=== PATIENT | male | born 1960 ===

== ENCOUNTER 2023-01-04 15:32 | Inpatient (IN) | payer OTHER ==
[~2023-01-04] VITALS: Ht 180.3 cm; Wt 71.7 kg
[2023-01-05 17:30] VITALS: TEMP 98.9
[2023-01-05] MEDS ORDERED: IPRATROPIUM BROMIDE 0.5 MG/2.5 ML NEBU NEB PRN (19:00)
[2023-01-05] MEDS ORDERED: ALBUTEROL SULFATE 2.5 MG/3 ML NEBU NEB PRN (19:00)
[2023-01-05] MEDS ORDERED: CLONIDINE HCL 0.1 MG TABLET GT PRN (19:00)
[2023-01-05] MEDS: IPRATROPIUM BROMIDE 0.5 MG/2.5 ML NEBU NEB SCH (19:27)
[2023-01-05] MEDS: ALBUTEROL SULFATE 2.5 MG/3 ML NEBU NEB SCH (19:27)
[2023-01-05 20:00] VITALS: TEMP 97.9
[2023-01-05] MEDS: VALPROIC ACID 250 MG/5 ML LIQUID UDC GT SCH (21:00)
[2023-01-05] MEDS: CHLORHEXIDINE GLUCONATE 15 ML MOUTHWASH MM SCH (21:00)
[2023-01-05] MEDS ORDERED: JEVITY 1.2 1000 ML LIQUID GT PRN (21:00)
[2023-01-05] MEDS: levETIRAcetam 500 MG/5 ML LIQUID UDC GT SCH (21:00)
[2023-01-05] MEDS: ATORVASTATIN 20 MG TABLET GT SCH (22:16)
[2023-01-06] VITALS: TEMP 99.2
[2023-01-06] MEDS: ALBUTEROL SULFATE 2.5 MG/3 ML NEBU NEB SCH ×4 (01:24→19:24)
[2023-01-06] MEDS: IPRATROPIUM BROMIDE 0.5 MG/2.5 ML NEBU NEB SCH ×4 (01:24→19:24)
[2023-01-06 06:00] VITALS: TEMP 98.8
[2023-01-06 07:33] LABS: ALBUMIN 2.4 g/dL (3.4-5.0); BILIRUBIN,TOTAL 0.2 mg/dL (0.2-1.0); CREATININE 0.7 mg/dL (0.6-1.3); MAGNESIUM 1.9 mg/dL (1.8-2.4); PHOSPHOROUS 5.5 mg/dL (2.5-4.9); POTASSIUM 2.9 mmol/L (3.5-5.1); TOTAL PROTEIN, SERUM 8.3 g/dL (6.4-8.2)
[2023-01-06 07:34] LABS: THYROID STIMULATING HORMONE 4.279 mIU/mL (0.358-3.740)
[2023-01-06 07:52] VITALS: TEMP 98.6
[2023-01-06] MEDS: VALPROIC ACID 250 MG/5 ML LIQUID UDC GT SCH ×2 (08:10→21:55)
[2023-01-06] MEDS: levETIRAcetam 500 MG/5 ML LIQUID UDC GT SCH ×2 (08:13→21:55)
[2023-01-06] MEDS: QUETIAPINE FUMARATE 25 MG TABLET GT SCH ×3 (08:14→17:59)
[2023-01-06] MEDS: MULTIVITAMINS,THERAPEUTIC TABLET GT SCH (08:15)
[2023-01-06] MEDS: CHLORHEXIDINE GLUCONATE 15 ML MOUTHWASH MM SCH ×2 (08:18→21:55)
[2023-01-06] MEDS: ENOXAPARIN SODIUM 40 MG/0.4 ML DISP.SYRIN SQ SCH (08:23)
[2023-01-06] MEDS ORDERED: POTASSIUM CHLORIDE 20 MEQ POWDER PACKET GT ONE ×2 (11:30→13:30)
[2023-01-06 12:02] LABS: BASOPHILS % (AUTO) 0.5 % (0.0-2.0); EOSINOPHILS # (AUTO) 1.2 K/uL (0.0-0.7); EOSINOPHILS % (AUTO) 12.5 % (0.0-7.0); HEMATOCRIT 29.9 % (36.7-47.1); HEMOGLOBIN 9.9 g/dL (12.5-16.3); LYMPHOCYTES # (AUTO) 2.9 K/uL (0.8-4.8); LYMPHOCYTES % (AUTO) 31.6 % (20.5-51.5); MEAN CORPUSCULAR HEMOGLOBIN 29.7 uug (23.8-33.4); MEAN CORPUSCULAR HGB CONC 33 g/dL (32.5-36.3); MEAN CORPUSCULAR VOLUME 90.2 fL (73.0-96.2); MONOCYTES # (AUTO) 0.9 K/uL (0.1-1.30); MONOCYTES % (AUTO) 9.9 % (0.0-11.0); NEUTROPHILS # (AUTO) 4.2 K/uL (1.8-8.9); NEUTROPHILS % (AUTO) 45.5 % (38.5-71.5); PLATELET COUNT (AUTO) 399 K/uL (152-348); RED BLOOD CELL COUNT(AUTO) 3.32 MIL/uL (4.06-5.63); RED CELL DISTRIBUTION WIDTH 15.9 % (12.1-16.2); WHITE BLOOD COUNT (AUTO) 9.3 K/uL (3.6-10.2)
[2023-01-06 12:06] LABS: DIFFERENTIAL COMMENT 1
[2023-01-06] MEDS ORDERED: TUBERCULIN,PURIF.PROT.DERIV. 5 TU/0.1 ML TEST ID ONE (14:00)
[2023-01-06] MEDS: NEOMY/BACITRA/POLYMYXIN B OINT UD PACKET TP SCH ×2 (16:52→21:55)
[2023-01-06 20:00] VITALS: TEMP 99.2
[2023-01-06] MEDS: POLYVINYL ALCOHOL OPHT DROPS 15 ML BOTTLE EACHEYE SCH (21:55)
[2023-01-06] MEDS: ATORVASTATIN 20 MG TABLET GT SCH (21:55)
[2023-01-06] MEDS: COD LIVER OIL/ZINC OXIDE OINT 113 GM TUBE TP SCH (21:55)
[2023-01-06] MEDS: NYSTATIN CREAM 30 GM TUBE TP SCH (21:55)
[2023-01-07] VITALS: TEMP 98.8
[2023-01-07] MEDS: IPRATROPIUM BROMIDE 0.5 MG/2.5 ML NEBU NEB SCH ×4 (01:26→19:30)
[2023-01-07] MEDS: ALBUTEROL SULFATE 2.5 MG/3 ML NEBU NEB SCH ×4 (01:26→19:30)
[2023-01-07 05:00] VITALS: TEMP 99.2
[2023-01-07] MEDS: POLYVINYL ALCOHOL OPHT DROPS 15 ML BOTTLE EACHEYE SCH ×3 (06:18→22:21)
[2023-01-07] MEDS: ENOXAPARIN SODIUM 40 MG/0.4 ML DISP.SYRIN SQ SCH (08:50)
[2023-01-07] MEDS: VALPROIC ACID 250 MG/5 ML LIQUID UDC GT SCH ×2 (08:52→20:56)
[2023-01-07] MEDS: COD LIVER OIL/ZINC OXIDE OINT 113 GM TUBE TP SCH ×2 (08:53→20:57)
[2023-01-07] MEDS: CHLORHEXIDINE GLUCONATE 15 ML MOUTHWASH MM SCH ×2 (08:53→20:56)
[2023-01-07] MEDS: NEOMY/BACITRA/POLYMYXIN B OINT UD PACKET TP SCH ×3 (08:53→20:57)
[2023-01-07] MEDS: QUETIAPINE FUMARATE 25 MG TABLET GT SCH ×3 (08:53→17:11)
[2023-01-07] MEDS: levETIRAcetam 500 MG/5 ML LIQUID UDC GT SCH ×2 (08:53→20:56)
[2023-01-07] MEDS: NYSTATIN CREAM 30 GM TUBE TP SCH ×2 (08:53→20:57)
[2023-01-07] MEDS: MULTIVITAMINS,THERAPEUTIC TABLET GT SCH (08:53)
[2023-01-07 11:12] VITALS: TEMP 98.8
[2023-01-07 12:16] VITALS: BP 135/72; TEMP 98.4; O2SAT 99
[2023-01-07 18:08] VITALS: BP 129/80; TEMP 98.4; O2SAT 99
[2023-01-07 20:21] VITALS: TEMP 98.7
[2023-01-07] MEDS: ATORVASTATIN 20 MG TABLET GT SCH (20:56)
[2023-01-07] MEDS: NORMAL SALINE FLUSH 10 ML DISP.SYRIN IV SCH (21:00)
[2023-01-08] MEDS: IPRATROPIUM BROMIDE 0.5 MG/2.5 ML NEBU NEB SCH ×4 (01:51→19:45)
[2023-01-08] MEDS: ALBUTEROL SULFATE 2.5 MG/3 ML NEBU NEB SCH ×4 (01:51→19:45)
[2023-01-08] MEDS: JEVITY 1.2 1000 ML LIQUID GT PRN ×2 (04:04→21:39)
[2023-01-08] MEDS: POLYVINYL ALCOHOL OPHT DROPS 15 ML BOTTLE EACHEYE SCH ×3 (05:58→21:38)
[2023-01-08] MEDS: NORMAL SALINE FLUSH 10 ML DISP.SYRIN IV SCH (09:00)
[2023-01-08] MEDS: VALPROIC ACID 250 MG/5 ML LIQUID UDC GT SCH ×2 (09:43→21:38)
[2023-01-08] MEDS: QUETIAPINE FUMARATE 25 MG TABLET GT SCH ×3 (09:43→16:17)
[2023-01-08] MEDS: CHLORHEXIDINE GLUCONATE 15 ML MOUTHWASH MM SCH ×2 (09:43→21:38)
[2023-01-08] MEDS: levETIRAcetam 500 MG/5 ML LIQUID UDC GT SCH ×2 (09:43→21:38)
[2023-01-08] MEDS: MULTIVITAMINS,THERAPEUTIC TABLET GT SCH (09:44)
[2023-01-08] MEDS: NYSTATIN CREAM 30 GM TUBE TP SCH ×2 (09:44→21:38)
[2023-01-08] MEDS: NEOMY/BACITRA/POLYMYXIN B OINT UD PACKET TP SCH ×3 (09:44→21:38)
[2023-01-08] MEDS: COD LIVER OIL/ZINC OXIDE OINT 113 GM TUBE TP SCH ×2 (09:44→21:38)
[2023-01-08] MEDS: ENOXAPARIN SODIUM 40 MG/0.4 ML DISP.SYRIN SQ SCH (09:46)
[2023-01-08 11:10] VITALS: TEMP 98
[2023-01-08] MEDS: ACETAMINOPHEN 650 MG/20 ML UDC- SA PATIENTS-PAIN ONLY GT PRN (15:36)
[2023-01-08 17:18] VITALS: TEMP 98.8
[2023-01-08 20:31] VITALS: TEMP 99
[2023-01-08] MEDS: ATORVASTATIN 20 MG TABLET GT SCH (21:38)
[2023-01-09] MEDS: ALBUTEROL SULFATE 2.5 MG/3 ML NEBU NEB SCH ×4 (01:25→19:40)
[2023-01-09] MEDS: IPRATROPIUM BROMIDE 0.5 MG/2.5 ML NEBU NEB SCH ×4 (01:25→19:40)
[2023-01-09] MEDS: OXYCODONE HCL 5 MG TABLET GT PRN (03:50)
[2023-01-09] MEDS: POLYVINYL ALCOHOL OPHT DROPS 15 ML BOTTLE EACHEYE SCH ×3 (05:55→21:46)
[2023-01-09 08:00] VITALS: TEMP 100.4
[2023-01-09] MEDS: levETIRAcetam 500 MG/5 ML LIQUID UDC GT SCH ×2 (08:16→21:45)
[2023-01-09] MEDS: MULTIVITAMINS,THERAPEUTIC TABLET GT SCH (08:16)
[2023-01-09] MEDS: VALPROIC ACID 250 MG/5 ML LIQUID UDC GT SCH ×2 (08:16→21:45)
[2023-01-09] MEDS: QUETIAPINE FUMARATE 25 MG TABLET GT SCH ×3 (08:16→17:12)
[2023-01-09] MEDS: CHLORHEXIDINE GLUCONATE 15 ML MOUTHWASH MM SCH ×2 (08:17→21:45)
[2023-01-09] MEDS: ENOXAPARIN SODIUM 40 MG/0.4 ML DISP.SYRIN SQ SCH (08:18)
[2023-01-09] MEDS: NYSTATIN CREAM 30 GM TUBE TP SCH ×2 (08:20→21:46)
[2023-01-09] MEDS: COD LIVER OIL/ZINC OXIDE OINT 113 GM TUBE TP SCH ×2 (08:20→21:46)
[2023-01-09] MEDS: NEOMY/BACITRA/POLYMYXIN B OINT UD PACKET TP SCH ×3 (08:21→21:46)
[2023-01-09] MEDS: ACETAMINOPHEN 650 MG/20 ML UDC- SA PATIENTS-PAIN ONLY GT PRN (13:30)
[2023-01-09 13:43] VITALS: TEMP 98.9
[2023-01-09] MEDS: JEVITY 1.2 1000 ML LIQUID GT PRN (14:07)
[2023-01-09 16:15] LABS: *BILIRUBIN,URIN NEGATIVE (NEGATIVE); *BLOOD, URINE NEGATIVE (NEGATIVE); *CLARITY,URINE CLEAR (CLEAR); *COLOR,URINE YELLOW (YELLOW); *KETONES,URINE NEGATIVE (NEGATIVE); *PROTEIN,URINE NEGATIVE (NEGATIVE); *UROBILINOGEN,URINE 0.2 E.U./dl (NORMAL); LEUKOCYTE ESTERASE ,URINE NEGATIVE (NEGATIVE); NITRITE, URINE NEGATIVE (NEGATIVE); PH,URINE 6.5 (5.0-8.0); UGLUCOSE NEGATIVE (NEGATIVE)
[2023-01-09 18:59] VITALS: TEMP 98.9
[2023-01-09 20:35] VITALS: TEMP 98.1
[2023-01-09] MEDS: ATORVASTATIN 20 MG TABLET GT SCH (21:45)
[2023-01-10] MEDS: IPRATROPIUM BROMIDE 0.5 MG/2.5 ML NEBU NEB SCH ×5 (01:58→19:30)
[2023-01-10] MEDS: ALBUTEROL SULFATE 2.5 MG/3 ML NEBU NEB SCH ×4 (01:58→19:30)
[2023-01-10] MEDS: POLYVINYL ALCOHOL OPHT DROPS 15 ML BOTTLE EACHEYE SCH ×3 (05:19→21:28)
[2023-01-10 06:29] LABS: BASOPHILS % (AUTO) 0.3 % (0.0-2.0); EOSINOPHILS # (AUTO) 0.4 K/uL (0.0-0.7); EOSINOPHILS % (AUTO) 2.4 % (0.0-7.0); HEMATOCRIT 29.2 % (36.7-47.1); HEMOGLOBIN 9.6 g/dL (12.5-16.3); LYMPHOCYTES # (AUTO) 3.4 K/uL (0.8-4.8); LYMPHOCYTES % (AUTO) 19.3 % (20.5-51.5); MEAN CORPUSCULAR HEMOGLOBIN 29.1 uug (23.8-33.4); MEAN CORPUSCULAR HGB CONC 33 g/dL (32.5-36.3); MEAN CORPUSCULAR VOLUME 88.8 fL (73.0-96.2); MONOCYTES # (AUTO) 0.8 K/uL (0.1-1.30); MONOCYTES % (AUTO) 4.7 % (0.0-11.0); NEUTROPHILS % (AUTO) 73.3 % (38.5-71.5); PLATELET COUNT (AUTO) 385 K/uL (152-348); RED BLOOD CELL COUNT(AUTO) 3.29 MIL/uL (4.06-5.63); RED CELL DISTRIBUTION WIDTH 15.5 % (12.1-16.2); WHITE BLOOD COUNT (AUTO) 17.7 K/uL (3.6-10.2)
[2023-01-10 06:43] LABS: DIFFERENTIAL COMMENT 1
[2023-01-10 06:57] LABS: ALANINE AMINOTRANSFERASE 23 U/L (16-63); ALBUMIN 2.3 g/dL (3.4-5.0); ALKALINE PHOSPHATASE 122 U/L (50-136); ASPARTATE AMINOTRANSFERASE 48 U/L (15-37); BILIRUBIN,TOTAL 0.3 mg/dL (0.2-1.0); CALCIUM 9.4 mg/dL (8.5-10.1); CARBON DIOXIDE 26 mmol/L (21-32); CHLORIDE 111 mmol/L (98-107); CREATININE 0.5 mg/dL (0.6-1.3); GLUCOSE 132 mg/dL (74-106); POTASSIUM 3.4 mmol/L (3.5-5.1); SODIUM SERUM 147 mmol/L (136-145); TOTAL PROTEIN, SERUM 8.4 g/dL (6.4-8.2); UREA NITROGEN, BLOOD 13 mg/dL (7-18)
[2023-01-10 07:40] VITALS: TEMP 100.3
[2023-01-10] MEDS: MULTIVITAMINS,THERAPEUTIC TABLET GT SCH (08:27)
[2023-01-10] MEDS: QUETIAPINE FUMARATE 25 MG TABLET GT SCH ×3 (08:27→17:31)
[2023-01-10] MEDS: CHLORHEXIDINE GLUCONATE 15 ML MOUTHWASH MM SCH ×2 (08:27→21:28)
[2023-01-10] MEDS: VALPROIC ACID 250 MG/5 ML LIQUID UDC GT SCH ×2 (08:27→21:27)
[2023-01-10] MEDS: levETIRAcetam 500 MG/5 ML LIQUID UDC GT SCH ×2 (08:27→21:27)
[2023-01-10] MEDS: NEOMY/BACITRA/POLYMYXIN B OINT UD PACKET TP SCH ×3 (08:28→21:28)
[2023-01-10] MEDS: COD LIVER OIL/ZINC OXIDE OINT 113 GM TUBE TP SCH ×2 (08:28→21:28)
[2023-01-10] MEDS: NYSTATIN CREAM 30 GM TUBE TP SCH ×2 (08:28→21:28)
[2023-01-10] MEDS: ENOXAPARIN SODIUM 40 MG/0.4 ML DISP.SYRIN SQ SCH (08:31)
[2023-01-10] MEDS ORDERED: POTASSIUM CHLORIDE 20 MEQ POWDER PACKET GT ONE (15:00)
[2023-01-10] MEDS: TRIAMCINOLONE 0.1% OINTMENT TOP SCH (17:31)
[2023-01-10] MEDS: CEFEPIME HCL 2 G in IV DEXTROSE 5% 100 ML IV SCH (18:49)
[2023-01-10 20:00] VITALS: TEMP 98.9
[2023-01-10] MEDS ORDERED: CEFEPIME HCL 2 G in IV DEXTROSE 5% 100 ML IV SCH (20:00)
[2023-01-10] MEDS: VANCOMYCIN IV 1,000 MG in IV DEXTROSE 5% 250 ML IV SCH (20:46)
[2023-01-10] MEDS: ATORVASTATIN 20 MG TABLET GT SCH (21:27)
[2023-01-11] MEDS: IPRATROPIUM BROMIDE 0.5 MG/2.5 ML NEBU NEB SCH ×4 (01:23→19:25)
[2023-01-11] MEDS: ALBUTEROL SULFATE 2.5 MG/3 ML NEBU NEB SCH ×4 (01:23→19:25)
[2023-01-11] MEDS: VANCOMYCIN IV 1,000 MG in IV DEXTROSE 5% 250 ML IV SCH ×3 (03:33→20:20)
[2023-01-11] MEDS: POLYVINYL ALCOHOL OPHT DROPS 15 ML BOTTLE EACHEYE SCH ×3 (05:43→22:37)
[2023-01-11] MEDS: CEFEPIME HCL 2 G in IV DEXTROSE 5% 100 ML IV SCH ×2 (05:52→18:37)
[2023-01-11 08:00] VITALS: TEMP 99.7
[2023-01-11 08:30] VITALS: TEMP 99.9
[2023-01-11] MEDS: VALPROIC ACID 250 MG/5 ML LIQUID UDC GT SCH ×2 (09:11→20:46)
[2023-01-11] MEDS: levETIRAcetam 500 MG/5 ML LIQUID UDC GT SCH ×2 (09:11→20:46)
[2023-01-11] MEDS: MULTIVITAMINS,THERAPEUTIC TABLET GT SCH (09:14)
[2023-01-11] MEDS: ENOXAPARIN SODIUM 40 MG/0.4 ML DISP.SYRIN SQ SCH (09:14)
[2023-01-11] MEDS: CHLORHEXIDINE GLUCONATE 15 ML MOUTHWASH MM SCH ×2 (09:14→20:46)
[2023-01-11] MEDS: QUETIAPINE FUMARATE 25 MG TABLET GT SCH ×3 (09:14→17:59)
[2023-01-11] MEDS: NEOMY/BACITRA/POLYMYXIN B OINT UD PACKET TP SCH ×3 (09:15→20:47)
[2023-01-11] MEDS: NYSTATIN CREAM 30 GM TUBE TP SCH ×2 (09:15→20:47)
[2023-01-11] MEDS: COD LIVER OIL/ZINC OXIDE OINT 113 GM TUBE TP SCH ×2 (09:15→20:47)
[2023-01-11] MEDS: TRIAMCINOLONE 0.1% OINTMENT TOP SCH ×2 (09:15→17:59)
[2023-01-11] MEDS ORDERED: SWABABLE VALVE TRANSFER SET EA MC ONE (09:54)
[2023-01-11] MEDS ORDERED: IV NORMAL SALINE 250 ML IV ONE (09:54)
[2023-01-11] MEDS ORDERED: IOHEXOL 300MG/ML 100 ML INFUS..BTL ONE (09:54)
[2023-01-11] MEDS: JEVITY 1.2 1000 ML LIQUID GT PRN (11:37)
[2023-01-11 12:30] VITALS: TEMP 99.6
[2023-01-11 16:30] VITALS: TEMP 99.5
[2023-01-11 20:00] VITALS: TEMP 98.6
[2023-01-11] MEDS: OXYCODONE HCL 5 MG TABLET GT PRN (20:00)
[2023-01-11] MEDS: ATORVASTATIN 20 MG TABLET GT SCH (20:46)
[2023-01-12] MEDS: IPRATROPIUM BROMIDE 0.5 MG/2.5 ML NEBU NEB SCH ×4 (01:47→19:10)
[2023-01-12] MEDS: ALBUTEROL SULFATE 2.5 MG/3 ML NEBU NEB SCH ×4 (01:47→19:10)
[2023-01-12] MEDS: JEVITY 1.2 1000 ML LIQUID GT PRN (01:59)
[2023-01-12] MEDS: VANCOMYCIN IV 1,000 MG in IV DEXTROSE 5% 250 ML IV SCH ×3 (04:47→20:00)
[2023-01-12] MEDS: POLYVINYL ALCOHOL OPHT DROPS 15 ML BOTTLE EACHEYE SCH ×3 (05:43→22:00)
[2023-01-12] MEDS: CEFEPIME HCL 2 G in IV DEXTROSE 5% 100 ML IV SCH ×2 (06:23→17:30)
[2023-01-12 08:00] VITALS: TEMP 98.2
[2023-01-12] MEDS: levETIRAcetam 500 MG/5 ML LIQUID UDC GT SCH ×2 (08:59→20:33)
[2023-01-12] MEDS: VALPROIC ACID 250 MG/5 ML LIQUID UDC GT SCH ×2 (08:59→20:33)
[2023-01-12] MEDS: QUETIAPINE FUMARATE 25 MG TABLET GT SCH ×3 (08:59→17:51)
[2023-01-12] MEDS: MULTIVITAMINS,THERAPEUTIC TABLET GT SCH (09:02)
[2023-01-12] MEDS: CHLORHEXIDINE GLUCONATE 15 ML MOUTHWASH MM SCH ×2 (09:02→20:34)
[2023-01-12] MEDS: TRIAMCINOLONE 0.1% OINTMENT TOP SCH ×2 (09:03→17:51)
[2023-01-12] MEDS: COD LIVER OIL/ZINC OXIDE OINT 113 GM TUBE TP SCH ×2 (09:03→20:38)
[2023-01-12] MEDS: NYSTATIN CREAM 30 GM TUBE TP SCH ×2 (09:03→20:38)
[2023-01-12] MEDS: ENOXAPARIN SODIUM 40 MG/0.4 ML DISP.SYRIN SQ SCH (09:03)
[2023-01-12] MEDS: NEOMY/BACITRA/POLYMYXIN B OINT UD PACKET TP SCH ×3 (09:04→20:38)
[2023-01-12 20:00] VITALS: TEMP 99.8
[2023-01-12] MEDS: ATORVASTATIN 20 MG TABLET GT SCH (20:33)
[2023-01-12 22:00] VITALS: TEMP 98.7
[2023-01-13 01:00] VITALS: TEMP 98.3
[2023-01-13] MEDS: IPRATROPIUM BROMIDE 0.5 MG/2.5 ML NEBU NEB SCH ×4 (01:35→19:12)
[2023-01-13] MEDS: ALBUTEROL SULFATE 2.5 MG/3 ML NEBU NEB SCH ×4 (01:35→19:12)
[2023-01-13] MEDS: VANCOMYCIN IV 1,000 MG in IV DEXTROSE 5% 250 ML IV SCH (04:00)
[2023-01-13] MEDS: POLYVINYL ALCOHOL OPHT DROPS 15 ML BOTTLE EACHEYE SCH ×2 (05:40→14:37)
[2023-01-13] MEDS: CEFEPIME HCL 2 G in IV DEXTROSE 5% 100 ML IV SCH ×3 (06:00→22:00)
[2023-01-13 06:15] VITALS: TEMP 98.1
[2023-01-13 06:24] LABS: BASOPHILS # (AUTO) 0.1 K/UL (0.0-0.2); BASOPHILS % (AUTO) 0.5 % (0.0-2.0); EOSINOPHILS # (AUTO) 0.5 K/uL (0.0-0.7); EOSINOPHILS % (AUTO) 3.7 % (0.0-7.0); HEMATOCRIT 26.3 % (36.7-47.1); HEMOGLOBIN 8.8 g/dL (12.5-16.3); LYMPHOCYTES # (AUTO) 2.8 K/uL (0.8-4.8); LYMPHOCYTES % (AUTO) 23.3 % (20.5-51.5); MEAN CORPUSCULAR HEMOGLOBIN 29.2 uug (23.8-33.4); MEAN CORPUSCULAR HGB CONC 33 g/dL (32.5-36.3); MEAN CORPUSCULAR VOLUME 87.6 fL (73.0-96.2); MONOCYTES # (AUTO) 0.8 K/uL (0.1-1.30); MONOCYTES % (AUTO) 6.3 % (0.0-11.0); NEUTROPHILS # (AUTO) 8.1 K/uL (1.8-8.9); NEUTROPHILS % (AUTO) 66.2 % (38.5-71.5); PLATELET COUNT (AUTO) 291 K/uL (152-348); RED CELL DISTRIBUTION WIDTH 15.5 % (12.1-16.2); WHITE BLOOD COUNT (AUTO) 12.2 K/uL (3.6-10.2)
[2023-01-13 06:45] LABS: ALANINE AMINOTRANSFERASE 18 U/L (16-63); ALKALINE PHOSPHATASE 113 U/L (50-136); ASPARTATE AMINOTRANSFERASE 52 U/L (15-37); BILIRUBIN,TOTAL 0.3 mg/dL (0.2-1.0); CARBON DIOXIDE 25 mmol/L (21-32); CHLORIDE 108 mmol/L (98-107); CREATININE 0.4 mg/dL (0.6-1.3); GLUCOSE 120 mg/dL (74-106); POTASSIUM 3.4 mmol/L (3.5-5.1); SODIUM SERUM 142 mmol/L (136-145); TOTAL PROTEIN, SERUM 7.8 g/dL (6.4-8.2); UREA NITROGEN, BLOOD 10 mg/dL (7-18)
[2023-01-13 06:46] LABS: DIFFERENTIAL COMMENT 1
[2023-01-13 08:06] VITALS: TEMP 98.7
[2023-01-13] MEDS: QUETIAPINE FUMARATE 25 MG TABLET GT SCH ×3 (09:26→17:57)
[2023-01-13] MEDS: levETIRAcetam 500 MG/5 ML LIQUID UDC GT SCH ×2 (09:28→21:00)
[2023-01-13] MEDS: NEOMY/BACITRA/POLYMYXIN B OINT UD PACKET TP SCH ×3 (09:29→21:00)
[2023-01-13] MEDS: VALPROIC ACID 250 MG/5 ML LIQUID UDC GT SCH ×2 (09:29→21:00)
[2023-01-13] MEDS: CHLORHEXIDINE GLUCONATE 15 ML MOUTHWASH MM SCH ×2 (09:30→21:00)
[2023-01-13] MEDS: COD LIVER OIL/ZINC OXIDE OINT 113 GM TUBE TP SCH ×2 (09:30→21:00)
[2023-01-13] MEDS: TRIAMCINOLONE 0.1% OINTMENT TOP SCH ×2 (09:30→17:57)
[2023-01-13] MEDS: NYSTATIN CREAM 30 GM TUBE TP SCH ×2 (09:30→21:00)
[2023-01-13] MEDS: MULTIVITAMINS,THERAPEUTIC TABLET GT SCH (09:35)
[2023-01-13] MEDS: ENOXAPARIN SODIUM 40 MG/0.4 ML DISP.SYRIN SQ SCH (09:38)
[2023-01-13] MEDS ORDERED: POTASSIUM CHLORIDE 10 MEQ TAB.PRT.SR XX SCH (12:00)
[2023-01-13] MEDS ORDERED: POTASSIUM CHLORIDE 20 MEQ POWDER PACKET GT ONE (12:00)
[2023-01-13] MEDS ORDERED: POLYVINYL ALCOHOL OPHT DROPS 15 ML BOTTLE EACHEYE PRN (14:05)
[2023-01-13] MEDS: JEVITY 1.2 1000 ML LIQUID GT PRN (18:49)
[2023-01-13] MEDS: ATORVASTATIN 20 MG TABLET GT SCH (21:00)
[2023-01-13 21:01] VITALS: TEMP 98
[2023-01-14] MEDS: IPRATROPIUM BROMIDE 0.5 MG/2.5 ML NEBU NEB SCH ×4 (01:31→19:38)
[2023-01-14] MEDS: ALBUTEROL SULFATE 2.5 MG/3 ML NEBU NEB SCH ×4 (01:31→19:38)
[2023-01-14] MEDS: CEFEPIME HCL 2 G in IV DEXTROSE 5% 100 ML IV SCH ×3 (06:07→21:22)
[2023-01-14 08:06] VITALS: TEMP 99.9
[2023-01-14] MEDS: VALPROIC ACID 250 MG/5 ML LIQUID UDC GT SCH ×2 (09:32→21:11)
[2023-01-14] MEDS: levETIRAcetam 500 MG/5 ML LIQUID UDC GT SCH ×2 (09:34→21:11)
[2023-01-14] MEDS: QUETIAPINE FUMARATE 25 MG TABLET GT SCH ×3 (09:34→16:48)
[2023-01-14] MEDS: MULTIVITAMINS,THERAPEUTIC TABLET GT SCH (09:36)
[2023-01-14] MEDS: CHLORHEXIDINE GLUCONATE 15 ML MOUTHWASH MM SCH ×2 (09:36→21:11)
[2023-01-14] MEDS: ENOXAPARIN SODIUM 40 MG/0.4 ML DISP.SYRIN SQ SCH (09:39)
[2023-01-14] MEDS: TRIAMCINOLONE 0.1% OINTMENT TOP SCH ×2 (09:39→16:48)
[2023-01-14] MEDS: COD LIVER OIL/ZINC OXIDE OINT 113 GM TUBE TP SCH ×2 (09:39→21:11)
[2023-01-14] MEDS: NEOMY/BACITRA/POLYMYXIN B OINT UD PACKET TP SCH ×3 (09:40→21:12)
[2023-01-14] MEDS: NYSTATIN CREAM 30 GM TUBE TP SCH ×2 (09:40→21:11)
[2023-01-14] MEDS: JEVITY 1.2 1000 ML LIQUID GT PRN (10:45)
[2023-01-14 20:00] VITALS: TEMP 99.4
[2023-01-14] MEDS: ATORVASTATIN 20 MG TABLET GT SCH (21:11)
[2023-01-14] MEDS: OXYCODONE HCL 5 MG TABLET GT PRN (22:23)
[2023-01-15] MEDS: IPRATROPIUM BROMIDE 0.5 MG/2.5 ML NEBU NEB SCH ×4 (01:27→19:40)
[2023-01-15] MEDS: ALBUTEROL SULFATE 2.5 MG/3 ML NEBU NEB SCH ×4 (01:27→19:40)
[2023-01-15] MEDS: CEFEPIME HCL 2 G in IV DEXTROSE 5% 100 ML IV SCH ×3 (06:28→22:44)
[2023-01-15 07:43] VITALS: TEMP 99.8
[2023-01-15] MEDS: CHLORHEXIDINE GLUCONATE 15 ML MOUTHWASH MM SCH ×2 (10:00→21:13)
[2023-01-15] MEDS: VALPROIC ACID 250 MG/5 ML LIQUID UDC GT SCH ×2 (10:00→21:10)
[2023-01-15] MEDS: QUETIAPINE FUMARATE 25 MG TABLET GT SCH ×3 (10:00→17:58)
[2023-01-15] MEDS: COD LIVER OIL/ZINC OXIDE OINT 113 GM TUBE TP SCH ×3 (10:00→21:13)
[2023-01-15] MEDS: TRIAMCINOLONE 0.1% OINTMENT TOP SCH ×2 (10:00→17:58)
[2023-01-15] MEDS: NYSTATIN CREAM 30 GM TUBE TP SCH ×2 (10:00→21:13)
[2023-01-15] MEDS: ENOXAPARIN SODIUM 40 MG/0.4 ML DISP.SYRIN SQ SCH (10:00)
[2023-01-15] MEDS: MULTIVITAMINS,THERAPEUTIC TABLET GT SCH (10:00)
[2023-01-15] MEDS: NEOMY/BACITRA/POLYMYXIN B OINT UD PACKET TP SCH ×3 (10:00→21:13)
[2023-01-15] MEDS: levETIRAcetam 500 MG/5 ML LIQUID UDC GT SCH ×2 (10:00→21:12)
[2023-01-15 20:11] VITALS: TEMP 99.8
[2023-01-15] MEDS: ATORVASTATIN 20 MG TABLET GT SCH (21:12)
[2023-01-16] MEDS: ALBUTEROL SULFATE 2.5 MG/3 ML NEBU NEB SCH ×4 (01:40→19:15)
[2023-01-16] MEDS: IPRATROPIUM BROMIDE 0.5 MG/2.5 ML NEBU NEB SCH ×4 (01:40→19:15)
[2023-01-16] MEDS: CEFEPIME HCL 2 G in IV DEXTROSE 5% 100 ML IV SCH ×3 (06:08→22:00)
[2023-01-16] MEDS: levETIRAcetam 500 MG/5 ML LIQUID UDC GT SCH ×2 (09:04→21:58)
[2023-01-16] MEDS: NYSTATIN CREAM 30 GM TUBE TP SCH ×2 (09:04→21:00)
[2023-01-16] MEDS: TRIAMCINOLONE 0.1% OINTMENT TOP SCH ×2 (09:04→16:34)
[2023-01-16] MEDS: CHLORHEXIDINE GLUCONATE 15 ML MOUTHWASH MM SCH ×2 (09:04→21:59)
[2023-01-16] MEDS: COD LIVER OIL/ZINC OXIDE OINT 113 GM TUBE TP SCH ×4 (09:04→22:00)
[2023-01-16] MEDS: MULTIVITAMINS,THERAPEUTIC TABLET GT SCH (09:04)
[2023-01-16] MEDS: QUETIAPINE FUMARATE 25 MG TABLET GT SCH ×3 (09:04→16:33)
[2023-01-16] MEDS: VALPROIC ACID 250 MG/5 ML LIQUID UDC GT SCH ×2 (09:04→21:58)
[2023-01-16] MEDS: NEOMY/BACITRA/POLYMYXIN B OINT UD PACKET TP SCH ×3 (09:05→21:00)
[2023-01-16] MEDS: ENOXAPARIN SODIUM 40 MG/0.4 ML DISP.SYRIN SQ SCH (09:05)
[2023-01-16 09:30] VITALS: TEMP 99.8
[2023-01-16 21:00] VITALS: TEMP 99.4
[2023-01-16] MEDS: ATORVASTATIN 20 MG TABLET GT SCH (21:00)
[2023-01-17] MEDS: OXYCODONE HCL 5 MG TABLET GT PRN ×2 (00:50→12:09)
[2023-01-17] MEDS: ALBUTEROL SULFATE 2.5 MG/3 ML NEBU NEB SCH ×4 (02:23→20:00)
[2023-01-17] MEDS: IPRATROPIUM BROMIDE 0.5 MG/2.5 ML NEBU NEB SCH ×4 (02:23→20:00)
[2023-01-17] MEDS: CEFEPIME HCL 2 G in IV DEXTROSE 5% 100 ML IV SCH ×3 (05:08→22:37)
[2023-01-17] MEDS: NEOMY/BACITRA/POLYMYXIN B OINT UD PACKET TP SCH ×3 (09:00→21:45)
[2023-01-17] MEDS: QUETIAPINE FUMARATE 25 MG TABLET GT SCH ×3 (09:00→17:28)
[2023-01-17] MEDS: NYSTATIN CREAM 30 GM TUBE TP SCH ×2 (09:00→21:45)
[2023-01-17] MEDS: COD LIVER OIL/ZINC OXIDE OINT 113 GM TUBE TP SCH ×4 (09:00→21:45)
[2023-01-17] MEDS: VALPROIC ACID 250 MG/5 ML LIQUID UDC GT SCH ×2 (09:00→21:43)
[2023-01-17] MEDS: MULTIVITAMINS,THERAPEUTIC TABLET GT SCH (09:00)
[2023-01-17] MEDS: levETIRAcetam 500 MG/5 ML LIQUID UDC GT SCH ×2 (09:00→21:44)
[2023-01-17] MEDS: ENOXAPARIN SODIUM 40 MG/0.4 ML DISP.SYRIN SQ SCH (09:00)
[2023-01-17] MEDS: CHLORHEXIDINE GLUCONATE 15 ML MOUTHWASH MM SCH ×2 (09:00→21:45)
[2023-01-17] MEDS: TRIAMCINOLONE 0.1% OINTMENT TOP SCH ×2 (09:00→17:29)
[2023-01-17 11:21] VITALS: TEMP 99.3
[2023-01-17 20:00] VITALS: TEMP 100.2
[2023-01-17] MEDS: ATORVASTATIN 20 MG TABLET GT SCH (21:44)
[2023-01-17] MEDS: JEVITY 1.2 1000 ML LIQUID GT PRN (22:00)
[2023-01-18] VITALS: TEMP 98.8
[2023-01-18] MEDS: ALBUTEROL SULFATE 2.5 MG/3 ML NEBU NEB SCH ×4 (01:58→19:58)
[2023-01-18] MEDS: IPRATROPIUM BROMIDE 0.5 MG/2.5 ML NEBU NEB SCH ×4 (01:58→19:58)
[2023-01-18] MEDS: OXYCODONE HCL 5 MG TABLET GT PRN (02:28)
[2023-01-18 04:00] VITALS: TEMP 98.5
[2023-01-18] MEDS: CEFEPIME HCL 2 G in IV DEXTROSE 5% 100 ML IV SCH ×3 (05:10→21:53)
[2023-01-18 06:52] LABS: BASOPHILS # (AUTO) 0.1 K/UL (0.0-0.2); BASOPHILS % (AUTO) 0.6 % (0.0-2.0); EOSINOPHILS # (AUTO) 0.5 K/uL (0.0-0.7); EOSINOPHILS % (AUTO) 6.6 % (0.0-7.0); HEMATOCRIT 25.2 % (36.7-47.1); HEMOGLOBIN 8.5 g/dL (12.5-16.3); LYMPHOCYTES # (AUTO) 2.6 K/uL (0.8-4.8); LYMPHOCYTES % (AUTO) 30.8 % (20.5-51.5); MEAN CORPUSCULAR HEMOGLOBIN 29.6 uug (23.8-33.4); MEAN CORPUSCULAR HGB CONC 34 g/dL (32.5-36.3); MEAN CORPUSCULAR VOLUME 87.5 fL (73.0-96.2); MONOCYTES % (AUTO) 11.9 % (0.0-11.0); NEUTROPHILS # (AUTO) 4.2 K/uL (1.8-8.9); NEUTROPHILS % (AUTO) 50.1 % (38.5-71.5); PLATELET COUNT (AUTO) 250 K/uL (152-348); RED BLOOD CELL COUNT(AUTO) 2.88 MIL/uL (4.06-5.63); RED CELL DISTRIBUTION WIDTH 15.6 % (12.1-16.2); WHITE BLOOD COUNT (AUTO) 8.4 K/uL (3.6-10.2)
[2023-01-18 07:04] LABS: DIFFERENTIAL COMMENT 1
[2023-01-18 07:13] LABS: CALCIUM 9.3 mg/dL (8.5-10.1); CARBON DIOXIDE 28 mmol/L (21-32); CHLORIDE 105 mmol/L (98-107); CREATININE 0.4 mg/dL (0.6-1.3); GLUCOSE 148 mg/dL (74-106); POTASSIUM 3.9 mmol/L (3.5-5.1); SODIUM SERUM 141 mmol/L (136-145); UREA NITROGEN, BLOOD 11 mg/dL (7-18)
[2023-01-18 08:00] VITALS: TEMP 99.3
[2023-01-18] MEDS: MULTIVITAMINS,THERAPEUTIC TABLET GT SCH (08:58)
[2023-01-18] MEDS: VALPROIC ACID 250 MG/5 ML LIQUID UDC GT SCH ×2 (08:58→21:38)
[2023-01-18] MEDS: TRIAMCINOLONE 0.1% OINTMENT TOP SCH ×2 (08:58→16:23)
[2023-01-18] MEDS: ENOXAPARIN SODIUM 40 MG/0.4 ML DISP.SYRIN SQ SCH (08:58)
[2023-01-18] MEDS: CHLORHEXIDINE GLUCONATE 15 ML MOUTHWASH MM SCH ×2 (08:58→21:40)
[2023-01-18] MEDS: levETIRAcetam 500 MG/5 ML LIQUID UDC GT SCH ×2 (08:58→21:39)
[2023-01-18] MEDS: QUETIAPINE FUMARATE 25 MG TABLET GT SCH ×3 (08:58→16:23)
[2023-01-18] MEDS: NYSTATIN CREAM 30 GM TUBE TP SCH ×2 (08:59→21:40)
[2023-01-18] MEDS: COD LIVER OIL/ZINC OXIDE OINT 113 GM TUBE TP SCH ×4 (08:59→21:40)
[2023-01-18] MEDS: NEOMY/BACITRA/POLYMYXIN B OINT UD PACKET TP SCH ×3 (08:59→21:40)
[2023-01-18 20:08] VITALS: TEMP 98.7
[2023-01-18] MEDS: ATORVASTATIN 20 MG TABLET GT SCH (21:39)
[2023-01-19] MEDS: ALBUTEROL SULFATE 2.5 MG/3 ML NEBU NEB SCH ×4 (01:32→18:41)
[2023-01-19] MEDS: IPRATROPIUM BROMIDE 0.5 MG/2.5 ML NEBU NEB SCH ×4 (01:32→18:41)
[2023-01-19] MEDS: JEVITY 1.2 1000 ML LIQUID GT PRN (03:07)
[2023-01-19] MEDS: CEFEPIME HCL 2 G in IV DEXTROSE 5% 100 ML IV SCH ×3 (04:52→22:00)
[2023-01-19 08:00] VITALS: TEMP 101.1
[2023-01-19] MEDS: NYSTATIN CREAM 30 GM TUBE TP SCH ×2 (09:00→21:00)
[2023-01-19] MEDS: ENOXAPARIN SODIUM 40 MG/0.4 ML DISP.SYRIN SQ SCH (09:00)
[2023-01-19] MEDS: VALPROIC ACID 250 MG/5 ML LIQUID UDC GT SCH ×2 (09:00→21:00)
[2023-01-19] MEDS: COD LIVER OIL/ZINC OXIDE OINT 113 GM TUBE TP SCH ×4 (09:00→21:00)
[2023-01-19] MEDS: CHLORHEXIDINE GLUCONATE 15 ML MOUTHWASH MM SCH ×2 (09:00→21:00)
[2023-01-19] MEDS: TRIAMCINOLONE 0.1% OINTMENT TOP SCH ×2 (09:00→16:52)
[2023-01-19] MEDS: levETIRAcetam 500 MG/5 ML LIQUID UDC GT SCH ×2 (09:00→21:00)
[2023-01-19] MEDS: NEOMY/BACITRA/POLYMYXIN B OINT UD PACKET TP SCH ×3 (09:00→21:00)
[2023-01-19] MEDS: QUETIAPINE FUMARATE 25 MG TABLET GT SCH ×3 (09:00→16:52)
[2023-01-19] MEDS: MULTIVITAMINS,THERAPEUTIC TABLET GT SCH (09:00)
[2023-01-19] MEDS: ACETAMINOPHEN 650 MG/20 ML UDC- SA PATIENTS-FEVER ONLY GT PRN (10:41)
[2023-01-19 11:18] LABS: BASOPHILS # (AUTO) 0.1 K/UL (0.0-0.2); BASOPHILS % (AUTO) 0.5 % (0.0-2.0); DIFFERENTIAL COMMENT 0; EOSINOPHILS # (AUTO) 0.5 K/uL (0.0-0.7); EOSINOPHILS % (AUTO) 2.7 % (0.0-7.0); HEMATOCRIT 26.7 % (36.7-47.1); HEMOGLOBIN 8.9 g/dL (12.5-16.3); LYMPHOCYTES # (AUTO) 3.8 K/uL (0.8-4.8); LYMPHOCYTES % (AUTO) 20.2 % (20.5-51.5); MEAN CORPUSCULAR HEMOGLOBIN 28.8 uug (23.8-33.4); MEAN CORPUSCULAR HGB CONC 33 g/dL (32.5-36.3); MEAN CORPUSCULAR VOLUME 86.3 fL (73.0-96.2); MONOCYTES # (AUTO) 1.2 K/uL (0.1-1.30); MONOCYTES % (AUTO) 6.4 % (0.0-11.0); NEUTROPHILS # (AUTO) 13.4 K/uL (1.8-8.9); NEUTROPHILS % (AUTO) 70.2 % (38.5-71.5); PLATELET COUNT (AUTO) 282 K/uL (152-348); RED BLOOD CELL COUNT(AUTO) 3.09 MIL/uL (4.06-5.63); RED CELL DISTRIBUTION WIDTH 15.5 % (12.1-16.2)
[2023-01-19 11:22] LABS: *BILIRUBIN,URIN NEGATIVE (NEGATIVE); *BLOOD, URINE NEGATIVE (NEGATIVE); *COLOR,URINE YELLOW (YELLOW); *KETONES,URINE NEGATIVE (NEGATIVE); *PROTEIN,URINE 1+ (NEGATIVE); *UROBILINOGEN,URINE 0.2 E.U./dl (NORMAL); LEUKOCYTE ESTERASE ,URINE NEGATIVE (NEGATIVE); NITRITE, URINE NEGATIVE (NEGATIVE); PH,URINE 7.5 (5.0-8.0); UGLUCOSE NEGATIVE (NEGATIVE)
[2023-01-19 11:22] LABS: ALANINE AMINOTRANSFERASE 16 U/L (16-63); ALBUMIN 2.2 g/dL (3.4-5.0); ALKALINE PHOSPHATASE 139 U/L (50-136); ASPARTATE AMINOTRANSFERASE 34 U/L (15-37); BILIRUBIN,TOTAL 0.3 mg/dL (0.2-1.0); CALCIUM 9.7 mg/dL (8.5-10.1); CARBON DIOXIDE 30 mmol/L (21-32); CHLORIDE 103 mmol/L (98-107); CREATININE 0.5 mg/dL (0.6-1.3); GLUCOSE 143 mg/dL (74-106); POTASSIUM 3.7 mmol/L (3.5-5.1); SODIUM SERUM 139 mmol/L (136-145); TOTAL PROTEIN, SERUM 8.4 g/dL (6.4-8.2); UREA NITROGEN, BLOOD 10 mg/dL (7-18)
[2023-01-19 11:24] LABS: *CLARITY,URINE SLIGHTLY CLOUDY (CLEAR)
[2023-01-19 13:19] LABS: URINE AMORPHOUS PHOSPHATES MODERATE /HPF
[2023-01-19 13:20] LABS: RBC,URINE NONE SEEN /HPF (0-3); SQUAMOUS EPITHELIAL CELL,UR NONE SEEN /HPF (NONE SEEN); WBC,URINE 0-3 /HPF (0-3)
[2023-01-19] MEDS: VANCOMYCIN IV 1,000 MG in IV DEXTROSE 5% 250 ML IV SCH (17:00)
[2023-01-19 20:21] VITALS: TEMP 99.1
[2023-01-19] MEDS: PROTEIN SUPPLEMENT (PROSTAT) 30 ML LIQUID GT SCH (21:00)
[2023-01-19] MEDS: ATORVASTATIN 20 MG TABLET GT SCH (21:00)
[2023-01-20] MEDS: ALBUTEROL SULFATE 2.5 MG/3 ML NEBU NEB SCH ×4 (00:15→19:21)
[2023-01-20] MEDS: IPRATROPIUM BROMIDE 0.5 MG/2.5 ML NEBU NEB SCH ×4 (00:15→19:21)
[2023-01-20] MEDS: JEVITY 1.2 1000 ML LIQUID GT PRN (00:38)
[2023-01-20] MEDS: VANCOMYCIN IV 1,000 MG in IV DEXTROSE 5% 250 ML IV SCH ×3 (01:14→16:59)
[2023-01-20] MEDS: CEFEPIME HCL 2 G in IV DEXTROSE 5% 100 ML IV SCH ×3 (05:24→21:48)
[2023-01-20 07:01] LABS: BASOPHILS # (AUTO) 0.1 K/UL (0.0-0.2); BASOPHILS % (AUTO) 0.6 % (0.0-2.0); EOSINOPHILS # (AUTO) 0.5 K/uL (0.0-0.7); EOSINOPHILS % (AUTO) 4.1 % (0.0-7.0); HEMATOCRIT 26.1 % (36.7-47.1); HEMOGLOBIN 8.7 g/dL (12.5-16.3); LYMPHOCYTES # (AUTO) 3.2 K/uL (0.8-4.8); LYMPHOCYTES % (AUTO) 24.4 % (20.5-51.5); MEAN CORPUSCULAR HGB CONC 34 g/dL (32.5-36.3); MEAN CORPUSCULAR VOLUME 86.6 fL (73.0-96.2); MONOCYTES # (AUTO) 1.1 K/uL (0.1-1.30); MONOCYTES % (AUTO) 8.6 % (0.0-11.0); NEUTROPHILS # (AUTO) 8.2 K/uL (1.8-8.9); NEUTROPHILS % (AUTO) 62.3 % (38.5-71.5); PLATELET COUNT (AUTO) 252 K/uL (152-348); RED BLOOD CELL COUNT(AUTO) 3.01 MIL/uL (4.06-5.63); RED CELL DISTRIBUTION WIDTH 15.6 % (12.1-16.2); WHITE BLOOD COUNT (AUTO) 13.1 K/uL (3.6-10.2)
[2023-01-20 07:13] LABS: DIFFERENTIAL COMMENT 1
[2023-01-20 07:30] LABS: ALANINE AMINOTRANSFERASE 18 U/L (16-63); ALBUMIN 2.1 g/dL (3.4-5.0); ALKALINE PHOSPHATASE 129 U/L (50-136); ASPARTATE AMINOTRANSFERASE 37 U/L (15-37); BILIRUBIN,TOTAL 0.3 mg/dL (0.2-1.0); CALCIUM 9.5 mg/dL (8.5-10.1); CARBON DIOXIDE 27 mmol/L (21-32); CHLORIDE 105 mmol/L (98-107); CREATININE 0.4 mg/dL (0.6-1.3); GLUCOSE 129 mg/dL (74-106); POTASSIUM 3.6 mmol/L (3.5-5.1); SODIUM SERUM 139 mmol/L (136-145); TOTAL PROTEIN, SERUM 8.1 g/dL (6.4-8.2); UREA NITROGEN, BLOOD 11 mg/dL (7-18)
[2023-01-20 08:00] VITALS: TEMP 98.5
[2023-01-20] MEDS: VALPROIC ACID 250 MG/5 ML LIQUID UDC GT SCH ×2 (09:29→21:00)
[2023-01-20] MEDS: PROTEIN SUPPLEMENT (PROSTAT) 30 ML LIQUID GT SCH ×2 (09:31→21:00)
[2023-01-20] MEDS: levETIRAcetam 500 MG/5 ML LIQUID UDC GT SCH ×2 (09:31→21:00)
[2023-01-20] MEDS: CHLORHEXIDINE GLUCONATE 15 ML MOUTHWASH MM SCH ×2 (09:34→21:00)
[2023-01-20] MEDS: QUETIAPINE FUMARATE 25 MG TABLET GT SCH ×3 (09:34→16:18)
[2023-01-20] MEDS: MULTIVITAMINS,THERAPEUTIC TABLET GT SCH (09:34)
[2023-01-20] MEDS: ENOXAPARIN SODIUM 40 MG/0.4 ML DISP.SYRIN SQ SCH (09:35)
[2023-01-20] MEDS: COD LIVER OIL/ZINC OXIDE OINT 113 GM TUBE TP SCH ×4 (09:36→21:00)
[2023-01-20] MEDS: NYSTATIN CREAM 30 GM TUBE TP SCH ×2 (09:36→21:00)
[2023-01-20] MEDS: NEOMY/BACITRA/POLYMYXIN B OINT UD PACKET TP SCH ×3 (09:36→21:00)
[2023-01-20] MEDS: TRIAMCINOLONE 0.1% OINTMENT TOP SCH (09:36)
[2023-01-20 20:32] VITALS: TEMP 99.7
[2023-01-20] MEDS: ATORVASTATIN 20 MG TABLET GT SCH (21:00)
[2023-01-21] MEDS: IPRATROPIUM BROMIDE 0.5 MG/2.5 ML NEBU NEB SCH ×4 (01:30→19:20)
[2023-01-21] MEDS: ALBUTEROL SULFATE 2.5 MG/3 ML NEBU NEB SCH ×4 (01:30→19:21)
[2023-01-21] MEDS: VANCOMYCIN IV 1,000 MG in IV DEXTROSE 5% 250 ML IV SCH ×3 (01:32→16:59)
[2023-01-21] MEDS: CEFEPIME HCL 2 G in IV DEXTROSE 5% 100 ML IV SCH ×3 (06:16→21:30)
[2023-01-21 09:19] LABS: BASOPHILS # (AUTO) 0.2 K/UL (0.0-0.2); BASOPHILS % (AUTO) 1.8 % (0.0-2.0); EOSINOPHILS # (AUTO) 0.8 K/uL (0.0-0.7); EOSINOPHILS % (AUTO) 5.8 % (0.0-7.0); HEMOGLOBIN 8.6 g/dL (12.5-16.3); LYMPHOCYTES # (AUTO) 3.7 K/uL (0.8-4.8); LYMPHOCYTES % (AUTO) 27.6 % (20.5-51.5); MEAN CORPUSCULAR HGB CONC 33 g/dL (32.5-36.3); MEAN CORPUSCULAR VOLUME 88.1 fL (73.0-96.2); MONOCYTES # (AUTO) 1.1 K/uL (0.1-1.30); MONOCYTES % (AUTO) 8.2 % (0.0-11.0); NEUTROPHILS # (AUTO) 7.6 K/uL (1.8-8.9); NEUTROPHILS % (AUTO) 56.6 % (38.5-71.5); PLATELET COUNT (AUTO) 146 K/uL (152-348); RED BLOOD CELL COUNT(AUTO) 2.95 MIL/uL (4.06-5.63); RED CELL DISTRIBUTION WIDTH 15.8 % (12.1-16.2); WHITE BLOOD COUNT (AUTO) 13.4 K/uL (3.6-10.2)
[2023-01-21] MEDS: VALPROIC ACID 250 MG/5 ML LIQUID UDC GT SCH ×2 (09:29→20:37)
[2023-01-21] MEDS: levETIRAcetam 500 MG/5 ML LIQUID UDC GT SCH ×2 (09:33→20:38)
[2023-01-21] MEDS: QUETIAPINE FUMARATE 25 MG TABLET GT SCH ×3 (09:34→17:48)
[2023-01-21] MEDS: PROTEIN SUPPLEMENT (PROSTAT) 30 ML LIQUID GT SCH ×2 (09:34→20:40)
[2023-01-21] MEDS: MULTIVITAMINS,THERAPEUTIC TABLET GT SCH (09:34)
[2023-01-21] MEDS: CHLORHEXIDINE GLUCONATE 15 ML MOUTHWASH MM SCH ×2 (09:34→20:40)
[2023-01-21 09:35] LABS: ALBUMIN 2.2 g/dL (3.4-5.0); ALKALINE PHOSPHATASE 136 U/L (50-136); ASPARTATE AMINOTRANSFERASE 23 U/L (15-37); BILIRUBIN,TOTAL 0.4 mg/dL (0.2-1.0); CALCIUM 9.5 mg/dL (8.5-10.1); CARBON DIOXIDE 27 mmol/L (21-32); CHLORIDE 107 mmol/L (98-107); CREATININE 0.5 mg/dL (0.6-1.3); GLUCOSE 138 mg/dL (74-106); POTASSIUM 3.5 mmol/L (3.5-5.1); SODIUM SERUM 142 mmol/L (136-145); TOTAL PROTEIN, SERUM 8.3 g/dL (6.4-8.2); UREA NITROGEN, BLOOD 14 mg/dL (7-18)
[2023-01-21] MEDS: NEOMY/BACITRA/POLYMYXIN B OINT UD PACKET TP SCH ×3 (09:35→20:40)
[2023-01-21] MEDS: COD LIVER OIL/ZINC OXIDE OINT 113 GM TUBE TP SCH ×4 (09:35→20:40)
[2023-01-21] MEDS: ENOXAPARIN SODIUM 40 MG/0.4 ML DISP.SYRIN SQ SCH (09:50)
[2023-01-21 09:55] LABS: ALANINE AMINOTRANSFERASE < 6 U/L (16-63)
[2023-01-21 09:57] LABS: DIFFERENTIAL COMMENT 1
[2023-01-21 10:46] LABS: CREATININE 0.3 mg/dL (0.6-1.3); UREA NITROGEN, BLOOD 10 mg/dL (7-18); VANCOMYCIN,TROUGH 16.2 ug/mL (12.0-20.0)
[2023-01-21 12:10] VITALS: TEMP 99
[2023-01-21 20:11] VITALS: TEMP 99
[2023-01-21] MEDS: ATORVASTATIN 20 MG TABLET GT SCH (20:40)
[2023-01-22] MEDS: VANCOMYCIN IV 1,000 MG in IV DEXTROSE 5% 250 ML IV SCH ×4 (00:04→17:53)
[2023-01-22] MEDS: ALBUTEROL SULFATE 2.5 MG/3 ML NEBU NEB SCH ×4 (01:41→19:45)
[2023-01-22] MEDS: IPRATROPIUM BROMIDE 0.5 MG/2.5 ML NEBU NEB SCH ×4 (01:41→19:45)
[2023-01-22] MEDS: CEFEPIME HCL 2 G in IV DEXTROSE 5% 100 ML IV SCH ×3 (05:09→21:24)
[2023-01-22 07:18] LABS: BASOPHILS # (AUTO) 0.1 K/UL (0.0-0.2); BASOPHILS % (AUTO) 0.7 % (0.0-2.0); EOSINOPHILS # (AUTO) 0.8 K/uL (0.0-0.7); EOSINOPHILS % (AUTO) 7.4 % (0.0-7.0); HEMATOCRIT 27.1 % (36.7-47.1); HEMOGLOBIN 9.2 g/dL (12.5-16.3); LYMPHOCYTES % (AUTO) 37.1 % (20.5-51.5); MEAN CORPUSCULAR HEMOGLOBIN 29.7 uug (23.8-33.4); MEAN CORPUSCULAR HGB CONC 34 g/dL (32.5-36.3); MEAN CORPUSCULAR VOLUME 87.5 fL (73.0-96.2); MONOCYTES # (AUTO) 1.1 K/uL (0.1-1.30); MONOCYTES % (AUTO) 10.1 % (0.0-11.0); NEUTROPHILS # (AUTO) 4.8 K/uL (1.8-8.9); NEUTROPHILS % (AUTO) 44.7 % (38.5-71.5); PLATELET COUNT (AUTO) 266 K/uL (152-348); RED CELL DISTRIBUTION WIDTH 15.4 % (12.1-16.2); WHITE BLOOD COUNT (AUTO) 10.8 K/uL (3.6-10.2)
[2023-01-22 07:33] LABS: DIFFERENTIAL COMMENT 1
[2023-01-22 07:45] LABS: CALCIUM 9.6 mg/dL (8.5-10.1); CARBON DIOXIDE 28 mmol/L (21-32); CHLORIDE 109 mmol/L (98-107); CREATININE 0.5 mg/dL (0.6-1.3); GLUCOSE 124 mg/dL (74-106); PHOSPHOROUS 4.1 mg/dL (2.5-4.9); POTASSIUM 3.6 mmol/L (3.5-5.1); SODIUM SERUM 144 mmol/L (136-145); UREA NITROGEN, BLOOD 14 mg/dL (7-18)
[2023-01-22 07:48] LABS: ABG BASE EXCESS 1.9 mmol/L; ABG HCO3 25.4 mmol/L; ABG PCO2 35.7 mmHg (35.0-45.0); ABG PO2 134.2 mmHg (75.0-100.0); ABG SITE RIGHT RADIAL; ABG TOTAL HEMOGLOBIN 10.4 G/dL (13.5-18.0); COHb 0.3 % (0.5-1.5); MetHb 0.2 % (0.0-1.5); O2Hb 98.2 % (94.0-97.0); VENT MODE VENT - A/C18; VT, ABG 400 mL
[2023-01-22] MEDS: VALPROIC ACID 250 MG/5 ML LIQUID UDC GT SCH ×2 (09:00→21:58)
[2023-01-22] MEDS: COD LIVER OIL/ZINC OXIDE OINT 113 GM TUBE TP SCH ×4 (09:00→21:00)
[2023-01-22] MEDS: PROTEIN SUPPLEMENT (PROSTAT) 30 ML LIQUID GT SCH ×2 (09:00→21:00)
[2023-01-22] MEDS: MULTIVITAMINS,THERAPEUTIC TABLET GT SCH (09:00)
[2023-01-22] MEDS: ENOXAPARIN SODIUM 40 MG/0.4 ML DISP.SYRIN SQ SCH (09:00)
[2023-01-22] MEDS: levETIRAcetam 500 MG/5 ML LIQUID UDC GT SCH ×2 (09:00→21:58)
[2023-01-22] MEDS: CHLORHEXIDINE GLUCONATE 15 ML MOUTHWASH MM SCH ×2 (09:00→21:00)
[2023-01-22] MEDS: QUETIAPINE FUMARATE 25 MG TABLET GT SCH ×3 (09:00→17:41)
[2023-01-22] MEDS: NEOMY/BACITRA/POLYMYXIN B OINT UD PACKET TP SCH ×3 (09:00→21:00)
[2023-01-22 11:29] VITALS: TEMP 98.8
[2023-01-22] MEDS: JEVITY 1.2 1000 ML LIQUID GT PRN (19:00)
[2023-01-22 20:33] VITALS: TEMP 98.6
[2023-01-22] MEDS: ATORVASTATIN 20 MG TABLET GT SCH (21:00)
[2023-01-22] MEDS: OXYCODONE HCL 5 MG TABLET GT PRN (22:03)
[2023-01-23] MEDS: VANCOMYCIN IV 1,000 MG in IV DEXTROSE 5% 250 ML IV SCH (00:21)
[2023-01-23] MEDS: ALBUTEROL SULFATE 2.5 MG/3 ML NEBU NEB SCH ×4 (01:20→19:26)
[2023-01-23] MEDS: IPRATROPIUM BROMIDE 0.5 MG/2.5 ML NEBU NEB SCH ×4 (01:20→19:26)
[2023-01-23] MEDS: CEFEPIME HCL 2 G in IV DEXTROSE 5% 100 ML IV SCH ×3 (06:05→22:15)
[2023-01-23 09:28] VITALS: TEMP 98.9
[2023-01-23] MEDS: VALPROIC ACID 250 MG/5 ML LIQUID UDC GT SCH ×2 (09:41→21:00)
[2023-01-23] MEDS: levETIRAcetam 500 MG/5 ML LIQUID UDC GT SCH ×2 (09:44→21:00)
[2023-01-23] MEDS: PROTEIN SUPPLEMENT (PROSTAT) 30 ML LIQUID GT SCH ×2 (09:45→21:00)
[2023-01-23] MEDS: MULTIVITAMINS,THERAPEUTIC TABLET GT SCH (09:45)
[2023-01-23] MEDS: QUETIAPINE FUMARATE 25 MG TABLET GT SCH ×3 (09:45→16:55)
[2023-01-23] MEDS: CHLORHEXIDINE GLUCONATE 15 ML MOUTHWASH MM SCH ×2 (09:46→21:00)
[2023-01-23] MEDS: NEOMY/BACITRA/POLYMYXIN B OINT UD PACKET TP SCH ×2 (09:46)
[2023-01-23] MEDS: COD LIVER OIL/ZINC OXIDE OINT 113 GM TUBE TP SCH ×4 (09:46→21:00)
[2023-01-23] MEDS: ENOXAPARIN SODIUM 40 MG/0.4 ML DISP.SYRIN SQ SCH (09:50)
[2023-01-23] MEDS: JEVITY 1.2 1000 ML LIQUID GT PRN (16:08)
[2023-01-23 20:10] VITALS: TEMP 98.6
[2023-01-23] MEDS: ATORVASTATIN 20 MG TABLET GT SCH (21:00)
[2023-01-24] MEDS: IPRATROPIUM BROMIDE 0.5 MG/2.5 ML NEBU NEB SCH ×4 (01:58→19:30)
[2023-01-24] MEDS: ALBUTEROL SULFATE 2.5 MG/3 ML NEBU NEB SCH ×4 (01:58→19:30)
[2023-01-24] MEDS: CEFEPIME HCL 2 G in IV DEXTROSE 5% 100 ML IV SCH ×3 (05:24→23:00)
[2023-01-24 07:45] VITALS: TEMP 98.8
[2023-01-24 08:51] LABS: CREATININE 0.4 mg/dL (0.6-1.3); UREA NITROGEN, BLOOD 14 mg/dL (7-18)
[2023-01-24] MEDS: COD LIVER OIL/ZINC OXIDE OINT 113 GM TUBE TP SCH ×4 (09:34→21:30)
[2023-01-24] MEDS: levETIRAcetam 500 MG/5 ML LIQUID UDC GT SCH ×2 (09:34→21:25)
[2023-01-24] MEDS: MULTIVITAMINS,THERAPEUTIC TABLET GT SCH (09:34)
[2023-01-24] MEDS: VALPROIC ACID 250 MG/5 ML LIQUID UDC GT SCH ×2 (09:34→21:25)
[2023-01-24] MEDS: QUETIAPINE FUMARATE 25 MG TABLET GT SCH ×3 (09:34→17:23)
[2023-01-24] MEDS: CHLORHEXIDINE GLUCONATE 15 ML MOUTHWASH MM SCH ×2 (09:34→21:27)
[2023-01-24] MEDS: PROTEIN SUPPLEMENT (PROSTAT) 30 ML LIQUID GT SCH ×2 (09:34→21:27)
[2023-01-24] MEDS: NEOMY/BACITRA/POLYMYXIN B OINT UD PACKET TP SCH (09:35)
[2023-01-24] MEDS: ENOXAPARIN SODIUM 40 MG/0.4 ML DISP.SYRIN SQ SCH (09:36)
[2023-01-24 20:12] VITALS: TEMP 99.8
[2023-01-24] MEDS: ATORVASTATIN 20 MG TABLET GT SCH (21:27)
[2023-01-25] MEDS: IPRATROPIUM BROMIDE 0.5 MG/2.5 ML NEBU NEB SCH ×4 (02:15→19:50)
[2023-01-25] MEDS: ALBUTEROL SULFATE 2.5 MG/3 ML NEBU NEB SCH ×4 (02:15→19:50)
[2023-01-25] MEDS: CEFEPIME HCL 2 G in IV DEXTROSE 5% 100 ML IV SCH ×2 (05:23→14:23)
[2023-01-25 08:10] VITALS: TEMP 99.6
[2023-01-25] MEDS: VALPROIC ACID 250 MG/5 ML LIQUID UDC GT SCH ×2 (08:52→20:55)
[2023-01-25] MEDS: PROTEIN SUPPLEMENT (PROSTAT) 30 ML LIQUID GT SCH ×2 (08:54→21:24)
[2023-01-25] MEDS: levETIRAcetam 500 MG/5 ML LIQUID UDC GT SCH ×2 (08:54→20:57)
[2023-01-25] MEDS: MULTIVITAMINS,THERAPEUTIC TABLET GT SCH (08:55)
[2023-01-25] MEDS: NEOMY/BACITRA/POLYMYXIN B OINT UD PACKET TP SCH (09:00)
[2023-01-25] MEDS: QUETIAPINE FUMARATE 25 MG TABLET GT SCH ×3 (09:00→17:53)
[2023-01-25] MEDS: COD LIVER OIL/ZINC OXIDE OINT 113 GM TUBE TP SCH ×4 (09:01→21:25)
[2023-01-25] MEDS: CHLORHEXIDINE GLUCONATE 15 ML MOUTHWASH MM SCH ×2 (09:01→21:25)
[2023-01-25] MEDS: ENOXAPARIN SODIUM 40 MG/0.4 ML DISP.SYRIN SQ SCH (09:02)
[2023-01-25] MEDS: JEVITY 1.2 1000 ML LIQUID GT PRN (12:38)
[2023-01-25] MEDS: ACETAMINOPHEN 650 MG/20 ML UDC- SA PATIENTS-PAIN ONLY GT PRN (17:53)
[2023-01-25 20:51] VITALS: TEMP 98.9
[2023-01-25] MEDS: ATORVASTATIN 20 MG TABLET GT SCH (21:23)
[2023-01-26] MEDS: IPRATROPIUM BROMIDE 0.5 MG/2.5 ML NEBU NEB SCH ×4 (01:29→19:23)
[2023-01-26] MEDS: ALBUTEROL SULFATE 2.5 MG/3 ML NEBU NEB SCH ×4 (01:29→19:23)
[2023-01-26] MEDS: JEVITY 1.2 1000 ML LIQUID GT PRN (06:00)
[2023-01-26 07:58] VITALS: TEMP 99.1
[2023-01-26] MEDS: VALPROIC ACID 250 MG/5 ML LIQUID UDC GT SCH ×2 (08:53→21:43)
[2023-01-26] MEDS: levETIRAcetam 500 MG/5 ML LIQUID UDC GT SCH ×2 (08:54→21:43)
[2023-01-26] MEDS: MULTIVITAMINS,THERAPEUTIC TABLET GT SCH (08:55)
[2023-01-26] MEDS: COD LIVER OIL/ZINC OXIDE OINT 113 GM TUBE TP SCH ×4 (08:55→21:47)
[2023-01-26] MEDS: CHLORHEXIDINE GLUCONATE 15 ML MOUTHWASH MM SCH ×2 (08:55→21:47)
[2023-01-26] MEDS: PROTEIN SUPPLEMENT (PROSTAT) 30 ML LIQUID GT SCH ×2 (08:55→21:47)
[2023-01-26] MEDS: QUETIAPINE FUMARATE 25 MG TABLET GT SCH ×3 (08:55→17:20)
[2023-01-26] MEDS: ENOXAPARIN SODIUM 40 MG/0.4 ML DISP.SYRIN SQ SCH (08:57)
[2023-01-26] MEDS: NEOMY/BACITRA/POLYMYXIN B OINT UD PACKET TP SCH (09:04)
[2023-01-26 20:00] VITALS: TEMP 99.7
[2023-01-26] MEDS: ATORVASTATIN 20 MG TABLET GT SCH (21:47)
[2023-01-27] MEDS: IPRATROPIUM BROMIDE 0.5 MG/2.5 ML NEBU NEB SCH ×4 (00:33→23:29)
[2023-01-27] MEDS: ALBUTEROL SULFATE 2.5 MG/3 ML NEBU NEB SCH ×4 (00:33→23:30)
[2023-01-27 07:58] VITALS: TEMP 98.2
[2023-01-27] MEDS: levETIRAcetam 500 MG/5 ML LIQUID UDC GT SCH ×2 (08:03→20:22)
[2023-01-27] MEDS: VALPROIC ACID 250 MG/5 ML LIQUID UDC GT SCH ×2 (08:03→20:22)
[2023-01-27] MEDS: PROTEIN SUPPLEMENT (PROSTAT) 30 ML LIQUID GT SCH ×2 (08:04→20:22)
[2023-01-27] MEDS: CHLORHEXIDINE GLUCONATE 15 ML MOUTHWASH MM SCH ×2 (08:05→20:22)
[2023-01-27] MEDS: QUETIAPINE FUMARATE 25 MG TABLET GT SCH ×3 (08:05→16:38)
[2023-01-27] MEDS: MULTIVITAMINS,THERAPEUTIC TABLET GT SCH (08:05)
[2023-01-27] MEDS: COD LIVER OIL/ZINC OXIDE OINT 113 GM TUBE TP SCH ×4 (08:06→20:22)
[2023-01-27] MEDS: NEOMY/BACITRA/POLYMYXIN B OINT UD PACKET TP SCH (08:06)
[2023-01-27] MEDS: ENOXAPARIN SODIUM 40 MG/0.4 ML DISP.SYRIN SQ SCH (08:09)
[2023-01-27] MEDS: ATORVASTATIN 20 MG TABLET GT SCH (20:22)
[2023-01-27 21:41] VITALS: TEMP 98.2
[2023-01-28] MEDS: ALBUTEROL SULFATE 2.5 MG/3 ML NEBU NEB SCH ×4 (03:07→21:13)
[2023-01-28] MEDS: IPRATROPIUM BROMIDE 0.5 MG/2.5 ML NEBU NEB SCH ×4 (03:07→21:12)
[2023-01-28] MEDS: JEVITY 1.2 1000 ML LIQUID GT PRN (04:32)
[2023-01-28 08:00] VITALS: TEMP 98.8
[2023-01-28] MEDS: VALPROIC ACID 250 MG/5 ML LIQUID UDC GT SCH ×2 (09:00→21:00)
[2023-01-28] MEDS: QUETIAPINE FUMARATE 25 MG TABLET GT SCH ×3 (09:01→16:56)
[2023-01-28] MEDS: levETIRAcetam 500 MG/5 ML LIQUID UDC GT SCH ×2 (09:01→21:00)
[2023-01-28] MEDS: MULTIVITAMINS,THERAPEUTIC TABLET GT SCH (09:01)
[2023-01-28] MEDS: PROTEIN SUPPLEMENT (PROSTAT) 30 ML LIQUID GT SCH ×2 (09:01→21:01)
[2023-01-28] MEDS: NEOMY/BACITRA/POLYMYXIN B OINT UD PACKET TP SCH (09:02)
[2023-01-28] MEDS: COD LIVER OIL/ZINC OXIDE OINT 113 GM TUBE TP SCH ×4 (09:02→21:02)
[2023-01-28] MEDS: CHLORHEXIDINE GLUCONATE 15 ML MOUTHWASH MM SCH ×2 (09:02→21:01)
[2023-01-28] MEDS: ENOXAPARIN SODIUM 40 MG/0.4 ML DISP.SYRIN SQ SCH (09:02)
[2023-01-28 20:21] VITALS: TEMP 98.9
[2023-01-28] MEDS: ATORVASTATIN 20 MG TABLET GT SCH (21:00)
[2023-01-28] MEDS: OXYCODONE HCL 5 MG TABLET GT PRN (22:38)
[2023-01-29] MEDS: IPRATROPIUM BROMIDE 0.5 MG/2.5 ML NEBU NEB SCH ×4 (04:25→19:27)
[2023-01-29] MEDS: ALBUTEROL SULFATE 2.5 MG/3 ML NEBU NEB SCH ×4 (04:25→19:27)
[2023-01-29 07:50] VITALS: TEMP 98.4
[2023-01-29] MEDS: NEOMY/BACITRA/POLYMYXIN B OINT UD PACKET TP SCH (10:00)
[2023-01-29] MEDS: QUETIAPINE FUMARATE 25 MG TABLET GT SCH ×3 (10:00→16:52)
[2023-01-29] MEDS: levETIRAcetam 500 MG/5 ML LIQUID UDC GT SCH ×2 (10:00→21:21)
[2023-01-29] MEDS: ENOXAPARIN SODIUM 40 MG/0.4 ML DISP.SYRIN SQ SCH (10:00)
[2023-01-29] MEDS: VALPROIC ACID 250 MG/5 ML LIQUID UDC GT SCH ×2 (10:00→21:21)
[2023-01-29] MEDS: COD LIVER OIL/ZINC OXIDE OINT 113 GM TUBE TP SCH ×3 (10:00→21:22)
[2023-01-29] MEDS: CHLORHEXIDINE GLUCONATE 15 ML MOUTHWASH MM SCH ×2 (10:00→21:22)
[2023-01-29] MEDS: PROTEIN SUPPLEMENT (PROSTAT) 30 ML LIQUID GT SCH ×2 (10:00→21:22)
[2023-01-29] MEDS: MULTIVITAMINS,THERAPEUTIC TABLET GT SCH (10:00)
[2023-01-29] MEDS: JEVITY 1.2 1000 ML LIQUID GT PRN (17:05)
[2023-01-29 20:01] VITALS: TEMP 98.8
[2023-01-29] MEDS: ATORVASTATIN 20 MG TABLET GT SCH (21:22)
[2023-01-30] MEDS: ALBUTEROL SULFATE 2.5 MG/3 ML NEBU NEB SCH ×4 (01:19→19:10)
[2023-01-30] MEDS: IPRATROPIUM BROMIDE 0.5 MG/2.5 ML NEBU NEB SCH ×4 (01:19→19:10)
[2023-01-30] MEDS: PROTEIN SUPPLEMENT (PROSTAT) 30 ML LIQUID GT SCH ×2 (08:33→21:00)
[2023-01-30] MEDS: VALPROIC ACID 250 MG/5 ML LIQUID UDC GT SCH ×2 (08:33→21:00)
[2023-01-30] MEDS: levETIRAcetam 500 MG/5 ML LIQUID UDC GT SCH ×2 (08:33→21:00)
[2023-01-30] MEDS: MULTIVITAMINS,THERAPEUTIC TABLET GT SCH (08:33)
[2023-01-30] MEDS: QUETIAPINE FUMARATE 25 MG TABLET GT SCH ×3 (08:33→17:45)
[2023-01-30] MEDS: ENOXAPARIN SODIUM 40 MG/0.4 ML DISP.SYRIN SQ SCH (08:34)
[2023-01-30] MEDS: CHLORHEXIDINE GLUCONATE 15 ML MOUTHWASH MM SCH ×2 (08:40→21:00)
[2023-01-30] MEDS: COD LIVER OIL/ZINC OXIDE OINT 113 GM TUBE TP SCH ×2 (08:45→21:00)
[2023-01-30] MEDS: NEOMY/BACITRA/POLYMYXIN B OINT UD PACKET TP SCH (08:45)
[2023-01-30] MEDS: ATORVASTATIN 20 MG TABLET GT SCH (21:00)
[2023-01-30 21:23] VITALS: TEMP 98.8
[2023-01-31] MEDS: ALBUTEROL SULFATE 2.5 MG/3 ML NEBU NEB SCH ×4 (00:59→19:45)
[2023-01-31] MEDS: IPRATROPIUM BROMIDE 0.5 MG/2.5 ML NEBU NEB SCH ×4 (00:59→19:45)
[2023-01-31 07:58] VITALS: TEMP 98.8
[2023-01-31] MEDS: VALPROIC ACID 250 MG/5 ML LIQUID UDC GT SCH ×2 (09:00→21:45)
[2023-01-31] MEDS: QUETIAPINE FUMARATE 25 MG TABLET GT SCH ×3 (09:00→17:43)
[2023-01-31] MEDS: ENOXAPARIN SODIUM 40 MG/0.4 ML DISP.SYRIN SQ SCH (09:00)
[2023-01-31] MEDS: PROTEIN SUPPLEMENT (PROSTAT) 30 ML LIQUID GT SCH ×2 (09:00→21:47)
[2023-01-31] MEDS: levETIRAcetam 500 MG/5 ML LIQUID UDC GT SCH ×2 (09:00→21:47)
[2023-01-31] MEDS: MULTIVITAMINS,THERAPEUTIC TABLET GT SCH (09:00)
[2023-01-31] MEDS: NEOMY/BACITRA/POLYMYXIN B OINT UD PACKET TP SCH (09:43)
[2023-01-31] MEDS: COD LIVER OIL/ZINC OXIDE OINT 113 GM TUBE TP SCH ×2 (09:43→21:48)
[2023-01-31] MEDS: CHLORHEXIDINE GLUCONATE 15 ML MOUTHWASH MM SCH ×2 (09:45→21:47)
[2023-01-31 20:42] VITALS: TEMP 99
[2023-01-31] MEDS: ATORVASTATIN 20 MG TABLET GT SCH (21:47)
[2023-01-31] MEDS: ACETAMINOPHEN 650 MG/20 ML UDC- SA PATIENTS-PAIN ONLY GT PRN (21:49)
[2023-02-01] MEDS: IPRATROPIUM BROMIDE 0.5 MG/2.5 ML NEBU NEB SCH ×4 (00:45→19:11)
[2023-02-01] MEDS: ALBUTEROL SULFATE 2.5 MG/3 ML NEBU NEB SCH ×4 (00:45→19:11)
[2023-02-01 08:00] VITALS: TEMP 99
[2023-02-01] MEDS: levETIRAcetam 500 MG/5 ML LIQUID UDC GT SCH ×2 (09:21→21:00)
[2023-02-01] MEDS: VALPROIC ACID 250 MG/5 ML LIQUID UDC GT SCH ×2 (09:21→21:00)
[2023-02-01] MEDS: PROTEIN SUPPLEMENT (PROSTAT) 30 ML LIQUID GT SCH ×2 (09:22→21:00)
[2023-02-01] MEDS: QUETIAPINE FUMARATE 25 MG TABLET GT SCH ×3 (09:23→16:29)
[2023-02-01] MEDS: MULTIVITAMINS,THERAPEUTIC TABLET GT SCH (09:24)
[2023-02-01] MEDS: COD LIVER OIL/ZINC OXIDE OINT 113 GM TUBE TP SCH ×2 (09:25→21:00)
[2023-02-01] MEDS: NEOMY/BACITRA/POLYMYXIN B OINT UD PACKET TP SCH (09:25)
[2023-02-01] MEDS: ENOXAPARIN SODIUM 40 MG/0.4 ML DISP.SYRIN SQ SCH (09:25)
[2023-02-01] MEDS: CHLORHEXIDINE GLUCONATE 15 ML MOUTHWASH MM SCH ×2 (09:43→21:00)
[2023-02-01 20:00] VITALS: BP 101/74; TEMP 98.6; O2SAT 98
[2023-02-01] MEDS: ATORVASTATIN 20 MG TABLET GT SCH (21:00)
[2023-02-02] MEDS: IPRATROPIUM BROMIDE 0.5 MG/2.5 ML NEBU NEB SCH ×4 (01:19→19:03)
[2023-02-02] MEDS: ALBUTEROL SULFATE 2.5 MG/3 ML NEBU NEB SCH ×4 (01:19→19:03)
[2023-02-02 07:31] VITALS: TEMP 98.9
[2023-02-02] MEDS: ENOXAPARIN SODIUM 40 MG/0.4 ML DISP.SYRIN SQ SCH (08:03)
[2023-02-02 08:09] VITALS: BP 147/80; O2SAT 98
[2023-02-02] MEDS: VALPROIC ACID 250 MG/5 ML LIQUID UDC GT SCH ×2 (08:12→21:53)
[2023-02-02] MEDS: levETIRAcetam 500 MG/5 ML LIQUID UDC GT SCH ×2 (08:13→21:53)
[2023-02-02] MEDS: PROTEIN SUPPLEMENT (PROSTAT) 30 ML LIQUID GT SCH ×2 (08:13→21:53)
[2023-02-02] MEDS: QUETIAPINE FUMARATE 25 MG TABLET GT SCH ×3 (08:14→17:59)
[2023-02-02] MEDS: MULTIVITAMINS,THERAPEUTIC TABLET GT SCH (08:16)
[2023-02-02] MEDS: CHLORHEXIDINE GLUCONATE 15 ML MOUTHWASH MM SCH ×2 (08:18→21:53)
[2023-02-02] MEDS: NEOMY/BACITRA/POLYMYXIN B OINT UD PACKET TP SCH (08:19)
[2023-02-02] MEDS: COD LIVER OIL/ZINC OXIDE OINT 113 GM TUBE TP SCH ×2 (08:19→21:53)
[2023-02-02] MEDS: JEVITY 1.2 1000 ML LIQUID GT PRN (10:40)
[2023-02-02 20:33] VITALS: TEMP 99.1
[2023-02-02] MEDS: ATORVASTATIN 20 MG TABLET GT SCH (21:53)
[2023-02-02] MEDS ORDERED: diphenhydrAMINE 25 MG/10 ML UDC NG ONE (22:00)
[2023-02-02] MEDS: HYDROCORTISONE 1% CREAM 30 GM TUBE TP SCH (22:00)
[2023-02-03] MEDS: IPRATROPIUM BROMIDE 0.5 MG/2.5 ML NEBU NEB SCH ×4 (01:18→19:50)
[2023-02-03] MEDS: ALBUTEROL SULFATE 2.5 MG/3 ML NEBU NEB SCH ×4 (01:18→19:50)
[2023-02-03] MEDS: OXYCODONE HCL 5 MG TABLET GT PRN (01:40)
[2023-02-03] MEDS: JEVITY 1.2 1000 ML LIQUID GT PRN (04:32)
[2023-02-03 07:58] VITALS: TEMP 98.5
[2023-02-03] MEDS: VALPROIC ACID 250 MG/5 ML LIQUID UDC GT SCH ×2 (08:15→21:27)
[2023-02-03] MEDS: levETIRAcetam 500 MG/5 ML LIQUID UDC GT SCH ×2 (08:17→21:27)
[2023-02-03] MEDS: PROTEIN SUPPLEMENT (PROSTAT) 30 ML LIQUID GT SCH ×2 (08:18→21:27)
[2023-02-03] MEDS: QUETIAPINE FUMARATE 25 MG TABLET GT SCH ×3 (08:19→17:42)
[2023-02-03] MEDS: MULTIVITAMINS,THERAPEUTIC TABLET GT SCH (08:20)
[2023-02-03] MEDS: CHLORHEXIDINE GLUCONATE 15 ML MOUTHWASH MM SCH ×2 (08:21→21:27)
[2023-02-03] MEDS: ENOXAPARIN SODIUM 40 MG/0.4 ML DISP.SYRIN SQ SCH (08:23)
[2023-02-03] MEDS: HYDROCORTISONE 1% CREAM 30 GM TUBE TP SCH ×2 (08:24→21:27)
[2023-02-03] MEDS: COD LIVER OIL/ZINC OXIDE OINT 113 GM TUBE TP SCH ×2 (08:24→21:27)
[2023-02-03] MEDS: NEOMY/BACITRA/POLYMYXIN B OINT UD PACKET TP SCH (08:25)
[2023-02-03 20:46] VITALS: TEMP 98.8
[2023-02-03] MEDS: ATORVASTATIN 20 MG TABLET GT SCH (21:27)
[2023-02-04] MEDS: IPRATROPIUM BROMIDE 0.5 MG/2.5 ML NEBU NEB SCH ×4 (01:42→20:17)
[2023-02-04] MEDS: ALBUTEROL SULFATE 2.5 MG/3 ML NEBU NEB SCH ×4 (01:42→20:17)
[2023-02-04] MEDS: JEVITY 1.2 1000 ML LIQUID GT PRN (04:36)
[2023-02-04 08:20] VITALS: TEMP 99
[2023-02-04] MEDS: levETIRAcetam 500 MG/5 ML LIQUID UDC GT SCH ×2 (09:32→21:42)
[2023-02-04] MEDS: VALPROIC ACID 250 MG/5 ML LIQUID UDC GT SCH ×2 (09:32→21:42)
[2023-02-04] MEDS: NEOMY/BACITRA/POLYMYXIN B OINT UD PACKET TP SCH (09:34)
[2023-02-04] MEDS: HYDROCORTISONE 1% CREAM 30 GM TUBE TP SCH ×2 (09:34→21:43)
[2023-02-04] MEDS: COD LIVER OIL/ZINC OXIDE OINT 113 GM TUBE TP SCH ×2 (09:34→21:43)
[2023-02-04] MEDS: MULTIVITAMINS,THERAPEUTIC TABLET GT SCH (09:35)
[2023-02-04] MEDS: QUETIAPINE FUMARATE 25 MG TABLET GT SCH ×3 (09:35→17:09)
[2023-02-04] MEDS: CHLORHEXIDINE GLUCONATE 15 ML MOUTHWASH MM SCH ×2 (09:35→21:42)
[2023-02-04] MEDS: PROTEIN SUPPLEMENT (PROSTAT) 30 ML LIQUID GT SCH ×2 (09:35→21:42)
[2023-02-04] MEDS: ENOXAPARIN SODIUM 40 MG/0.4 ML DISP.SYRIN SQ SCH (09:37)
[2023-02-04 20:41] VITALS: TEMP 99.5
[2023-02-04] MEDS: ATORVASTATIN 20 MG TABLET GT SCH (21:42)
[2023-02-05] MEDS: JEVITY 1.2 1000 ML LIQUID GT PRN ×2 (01:49→23:01)
[2023-02-05] MEDS: OXYCODONE HCL 5 MG TABLET GT PRN ×3 (02:00→19:29)
[2023-02-05] MEDS: ALBUTEROL SULFATE 2.5 MG/3 ML NEBU NEB SCH ×4 (02:28→19:42)
[2023-02-05] MEDS: IPRATROPIUM BROMIDE 0.5 MG/2.5 ML NEBU NEB SCH ×4 (02:28→19:45)
[2023-02-05 07:00] LABS: BASOPHILS % (AUTO) 0.6 % (0.0-2.0); EOSINOPHILS # (AUTO) 0.9 K/uL (0.0-0.7); EOSINOPHILS % (AUTO) 10.7 % (0.0-7.0); HEMATOCRIT 29.3 % (36.7-47.1); HEMOGLOBIN 9.7 g/dL (12.5-16.3); LYMPHOCYTES # (AUTO) 3.2 K/uL (0.8-4.8); MEAN CORPUSCULAR HEMOGLOBIN 29.1 uug (23.8-33.4); MEAN CORPUSCULAR HGB CONC 33 g/dL (32.5-36.3); MEAN CORPUSCULAR VOLUME 87.8 fL (73.0-96.2); MONOCYTES # (AUTO) 0.7 K/uL (0.1-1.30); MONOCYTES % (AUTO) 8.7 % (0.0-11.0); NEUTROPHILS # (AUTO) 3.2 K/uL (1.8-8.9); PLATELET COUNT (AUTO) 225 K/uL (152-348); RED BLOOD CELL COUNT(AUTO) 3.33 MIL/uL (4.06-5.63); RED CELL DISTRIBUTION WIDTH 15.8 % (12.1-16.2); WHITE BLOOD COUNT (AUTO) 8.1 K/uL (3.6-10.2)
[2023-02-05 07:06] LABS: ALANINE AMINOTRANSFERASE 24 U/L (16-63); ALBUMIN 2.5 g/dL (3.4-5.0); ALKALINE PHOSPHATASE 151 U/L (50-136); ASPARTATE AMINOTRANSFERASE 25 U/L (15-37); BILIRUBIN,TOTAL 0.3 mg/dL (0.2-1.0); CALCIUM 9.4 mg/dL (8.5-10.1); CARBON DIOXIDE 32 mmol/L (21-32); CHLORIDE 111 mmol/L (98-107); CREATININE 0.4 mg/dL (0.6-1.3); GLUCOSE 110 mg/dL (74-106); PHOSPHOROUS 4.7 mg/dL (2.5-4.9); POTASSIUM 3.4 mmol/L (3.5-5.1); SODIUM SERUM 148 mmol/L (136-145); TOTAL PROTEIN, SERUM 8.4 g/dL (6.4-8.2); UREA NITROGEN, BLOOD 14 mg/dL (7-18)
[2023-02-05 07:12] LABS: DIFFERENTIAL COMMENT 1
[2023-02-05 07:41] VITALS: TEMP 98.2
[2023-02-05] MEDS: ENOXAPARIN SODIUM 40 MG/0.4 ML DISP.SYRIN SQ SCH (09:00)
[2023-02-05] MEDS: QUETIAPINE FUMARATE 25 MG TABLET GT SCH ×3 (09:00→17:52)
[2023-02-05] MEDS: HYDROCORTISONE 1% CREAM 30 GM TUBE TP SCH ×2 (09:00→21:01)
[2023-02-05] MEDS: CHLORHEXIDINE GLUCONATE 15 ML MOUTHWASH MM SCH ×2 (09:00→21:01)
[2023-02-05] MEDS: levETIRAcetam 500 MG/5 ML LIQUID UDC GT SCH ×2 (09:00→21:01)
[2023-02-05] MEDS: MULTIVITAMINS,THERAPEUTIC TABLET GT SCH (09:00)
[2023-02-05] MEDS: PROTEIN SUPPLEMENT (PROSTAT) 30 ML LIQUID GT SCH ×2 (09:00→21:01)
[2023-02-05] MEDS: NEOMY/BACITRA/POLYMYXIN B OINT UD PACKET TP SCH (09:00)
[2023-02-05] MEDS: VALPROIC ACID 250 MG/5 ML LIQUID UDC GT SCH ×2 (09:00→21:01)
[2023-02-05] MEDS: COD LIVER OIL/ZINC OXIDE OINT 113 GM TUBE TP SCH ×2 (09:00→21:01)
[2023-02-05 11:00] VITALS: O2SAT 98
[2023-02-05] MEDS ORDERED: POTASSIUM CHLORIDE 10 MEQ TAB.PRT.SR XX ONE (15:30)
[2023-02-05 20:00] VITALS: TEMP 98.8
[2023-02-05] MEDS: ATORVASTATIN 20 MG TABLET GT SCH (21:01)
[2023-02-06] MEDS: OXYCODONE HCL 5 MG TABLET GT PRN ×2 (01:32→23:41)
[2023-02-06] MEDS: IPRATROPIUM BROMIDE 0.5 MG/2.5 ML NEBU NEB SCH ×4 (01:47→21:14)
[2023-02-06] MEDS: ALBUTEROL SULFATE 2.5 MG/3 ML NEBU NEB SCH ×4 (01:48→21:14)
[2023-02-06] MEDS: ACETAMINOPHEN 650 MG/20 ML UDC- SA PATIENTS-FEVER ONLY GT PRN (05:12)
[2023-02-06 05:15] VITALS: TEMP 102.7
[2023-02-06 06:24] VITALS: TEMP 99.2
[2023-02-06] MEDS: NEOMY/BACITRA/POLYMYXIN B OINT UD PACKET TP SCH (09:00)
[2023-02-06 09:16] VITALS: TEMP 100.2
[2023-02-06 09:38] VITALS: TEMP 99.8
[2023-02-06] MEDS: PROTEIN SUPPLEMENT (PROSTAT) 30 ML LIQUID GT SCH ×2 (09:38→21:58)
[2023-02-06] MEDS: levETIRAcetam 500 MG/5 ML LIQUID UDC GT SCH ×2 (09:38→21:58)
[2023-02-06] MEDS: VALPROIC ACID 250 MG/5 ML LIQUID UDC GT SCH ×2 (09:38→21:58)
[2023-02-06] MEDS: CHLORHEXIDINE GLUCONATE 15 ML MOUTHWASH MM SCH ×2 (09:39→21:58)
[2023-02-06] MEDS: QUETIAPINE FUMARATE 25 MG TABLET GT SCH ×3 (09:39→17:55)
[2023-02-06] MEDS: MULTIVITAMINS,THERAPEUTIC TABLET GT SCH (09:39)
[2023-02-06] MEDS: NYSTATIN CREAM 30 GM TUBE TP SCH ×3 (09:40→21:59)
[2023-02-06] MEDS: HYDROCORTISONE 1% CREAM 30 GM TUBE TP SCH ×2 (09:40→21:59)
[2023-02-06] MEDS: COD LIVER OIL/ZINC OXIDE OINT 113 GM TUBE TP SCH ×2 (09:40→21:58)
[2023-02-06] MEDS: ENOXAPARIN SODIUM 40 MG/0.4 ML DISP.SYRIN SQ SCH (09:41)
[2023-02-06] MEDS: ACETAMINOPHEN 650 MG/20 ML UDC- SA PATIENTS-PAIN ONLY GT PRN (17:55)
[2023-02-06] MEDS: JEVITY 1.2 1000 ML LIQUID GT PRN (17:55)
[2023-02-06 18:00] VITALS: TEMP 99.6
[2023-02-06 20:04] VITALS: TEMP 99
[2023-02-06 21:10] LABS: *BILIRUBIN,URIN NEGATIVE (NEGATIVE); *BLOOD, URINE NEGATIVE (NEGATIVE); *CLARITY,URINE CLEAR (CLEAR); *COLOR,URINE YELLOW (YELLOW); *KETONES,URINE NEGATIVE (NEGATIVE); *PROTEIN,URINE 1+ (NEGATIVE); LEUKOCYTE ESTERASE ,URINE NEGATIVE (NEGATIVE); NITRITE, URINE NEGATIVE (NEGATIVE); PH,URINE 7.5 (5.0-8.0); UGLUCOSE NEGATIVE (NEGATIVE)
[2023-02-06 21:42] LABS: RBC,URINE 0-3 /HPF (0-3); WBC,URINE 0-3 /HPF (0-3)
[2023-02-06] MEDS: ATORVASTATIN 20 MG TABLET GT SCH (21:58)
[2023-02-06] MEDS: CEFEPIME HCL 2 G in IV DEXTROSE 5% 100 ML IV SCH (22:00)
[2023-02-06] MEDS: VANCOMYCIN IV 1,250 MG in IV DEXTROSE 5% 250 ML IV SCH (23:00)
[2023-02-07] MEDS: ALBUTEROL SULFATE 2.5 MG/3 ML NEBU NEB SCH ×4 (00:29→19:26)
[2023-02-07] MEDS: IPRATROPIUM BROMIDE 0.5 MG/2.5 ML NEBU NEB SCH ×4 (00:29→19:26)
[2023-02-07 06:54] LABS: BASOPHILS % (AUTO) 0.3 % (0.0-2.0); EOSINOPHILS # (AUTO) 0.5 K/uL (0.0-0.7); EOSINOPHILS % (AUTO) 3.4 % (0.0-7.0); HEMATOCRIT 29.4 % (36.7-47.1); HEMOGLOBIN 9.5 g/dL (12.5-16.3); LYMPHOCYTES # (AUTO) 2.9 K/uL (0.8-4.8); LYMPHOCYTES % (AUTO) 21.1 % (20.5-51.5); MEAN CORPUSCULAR HEMOGLOBIN 28.3 uug (23.8-33.4); MEAN CORPUSCULAR HGB CONC 32 g/dL (32.5-36.3); MEAN CORPUSCULAR VOLUME 87.5 fL (73.0-96.2); MONOCYTES % (AUTO) 6.9 % (0.0-11.0); NEUTROPHILS # (AUTO) 9.5 K/uL (1.8-8.9); NEUTROPHILS % (AUTO) 68.3 % (38.5-71.5); PLATELET COUNT (AUTO) 235 K/uL (152-348); RED BLOOD CELL COUNT(AUTO) 3.36 MIL/uL (4.06-5.63); RED CELL DISTRIBUTION WIDTH 15.9 % (12.1-16.2); WHITE BLOOD COUNT (AUTO) 13.9 K/uL (3.6-10.2)
[2023-02-07 07:00] LABS: DIFFERENTIAL COMMENT 1
[2023-02-07] MEDS: VANCOMYCIN IV 1,250 MG in IV DEXTROSE 5% 250 ML IV SCH ×3 (07:00→23:56)
[2023-02-07 07:19] LABS: ALANINE AMINOTRANSFERASE 24 U/L (16-63); ALBUMIN 2.4 g/dL (3.4-5.0); ALKALINE PHOSPHATASE 153 U/L (50-136); ASPARTATE AMINOTRANSFERASE 33 U/L (15-37); BILIRUBIN,TOTAL 0.5 mg/dL (0.2-1.0); CALCIUM 9.2 mg/dL (8.5-10.1); CARBON DIOXIDE 28 mmol/L (21-32); CHLORIDE 107 mmol/L (98-107); CREATININE 0.4 mg/dL (0.6-1.3); GLUCOSE 121 mg/dL (74-106); POTASSIUM 3.6 mmol/L (3.5-5.1); SODIUM SERUM 145 mmol/L (136-145); UREA NITROGEN, BLOOD 12 mg/dL (7-18)
[2023-02-07 08:00] VITALS: TEMP 99.2
[2023-02-07 08:29] LABS: TOTAL PROTEIN, SERUM 8.9 g/dL (6.4-8.2)
[2023-02-07] MEDS: QUETIAPINE FUMARATE 25 MG TABLET GT SCH ×3 (09:00→16:48)
[2023-02-07] MEDS: NEOMY/BACITRA/POLYMYXIN B OINT UD PACKET TP SCH ×2 (09:00→21:43)
[2023-02-07] MEDS: MULTIVITAMINS,THERAPEUTIC TABLET GT SCH (09:00)
[2023-02-07] MEDS: VALPROIC ACID 250 MG/5 ML LIQUID UDC GT SCH ×2 (09:00→21:42)
[2023-02-07] MEDS: PROTEIN SUPPLEMENT (PROSTAT) 30 ML LIQUID GT SCH ×2 (09:00→21:42)
[2023-02-07] MEDS: ENOXAPARIN SODIUM 40 MG/0.4 ML DISP.SYRIN SQ SCH (09:00)
[2023-02-07] MEDS: COD LIVER OIL/ZINC OXIDE OINT 113 GM TUBE TP SCH ×2 (09:00→21:43)
[2023-02-07] MEDS: CHLORHEXIDINE GLUCONATE 15 ML MOUTHWASH MM SCH ×2 (09:00→21:43)
[2023-02-07] MEDS: levETIRAcetam 500 MG/5 ML LIQUID UDC GT SCH ×2 (09:00→21:42)
[2023-02-07] MEDS: HYDROCORTISONE 1% CREAM 30 GM TUBE TP SCH ×2 (09:00→21:43)
[2023-02-07] MEDS: NYSTATIN CREAM 30 GM TUBE TP SCH ×6 (09:00→21:43)
[2023-02-07] MEDS: CEFEPIME HCL 2 G in IV DEXTROSE 5% 100 ML IV SCH ×2 (10:00→22:00)
[2023-02-07 10:13] LABS: VALPROIC ACID 47 ug/mL (50-100)
[2023-02-07] MEDS: ACETAMINOPHEN 650 MG/20 ML UDC- SA PATIENTS-FEVER ONLY GT PRN (16:49)
[2023-02-07 20:16] VITALS: TEMP 98.7
[2023-02-07] MEDS: ATORVASTATIN 20 MG TABLET GT SCH (21:42)
[2023-02-07] MEDS: JEVITY 1.2 1000 ML LIQUID GT PRN (23:30)
[2023-02-08] MEDS: IPRATROPIUM BROMIDE 0.5 MG/2.5 ML NEBU NEB SCH ×4 (02:11→19:11)
[2023-02-08] MEDS: ALBUTEROL SULFATE 2.5 MG/3 ML NEBU NEB SCH ×4 (02:11→19:11)
[2023-02-08] MEDS: VANCOMYCIN IV 1,250 MG in IV DEXTROSE 5% 250 ML IV SCH ×3 (06:24→23:00)
[2023-02-08 08:00] VITALS: TEMP 98.8
[2023-02-08] MEDS: VALPROIC ACID 250 MG/5 ML LIQUID UDC GT SCH ×2 (09:34→21:54)
[2023-02-08] MEDS: levETIRAcetam 500 MG/5 ML LIQUID UDC GT SCH ×2 (09:34→21:54)
[2023-02-08] MEDS: PROTEIN SUPPLEMENT (PROSTAT) 30 ML LIQUID GT SCH ×2 (09:36→21:54)
[2023-02-08] MEDS: CHLORHEXIDINE GLUCONATE 15 ML MOUTHWASH MM SCH ×2 (09:37→21:54)
[2023-02-08] MEDS: QUETIAPINE FUMARATE 25 MG TABLET GT SCH ×3 (09:37→17:15)
[2023-02-08] MEDS: MULTIVITAMINS,THERAPEUTIC TABLET GT SCH (09:37)
[2023-02-08] MEDS: COD LIVER OIL/ZINC OXIDE OINT 113 GM TUBE TP SCH ×2 (09:38→21:54)
[2023-02-08] MEDS: ENOXAPARIN SODIUM 40 MG/0.4 ML DISP.SYRIN SQ SCH (09:38)
[2023-02-08] MEDS: HYDROCORTISONE 1% CREAM 30 GM TUBE TP SCH ×2 (09:38→21:54)
[2023-02-08] MEDS: NYSTATIN CREAM 30 GM TUBE TP SCH ×6 (09:38→21:54)
[2023-02-08] MEDS: NEOMY/BACITRA/POLYMYXIN B OINT UD PACKET TP SCH ×2 (09:39→21:54)
[2023-02-08] MEDS: CEFEPIME HCL 2 G in IV DEXTROSE 5% 100 ML IV SCH ×2 (10:56→22:00)
[2023-02-08] MEDS: JEVITY 1.2 1000 ML LIQUID GT PRN (18:39)
[2023-02-08 20:30] VITALS: TEMP 100.1
[2023-02-08] MEDS: ATORVASTATIN 20 MG TABLET GT SCH (21:54)
[2023-02-09] MEDS: ALBUTEROL SULFATE 2.5 MG/3 ML NEBU NEB SCH ×4 (01:09→19:11)
[2023-02-09] MEDS: IPRATROPIUM BROMIDE 0.5 MG/2.5 ML NEBU NEB SCH ×4 (01:09→19:11)
[2023-02-09] MEDS: OXYCODONE HCL 5 MG TABLET GT PRN ×2 (05:00→15:40)
[2023-02-09 07:36] VITALS: TEMP 98.6
[2023-02-09 07:43] LABS: CREATININE 0.4 mg/dL (0.6-1.3); UREA NITROGEN, BLOOD 12 mg/dL (7-18); VANCOMYCIN,TROUGH 19.8 ug/mL (12.0-20.0)
[2023-02-09] MEDS: VANCOMYCIN IV 1,250 MG in IV DEXTROSE 5% 250 ML IV SCH ×2 (07:59→15:29)
[2023-02-09] MEDS: levETIRAcetam 500 MG/5 ML LIQUID UDC GT SCH ×2 (10:00→21:00)
[2023-02-09] MEDS: NEOMY/BACITRA/POLYMYXIN B OINT UD PACKET TP SCH ×2 (10:00→21:00)
[2023-02-09] MEDS: QUETIAPINE FUMARATE 25 MG TABLET GT SCH ×3 (10:00→17:48)
[2023-02-09] MEDS: ENOXAPARIN SODIUM 40 MG/0.4 ML DISP.SYRIN SQ SCH (10:00)
[2023-02-09] MEDS: CHLORHEXIDINE GLUCONATE 15 ML MOUTHWASH MM SCH ×2 (10:00→21:00)
[2023-02-09] MEDS: NYSTATIN CREAM 30 GM TUBE TP SCH ×6 (10:00→21:00)
[2023-02-09] MEDS: VALPROIC ACID 250 MG/5 ML LIQUID UDC GT SCH ×2 (10:00→21:00)
[2023-02-09] MEDS: MULTIVITAMINS,THERAPEUTIC TABLET GT SCH (10:00)
[2023-02-09] MEDS: COD LIVER OIL/ZINC OXIDE OINT 113 GM TUBE TP SCH ×2 (10:00→21:00)
[2023-02-09] MEDS: HYDROCORTISONE 1% CREAM 30 GM TUBE TP SCH (10:00)
[2023-02-09] MEDS: PROTEIN SUPPLEMENT (PROSTAT) 30 ML LIQUID GT SCH ×2 (10:00→21:00)
[2023-02-09] MEDS: CEFEPIME HCL 2 G in IV DEXTROSE 5% 100 ML IV SCH ×2 (10:58→22:00)
[2023-02-09] MEDS: JEVITY 1.2 1000 ML LIQUID GT PRN (13:32)
[2023-02-09 20:00] VITALS: TEMP 99.4
[2023-02-09] MEDS: ATORVASTATIN 20 MG TABLET GT SCH (21:00)
[2023-02-10] MEDS: ALBUTEROL SULFATE 2.5 MG/3 ML NEBU NEB SCH ×4 (01:00→20:00)
[2023-02-10] MEDS: IPRATROPIUM BROMIDE 0.5 MG/2.5 ML NEBU NEB SCH ×4 (01:00→20:00)
[2023-02-10 06:42] LABS: BASOPHILS % (AUTO) 0.5 % (0.0-2.0); EOSINOPHILS # (AUTO) 1.1 K/uL (0.0-0.7); EOSINOPHILS % (AUTO) 11.9 % (0.0-7.0); HEMATOCRIT 27.2 % (36.7-47.1); HEMOGLOBIN 9.2 g/dL (12.5-16.3); LYMPHOCYTES % (AUTO) 31.4 % (20.5-51.5); MEAN CORPUSCULAR HEMOGLOBIN 29.2 uug (23.8-33.4); MEAN CORPUSCULAR HGB CONC 34 g/dL (32.5-36.3); MEAN CORPUSCULAR VOLUME 86.5 fL (73.0-96.2); MONOCYTES % (AUTO) 10.5 % (0.0-11.0); NEUTROPHILS # (AUTO) 4.3 K/uL (1.8-8.9); NEUTROPHILS % (AUTO) 45.7 % (38.5-71.5); PLATELET COUNT (AUTO) 261 K/uL (152-348); RED BLOOD CELL COUNT(AUTO) 3.14 MIL/uL (4.06-5.63); RED CELL DISTRIBUTION WIDTH 15.7 % (12.1-16.2); WHITE BLOOD COUNT (AUTO) 9.5 K/uL (3.6-10.2)
[2023-02-10 06:51] LABS: DIFFERENTIAL COMMENT 1
[2023-02-10 07:52] VITALS: TEMP 99
[2023-02-10] MEDS ORDERED: VANCOMYCIN IV 1,500 MG in IV DEXTROSE 5% 500 ML IV SCH (09:00)
[2023-02-10] MEDS: JEVITY 1.2 1000 ML LIQUID GT PRN (09:15)
[2023-02-10] MEDS: QUETIAPINE FUMARATE 25 MG TABLET GT SCH ×3 (09:21→16:59)
[2023-02-10] MEDS: MULTIVITAMINS,THERAPEUTIC TABLET GT SCH (09:21)
[2023-02-10] MEDS: CHLORHEXIDINE GLUCONATE 15 ML MOUTHWASH MM SCH ×2 (09:21→21:04)
[2023-02-10] MEDS: PROTEIN SUPPLEMENT (PROSTAT) 30 ML LIQUID GT SCH ×2 (09:21→21:04)
[2023-02-10] MEDS: levETIRAcetam 500 MG/5 ML LIQUID UDC GT SCH ×2 (09:21→21:04)
[2023-02-10] MEDS: VALPROIC ACID 250 MG/5 ML LIQUID UDC GT SCH ×2 (09:21→21:04)
[2023-02-10] MEDS: NEOMY/BACITRA/POLYMYXIN B OINT UD PACKET TP SCH ×2 (09:28→21:05)
[2023-02-10] MEDS: NYSTATIN CREAM 30 GM TUBE TP SCH ×6 (09:28→21:05)
[2023-02-10] MEDS: COD LIVER OIL/ZINC OXIDE OINT 113 GM TUBE TP SCH ×2 (09:28→21:04)
[2023-02-10] MEDS: ENOXAPARIN SODIUM 40 MG/0.4 ML DISP.SYRIN SQ SCH (09:28)
[2023-02-10] MEDS ORDERED: MEROPENEM 1 G in IV NORMAL SALINE 100 ML IV SCH (14:00)
[2023-02-10 20:14] VITALS: TEMP 99.4
[2023-02-10] MEDS: MEROPENEM 1 G in IV NORMAL SALINE 100 ML IV SCH (23:00)
[2023-02-11] MEDS: IPRATROPIUM BROMIDE 0.5 MG/2.5 ML NEBU NEB SCH ×4 (01:55→20:10)
[2023-02-11] MEDS: ALBUTEROL SULFATE 2.5 MG/3 ML NEBU NEB SCH ×4 (01:55→20:10)
[2023-02-11] MEDS: JEVITY 1.2 1000 ML LIQUID GT PRN (05:24)
[2023-02-11] MEDS: MEROPENEM 1 G in IV NORMAL SALINE 100 ML IV SCH ×3 (05:37→22:00)
[2023-02-11 07:51] VITALS: TEMP 98.5
[2023-02-11] MEDS: levETIRAcetam 500 MG/5 ML LIQUID UDC GT SCH ×2 (09:41→21:00)
[2023-02-11] MEDS: VALPROIC ACID 250 MG/5 ML LIQUID UDC GT SCH ×2 (09:41→21:00)
[2023-02-11] MEDS: PROTEIN SUPPLEMENT (PROSTAT) 30 ML LIQUID GT SCH ×2 (09:42→21:00)
[2023-02-11] MEDS: QUETIAPINE FUMARATE 25 MG TABLET GT SCH ×3 (09:42→17:50)
[2023-02-11] MEDS: CHLORHEXIDINE GLUCONATE 15 ML MOUTHWASH MM SCH ×2 (09:43→21:00)
[2023-02-11] MEDS: MULTIVITAMINS,THERAPEUTIC TABLET GT SCH (09:43)
[2023-02-11] MEDS: COD LIVER OIL/ZINC OXIDE OINT 113 GM TUBE TP SCH ×2 (09:46→21:00)
[2023-02-11] MEDS: ENOXAPARIN SODIUM 40 MG/0.4 ML DISP.SYRIN SQ SCH (09:47)
[2023-02-11] MEDS: NYSTATIN CREAM 30 GM TUBE TP SCH ×6 (09:49→21:00)
[2023-02-11] MEDS: NEOMY/BACITRA/POLYMYXIN B OINT UD PACKET TP SCH ×2 (09:50→21:00)
[2023-02-11 20:00] VITALS: TEMP 98.3
[2023-02-11 22:25] VITALS: TEMP 98.3
[2023-02-12] MEDS: ALBUTEROL SULFATE 2.5 MG/3 ML NEBU NEB SCH ×4 (00:50→19:46)
[2023-02-12] MEDS: IPRATROPIUM BROMIDE 0.5 MG/2.5 ML NEBU NEB SCH ×4 (00:50→19:46)
[2023-02-12] MEDS: MEROPENEM 1 G in IV NORMAL SALINE 100 ML IV SCH ×3 (06:13→22:00)
[2023-02-12 07:37] LABS: BASOPHILS # (AUTO) 0.1 K/UL (0.0-0.2); BASOPHILS % (AUTO) 0.8 % (0.0-2.0); EOSINOPHILS # (AUTO) 0.8 K/uL (0.0-0.7); EOSINOPHILS % (AUTO) 7.2 % (0.0-7.0); HEMATOCRIT 30.4 % (36.7-47.1); HEMOGLOBIN 10.2 g/dL (12.5-16.3); LYMPHOCYTES # (AUTO) 3.1 K/uL (0.8-4.8); LYMPHOCYTES % (AUTO) 28.4 % (20.5-51.5); MEAN CORPUSCULAR HGB CONC 34 g/dL (32.5-36.3); MEAN CORPUSCULAR VOLUME 86.4 fL (73.0-96.2); MONOCYTES % (AUTO) 9.3 % (0.0-11.0); NEUTROPHILS # (AUTO) 5.9 K/uL (1.8-8.9); NEUTROPHILS % (AUTO) 54.3 % (38.5-71.5); PLATELET COUNT (AUTO) 305 K/uL (152-348); RED BLOOD CELL COUNT(AUTO) 3.52 MIL/uL (4.06-5.63); RED CELL DISTRIBUTION WIDTH 15.6 % (12.1-16.2); WHITE BLOOD COUNT (AUTO) 10.9 K/uL (3.6-10.2)
[2023-02-12 07:39] VITALS: TEMP 98.9
[2023-02-12 07:48] LABS: CALCIUM 9.4 mg/dL (8.5-10.1); CARBON DIOXIDE 30 mmol/L (21-32); CHLORIDE 110 mmol/L (98-107); CREATININE 0.4 mg/dL (0.6-1.3); GLUCOSE 118 mg/dL (74-106); POTASSIUM 3.3 mmol/L (3.5-5.1); SODIUM SERUM 147 mmol/L (136-145); UREA NITROGEN, BLOOD 11 mg/dL (7-18); VALPROIC ACID 8 ug/mL (50-100)
[2023-02-12 07:56] LABS: DIFFERENTIAL COMMENT 1
[2023-02-12] MEDS: NEOMY/BACITRA/POLYMYXIN B OINT UD PACKET TP SCH ×2 (09:00→21:00)
[2023-02-12] MEDS: ENOXAPARIN SODIUM 40 MG/0.4 ML DISP.SYRIN SQ SCH (09:00)
[2023-02-12] MEDS: COD LIVER OIL/ZINC OXIDE OINT 113 GM TUBE TP SCH ×2 (09:00→21:00)
[2023-02-12] MEDS: VALPROIC ACID 250 MG/5 ML LIQUID UDC GT SCH ×2 (09:00→21:00)
[2023-02-12] MEDS: MULTIVITAMINS,THERAPEUTIC TABLET GT SCH (09:00)
[2023-02-12] MEDS: NYSTATIN CREAM 30 GM TUBE TP SCH ×6 (09:00→21:00)
[2023-02-12] MEDS: QUETIAPINE FUMARATE 25 MG TABLET GT SCH ×3 (09:00→17:45)
[2023-02-12] MEDS: levETIRAcetam 500 MG/5 ML LIQUID UDC GT SCH ×2 (09:00→21:00)
[2023-02-12] MEDS: PROTEIN SUPPLEMENT (PROSTAT) 30 ML LIQUID GT SCH ×2 (09:00→21:00)
[2023-02-12] MEDS: CHLORHEXIDINE GLUCONATE 15 ML MOUTHWASH MM SCH ×2 (09:00→21:00)
[2023-02-12] MEDS ORDERED: POTASSIUM CHLORIDE 20 MEQ TAB.PRT.SR PO ONE ×2 (12:00→19:30)
[2023-02-12 20:11] VITALS: TEMP 99.4
[2023-02-12] MEDS: ACETAMINOPHEN 650 MG/20 ML UDC- SA PATIENTS-PAIN ONLY GT PRN (22:47)
[2023-02-13] VITALS: TEMP 98.5
[2023-02-13] MEDS: ALBUTEROL SULFATE 2.5 MG/3 ML NEBU NEB SCH ×4 (01:43→19:33)
[2023-02-13] MEDS: IPRATROPIUM BROMIDE 0.5 MG/2.5 ML NEBU NEB SCH ×4 (01:43→19:33)
[2023-02-13] MEDS: OXYCODONE HCL 5 MG TABLET GT PRN (02:32)
[2023-02-13] MEDS: JEVITY 1.2 1000 ML LIQUID GT PRN (05:09)
[2023-02-13] MEDS: MEROPENEM 1 G in IV NORMAL SALINE 100 ML IV SCH ×3 (05:35→21:47)
[2023-02-13 06:14] VITALS: TEMP 98
[2023-02-13 08:00] VITALS: TEMP 98.9
[2023-02-13] MEDS: VALPROIC ACID 250 MG/5 ML LIQUID UDC GT SCH ×2 (08:13→21:19)
[2023-02-13] MEDS: PROTEIN SUPPLEMENT (PROSTAT) 30 ML LIQUID GT SCH ×2 (08:14→21:21)
[2023-02-13] MEDS: levETIRAcetam 500 MG/5 ML LIQUID UDC GT SCH ×2 (08:14→21:19)
[2023-02-13] MEDS: MULTIVITAMINS,THERAPEUTIC TABLET GT SCH (08:15)
[2023-02-13] MEDS: QUETIAPINE FUMARATE 25 MG TABLET GT SCH ×3 (08:15→16:11)
[2023-02-13] MEDS: CHLORHEXIDINE GLUCONATE 15 ML MOUTHWASH MM SCH ×2 (08:15→21:22)
[2023-02-13] MEDS: NYSTATIN CREAM 30 GM TUBE TP SCH ×6 (08:16→21:22)
[2023-02-13] MEDS: NEOMY/BACITRA/POLYMYXIN B OINT UD PACKET TP SCH ×2 (08:16→21:22)
[2023-02-13] MEDS: COD LIVER OIL/ZINC OXIDE OINT 113 GM TUBE TP SCH ×2 (08:16→21:22)
[2023-02-13] MEDS: ENOXAPARIN SODIUM 40 MG/0.4 ML DISP.SYRIN SQ SCH (08:19)
[2023-02-13] MEDS: ACETAMINOPHEN 650 MG/20 ML UDC- SA PATIENTS-PAIN ONLY GT PRN (14:12)
[2023-02-13 20:08] VITALS: TEMP 98.8
[2023-02-14] MEDS: IPRATROPIUM BROMIDE 0.5 MG/2.5 ML NEBU NEB SCH ×4 (01:12→19:18)
[2023-02-14] MEDS: ALBUTEROL SULFATE 2.5 MG/3 ML NEBU NEB SCH ×4 (01:13→19:18)
[2023-02-14] MEDS: JEVITY 1.2 1000 ML LIQUID GT PRN (04:13)
[2023-02-14] MEDS: MEROPENEM 1 G in IV NORMAL SALINE 100 ML IV SCH ×3 (05:57→22:55)
[2023-02-14 08:00] VITALS: TEMP 99.1
[2023-02-14] MEDS: levETIRAcetam 500 MG/5 ML LIQUID UDC GT SCH ×2 (08:49→21:00)
[2023-02-14] MEDS: PROTEIN SUPPLEMENT (PROSTAT) 30 ML LIQUID GT SCH ×2 (08:49→21:00)
[2023-02-14] MEDS: QUETIAPINE FUMARATE 25 MG TABLET GT SCH ×3 (08:49→17:00)
[2023-02-14] MEDS: VALPROIC ACID 250 MG/5 ML LIQUID UDC GT SCH ×2 (08:49→21:00)
[2023-02-14] MEDS: CHLORHEXIDINE GLUCONATE 15 ML MOUTHWASH MM SCH ×2 (08:49→21:00)
[2023-02-14] MEDS: MULTIVITAMINS,THERAPEUTIC TABLET GT SCH (08:49)
[2023-02-14] MEDS: ENOXAPARIN SODIUM 40 MG/0.4 ML DISP.SYRIN SQ SCH (08:50)
[2023-02-14] MEDS: NYSTATIN CREAM 30 GM TUBE TP SCH ×6 (08:50→21:00)
[2023-02-14] MEDS: COD LIVER OIL/ZINC OXIDE OINT 113 GM TUBE TP SCH ×2 (08:50→21:00)
[2023-02-14] MEDS: NEOMY/BACITRA/POLYMYXIN B OINT UD PACKET TP SCH ×2 (08:51→21:00)
[2023-02-14] MEDS: OXYCODONE HCL 5 MG TABLET GT PRN (12:56)
[2023-02-14 20:04] VITALS: TEMP 99.1
[2023-02-15] MEDS: IPRATROPIUM BROMIDE 0.5 MG/2.5 ML NEBU NEB SCH ×3 (01:31→13:30)
[2023-02-15] MEDS: ALBUTEROL SULFATE 2.5 MG/3 ML NEBU NEB SCH ×4 (01:31→13:40)
[2023-02-15] MEDS: JEVITY 1.2 1000 ML LIQUID GT PRN ×2 (04:12→22:41)
[2023-02-15] MEDS: ACETAMINOPHEN 650 MG/20 ML UDC- SA PATIENTS-PAIN ONLY GT PRN (04:29)
[2023-02-15] MEDS: MEROPENEM 1 G in IV NORMAL SALINE 100 ML IV SCH ×3 (06:03→22:00)
[2023-02-15 08:00] VITALS: TEMP 98.6
[2023-02-15] MEDS: ENOXAPARIN SODIUM 40 MG/0.4 ML DISP.SYRIN SQ SCH (09:00)
[2023-02-15] MEDS: QUETIAPINE FUMARATE 25 MG TABLET GT SCH ×3 (09:00→17:28)
[2023-02-15] MEDS: NEOMY/BACITRA/POLYMYXIN B OINT UD PACKET TP SCH ×2 (09:00→21:00)
[2023-02-15] MEDS: CHLORHEXIDINE GLUCONATE 15 ML MOUTHWASH MM SCH ×2 (09:00→21:00)
[2023-02-15] MEDS: levETIRAcetam 500 MG/5 ML LIQUID UDC GT SCH ×2 (09:00→21:00)
[2023-02-15] MEDS: NYSTATIN CREAM 30 GM TUBE TP SCH ×6 (09:00→21:00)
[2023-02-15] MEDS: COD LIVER OIL/ZINC OXIDE OINT 113 GM TUBE TP SCH ×2 (09:00→21:00)
[2023-02-15] MEDS: PROTEIN SUPPLEMENT (PROSTAT) 30 ML LIQUID GT SCH ×2 (09:00→21:00)
[2023-02-15] MEDS: MULTIVITAMINS,THERAPEUTIC TABLET GT SCH (09:00)
[2023-02-15] MEDS: VALPROIC ACID 250 MG/5 ML LIQUID UDC GT SCH ×3 (09:00→22:58)
[2023-02-15 20:00] VITALS: TEMP 98.9
[2023-02-16] MEDS: IPRATROPIUM BROMIDE 0.5 MG/2.5 ML NEBU NEB SCH ×4 (00:32→19:55)
[2023-02-16] MEDS: ALBUTEROL SULFATE 2.5 MG/3 ML NEBU NEB SCH ×4 (00:33→19:55)
[2023-02-16] MEDS: MEROPENEM 1 G in IV NORMAL SALINE 100 ML IV SCH ×3 (05:36→22:00)
[2023-02-16 07:51] VITALS: TEMP 98.3
[2023-02-16] MEDS: PROTEIN SUPPLEMENT (PROSTAT) 30 ML LIQUID GT SCH ×2 (09:16→20:46)
[2023-02-16] MEDS: levETIRAcetam 500 MG/5 ML LIQUID UDC GT SCH ×2 (09:16→20:42)
[2023-02-16] MEDS: MULTIVITAMINS,THERAPEUTIC TABLET GT SCH (09:17)
[2023-02-16] MEDS: QUETIAPINE FUMARATE 25 MG TABLET GT SCH ×3 (09:17→17:33)
[2023-02-16] MEDS: CHLORHEXIDINE GLUCONATE 15 ML MOUTHWASH MM SCH ×2 (09:18→20:46)
[2023-02-16] MEDS: ENOXAPARIN SODIUM 40 MG/0.4 ML DISP.SYRIN SQ SCH (09:18)
[2023-02-16] MEDS: NYSTATIN CREAM 30 GM TUBE TP SCH ×6 (09:19→20:47)
[2023-02-16] MEDS: NEOMY/BACITRA/POLYMYXIN B OINT UD PACKET TP SCH ×2 (09:19→20:47)
[2023-02-16] MEDS: COD LIVER OIL/ZINC OXIDE OINT 113 GM TUBE TP SCH ×2 (09:19→20:47)
[2023-02-16] MEDS: JEVITY 1.2 1000 ML LIQUID GT PRN (17:33)
[2023-02-16 20:33] VITALS: TEMP 99
[2023-02-16] MEDS: VALPROIC ACID 250 MG/5 ML LIQUID UDC GT SCH (20:42)
[2023-02-16] MEDS: CLONIDINE HCL 0.1 MG TABLET GT PRN (20:48)
[2023-02-17 00:20] VITALS: TEMP 100.5
[2023-02-17] MEDS: ACETAMINOPHEN 650 MG/20 ML UDC- SA PATIENTS-FEVER ONLY GT PRN (00:20)
[2023-02-17 01:30] VITALS: TEMP 98.3
[2023-02-17] MEDS: ALBUTEROL SULFATE 2.5 MG/3 ML NEBU NEB SCH ×4 (01:40→19:33)
[2023-02-17] MEDS: IPRATROPIUM BROMIDE 0.5 MG/2.5 ML NEBU NEB SCH ×4 (01:40→19:33)
[2023-02-17 05:52] VITALS: TEMP 98
[2023-02-17] MEDS: MEROPENEM 1 G in IV NORMAL SALINE 100 ML IV SCH (06:00)
[2023-02-17 07:32] LABS: BASOPHILS % (AUTO) 0.6 % (0.0-2.0); EOSINOPHILS # (AUTO) 0.8 K/uL (0.0-0.7); HEMATOCRIT 30.3 % (36.7-47.1); LYMPHOCYTES # (AUTO) 3.1 K/uL (0.8-4.8); LYMPHOCYTES % (AUTO) 37.3 % (20.5-51.5); MEAN CORPUSCULAR HEMOGLOBIN 28.7 uug (23.8-33.4); MEAN CORPUSCULAR HGB CONC 33 g/dL (32.5-36.3); MEAN CORPUSCULAR VOLUME 86.7 fL (73.0-96.2); MONOCYTES # (AUTO) 0.6 K/uL (0.1-1.30); MONOCYTES % (AUTO) 7.4 % (0.0-11.0); NEUTROPHILS # (AUTO) 3.8 K/uL (1.8-8.9); NEUTROPHILS % (AUTO) 44.7 % (38.5-71.5); PLATELET COUNT (AUTO) 370 K/uL (152-348); RED BLOOD CELL COUNT(AUTO) 3.49 MIL/uL (4.06-5.63); RED CELL DISTRIBUTION WIDTH 15.7 % (12.1-16.2); WHITE BLOOD COUNT (AUTO) 8.4 K/uL (3.6-10.2)
[2023-02-17 07:41] LABS: DIFFERENTIAL COMMENT 1
[2023-02-17 07:52] LABS: ALANINE AMINOTRANSFERASE 32 U/L (16-63); ALBUMIN 2.6 g/dL (3.4-5.0); ALKALINE PHOSPHATASE 175 U/L (50-136); ASPARTATE AMINOTRANSFERASE 42 U/L (15-37); BILIRUBIN,TOTAL 0.4 mg/dL (0.2-1.0); CALCIUM 10.1 mg/dL (8.5-10.1); CARBON DIOXIDE 32 mmol/L (21-32); CHLORIDE 112 mmol/L (98-107); CREATININE 0.4 mg/dL (0.6-1.3); GLUCOSE 120 mg/dL (74-106); MAGNESIUM 1.9 mg/dL (1.8-2.4); PHOSPHOROUS 4.1 mg/dL (2.5-4.9); POTASSIUM 3.1 mmol/L (3.5-5.1); SODIUM SERUM 149 mmol/L (136-145); TOTAL PROTEIN, SERUM 8.7 g/dL (6.4-8.2); UREA NITROGEN, BLOOD 11 mg/dL (7-18)
[2023-02-17 08:13] VITALS: TEMP 97.9
[2023-02-17] MEDS: levETIRAcetam 500 MG/5 ML LIQUID UDC GT SCH ×2 (09:00→21:00)
[2023-02-17] MEDS: PROTEIN SUPPLEMENT (PROSTAT) 30 ML LIQUID GT SCH ×2 (09:00→21:00)
[2023-02-17] MEDS: VALPROIC ACID 250 MG/5 ML LIQUID UDC GT SCH ×2 (09:00→21:00)
[2023-02-17] MEDS: COD LIVER OIL/ZINC OXIDE OINT 113 GM TUBE TP SCH ×2 (09:01→21:00)
[2023-02-17] MEDS: CHLORHEXIDINE GLUCONATE 15 ML MOUTHWASH MM SCH ×2 (09:01→21:00)
[2023-02-17] MEDS: NYSTATIN CREAM 30 GM TUBE TP SCH ×6 (09:01→21:00)
[2023-02-17] MEDS: MULTIVITAMINS,THERAPEUTIC TABLET GT SCH (09:01)
[2023-02-17] MEDS: QUETIAPINE FUMARATE 25 MG TABLET GT SCH ×3 (09:01→17:16)
[2023-02-17] MEDS: NEOMY/BACITRA/POLYMYXIN B OINT UD PACKET TP SCH ×2 (09:02→21:00)
[2023-02-17] MEDS: ENOXAPARIN SODIUM 40 MG/0.4 ML DISP.SYRIN SQ SCH (09:05)
[2023-02-17 11:09] LABS: PRE ALBUMIN 16.9 MG/DL (18.0-35.7)
[2023-02-17] MEDS ORDERED: POTASSIUM CHLORIDE 20 MEQ POWDER PACKET GT ONE (14:30)
[2023-02-17 20:07] VITALS: TEMP 99.5
[2023-02-18] MEDS: IPRATROPIUM BROMIDE 0.5 MG/2.5 ML NEBU NEB SCH ×4 (01:38→19:00)
[2023-02-18] MEDS: ALBUTEROL SULFATE 2.5 MG/3 ML NEBU NEB SCH ×4 (01:38→19:00)
[2023-02-18 07:56] VITALS: TEMP 98.6
[2023-02-18] MEDS: VALPROIC ACID 250 MG/5 ML LIQUID UDC GT SCH ×2 (09:51→20:42)
[2023-02-18] MEDS: levETIRAcetam 500 MG/5 ML LIQUID UDC GT SCH ×2 (09:51→20:42)
[2023-02-18] MEDS: MULTIVITAMINS,THERAPEUTIC TABLET GT SCH (09:52)
[2023-02-18] MEDS: QUETIAPINE FUMARATE 25 MG TABLET GT SCH ×3 (09:52→17:30)
[2023-02-18] MEDS: CHLORHEXIDINE GLUCONATE 15 ML MOUTHWASH MM SCH ×2 (09:53→20:42)
[2023-02-18] MEDS: NEOMY/BACITRA/POLYMYXIN B OINT UD PACKET TP SCH ×2 (09:53→20:43)
[2023-02-18] MEDS: PROTEIN SUPPLEMENT (PROSTAT) 30 ML LIQUID GT SCH ×2 (09:53→20:42)
[2023-02-18] MEDS: COD LIVER OIL/ZINC OXIDE OINT 113 GM TUBE TP SCH ×2 (09:53→20:43)
[2023-02-18] MEDS: NYSTATIN CREAM 30 GM TUBE TP SCH ×6 (09:53→20:43)
[2023-02-18] MEDS: ENOXAPARIN SODIUM 40 MG/0.4 ML DISP.SYRIN SQ SCH (09:55)
[2023-02-18] MEDS: JEVITY 1.2 1000 ML LIQUID GT PRN (14:30)
[2023-02-18 20:04] VITALS: TEMP 98.7
[2023-02-19] MEDS: IPRATROPIUM BROMIDE 0.5 MG/2.5 ML NEBU NEB SCH ×4 (01:10→19:33)
[2023-02-19] MEDS: ALBUTEROL SULFATE 2.5 MG/3 ML NEBU NEB SCH ×4 (01:10→19:33)
[2023-02-19 07:51] VITALS: TEMP 98.3
[2023-02-19] MEDS: VALPROIC ACID 250 MG/5 ML LIQUID UDC GT SCH ×2 (08:58→21:00)
[2023-02-19] MEDS: PROTEIN SUPPLEMENT (PROSTAT) 30 ML LIQUID GT SCH ×2 (08:59→21:00)
[2023-02-19] MEDS: levETIRAcetam 500 MG/5 ML LIQUID UDC GT SCH ×2 (08:59→21:00)
[2023-02-19] MEDS: NEOMY/BACITRA/POLYMYXIN B OINT UD PACKET TP SCH ×2 (09:00→21:00)
[2023-02-19] MEDS: QUETIAPINE FUMARATE 25 MG TABLET GT SCH ×3 (09:00→17:37)
[2023-02-19] MEDS: NYSTATIN CREAM 30 GM TUBE TP SCH ×6 (09:00→21:00)
[2023-02-19] MEDS: MULTIVITAMINS,THERAPEUTIC TABLET GT SCH (09:00)
[2023-02-19] MEDS: ENOXAPARIN SODIUM 40 MG/0.4 ML DISP.SYRIN SQ SCH (09:06)
[2023-02-19] MEDS: COD LIVER OIL/ZINC OXIDE OINT 113 GM TUBE TP SCH ×2 (09:06→21:00)
[2023-02-19] MEDS: CHLORHEXIDINE GLUCONATE 15 ML MOUTHWASH MM SCH ×2 (09:06→21:00)
[2023-02-19] MEDS: JEVITY 1.2 1000 ML LIQUID GT PRN (15:34)
[2023-02-19 20:12] VITALS: TEMP 98.6
[2023-02-20] MEDS: IPRATROPIUM BROMIDE 0.5 MG/2.5 ML NEBU NEB SCH ×4 (01:39→19:10)
[2023-02-20] MEDS: ALBUTEROL SULFATE 2.5 MG/3 ML NEBU NEB SCH ×4 (01:40→19:10)
[2023-02-20] MEDS: levETIRAcetam 500 MG/5 ML LIQUID UDC GT SCH ×2 (08:59→21:00)
[2023-02-20] MEDS: PROTEIN SUPPLEMENT (PROSTAT) 30 ML LIQUID GT SCH ×2 (08:59→21:00)
[2023-02-20] MEDS: VALPROIC ACID 250 MG/5 ML LIQUID UDC GT SCH ×2 (08:59→21:00)
[2023-02-20] MEDS: MULTIVITAMINS,THERAPEUTIC TABLET GT SCH (09:03)
[2023-02-20] MEDS: COD LIVER OIL/ZINC OXIDE OINT 113 GM TUBE TP SCH ×2 (09:07→21:00)
[2023-02-20] MEDS: CHLORHEXIDINE GLUCONATE 15 ML MOUTHWASH MM SCH ×2 (09:07→21:00)
[2023-02-20] MEDS: NYSTATIN CREAM 30 GM TUBE TP SCH ×6 (09:08→21:00)
[2023-02-20] MEDS: NEOMY/BACITRA/POLYMYXIN B OINT UD PACKET TP SCH ×2 (09:08→21:00)
[2023-02-20] MEDS: ENOXAPARIN SODIUM 40 MG/0.4 ML DISP.SYRIN SQ SCH (09:12)
[2023-02-20] MEDS: ACETAMINOPHEN 650 MG/20 ML UDC- SA PATIENTS-PAIN ONLY GT PRN (09:15)
[2023-02-20] MEDS: QUETIAPINE FUMARATE 25 MG TABLET GT SCH ×3 (09:16→17:39)
[2023-02-20] MEDS: JEVITY 1.2 1000 ML LIQUID GT PRN (10:52)
[2023-02-20 11:15] VITALS: TEMP 98.7
[2023-02-20 20:06] VITALS: TEMP 98.5
[2023-02-21] MEDS: ALBUTEROL SULFATE 2.5 MG/3 ML NEBU NEB SCH ×4 (00:58→19:10)
[2023-02-21] MEDS: IPRATROPIUM BROMIDE 0.5 MG/2.5 ML NEBU NEB SCH ×4 (00:58→19:10)
[2023-02-21 07:33] VITALS: TEMP 98
[2023-02-21] MEDS: VALPROIC ACID 250 MG/5 ML LIQUID UDC GT SCH ×2 (09:37→21:00)
[2023-02-21] MEDS: PROTEIN SUPPLEMENT (PROSTAT) 30 ML LIQUID GT SCH ×2 (09:38→21:00)
[2023-02-21] MEDS: levETIRAcetam 500 MG/5 ML LIQUID UDC GT SCH ×2 (09:38→21:00)
[2023-02-21] MEDS: QUETIAPINE FUMARATE 25 MG TABLET GT SCH ×3 (09:38→16:29)
[2023-02-21] MEDS: MULTIVITAMINS,THERAPEUTIC TABLET GT SCH (09:39)
[2023-02-21] MEDS: CHLORHEXIDINE GLUCONATE 15 ML MOUTHWASH MM SCH ×2 (09:41→21:00)
[2023-02-21] MEDS: NEOMY/BACITRA/POLYMYXIN B OINT UD PACKET TP SCH (09:42)
[2023-02-21] MEDS: NYSTATIN CREAM 30 GM TUBE TP SCH ×4 (09:42→21:00)
[2023-02-21] MEDS: COD LIVER OIL/ZINC OXIDE OINT 113 GM TUBE TP SCH ×2 (09:42→21:00)
[2023-02-21] MEDS: ENOXAPARIN SODIUM 40 MG/0.4 ML DISP.SYRIN SQ SCH (09:44)
[2023-02-21 20:00] VITALS: TEMP 98.7
[2023-02-22] MEDS: ALBUTEROL SULFATE 2.5 MG/3 ML NEBU NEB SCH ×4 (01:52→19:00)
[2023-02-22] MEDS: IPRATROPIUM BROMIDE 0.5 MG/2.5 ML NEBU NEB SCH ×4 (01:52→19:00)
[2023-02-22 07:20] VITALS: TEMP 98.2
[2023-02-22] MEDS: QUETIAPINE FUMARATE 25 MG TABLET GT SCH ×3 (09:37→17:17)
[2023-02-22] MEDS: levETIRAcetam 500 MG/5 ML LIQUID UDC GT SCH ×2 (09:37→21:00)
[2023-02-22] MEDS: MULTIVITAMINS,THERAPEUTIC TABLET GT SCH (09:37)
[2023-02-22] MEDS: PROTEIN SUPPLEMENT (PROSTAT) 30 ML LIQUID GT SCH ×2 (09:37→21:00)
[2023-02-22] MEDS: CHLORHEXIDINE GLUCONATE 15 ML MOUTHWASH MM SCH ×2 (09:37→21:00)
[2023-02-22] MEDS: VALPROIC ACID 250 MG/5 ML LIQUID UDC GT SCH ×2 (09:37→21:00)
[2023-02-22] MEDS: COD LIVER OIL/ZINC OXIDE OINT 113 GM TUBE TP SCH ×2 (09:39→21:00)
[2023-02-22] MEDS: ENOXAPARIN SODIUM 40 MG/0.4 ML DISP.SYRIN SQ SCH (09:39)
[2023-02-22] MEDS: NYSTATIN CREAM 30 GM TUBE TP SCH ×2 (09:39→21:00)
[2023-02-22 20:00] VITALS: TEMP 99.1
[2023-02-23] MEDS: IPRATROPIUM BROMIDE 0.5 MG/2.5 ML NEBU NEB SCH ×4 (01:35→19:13)
[2023-02-23] MEDS: ALBUTEROL SULFATE 2.5 MG/3 ML NEBU NEB SCH ×4 (01:35→19:13)
[2023-02-23] MEDS: JEVITY 1.2 1000 ML LIQUID GT PRN ×2 (02:35→22:24)
[2023-02-23 07:54] VITALS: TEMP 98.7
[2023-02-23] MEDS: VALPROIC ACID 250 MG/5 ML LIQUID UDC GT SCH ×2 (08:47→21:09)
[2023-02-23] MEDS: CHLORHEXIDINE GLUCONATE 15 ML MOUTHWASH MM SCH ×2 (08:47→21:09)
[2023-02-23] MEDS: NYSTATIN CREAM 30 GM TUBE TP SCH ×2 (08:47→21:09)
[2023-02-23] MEDS: levETIRAcetam 500 MG/5 ML LIQUID UDC GT SCH ×2 (08:47→21:09)
[2023-02-23] MEDS: PROTEIN SUPPLEMENT (PROSTAT) 30 ML LIQUID GT SCH ×2 (08:47→21:09)
[2023-02-23] MEDS: QUETIAPINE FUMARATE 25 MG TABLET GT SCH ×3 (08:47→16:44)
[2023-02-23] MEDS: COD LIVER OIL/ZINC OXIDE OINT 113 GM TUBE TP SCH ×2 (08:47→21:09)
[2023-02-23] MEDS: ENOXAPARIN SODIUM 40 MG/0.4 ML DISP.SYRIN SQ SCH (08:47)
[2023-02-23] MEDS: MULTIVITAMINS,THERAPEUTIC TABLET GT SCH (08:47)
[2023-02-23] MEDS: NEOMY/BACITRA/POLYMYXIN B OINT UD PACKET TP SCH ×2 (09:24→21:09)
[2023-02-23 20:00] VITALS: TEMP 98.8
[2023-02-23] MEDS: ACETAMINOPHEN 650 MG/20 ML UDC- SA PATIENTS-PAIN ONLY GT PRN (21:14)
[2023-02-24] MEDS: IPRATROPIUM BROMIDE 0.5 MG/2.5 ML NEBU NEB SCH ×4 (01:15→19:22)
[2023-02-24] MEDS: ALBUTEROL SULFATE 2.5 MG/3 ML NEBU NEB SCH ×4 (01:15→19:22)
[2023-02-24 08:05] VITALS: TEMP 98.9
[2023-02-24] MEDS: VALPROIC ACID 250 MG/5 ML LIQUID UDC GT SCH ×2 (09:36→21:19)
[2023-02-24] MEDS: levETIRAcetam 500 MG/5 ML LIQUID UDC GT SCH ×2 (09:36→21:19)
[2023-02-24] MEDS: QUETIAPINE FUMARATE 25 MG TABLET GT SCH ×3 (09:36→17:02)
[2023-02-24] MEDS: PROTEIN SUPPLEMENT (PROSTAT) 30 ML LIQUID GT SCH ×2 (09:36→21:19)
[2023-02-24] MEDS: MULTIVITAMINS,THERAPEUTIC TABLET GT SCH (09:37)
[2023-02-24] MEDS: CHLORHEXIDINE GLUCONATE 15 ML MOUTHWASH MM SCH ×2 (09:38→21:19)
[2023-02-24] MEDS: COD LIVER OIL/ZINC OXIDE OINT 113 GM TUBE TP SCH ×2 (09:40→21:19)
[2023-02-24] MEDS: ENOXAPARIN SODIUM 40 MG/0.4 ML DISP.SYRIN SQ SCH (09:40)
[2023-02-24] MEDS: NYSTATIN CREAM 30 GM TUBE TP SCH ×2 (09:42→21:19)
[2023-02-24] MEDS: NEOMY/BACITRA/POLYMYXIN B OINT UD PACKET TP SCH ×2 (09:42→21:19)
[2023-02-24] MEDS: JEVITY 1.2 1000 ML LIQUID GT PRN (17:02)
[2023-02-24 20:00] VITALS: TEMP 98.9
[2023-02-25] MEDS: ALBUTEROL SULFATE 2.5 MG/3 ML NEBU NEB SCH ×4 (01:57→19:45)
[2023-02-25] MEDS: IPRATROPIUM BROMIDE 0.5 MG/2.5 ML NEBU NEB SCH ×4 (01:57→19:45)
[2023-02-25 08:00] VITALS: TEMP 97.6
[2023-02-25] MEDS: VALPROIC ACID 250 MG/5 ML LIQUID UDC GT SCH ×2 (08:31→21:00)
[2023-02-25] MEDS: PROTEIN SUPPLEMENT (PROSTAT) 30 ML LIQUID GT SCH ×2 (08:31→21:00)
[2023-02-25] MEDS: levETIRAcetam 500 MG/5 ML LIQUID UDC GT SCH ×2 (08:31→21:00)
[2023-02-25] MEDS: CHLORHEXIDINE GLUCONATE 15 ML MOUTHWASH MM SCH ×2 (08:32→21:00)
[2023-02-25] MEDS: MULTIVITAMINS,THERAPEUTIC TABLET GT SCH (08:32)
[2023-02-25] MEDS: QUETIAPINE FUMARATE 25 MG TABLET GT SCH ×3 (08:32→16:31)
[2023-02-25] MEDS: ENOXAPARIN SODIUM 40 MG/0.4 ML DISP.SYRIN SQ SCH (08:34)
[2023-02-25] MEDS: COD LIVER OIL/ZINC OXIDE OINT 113 GM TUBE TP SCH ×2 (08:34→21:00)
[2023-02-25] MEDS: NYSTATIN CREAM 30 GM TUBE TP SCH ×2 (08:35→21:00)
[2023-02-25] MEDS: NEOMY/BACITRA/POLYMYXIN B OINT UD PACKET TP SCH ×2 (08:36→21:00)
[2023-02-25] MEDS: JEVITY 1.2 1000 ML LIQUID GT PRN (12:58)
[2023-02-25 20:40] VITALS: TEMP 99.6
[2023-02-26] MEDS: IPRATROPIUM BROMIDE 0.5 MG/2.5 ML NEBU NEB SCH ×4 (00:45→19:24)
[2023-02-26] MEDS: ALBUTEROL SULFATE 2.5 MG/3 ML NEBU NEB SCH ×4 (00:45→19:24)
[2023-02-26] MEDS: JEVITY 1.2 1000 ML LIQUID GT PRN (03:43)
[2023-02-26 08:08] VITALS: TEMP 98.7
[2023-02-26] MEDS: ENOXAPARIN SODIUM 40 MG/0.4 ML DISP.SYRIN SQ SCH (10:00)
[2023-02-26] MEDS: levETIRAcetam 500 MG/5 ML LIQUID UDC GT SCH ×2 (10:00→20:15)
[2023-02-26] MEDS: PROTEIN SUPPLEMENT (PROSTAT) 30 ML LIQUID GT SCH ×2 (10:00→20:15)
[2023-02-26] MEDS: NYSTATIN CREAM 30 GM TUBE TP SCH ×2 (10:00→20:15)
[2023-02-26] MEDS: QUETIAPINE FUMARATE 25 MG TABLET GT SCH ×3 (10:00→16:41)
[2023-02-26] MEDS: CHLORHEXIDINE GLUCONATE 15 ML MOUTHWASH MM SCH ×2 (10:00→20:15)
[2023-02-26] MEDS: COD LIVER OIL/ZINC OXIDE OINT 113 GM TUBE TP SCH ×2 (10:00→20:15)
[2023-02-26] MEDS: NEOMY/BACITRA/POLYMYXIN B OINT UD PACKET TP SCH ×2 (10:00→20:15)
[2023-02-26] MEDS: VALPROIC ACID 250 MG/5 ML LIQUID UDC GT SCH ×2 (10:00→20:15)
[2023-02-26] MEDS: MULTIVITAMINS,THERAPEUTIC TABLET GT SCH (10:00)
[2023-02-26 20:00] VITALS: TEMP 98
[2023-02-27] MEDS: JEVITY 1.2 1000 ML LIQUID GT PRN ×2 (00:12→22:45)
[2023-02-27] MEDS: IPRATROPIUM BROMIDE 0.5 MG/2.5 ML NEBU NEB SCH ×4 (01:56→19:46)
[2023-02-27] MEDS: ALBUTEROL SULFATE 2.5 MG/3 ML NEBU NEB SCH ×4 (01:57→19:46)
[2023-02-27 07:23] VITALS: TEMP 99.9
[2023-02-27] MEDS: levETIRAcetam 500 MG/5 ML LIQUID UDC GT SCH ×2 (09:58→20:19)
[2023-02-27] MEDS: VALPROIC ACID 250 MG/5 ML LIQUID UDC GT SCH ×2 (09:58→20:19)
[2023-02-27] MEDS: ENOXAPARIN SODIUM 40 MG/0.4 ML DISP.SYRIN SQ SCH (10:00)
[2023-02-27] MEDS: MULTIVITAMINS,THERAPEUTIC TABLET GT SCH (10:00)
[2023-02-27] MEDS: COD LIVER OIL/ZINC OXIDE OINT 113 GM TUBE TP SCH (10:00)
[2023-02-27] MEDS: QUETIAPINE FUMARATE 25 MG TABLET GT SCH ×3 (10:00→16:57)
[2023-02-27] MEDS: CHLORHEXIDINE GLUCONATE 15 ML MOUTHWASH MM SCH ×2 (10:00→20:19)
[2023-02-27] MEDS: NEOMY/BACITRA/POLYMYXIN B OINT UD PACKET TP SCH ×2 (10:00→20:20)
[2023-02-27] MEDS: NYSTATIN CREAM 30 GM TUBE TP SCH (10:00)
[2023-02-27] MEDS: PROTEIN SUPPLEMENT (PROSTAT) 30 ML LIQUID GT SCH ×2 (10:00→20:19)
[2023-02-27 20:00] VITALS: TEMP 98.1
[2023-02-28] MEDS: IPRATROPIUM BROMIDE 0.5 MG/2.5 ML NEBU NEB SCH ×4 (01:24→19:35)
[2023-02-28] MEDS: ALBUTEROL SULFATE 2.5 MG/3 ML NEBU NEB SCH ×4 (01:24→19:35)
[2023-02-28 07:16] VITALS: TEMP 99.3
[2023-02-28 09:17] LABS: ABG BASE EXCESS 5.5 mmol/L; ABG HCO3 29.4 mmol/L; ABG PCO2 40.6 mmHg (35.0-45.0); ABG PH 7.478 (7.350-7.450); ABG SITE RIGHT BRACHIAL; ABG TOTAL HEMOGLOBIN 10.8 G/dL (13.5-18.0); COHb 0.3 % (0.5-1.5); CPAP,BG 0 cmH20; MetHb 0.4 % (0.0-1.5); O2Hb 98.2 % (94.0-97.0); VENT MODE VENT - CPAP; VT, ABG 560 mL
[2023-02-28] MEDS: QUETIAPINE FUMARATE 25 MG TABLET GT SCH ×3 (09:50→17:53)
[2023-02-28] MEDS: levETIRAcetam 500 MG/5 ML LIQUID UDC GT SCH ×2 (09:51→21:00)
[2023-02-28] MEDS: VALPROIC ACID 250 MG/5 ML LIQUID UDC GT SCH ×2 (09:51→21:00)
[2023-02-28] MEDS: PROTEIN SUPPLEMENT (PROSTAT) 30 ML LIQUID GT SCH ×2 (09:52→21:00)
[2023-02-28] MEDS: MULTIVITAMINS,THERAPEUTIC TABLET GT SCH (09:52)
[2023-02-28] MEDS: NEOMY/BACITRA/POLYMYXIN B OINT UD PACKET TP SCH ×2 (09:53→21:00)
[2023-02-28] MEDS: CHLORHEXIDINE GLUCONATE 15 ML MOUTHWASH MM SCH ×2 (09:53→21:00)
[2023-02-28] MEDS: ENOXAPARIN SODIUM 40 MG/0.4 ML DISP.SYRIN SQ SCH (09:56)
[2023-02-28 20:00] VITALS: TEMP 98.1
[2023-03-01] MEDS: IPRATROPIUM BROMIDE 0.5 MG/2.5 ML NEBU NEB SCH ×4 (01:25→19:35)
[2023-03-01] MEDS: ALBUTEROL SULFATE 2.5 MG/3 ML NEBU NEB SCH ×4 (01:25→19:35)
[2023-03-01 07:42] VITALS: TEMP 98.3
[2023-03-01] MEDS: PROTEIN SUPPLEMENT (PROSTAT) 30 ML LIQUID GT SCH ×2 (08:53→21:37)
[2023-03-01] MEDS: QUETIAPINE FUMARATE 25 MG TABLET GT SCH ×3 (08:53→17:32)
[2023-03-01] MEDS: levETIRAcetam 500 MG/5 ML LIQUID UDC GT SCH ×2 (08:53→21:37)
[2023-03-01] MEDS: VALPROIC ACID 250 MG/5 ML LIQUID UDC GT SCH ×2 (08:53→21:37)
[2023-03-01] MEDS: CHLORHEXIDINE GLUCONATE 15 ML MOUTHWASH MM SCH ×2 (08:54→21:37)
[2023-03-01] MEDS: MULTIVITAMINS,THERAPEUTIC TABLET GT SCH (08:54)
[2023-03-01] MEDS: ENOXAPARIN SODIUM 40 MG/0.4 ML DISP.SYRIN SQ SCH (08:55)
[2023-03-01] MEDS: NEOMY/BACITRA/POLYMYXIN B OINT UD PACKET TP SCH ×2 (08:57→21:37)
[2023-03-01] MEDS: JEVITY 1.2 1000 ML LIQUID GT PRN (17:32)
[2023-03-01 19:49] VITALS: TEMP 98.1
[2023-03-02] MEDS: IPRATROPIUM BROMIDE 0.5 MG/2.5 ML NEBU NEB SCH ×4 (01:05→19:23)
[2023-03-02] MEDS: ALBUTEROL SULFATE 2.5 MG/3 ML NEBU NEB SCH ×4 (01:05→19:23)
[2023-03-02] MEDS: ACETAMINOPHEN 650 MG/20 ML UDC- SA PATIENTS-FEVER ONLY GT PRN (05:14)
[2023-03-02 08:00] VITALS: TEMP 98
[2023-03-02] MEDS: VALPROIC ACID 250 MG/5 ML LIQUID UDC GT SCH ×2 (09:35→20:06)
[2023-03-02] MEDS: CHLORHEXIDINE GLUCONATE 15 ML MOUTHWASH MM SCH ×2 (09:36→20:06)
[2023-03-02] MEDS: QUETIAPINE FUMARATE 25 MG TABLET GT SCH ×3 (09:36→17:07)
[2023-03-02] MEDS: levETIRAcetam 500 MG/5 ML LIQUID UDC GT SCH ×2 (09:36→20:06)
[2023-03-02] MEDS: PROTEIN SUPPLEMENT (PROSTAT) 30 ML LIQUID GT SCH ×2 (09:36→20:06)
[2023-03-02] MEDS: MULTIVITAMINS,THERAPEUTIC TABLET GT SCH (09:36)
[2023-03-02] MEDS: ENOXAPARIN SODIUM 40 MG/0.4 ML DISP.SYRIN SQ SCH (09:38)
[2023-03-02 11:03] LABS: BASOPHILS # (AUTO) 0.1 K/UL (0.0-0.2); EOSINOPHILS # (AUTO) 0.6 K/uL (0.0-0.7); EOSINOPHILS % (AUTO) 8.2 % (0.0-7.0); HEMOGLOBIN 9.3 g/dL (12.5-16.3); LYMPHOCYTES # (AUTO) 2.9 K/uL (0.8-4.8); LYMPHOCYTES % (AUTO) 38.2 % (20.5-51.5); MEAN CORPUSCULAR HEMOGLOBIN 28.3 uug (23.8-33.4); MEAN CORPUSCULAR HGB CONC 32 g/dL (32.5-36.3); MEAN CORPUSCULAR VOLUME 87.9 fL (73.0-96.2); MONOCYTES # (AUTO) 0.6 K/uL (0.1-1.30); MONOCYTES % (AUTO) 8.3 % (0.0-11.0); NEUTROPHILS # (AUTO) 3.4 K/uL (1.8-8.9); NEUTROPHILS % (AUTO) 44.3 % (38.5-71.5); PLATELET COUNT (AUTO) 202 K/uL (152-348); RED CELL DISTRIBUTION WIDTH 15.7 % (12.1-16.2); WHITE BLOOD COUNT (AUTO) 7.7 K/uL (3.6-10.2)
[2023-03-02 11:17] LABS: DIFFERENTIAL COMMENT 1
[2023-03-02] MEDS: JEVITY 1.2 1000 ML LIQUID GT PRN (14:25)
[2023-03-02 20:00] VITALS: TEMP 98.2
[2023-03-02] MEDS: OXYCODONE HCL 5 MG TABLET GT PRN (20:06)
[2023-03-03] MEDS: ALBUTEROL SULFATE 2.5 MG/3 ML NEBU NEB SCH ×4 (01:12→19:12)
[2023-03-03] MEDS: IPRATROPIUM BROMIDE 0.5 MG/2.5 ML NEBU NEB SCH ×4 (01:12→19:12)
[2023-03-03 07:58] VITALS: TEMP 98.4
[2023-03-03] MEDS: VALPROIC ACID 250 MG/5 ML LIQUID UDC GT SCH ×2 (08:51→21:00)
[2023-03-03] MEDS: PROTEIN SUPPLEMENT (PROSTAT) 30 ML LIQUID GT SCH ×2 (08:51→21:00)
[2023-03-03] MEDS: levETIRAcetam 500 MG/5 ML LIQUID UDC GT SCH ×2 (08:51→21:00)
[2023-03-03] MEDS: QUETIAPINE FUMARATE 25 MG TABLET GT SCH ×3 (08:52→17:00)
[2023-03-03] MEDS: CHLORHEXIDINE GLUCONATE 15 ML MOUTHWASH MM SCH ×2 (08:52→21:00)
[2023-03-03] MEDS: MULTIVITAMINS,THERAPEUTIC TABLET GT SCH (08:52)
[2023-03-03 08:57] LABS: ABG BASE EXCESS 5.4 mmol/L; ABG HCO3 29.8 mmol/L; ABG PCO2 42.7 mmHg (35.0-45.0); ABG PH 7.461 (7.350-7.450); ABG PO2 152.5 mmHg (75.0-100.0); ABG SITE RIGHT RADIAL; ABG TOTAL HEMOGLOBIN 11.5 G/dL (13.5-18.0); COHb 0.3 % (0.5-1.5); MetHb 0.4 % (0.0-1.5); O2Hb 98.2 % (94.0-97.0); VENT MODE CPAP
[2023-03-03] MEDS: ENOXAPARIN SODIUM 40 MG/0.4 ML DISP.SYRIN SQ SCH (08:58)
[2023-03-03 20:00] VITALS: TEMP 99.8
[2023-03-04] MEDS: IPRATROPIUM BROMIDE 0.5 MG/2.5 ML NEBU NEB SCH ×4 (01:43→20:27)
[2023-03-04] MEDS: ALBUTEROL SULFATE 2.5 MG/3 ML NEBU NEB SCH ×4 (01:57→20:27)
[2023-03-04 06:00] VITALS: TEMP 98.5
[2023-03-04 07:53] VITALS: TEMP 98.4
[2023-03-04] MEDS: levETIRAcetam 500 MG/5 ML LIQUID UDC GT SCH ×2 (08:31→21:49)
[2023-03-04] MEDS: VALPROIC ACID 250 MG/5 ML LIQUID UDC GT SCH ×2 (08:31→21:49)
[2023-03-04] MEDS: QUETIAPINE FUMARATE 25 MG TABLET GT SCH ×3 (08:32→17:15)
[2023-03-04] MEDS: PROTEIN SUPPLEMENT (PROSTAT) 30 ML LIQUID GT SCH ×2 (08:32→21:49)
[2023-03-04] MEDS: MULTIVITAMINS,THERAPEUTIC TABLET GT SCH (08:33)
[2023-03-04] MEDS: CHLORHEXIDINE GLUCONATE 15 ML MOUTHWASH MM SCH ×2 (08:34→21:49)
[2023-03-04] MEDS: ENOXAPARIN SODIUM 40 MG/0.4 ML DISP.SYRIN SQ SCH (08:36)
[2023-03-04 11:15] LABS: *BILIRUBIN,URIN NEGATIVE (NEGATIVE); *BLOOD, URINE NEGATIVE (NEGATIVE); *CLARITY,URINE CLEAR (CLEAR); *COLOR,URINE YELLOW (YELLOW); *KETONES,URINE NEGATIVE (NEGATIVE); *PROTEIN,URINE TRACE (NEGATIVE); LEUKOCYTE ESTERASE ,URINE NEGATIVE (NEGATIVE); NITRITE, URINE NEGATIVE (NEGATIVE); UGLUCOSE NEGATIVE (NEGATIVE)
[2023-03-04] MEDS: JEVITY 1.2 1000 ML LIQUID GT PRN (11:37)
[2023-03-04 11:47] LABS: BACTERIA,URINE FEW /HPF (NONE SEEN); RBC,URINE 0-3 /HPF (0-3); SQUAMOUS EPITHELIAL CELL,UR FEW /HPF (NONE SEEN); URINE AMORPHOUS URATE MODERATE /HPF; WBC,URINE NONE SEEN /HPF (0-3)
[2023-03-04 20:04] VITALS: TEMP 98.8
[2023-03-05] MEDS: ALBUTEROL SULFATE 2.5 MG/3 ML NEBU NEB SCH ×4 (02:24→19:36)
[2023-03-05] MEDS: IPRATROPIUM BROMIDE 0.5 MG/2.5 ML NEBU NEB SCH ×4 (02:24→19:36)
[2023-03-05] MEDS: JEVITY 1.2 1000 ML LIQUID GT PRN (04:41)
[2023-03-05] MEDS: MULTIVITAMINS,THERAPEUTIC TABLET GT SCH (08:58)
[2023-03-05] MEDS: CHLORHEXIDINE GLUCONATE 15 ML MOUTHWASH MM SCH ×2 (08:58→21:08)
[2023-03-05] MEDS: levETIRAcetam 500 MG/5 ML LIQUID UDC GT SCH ×2 (08:58→21:08)
[2023-03-05] MEDS: VALPROIC ACID 250 MG/5 ML LIQUID UDC GT SCH ×2 (08:58→21:08)
[2023-03-05] MEDS: QUETIAPINE FUMARATE 25 MG TABLET GT SCH ×3 (08:58→17:09)
[2023-03-05] MEDS: PROTEIN SUPPLEMENT (PROSTAT) 30 ML LIQUID GT SCH ×2 (08:58→21:08)
[2023-03-05] MEDS: ENOXAPARIN SODIUM 40 MG/0.4 ML DISP.SYRIN SQ SCH (08:59)
[2023-03-05 20:03] VITALS: TEMP 98.5
[2023-03-06] MEDS: ALBUTEROL SULFATE 2.5 MG/3 ML NEBU NEB SCH ×4 (01:20→21:44)
[2023-03-06] MEDS: IPRATROPIUM BROMIDE 0.5 MG/2.5 ML NEBU NEB SCH ×4 (01:20→21:43)
[2023-03-06] MEDS: JEVITY 1.2 1000 ML LIQUID GT PRN (03:33)
[2023-03-06 07:29] VITALS: TEMP 98.4
[2023-03-06 08:45] LABS: ABG BASE EXCESS 6.9 mmol/L; ABG PCO2 47.8 mmHg (35.0-45.0); ABG PH 7.443 (7.350-7.450); ABG PO2 131.9 mmHg (75.0-100.0); ABG SITE RIGHT RADIAL; ABG TOTAL HEMOGLOBIN 10.6 G/dL (13.5-18.0); COHb 0.3 % (0.5-1.5); CPAP,BG 0 cmH20; MetHb 0.3 % (0.0-1.5); O2Hb 97.7 % (94.0-97.0); VENT MODE VENT - CPAP
[2023-03-06] MEDS: ENOXAPARIN SODIUM 40 MG/0.4 ML DISP.SYRIN SQ SCH (09:27)
[2023-03-06] MEDS: PROTEIN SUPPLEMENT (PROSTAT) 30 ML LIQUID GT SCH ×2 (09:29→21:00)
[2023-03-06] MEDS: CHLORHEXIDINE GLUCONATE 15 ML MOUTHWASH MM SCH ×2 (09:29→21:00)
[2023-03-06] MEDS: QUETIAPINE FUMARATE 25 MG TABLET GT SCH ×3 (09:29→16:58)
[2023-03-06] MEDS: MULTIVITAMINS,THERAPEUTIC TABLET GT SCH (09:29)
[2023-03-06] MEDS: levETIRAcetam 500 MG/5 ML LIQUID UDC GT SCH ×2 (09:29→21:00)
[2023-03-06] MEDS: VALPROIC ACID 250 MG/5 ML LIQUID UDC GT SCH ×2 (09:29→21:00)
[2023-03-06 19:57] VITALS: TEMP 99.7
[2023-03-07] VITALS: TEMP 100.7
[2023-03-07] MEDS: ACETAMINOPHEN 650 MG/20 ML UDC- SA PATIENTS-FEVER ONLY GT PRN
[2023-03-07] MEDS: IPRATROPIUM BROMIDE 0.5 MG/2.5 ML NEBU NEB SCH ×4 (00:48→19:07)
[2023-03-07] MEDS: ALBUTEROL SULFATE 2.5 MG/3 ML NEBU NEB SCH ×4 (00:48→19:07)
[2023-03-07 01:00] VITALS: TEMP 100
[2023-03-07 04:05] VITALS: TEMP 98.7
[2023-03-07 07:18] VITALS: TEMP 98.2
[2023-03-07 07:22] LABS: BASOPHILS % (AUTO) 0.3 % (0.0-2.0); EOSINOPHILS # (AUTO) 0.7 K/uL (0.0-0.7); EOSINOPHILS % (AUTO) 6.9 % (0.0-7.0); HEMATOCRIT 28.7 % (36.7-47.1); HEMOGLOBIN 9.4 g/dL (12.5-16.3); LYMPHOCYTES # (AUTO) 3.9 K/uL (0.8-4.8); LYMPHOCYTES % (AUTO) 38.7 % (20.5-51.5); MEAN CORPUSCULAR HEMOGLOBIN 28.5 uug (23.8-33.4); MEAN CORPUSCULAR HGB CONC 33 g/dL (32.5-36.3); MEAN CORPUSCULAR VOLUME 87.4 fL (73.0-96.2); MONOCYTES # (AUTO) 0.6 K/uL (0.1-1.30); MONOCYTES % (AUTO) 5.8 % (0.0-11.0); NEUTROPHILS # (AUTO) 4.9 K/uL (1.8-8.9); NEUTROPHILS % (AUTO) 48.3 % (38.5-71.5); PLATELET COUNT (AUTO) 299 K/uL (152-348); RED BLOOD CELL COUNT(AUTO) 3.29 MIL/uL (4.06-5.63); RED CELL DISTRIBUTION WIDTH 15.7 % (12.1-16.2); WHITE BLOOD COUNT (AUTO) 10.1 K/uL (3.6-10.2)
[2023-03-07 07:24] LABS: DIFFERENTIAL COMMENT 1
[2023-03-07 07:32] LABS: CARBON DIOXIDE 34 mmol/L (21-32); CHLORIDE 114 mmol/L (98-107); CREATININE 0.4 mg/dL (0.6-1.3); GLUCOSE 122 mg/dL (74-106); MAGNESIUM 2.1 mg/dL (1.8-2.4); PHOSPHOROUS 4.1 mg/dL (2.5-4.9); SODIUM SERUM 154 mmol/L (136-145); UREA NITROGEN, BLOOD 15 mg/dL (7-18)
[2023-03-07 07:45] LABS: POTASSIUM 2.8 mmol/L (3.5-5.1)
[2023-03-07] MEDS: VALPROIC ACID 250 MG/5 ML LIQUID UDC GT SCH ×2 (08:12→21:09)
[2023-03-07] MEDS: levETIRAcetam 500 MG/5 ML LIQUID UDC GT SCH ×2 (08:12→21:09)
[2023-03-07] MEDS: MULTIVITAMINS,THERAPEUTIC TABLET GT SCH (08:14)
[2023-03-07] MEDS: PROTEIN SUPPLEMENT (PROSTAT) 30 ML LIQUID GT SCH ×2 (08:14→21:10)
[2023-03-07] MEDS: QUETIAPINE FUMARATE 25 MG TABLET GT SCH ×3 (08:14→17:13)
[2023-03-07] MEDS: CHLORHEXIDINE GLUCONATE 15 ML MOUTHWASH MM SCH ×2 (08:15→21:10)
[2023-03-07] MEDS: ENOXAPARIN SODIUM 40 MG/0.4 ML DISP.SYRIN SQ SCH (08:16)
[2023-03-07 10:20] VITALS: O2SAT 98
[2023-03-07] MEDS: POTASSIUM CHLORIDE IV SCH ×2 (13:00→15:43)
[2023-03-07] MEDS: DEXTROSE 5% IV SCH ×2 (13:00→15:43)
[2023-03-07] MEDS ORDERED: POTASSIUM CHLORIDE 20 MEQ POWDER PACKET GT ONE (13:30)
[2023-03-07 20:00] VITALS: TEMP 99.8
[2023-03-07] MEDS: NORMAL SALINE FLUSH 10 ML DISP.SYRIN IV SCH (21:58)
[2023-03-07] MEDS: MEROPENEM 1 G in IV NORMAL SALINE 100 ML IV SCH (21:58)
[2023-03-07] MEDS ORDERED: DEXTROSE 5% IV ONE (23:00)
[2023-03-07] MEDS: GENTAMICIN SULFATE INJ 120 MG in IV DEXTROSE 5% 100 ML IV SCH (23:00)
[2023-03-07] MEDS ORDERED: GENTAMICIN SULFATE IV ONE (23:00)
[2023-03-08] VITALS: TEMP 99
[2023-03-08] MEDS: IPRATROPIUM BROMIDE 0.5 MG/2.5 ML NEBU NEB SCH ×4 (01:11→19:30)
[2023-03-08] MEDS: ALBUTEROL SULFATE 2.5 MG/3 ML NEBU NEB SCH ×4 (01:11→19:30)
[2023-03-08] MEDS: JEVITY 1.2 1000 ML LIQUID GT PRN ×2 (03:00→22:55)
[2023-03-08 04:00] VITALS: TEMP 98.9
[2023-03-08] MEDS: MEROPENEM 1 G in IV NORMAL SALINE 100 ML IV SCH ×3 (06:01→22:47)
[2023-03-08] MEDS ORDERED: GENTAMICIN SULFATE INJ 120 MG in IV DEXTROSE 5% 100 ML IV SCH (07:00)
[2023-03-08] MEDS: GENTAMICIN SULFATE INJ 120 MG in IV DEXTROSE 5% 100 ML IV SCH ×3 (07:53→18:30)
[2023-03-08 08:00] VITALS: TEMP 97.3
[2023-03-08] MEDS: ENOXAPARIN SODIUM 40 MG/0.4 ML DISP.SYRIN SQ SCH (08:47)
[2023-03-08] MEDS: NORMAL SALINE FLUSH 10 ML DISP.SYRIN IV SCH ×2 (09:00→21:40)
[2023-03-08] MEDS: VALPROIC ACID 250 MG/5 ML LIQUID UDC GT SCH ×2 (09:34→21:00)
[2023-03-08] MEDS: CHLORHEXIDINE GLUCONATE 15 ML MOUTHWASH MM SCH ×2 (09:34→21:00)
[2023-03-08] MEDS: QUETIAPINE FUMARATE 25 MG TABLET GT SCH ×3 (09:34→16:22)
[2023-03-08] MEDS: PROTEIN SUPPLEMENT (PROSTAT) 30 ML LIQUID GT SCH ×2 (09:34→21:00)
[2023-03-08] MEDS: MULTIVITAMINS,THERAPEUTIC TABLET GT SCH (09:34)
[2023-03-08] MEDS: levETIRAcetam 500 MG/5 ML LIQUID UDC GT SCH ×2 (09:34→21:00)
[2023-03-08 16:38] LABS: CREATININE 0.4 mg/dL (0.6-1.3); UREA NITROGEN, BLOOD 12 mg/dL (7-18)
[2023-03-08 20:35] VITALS: TEMP 98.8
[2023-03-09 00:35] VITALS: TEMP 97.3
[2023-03-09] MEDS: IPRATROPIUM BROMIDE 0.5 MG/2.5 ML NEBU NEB SCH ×4 (02:14→21:38)
[2023-03-09] MEDS: ALBUTEROL SULFATE 2.5 MG/3 ML NEBU NEB SCH ×4 (02:14→21:38)
[2023-03-09] MEDS: GENTAMICIN SULFATE INJ 120 MG in IV DEXTROSE 5% 100 ML IV SCH ×3 (02:19→19:07)
[2023-03-09] MEDS: OXYCODONE HCL 5 MG TABLET GT PRN (02:24)
[2023-03-09 04:52] LABS: CREATININE 0.4 mg/dL (0.6-1.3); UREA NITROGEN, BLOOD 13 mg/dL (7-18)
[2023-03-09] MEDS: MEROPENEM 1 G in IV NORMAL SALINE 100 ML IV SCH ×3 (06:12→21:53)
[2023-03-09 07:35] VITALS: TEMP 98.9
[2023-03-09] MEDS: MULTIVITAMINS,THERAPEUTIC TABLET GT SCH (09:00)
[2023-03-09] MEDS: CHLORHEXIDINE GLUCONATE 15 ML MOUTHWASH MM SCH ×2 (09:00→21:00)
[2023-03-09] MEDS: ENOXAPARIN SODIUM 40 MG/0.4 ML DISP.SYRIN SQ SCH (09:00)
[2023-03-09] MEDS: QUETIAPINE FUMARATE 25 MG TABLET GT SCH ×3 (09:00→17:00)
[2023-03-09] MEDS: levETIRAcetam 500 MG/5 ML LIQUID UDC GT SCH ×2 (09:00→21:00)
[2023-03-09] MEDS: VALPROIC ACID 250 MG/5 ML LIQUID UDC GT SCH ×2 (09:00→21:00)
[2023-03-09] MEDS: NORMAL SALINE FLUSH 10 ML DISP.SYRIN IV SCH ×2 (09:00→21:53)
[2023-03-09] MEDS: PROTEIN SUPPLEMENT (PROSTAT) 30 ML LIQUID GT SCH ×2 (09:00→21:00)
[2023-03-09 21:23] VITALS: TEMP 100.2
[2023-03-09] MEDS: IV 1/2NS 1000 ML 1,000 ML IV PRN ×2 (21:45→21:50)
[2023-03-09] MEDS: JEVITY 1.2 1000 ML LIQUID GT PRN (23:54)
[2023-03-10] MEDS: IPRATROPIUM BROMIDE 0.5 MG/2.5 ML NEBU NEB SCH ×4 (01:24→19:05)
[2023-03-10] MEDS: ALBUTEROL SULFATE 2.5 MG/3 ML NEBU NEB SCH ×4 (01:24→19:05)
[2023-03-10 01:26] VITALS: TEMP 98.7
[2023-03-10] MEDS: GENTAMICIN SULFATE INJ 120 MG in IV DEXTROSE 5% 100 ML IV SCH ×3 (02:39→18:56)
[2023-03-10] MEDS: MEROPENEM 1 G in IV NORMAL SALINE 100 ML IV SCH ×3 (06:00→22:00)
[2023-03-10 06:35] LABS: BASOPHILS % (AUTO) 0.4 % (0.0-2.0); EOSINOPHILS # (AUTO) 0.7 K/uL (0.0-0.7); EOSINOPHILS % (AUTO) 8.7 % (0.0-7.0); HEMATOCRIT 26.9 % (36.7-47.1); HEMOGLOBIN 8.8 g/dL (12.5-16.3); LYMPHOCYTES % (AUTO) 40.6 % (20.5-51.5); MEAN CORPUSCULAR HEMOGLOBIN 28.7 uug (23.8-33.4); MEAN CORPUSCULAR HGB CONC 33 g/dL (32.5-36.3); MEAN CORPUSCULAR VOLUME 87.3 fL (73.0-96.2); MONOCYTES # (AUTO) 0.6 K/uL (0.1-1.30); MONOCYTES % (AUTO) 8.6 % (0.0-11.0); NEUTROPHILS # (AUTO) 3.1 K/uL (1.8-8.9); NEUTROPHILS % (AUTO) 41.7 % (38.5-71.5); PLATELET COUNT (AUTO) 284 K/uL (152-348); RED BLOOD CELL COUNT(AUTO) 3.08 MIL/uL (4.06-5.63); RED CELL DISTRIBUTION WIDTH 15.3 % (12.1-16.2); WHITE BLOOD COUNT (AUTO) 7.5 K/uL (3.6-10.2)
[2023-03-10 06:51] LABS: DIFFERENTIAL COMMENT 1
[2023-03-10 07:18] LABS: CALCIUM 8.6 mg/dL (8.5-10.1); CARBON DIOXIDE 29 mmol/L (21-32); CHLORIDE 113 mmol/L (98-107); CREATININE 0.3 mg/dL (0.6-1.3); GLUCOSE 109 mg/dL (74-106); MAGNESIUM 1.7 mg/dL (1.8-2.4); PHOSPHOROUS 4.3 mg/dL (2.5-4.9); POTASSIUM 2.9 mmol/L (3.5-5.1); SODIUM SERUM 149 mmol/L (136-145); UREA NITROGEN, BLOOD 10 mg/dL (7-18)
[2023-03-10 08:24] VITALS: TEMP 98.8
[2023-03-10] MEDS: VALPROIC ACID 250 MG/5 ML LIQUID UDC GT SCH ×2 (08:29→20:54)
[2023-03-10] MEDS: QUETIAPINE FUMARATE 25 MG TABLET GT SCH ×3 (08:29→16:55)
[2023-03-10] MEDS: PROTEIN SUPPLEMENT (PROSTAT) 30 ML LIQUID GT SCH ×2 (08:29→20:54)
[2023-03-10] MEDS: levETIRAcetam 500 MG/5 ML LIQUID UDC GT SCH ×2 (08:29→20:54)
[2023-03-10] MEDS: MULTIVITAMINS,THERAPEUTIC TABLET GT SCH (08:30)
[2023-03-10] MEDS: CHLORHEXIDINE GLUCONATE 15 ML MOUTHWASH MM SCH ×2 (08:30→21:00)
[2023-03-10] MEDS: ENOXAPARIN SODIUM 40 MG/0.4 ML DISP.SYRIN SQ SCH (08:33)
[2023-03-10] MEDS ORDERED: MAGNESIUM OXIDE 400 MG TABLET GT ONE (09:00)
[2023-03-10] MEDS: NORMAL SALINE FLUSH 10 ML DISP.SYRIN IV SCH ×2 (09:00→21:00)
[2023-03-10] MEDS ORDERED: POTASSIUM CHLORIDE 20 MEQ TAB.PRT.SR XX ONE ×2 (10:00→14:00)
[2023-03-10] MEDS: ACETAMINOPHEN 650 MG/20 ML UDC- SA PATIENTS-FEVER ONLY GT PRN (15:30)
[2023-03-10] MEDS: JEVITY 1.2 1000 ML LIQUID GT PRN (15:30)
[2023-03-10 20:00] VITALS: TEMP 97.4
[2023-03-10] MEDS ORDERED: POTASSIUM CHLORIDE 10 MEQ TAB.PRT.SR XX ONE (20:00)
[2023-03-11] MEDS ORDERED: POTASSIUM CHLORIDE 10 MEQ TAB.PRT.SR XX ONE
[2023-03-11] MEDS: IV 1/2NS 1000 ML 1,000 ML IV PRN (00:15)
[2023-03-11] MEDS: IPRATROPIUM BROMIDE 0.5 MG/2.5 ML NEBU NEB SCH ×4 (00:30→20:10)
[2023-03-11] MEDS: ALBUTEROL SULFATE 2.5 MG/3 ML NEBU NEB SCH ×4 (00:31→20:10)
[2023-03-11] MEDS: GENTAMICIN SULFATE INJ 120 MG in IV DEXTROSE 5% 100 ML IV SCH ×3 (02:23→19:06)
[2023-03-11] MEDS: MEROPENEM 1 G in IV NORMAL SALINE 100 ML IV SCH ×3 (06:16→22:00)
[2023-03-11 08:05] VITALS: TEMP 99.1
[2023-03-11] MEDS: VALPROIC ACID 250 MG/5 ML LIQUID UDC GT SCH ×2 (08:43→21:00)
[2023-03-11] MEDS: PROTEIN SUPPLEMENT (PROSTAT) 30 ML LIQUID GT SCH ×2 (08:43→21:00)
[2023-03-11] MEDS: levETIRAcetam 500 MG/5 ML LIQUID UDC GT SCH ×2 (08:43→21:00)
[2023-03-11] MEDS: MULTIVITAMINS,THERAPEUTIC TABLET GT SCH (08:43)
[2023-03-11] MEDS: CHLORHEXIDINE GLUCONATE 15 ML MOUTHWASH MM SCH ×2 (08:43→21:00)
[2023-03-11] MEDS: QUETIAPINE FUMARATE 25 MG TABLET GT SCH ×3 (08:43→16:09)
[2023-03-11] MEDS: ENOXAPARIN SODIUM 40 MG/0.4 ML DISP.SYRIN SQ SCH (08:44)
[2023-03-11] MEDS: NORMAL SALINE FLUSH 10 ML DISP.SYRIN IV SCH ×2 (09:00→21:00)
[2023-03-11] MEDS: JEVITY 1.2 1000 ML LIQUID GT PRN (10:30)
[2023-03-11 20:00] VITALS: TEMP 99.2
[2023-03-12] MEDS: IPRATROPIUM BROMIDE 0.5 MG/2.5 ML NEBU NEB SCH ×4 (01:40→19:35)
[2023-03-12] MEDS: ALBUTEROL SULFATE 2.5 MG/3 ML NEBU NEB SCH ×4 (01:40→19:35)
[2023-03-12] MEDS: GENTAMICIN SULFATE INJ 120 MG in IV DEXTROSE 5% 100 ML IV SCH (02:03)
[2023-03-12] MEDS: MEROPENEM 1 G in IV NORMAL SALINE 100 ML IV SCH ×3 (06:01→22:15)
[2023-03-12] MEDS: IV 1/2NS 1000 ML 1,000 ML IV PRN (07:53)
[2023-03-12 08:35] VITALS: TEMP 98.8
[2023-03-12] MEDS: ENOXAPARIN SODIUM 40 MG/0.4 ML DISP.SYRIN SQ SCH (08:42)
[2023-03-12] MEDS: NORMAL SALINE FLUSH 10 ML DISP.SYRIN IV SCH ×2 (09:00→21:18)
[2023-03-12] MEDS: MULTIVITAMINS,THERAPEUTIC TABLET GT SCH (09:23)
[2023-03-12] MEDS: QUETIAPINE FUMARATE 25 MG TABLET GT SCH ×3 (09:23→17:50)
[2023-03-12] MEDS: VALPROIC ACID 250 MG/5 ML LIQUID UDC GT SCH ×2 (09:23→21:20)
[2023-03-12] MEDS: CHLORHEXIDINE GLUCONATE 15 ML MOUTHWASH MM SCH ×2 (09:23→21:20)
[2023-03-12] MEDS: levETIRAcetam 500 MG/5 ML LIQUID UDC GT SCH ×2 (09:23→21:20)
[2023-03-12] MEDS: PROTEIN SUPPLEMENT (PROSTAT) 30 ML LIQUID GT SCH ×2 (09:23→21:20)
[2023-03-12 13:24] LABS: CALCIUM 8.4 mg/dL (8.5-10.1); CARBON DIOXIDE 26 mmol/L (21-32); CHLORIDE 109 mmol/L (98-107); CREATININE 0.3 mg/dL (0.6-1.3); GLUCOSE 125 mg/dL (74-106); POTASSIUM 3.2 mmol/L (3.5-5.1); SODIUM SERUM 143 mmol/L (136-145); UREA NITROGEN, BLOOD 11 mg/dL (7-18)
[2023-03-12] MEDS: POTASSIUM CHLORIDE 10 MEQ TAB.PRT.SR XX SCH (14:00)
[2023-03-12 20:35] VITALS: TEMP 99
[2023-03-13] MEDS: ALBUTEROL SULFATE 2.5 MG/3 ML NEBU NEB SCH ×4 (01:40→19:15)
[2023-03-13] MEDS: IPRATROPIUM BROMIDE 0.5 MG/2.5 ML NEBU NEB SCH ×4 (01:40→19:15)
[2023-03-13] MEDS: MEROPENEM 1 G in IV NORMAL SALINE 100 ML IV SCH ×3 (05:40→21:26)
[2023-03-13] MEDS: JEVITY 1.2 1000 ML LIQUID GT PRN (06:39)
[2023-03-13 07:33] LABS: BASOPHILS % (AUTO) 0.6 % (0.0-2.0); EOSINOPHILS # (AUTO) 0.7 K/uL (0.0-0.7); EOSINOPHILS % (AUTO) 9.7 % (0.0-7.0); HEMOGLOBIN 8.6 g/dL (12.5-16.3); LYMPHOCYTES # (AUTO) 2.9 K/uL (0.8-4.8); LYMPHOCYTES % (AUTO) 38.2 % (20.5-51.5); MEAN CORPUSCULAR HEMOGLOBIN 28.7 uug (23.8-33.4); MEAN CORPUSCULAR HGB CONC 33 g/dL (32.5-36.3); MEAN CORPUSCULAR VOLUME 86.4 fL (73.0-96.2); MONOCYTES # (AUTO) 0.6 K/uL (0.1-1.30); MONOCYTES % (AUTO) 8.3 % (0.0-11.0); NEUTROPHILS # (AUTO) 3.3 K/uL (1.8-8.9); NEUTROPHILS % (AUTO) 43.2 % (38.5-71.5); PLATELET COUNT (AUTO) 307 K/uL (152-348); RED BLOOD CELL COUNT(AUTO) 3.01 MIL/uL (4.06-5.63); RED CELL DISTRIBUTION WIDTH 15.3 % (12.1-16.2); WHITE BLOOD COUNT (AUTO) 7.6 K/uL (3.6-10.2)
[2023-03-13 07:43] LABS: CALCIUM 8.4 mg/dL (8.5-10.1); CARBON DIOXIDE 26 mmol/L (21-32); CHLORIDE 107 mmol/L (98-107); CREATININE 0.4 mg/dL (0.6-1.3); GLUCOSE 108 mg/dL (74-106); MAGNESIUM 1.7 mg/dL (1.8-2.4); PHOSPHOROUS 3.9 mg/dL (2.5-4.9); POTASSIUM 3.5 mmol/L (3.5-5.1); SODIUM SERUM 142 mmol/L (136-145); UREA NITROGEN, BLOOD 11 mg/dL (7-18)
[2023-03-13 07:47] LABS: DIFFERENTIAL COMMENT 1
[2023-03-13 08:01] VITALS: TEMP 98.4
[2023-03-13] MEDS: CHLORHEXIDINE GLUCONATE 15 ML MOUTHWASH MM SCH ×2 (08:27→20:46)
[2023-03-13] MEDS: QUETIAPINE FUMARATE 25 MG TABLET GT SCH ×3 (08:27→17:38)
[2023-03-13] MEDS: PROTEIN SUPPLEMENT (PROSTAT) 30 ML LIQUID GT SCH ×2 (08:27→20:46)
[2023-03-13] MEDS: levETIRAcetam 500 MG/5 ML LIQUID UDC GT SCH ×2 (08:27→20:46)
[2023-03-13] MEDS: VALPROIC ACID 250 MG/5 ML LIQUID UDC GT SCH ×2 (08:27→20:46)
[2023-03-13] MEDS: MULTIVITAMINS,THERAPEUTIC TABLET GT SCH (08:27)
[2023-03-13] MEDS: POTASSIUM CHLORIDE 10 MEQ TAB.PRT.SR XX SCH (08:28)
[2023-03-13] MEDS: ENOXAPARIN SODIUM 40 MG/0.4 ML DISP.SYRIN SQ SCH (08:33)
[2023-03-13] MEDS: NORMAL SALINE FLUSH 10 ML DISP.SYRIN IV SCH ×2 (09:00→21:26)
[2023-03-13] MEDS ORDERED: MAGNESIUM OXIDE 400 MG TABLET GT ONE (10:00)
[2023-03-13 20:20] VITALS: TEMP 98.7
[2023-03-14] MEDS: IPRATROPIUM BROMIDE 0.5 MG/2.5 ML NEBU NEB SCH ×4 (01:45→19:11)
[2023-03-14] MEDS: ALBUTEROL SULFATE 2.5 MG/3 ML NEBU NEB SCH ×4 (01:45→19:11)
[2023-03-14] MEDS: MEROPENEM 1 G in IV NORMAL SALINE 100 ML IV SCH (05:50)
[2023-03-14 07:31] VITALS: TEMP 98.3
[2023-03-14] MEDS: ENOXAPARIN SODIUM 40 MG/0.4 ML DISP.SYRIN SQ SCH (09:36)
[2023-03-14] MEDS: VALPROIC ACID 250 MG/5 ML LIQUID UDC GT SCH ×2 (09:39→21:29)
[2023-03-14] MEDS: CHLORHEXIDINE GLUCONATE 15 ML MOUTHWASH MM SCH ×2 (09:41→21:30)
[2023-03-14] MEDS: PROTEIN SUPPLEMENT (PROSTAT) 30 ML LIQUID GT SCH ×2 (09:41→21:29)
[2023-03-14] MEDS: QUETIAPINE FUMARATE 25 MG TABLET GT SCH ×3 (09:41→17:00)
[2023-03-14] MEDS: MULTIVITAMINS,THERAPEUTIC TABLET GT SCH (09:41)
[2023-03-14] MEDS: levETIRAcetam 500 MG/5 ML LIQUID UDC GT SCH ×2 (09:41→21:29)
[2023-03-14] MEDS: JEVITY 1.2 1000 ML LIQUID GT PRN (17:22)
[2023-03-14 20:01] VITALS: TEMP 98.6
[2023-03-15] MEDS: IPRATROPIUM BROMIDE 0.5 MG/2.5 ML NEBU NEB SCH ×4 (01:21→19:25)
[2023-03-15] MEDS: ALBUTEROL SULFATE 2.5 MG/3 ML NEBU NEB SCH ×4 (01:21→19:25)
[2023-03-15 07:17] VITALS: TEMP 98.9
[2023-03-15] MEDS: VALPROIC ACID 250 MG/5 ML LIQUID UDC GT SCH ×2 (08:51→21:39)
[2023-03-15] MEDS: levETIRAcetam 500 MG/5 ML LIQUID UDC GT SCH ×2 (08:53→21:39)
[2023-03-15] MEDS: PROTEIN SUPPLEMENT (PROSTAT) 30 ML LIQUID GT SCH ×2 (08:55→21:39)
[2023-03-15] MEDS: QUETIAPINE FUMARATE 25 MG TABLET GT SCH ×3 (08:55→17:28)
[2023-03-15] MEDS: MULTIVITAMINS,THERAPEUTIC TABLET GT SCH (08:56)
[2023-03-15] MEDS: ENOXAPARIN SODIUM 40 MG/0.4 ML DISP.SYRIN SQ SCH (08:59)
[2023-03-15] MEDS: CHLORHEXIDINE GLUCONATE 15 ML MOUTHWASH MM SCH ×2 (09:00→21:39)
[2023-03-15] MEDS: CLONIDINE HCL 0.1 MG TABLET GT PRN (09:03)
[2023-03-15] MEDS: JEVITY 1.2 1000 ML LIQUID GT PRN (16:05)
[2023-03-15 20:20] VITALS: TEMP 98.8
[2023-03-16] MEDS: ALBUTEROL SULFATE 2.5 MG/3 ML NEBU NEB SCH ×4 (00:50→19:16)
[2023-03-16] MEDS: IPRATROPIUM BROMIDE 0.5 MG/2.5 ML NEBU NEB SCH ×4 (00:50→19:16)
[2023-03-16 07:21] VITALS: TEMP 98.8
[2023-03-16] MEDS: QUETIAPINE FUMARATE 25 MG TABLET GT SCH ×3 (09:10→16:36)
[2023-03-16] MEDS: MULTIVITAMINS,THERAPEUTIC TABLET GT SCH (09:10)
[2023-03-16] MEDS: VALPROIC ACID 250 MG/5 ML LIQUID UDC GT SCH ×2 (09:10→20:37)
[2023-03-16] MEDS: levETIRAcetam 500 MG/5 ML LIQUID UDC GT SCH ×2 (09:10→20:41)
[2023-03-16] MEDS: PROTEIN SUPPLEMENT (PROSTAT) 30 ML LIQUID GT SCH ×2 (09:10→20:41)
[2023-03-16] MEDS: ENOXAPARIN SODIUM 40 MG/0.4 ML DISP.SYRIN SQ SCH (09:11)
[2023-03-16] MEDS: CHLORHEXIDINE GLUCONATE 15 ML MOUTHWASH MM SCH ×2 (09:11→20:42)
[2023-03-16] MEDS: JEVITY 1.2 1000 ML LIQUID GT PRN (12:56)
[2023-03-16 20:00] VITALS: TEMP 98
[2023-03-17] VITALS: TEMP 98.2
[2023-03-17] MEDS: IPRATROPIUM BROMIDE 0.5 MG/2.5 ML NEBU NEB SCH ×4 (02:11→19:40)
[2023-03-17] MEDS: ALBUTEROL SULFATE 2.5 MG/3 ML NEBU NEB SCH ×4 (02:11→19:40)
[2023-03-17 07:56] VITALS: TEMP 99.7
[2023-03-17 09:02] VITALS: TEMP 98.8
[2023-03-17] MEDS: levETIRAcetam 500 MG/5 ML LIQUID UDC GT SCH ×2 (09:57→21:10)
[2023-03-17] MEDS: VALPROIC ACID 250 MG/5 ML LIQUID UDC GT SCH ×2 (09:57→21:10)
[2023-03-17] MEDS: CHLORHEXIDINE GLUCONATE 15 ML MOUTHWASH MM SCH ×2 (09:58→21:11)
[2023-03-17] MEDS: PROTEIN SUPPLEMENT (PROSTAT) 30 ML LIQUID GT SCH ×2 (09:58→21:10)
[2023-03-17] MEDS: QUETIAPINE FUMARATE 25 MG TABLET GT SCH ×3 (09:58→16:41)
[2023-03-17] MEDS: MULTIVITAMINS,THERAPEUTIC TABLET GT SCH (09:58)
[2023-03-17] MEDS: ENOXAPARIN SODIUM 40 MG/0.4 ML DISP.SYRIN SQ SCH (10:01)
[2023-03-17 10:10] VITALS: TEMP 98
[2023-03-17] MEDS: CLONIDINE HCL 0.1 MG TABLET GT PRN ×2 (10:14→21:11)
[2023-03-17] MEDS: JEVITY 1.2 1000 ML LIQUID GT PRN (12:52)
[2023-03-17] MEDS: ACETAMINOPHEN 650 MG/20 ML UDC- SA PATIENTS-PAIN ONLY GT PRN (12:54)
[2023-03-17 12:55] VITALS: TEMP 98.8
[2023-03-17 20:31] VITALS: TEMP 98.7
[2023-03-18] MEDS: IPRATROPIUM BROMIDE 0.5 MG/2.5 ML NEBU NEB SCH ×4 (01:33→20:45)
[2023-03-18] MEDS: ALBUTEROL SULFATE 2.5 MG/3 ML NEBU NEB SCH ×4 (01:34→20:46)
[2023-03-18] MEDS: JEVITY 1.2 1000 ML LIQUID GT PRN (05:17)
[2023-03-18 08:02] VITALS: TEMP 97.7
[2023-03-18] MEDS: ENOXAPARIN SODIUM 40 MG/0.4 ML DISP.SYRIN SQ SCH (09:11)
[2023-03-18] MEDS: MULTIVITAMINS,THERAPEUTIC TABLET GT SCH (09:11)
[2023-03-18] MEDS: VALPROIC ACID 250 MG/5 ML LIQUID UDC GT SCH ×2 (09:11→21:00)
[2023-03-18] MEDS: CHLORHEXIDINE GLUCONATE 15 ML MOUTHWASH MM SCH ×2 (09:11→21:00)
[2023-03-18] MEDS: PROTEIN SUPPLEMENT (PROSTAT) 30 ML LIQUID GT SCH ×2 (09:11→21:00)
[2023-03-18] MEDS: QUETIAPINE FUMARATE 25 MG TABLET GT SCH ×3 (09:11→17:00)
[2023-03-18] MEDS: levETIRAcetam 500 MG/5 ML LIQUID UDC GT SCH ×2 (09:11→21:00)
[2023-03-18 20:06] VITALS: TEMP 98.5
[2023-03-19] MEDS: IPRATROPIUM BROMIDE 0.5 MG/2.5 ML NEBU NEB SCH ×4 (01:32→20:16)
[2023-03-19] MEDS: ALBUTEROL SULFATE 2.5 MG/3 ML NEBU NEB SCH ×4 (01:33→20:16)
[2023-03-19 08:00] VITALS: TEMP 98.8
[2023-03-19] MEDS: ENOXAPARIN SODIUM 40 MG/0.4 ML DISP.SYRIN SQ SCH (09:41)
[2023-03-19] MEDS: PROTEIN SUPPLEMENT (PROSTAT) 30 ML LIQUID GT SCH ×2 (09:44→21:48)
[2023-03-19] MEDS: MULTIVITAMINS,THERAPEUTIC TABLET GT SCH (09:44)
[2023-03-19] MEDS: levETIRAcetam 500 MG/5 ML LIQUID UDC GT SCH ×2 (09:44→21:48)
[2023-03-19] MEDS: CHLORHEXIDINE GLUCONATE 15 ML MOUTHWASH MM SCH ×2 (09:44→21:49)
[2023-03-19] MEDS: VALPROIC ACID 250 MG/5 ML LIQUID UDC GT SCH ×2 (09:44→21:48)
[2023-03-19] MEDS: QUETIAPINE FUMARATE 25 MG TABLET GT SCH ×3 (09:44→17:03)
[2023-03-19 20:12] VITALS: TEMP 99.7
[2023-03-19] MEDS: CLONIDINE HCL 0.1 MG TABLET GT PRN (21:00)
[2023-03-19] MEDS: ACETAMINOPHEN 650 MG/20 ML UDC- SA PATIENTS-PAIN ONLY GT PRN (21:00)
[2023-03-19 22:00] VITALS: TEMP 98.7
[2023-03-20] MEDS: JEVITY 1.2 1000 ML LIQUID GT PRN ×2 (00:21→23:15)
[2023-03-20] MEDS: IPRATROPIUM BROMIDE 0.5 MG/2.5 ML NEBU NEB SCH ×4 (01:57→19:19)
[2023-03-20] MEDS: ALBUTEROL SULFATE 2.5 MG/3 ML NEBU NEB SCH ×4 (01:57→19:19)
[2023-03-20] MEDS: PROTEIN SUPPLEMENT (PROSTAT) 30 ML LIQUID GT SCH ×2 (09:00→21:50)
[2023-03-20] MEDS: levETIRAcetam 500 MG/5 ML LIQUID UDC GT SCH ×2 (09:00→21:49)
[2023-03-20] MEDS: CHLORHEXIDINE GLUCONATE 15 ML MOUTHWASH MM SCH ×2 (09:00→21:50)
[2023-03-20] MEDS: QUETIAPINE FUMARATE 25 MG TABLET GT SCH ×3 (09:00→17:36)
[2023-03-20] MEDS: ENOXAPARIN SODIUM 40 MG/0.4 ML DISP.SYRIN SQ SCH (09:00)
[2023-03-20] MEDS: VALPROIC ACID 250 MG/5 ML LIQUID UDC GT SCH ×2 (09:00→21:49)
[2023-03-20] MEDS: MULTIVITAMINS,THERAPEUTIC TABLET GT SCH (09:00)
[2023-03-20] MEDS: ACETAMINOPHEN 650 MG/20 ML UDC- SA PATIENTS-PAIN ONLY GT PRN (17:36)
[2023-03-20 20:00] VITALS: TEMP 98.6
[2023-03-21] MEDS: ALBUTEROL SULFATE 2.5 MG/3 ML NEBU NEB SCH ×4 (01:30→19:40)
[2023-03-21] MEDS: IPRATROPIUM BROMIDE 0.5 MG/2.5 ML NEBU NEB SCH ×4 (01:30→19:40)
[2023-03-21 08:00] VITALS: TEMP 98.9
[2023-03-21] MEDS: VALPROIC ACID 250 MG/5 ML LIQUID UDC GT SCH ×2 (09:00→21:02)
[2023-03-21] MEDS: MULTIVITAMINS,THERAPEUTIC TABLET GT SCH (09:00)
[2023-03-21] MEDS: ENOXAPARIN SODIUM 40 MG/0.4 ML DISP.SYRIN SQ SCH (09:00)
[2023-03-21] MEDS: levETIRAcetam 500 MG/5 ML LIQUID UDC GT SCH ×2 (09:00→21:02)
[2023-03-21] MEDS: PROTEIN SUPPLEMENT (PROSTAT) 30 ML LIQUID GT SCH ×2 (09:00→21:02)
[2023-03-21] MEDS: CHLORHEXIDINE GLUCONATE 15 ML MOUTHWASH MM SCH ×2 (09:00→21:03)
[2023-03-21] MEDS: QUETIAPINE FUMARATE 25 MG TABLET GT SCH ×3 (09:00→17:33)
[2023-03-21 20:00] VITALS: TEMP 98.2
[2023-03-21] MEDS: JEVITY 1.2 1000 ML LIQUID GT PRN (21:00)
[2023-03-22] MEDS: IPRATROPIUM BROMIDE 0.5 MG/2.5 ML NEBU NEB SCH ×4 (02:00→19:11)
[2023-03-22] MEDS: ALBUTEROL SULFATE 2.5 MG/3 ML NEBU NEB SCH ×4 (02:00→19:11)
[2023-03-22 08:00] VITALS: TEMP 98.6
[2023-03-22] MEDS: QUETIAPINE FUMARATE 25 MG TABLET GT SCH ×3 (08:41→17:30)
[2023-03-22] MEDS: PROTEIN SUPPLEMENT (PROSTAT) 30 ML LIQUID GT SCH ×2 (08:41→21:11)
[2023-03-22] MEDS: CHLORHEXIDINE GLUCONATE 15 ML MOUTHWASH MM SCH ×2 (08:41→21:11)
[2023-03-22] MEDS: levETIRAcetam 500 MG/5 ML LIQUID UDC GT SCH ×2 (08:41→21:11)
[2023-03-22] MEDS: VALPROIC ACID 250 MG/5 ML LIQUID UDC GT SCH ×2 (08:41→21:11)
[2023-03-22] MEDS: MULTIVITAMINS,THERAPEUTIC TABLET GT SCH (08:41)
[2023-03-22] MEDS: ENOXAPARIN SODIUM 40 MG/0.4 ML DISP.SYRIN SQ SCH (08:42)
[2023-03-22 20:28] VITALS: TEMP 98.9
[2023-03-23] MEDS: ALBUTEROL SULFATE 2.5 MG/3 ML NEBU NEB SCH ×4 (01:03→22:50)
[2023-03-23] MEDS: IPRATROPIUM BROMIDE 0.5 MG/2.5 ML NEBU NEB SCH ×4 (01:03→22:49)
[2023-03-23 08:09] VITALS: TEMP 99.4
[2023-03-23] MEDS: VALPROIC ACID 250 MG/5 ML LIQUID UDC GT SCH ×2 (08:52→21:15)
[2023-03-23] MEDS: levETIRAcetam 500 MG/5 ML LIQUID UDC GT SCH ×2 (08:52→21:16)
[2023-03-23] MEDS: QUETIAPINE FUMARATE 25 MG TABLET GT SCH ×3 (08:53→17:51)
[2023-03-23] MEDS: MULTIVITAMINS,THERAPEUTIC TABLET GT SCH (08:53)
[2023-03-23] MEDS: CHLORHEXIDINE GLUCONATE 15 ML MOUTHWASH MM SCH ×2 (08:53→21:16)
[2023-03-23] MEDS: PROTEIN SUPPLEMENT (PROSTAT) 30 ML LIQUID GT SCH ×2 (08:53→21:16)
[2023-03-23] MEDS: ENOXAPARIN SODIUM 40 MG/0.4 ML DISP.SYRIN SQ SCH (08:55)
[2023-03-23 20:00] VITALS: TEMP 98.9
[2023-03-23 20:30] VITALS: TEMP 98.9
[2023-03-24] MEDS: ALBUTEROL SULFATE 2.5 MG/3 ML NEBU NEB SCH ×4 (01:55→21:58)
[2023-03-24] MEDS: IPRATROPIUM BROMIDE 0.5 MG/2.5 ML NEBU NEB SCH ×4 (01:55→21:57)
[2023-03-24 08:00] VITALS: TEMP 97.8
[2023-03-24] MEDS: ENOXAPARIN SODIUM 40 MG/0.4 ML DISP.SYRIN SQ SCH (08:45)
[2023-03-24] MEDS: CHLORHEXIDINE GLUCONATE 15 ML MOUTHWASH MM SCH ×2 (09:33→21:00)
[2023-03-24] MEDS: VALPROIC ACID 250 MG/5 ML LIQUID UDC GT SCH ×2 (09:33→21:00)
[2023-03-24] MEDS: PROTEIN SUPPLEMENT (PROSTAT) 30 ML LIQUID GT SCH ×2 (09:33→21:00)
[2023-03-24] MEDS: MULTIVITAMINS,THERAPEUTIC TABLET GT SCH (09:33)
[2023-03-24] MEDS: QUETIAPINE FUMARATE 25 MG TABLET GT SCH ×3 (09:33→16:57)
[2023-03-24] MEDS: levETIRAcetam 500 MG/5 ML LIQUID UDC GT SCH ×2 (09:33→21:00)
[2023-03-24 12:09] VITALS: TEMP 97.6
[2023-03-24 20:00] VITALS: TEMP 99.4
[2023-03-24] MEDS: CLONIDINE HCL 0.1 MG TABLET GT PRN (21:00)
[2023-03-25] MEDS: IPRATROPIUM BROMIDE 0.5 MG/2.5 ML NEBU NEB SCH ×4 (02:29→20:41)
[2023-03-25] MEDS: ALBUTEROL SULFATE 2.5 MG/3 ML NEBU NEB SCH ×4 (02:30→20:41)
[2023-03-25] MEDS: JEVITY 1.2 1000 ML LIQUID GT PRN (05:53)
[2023-03-25] MEDS: CLONIDINE HCL 0.1 MG TABLET GT PRN (07:00)
[2023-03-25] MEDS: ENOXAPARIN SODIUM 40 MG/0.4 ML DISP.SYRIN SQ SCH (09:00)
[2023-03-25] MEDS: VALPROIC ACID 250 MG/5 ML LIQUID UDC GT SCH ×2 (09:19→21:24)
[2023-03-25] MEDS: PROTEIN SUPPLEMENT (PROSTAT) 30 ML LIQUID GT SCH ×2 (09:19→21:24)
[2023-03-25] MEDS: CHLORHEXIDINE GLUCONATE 15 ML MOUTHWASH MM SCH ×2 (09:19→21:24)
[2023-03-25] MEDS: MULTIVITAMINS,THERAPEUTIC TABLET GT SCH (09:19)
[2023-03-25] MEDS: QUETIAPINE FUMARATE 25 MG TABLET GT SCH ×3 (09:19→16:27)
[2023-03-25] MEDS: levETIRAcetam 500 MG/5 ML LIQUID UDC GT SCH ×2 (09:19→21:24)
[2023-03-25 09:43] VITALS: TEMP 97.7
[2023-03-25 20:00] VITALS: TEMP 98.8
[2023-03-26] MEDS: JEVITY 1.2 1000 ML LIQUID GT PRN (00:58)
[2023-03-26] MEDS: ALBUTEROL SULFATE 2.5 MG/3 ML NEBU NEB SCH ×4 (01:50→20:10)
[2023-03-26] MEDS: IPRATROPIUM BROMIDE 0.5 MG/2.5 ML NEBU NEB SCH ×4 (01:50→20:10)
[2023-03-26 07:56] LABS: BASOPHILS % (AUTO) 0.4 % (0.0-2.0); EOSINOPHILS # (AUTO) 0.7 K/uL (0.0-0.7); EOSINOPHILS % (AUTO) 7.3 % (0.0-7.0); HEMATOCRIT 29.6 % (36.7-47.1); HEMOGLOBIN 9.8 g/dL (12.5-16.3); LYMPHOCYTES # (AUTO) 3.7 K/uL (0.8-4.8); LYMPHOCYTES % (AUTO) 40.8 % (20.5-51.5); MEAN CORPUSCULAR HEMOGLOBIN 28.2 uug (23.8-33.4); MEAN CORPUSCULAR HGB CONC 33 g/dL (32.5-36.3); MONOCYTES # (AUTO) 0.7 K/uL (0.1-1.30); MONOCYTES % (AUTO) 8.3 % (0.0-11.0); NEUTROPHILS # (AUTO) 3.9 K/uL (1.8-8.9); NEUTROPHILS % (AUTO) 43.2 % (38.5-71.5); PLATELET COUNT (AUTO) 250 K/uL (152-348); RED BLOOD CELL COUNT(AUTO) 3.48 MIL/uL (4.06-5.63); RED CELL DISTRIBUTION WIDTH 14.6 % (12.1-16.2)
[2023-03-26 08:08] VITALS: TEMP 98.9
[2023-03-26 08:10] LABS: DIFFERENTIAL COMMENT 1
[2023-03-26] MEDS: PROTEIN SUPPLEMENT (PROSTAT) 30 ML LIQUID GT SCH ×2 (08:29→21:18)
[2023-03-26] MEDS: CHLORHEXIDINE GLUCONATE 15 ML MOUTHWASH MM SCH ×2 (08:29→21:18)
[2023-03-26] MEDS: VALPROIC ACID 250 MG/5 ML LIQUID UDC GT SCH ×2 (08:29→21:18)
[2023-03-26] MEDS: QUETIAPINE FUMARATE 25 MG TABLET GT SCH ×3 (08:29→16:03)
[2023-03-26] MEDS: MULTIVITAMINS,THERAPEUTIC TABLET GT SCH (08:29)
[2023-03-26] MEDS: levETIRAcetam 500 MG/5 ML LIQUID UDC GT SCH ×2 (08:29→21:18)
[2023-03-26] MEDS: ENOXAPARIN SODIUM 40 MG/0.4 ML DISP.SYRIN SQ SCH (08:30)
[2023-03-26 08:46] LABS: ALANINE AMINOTRANSFERASE 17 U/L (16-63); ALBUMIN 2.4 g/dL (3.4-5.0); ALKALINE PHOSPHATASE 165 U/L (50-136); ASPARTATE AMINOTRANSFERASE 22 U/L (15-37); BILIRUBIN,TOTAL 0.3 mg/dL (0.2-1.0); CALCIUM 8.7 mg/dL (8.5-10.1); CARBON DIOXIDE 31 mmol/L (21-32); CHLORIDE 108 mmol/L (98-107); CREATININE 0.4 mg/dL (0.6-1.3); GLUCOSE 107 mg/dL (74-106); MAGNESIUM 1.9 mg/dL (1.8-2.4); PHOSPHOROUS 4.3 mg/dL (2.5-4.9); SODIUM SERUM 147 mmol/L (136-145); TOTAL PROTEIN, SERUM 8.5 g/dL (6.4-8.2); UREA NITROGEN, BLOOD 13 mg/dL (7-18)
[2023-03-26 09:00] LABS: POTASSIUM 2.7 mmol/L (3.5-5.1)
[2023-03-26 10:46] LABS: PRE ALBUMIN 17.3 MG/DL (18.0-35.7)
[2023-03-26] MEDS ORDERED: POTASSIUM CHLORIDE 10 MEQ TAB.PRT.SR XX ONE (14:00)
[2023-03-26] MEDS ORDERED: POTASSIUM CHLORIDE 20 MEQ POWDER PACKET GT SCH (15:00)
[2023-03-26] MEDS ORDERED: POTASSIUM CHLORIDE 20 MEQ TAB.PRT.SR XX ONE (15:00)
[2023-03-26] MEDS ORDERED: POTASSIUM CHLORIDE 10 MEQ TAB.PRT.SR XX SCH (15:00)
[2023-03-26] MEDS: POTASSIUM CHLORIDE 10 MEQ TAB.PRT.SR XX SCH ×2 (16:03→20:00)
[2023-03-26 19:54] VITALS: TEMP 99.6
[2023-03-27] MEDS: IPRATROPIUM BROMIDE 0.5 MG/2.5 ML NEBU NEB SCH ×4 (01:31→19:21)
[2023-03-27] MEDS: ALBUTEROL SULFATE 2.5 MG/3 ML NEBU NEB SCH ×4 (01:31→19:21)
[2023-03-27] MEDS: JEVITY 1.2 1000 ML LIQUID GT PRN ×2 (02:47→22:33)
[2023-03-27 07:32] LABS: CALCIUM 9.1 mg/dL (8.5-10.1); CARBON DIOXIDE 29 mmol/L (21-32); CHLORIDE 110 mmol/L (98-107); CREATININE 0.4 mg/dL (0.6-1.3); GLUCOSE 129 mg/dL (74-106); MAGNESIUM 2.1 mg/dL (1.8-2.4); POTASSIUM 3.3 mmol/L (3.5-5.1); SODIUM SERUM 148 mmol/L (136-145); UREA NITROGEN, BLOOD 13 mg/dL (7-18)
[2023-03-27] MEDS: VALPROIC ACID 250 MG/5 ML LIQUID UDC GT SCH ×2 (09:01→21:50)
[2023-03-27] MEDS: levETIRAcetam 500 MG/5 ML LIQUID UDC GT SCH ×2 (09:02→21:50)
[2023-03-27] MEDS: PROTEIN SUPPLEMENT (PROSTAT) 30 ML LIQUID GT SCH ×2 (09:04→21:50)
[2023-03-27] MEDS: QUETIAPINE FUMARATE 25 MG TABLET GT SCH ×3 (09:05→17:05)
[2023-03-27] MEDS: MULTIVITAMINS,THERAPEUTIC TABLET GT SCH (09:07)
[2023-03-27] MEDS: CHLORHEXIDINE GLUCONATE 15 ML MOUTHWASH MM SCH ×2 (09:07→21:50)
[2023-03-27 09:18] VITALS: TEMP 98.8
[2023-03-27] MEDS: CLONIDINE HCL 0.1 MG TABLET GT PRN (09:23)
[2023-03-27] MEDS: ACETAMINOPHEN 650 MG/20 ML UDC- SA PATIENTS-PAIN ONLY GT PRN (13:41)
[2023-03-27] MEDS ORDERED: POTASSIUM CHLORIDE 10 MEQ TAB.PRT.SR XX ONE (17:30)
[2023-03-27] MEDS ORDERED: POTASSIUM CHLORIDE 20 MEQ TAB.PRT.SR XX ONE (18:15)
[2023-03-27 19:52] VITALS: TEMP 98.9
[2023-03-28] MEDS: IPRATROPIUM BROMIDE 0.5 MG/2.5 ML NEBU NEB SCH ×4 (02:09→20:45)
[2023-03-28] MEDS: ALBUTEROL SULFATE 2.5 MG/3 ML NEBU NEB SCH ×4 (02:09→20:45)
[2023-03-28 09:12] VITALS: TEMP 99.4
[2023-03-28] MEDS: VALPROIC ACID 250 MG/5 ML LIQUID UDC GT SCH ×2 (09:38→21:45)
[2023-03-28] MEDS: PROTEIN SUPPLEMENT (PROSTAT) 30 ML LIQUID GT SCH ×2 (09:40→21:45)
[2023-03-28] MEDS: levETIRAcetam 500 MG/5 ML LIQUID UDC GT SCH ×2 (09:40→21:45)
[2023-03-28] MEDS: CHLORHEXIDINE GLUCONATE 15 ML MOUTHWASH MM SCH ×2 (09:41→21:46)
[2023-03-28] MEDS: QUETIAPINE FUMARATE 25 MG TABLET GT SCH ×3 (09:41→17:11)
[2023-03-28] MEDS: MULTIVITAMINS,THERAPEUTIC TABLET GT SCH (09:43)
[2023-03-28 20:09] VITALS: TEMP 99.2
[2023-03-28] MEDS ORDERED: POTASSIUM CHLORIDE 10 MEQ TAB.PRT.SR XX ONE (21:30)
[2023-03-28] MEDS: JEVITY 1.2 1000 ML LIQUID GT PRN (21:52)
[2023-03-29] MEDS: IPRATROPIUM BROMIDE 0.5 MG/2.5 ML NEBU NEB SCH ×4 (01:11→23:06)
[2023-03-29] MEDS: ALBUTEROL SULFATE 2.5 MG/3 ML NEBU NEB SCH ×4 (01:11→23:06)
[2023-03-29 08:00] VITALS: TEMP 97.6
[2023-03-29] MEDS: VALPROIC ACID 250 MG/5 ML LIQUID UDC GT SCH ×2 (08:55→21:52)
[2023-03-29] MEDS: QUETIAPINE FUMARATE 25 MG TABLET GT SCH ×3 (08:56→17:46)
[2023-03-29] MEDS: levETIRAcetam 500 MG/5 ML LIQUID UDC GT SCH ×2 (08:56→21:52)
[2023-03-29] MEDS: PROTEIN SUPPLEMENT (PROSTAT) 30 ML LIQUID GT SCH ×2 (08:56→21:52)
[2023-03-29] MEDS: MULTIVITAMINS,THERAPEUTIC TABLET GT SCH (08:57)
[2023-03-29] MEDS: CHLORHEXIDINE GLUCONATE 15 ML MOUTHWASH MM SCH ×2 (08:57→21:52)
[2023-03-29] MEDS ORDERED: POTASSIUM CHLORIDE 10 MEQ TAB.PRT.SR XX ONE (09:00)
[2023-03-29] MEDS ORDERED: ENOXAPARIN SODIUM 40 MG/0.4 ML DISP.SYRIN SQ SCH (09:00)
[2023-03-29] MEDS: ENOXAPARIN SODIUM 40 MG/0.4 ML DISP.SYRIN SQ SCH (15:26)
[2023-03-29 20:00] VITALS: TEMP 99.5
[2023-03-29] MEDS: JEVITY 1.2 1000 ML LIQUID GT PRN (21:53)
[2023-03-30] MEDS: ALBUTEROL SULFATE 2.5 MG/3 ML NEBU NEB SCH ×4 (01:19→19:23)
[2023-03-30] MEDS: IPRATROPIUM BROMIDE 0.5 MG/2.5 ML NEBU NEB SCH ×4 (01:19→19:23)
[2023-03-30 08:00] VITALS: TEMP 97.8
[2023-03-30] MEDS: VALPROIC ACID 250 MG/5 ML LIQUID UDC GT SCH ×2 (09:58→21:00)
[2023-03-30] MEDS: levETIRAcetam 500 MG/5 ML LIQUID UDC GT SCH ×2 (09:58→21:00)
[2023-03-30] MEDS: QUETIAPINE FUMARATE 25 MG TABLET GT SCH ×3 (09:58→18:00)
[2023-03-30] MEDS: CHLORHEXIDINE GLUCONATE 15 ML MOUTHWASH MM SCH ×2 (09:58→21:00)
[2023-03-30] MEDS: MULTIVITAMINS,THERAPEUTIC TABLET GT SCH (09:58)
[2023-03-30] MEDS: PROTEIN SUPPLEMENT (PROSTAT) 30 ML LIQUID GT SCH ×2 (09:58→21:00)
[2023-03-30] MEDS: ENOXAPARIN SODIUM 40 MG/0.4 ML DISP.SYRIN SQ SCH (09:59)
[2023-03-30] MEDS: JEVITY 1.2 1000 ML LIQUID GT PRN (13:48)
[2023-03-30 20:00] VITALS: TEMP 98.8
[2023-03-31] MEDS: ALBUTEROL SULFATE 2.5 MG/3 ML NEBU NEB SCH ×4 (01:21→19:41)
[2023-03-31] MEDS: IPRATROPIUM BROMIDE 0.5 MG/2.5 ML NEBU NEB SCH ×4 (01:21→19:41)
[2023-03-31 08:00] VITALS: TEMP 98
[2023-03-31] MEDS: VALPROIC ACID 250 MG/5 ML LIQUID UDC GT SCH ×2 (09:20→21:45)
[2023-03-31] MEDS: QUETIAPINE FUMARATE 25 MG TABLET GT SCH ×3 (09:20→18:00)
[2023-03-31] MEDS: PROTEIN SUPPLEMENT (PROSTAT) 30 ML LIQUID GT SCH ×2 (09:20→21:45)
[2023-03-31] MEDS: MULTIVITAMINS,THERAPEUTIC TABLET GT SCH (09:20)
[2023-03-31] MEDS: levETIRAcetam 500 MG/5 ML LIQUID UDC GT SCH ×2 (09:20→21:45)
[2023-03-31] MEDS: CHLORHEXIDINE GLUCONATE 15 ML MOUTHWASH MM SCH ×2 (09:21→21:46)
[2023-03-31] MEDS: ENOXAPARIN SODIUM 40 MG/0.4 ML DISP.SYRIN SQ SCH (09:22)
[2023-03-31] MEDS: JEVITY 1.2 1000 ML LIQUID GT PRN (09:22)
[2023-03-31 20:00] VITALS: TEMP 99
[2023-04-01] MEDS: ALBUTEROL SULFATE 2.5 MG/3 ML NEBU NEB SCH ×4 (01:34→19:39)
[2023-04-01] MEDS: IPRATROPIUM BROMIDE 0.5 MG/2.5 ML NEBU NEB SCH ×4 (01:34→19:39)
[2023-04-01] MEDS: JEVITY 1.2 1000 ML LIQUID GT PRN (04:07)
[2023-04-01 07:51] VITALS: TEMP 98.3
[2023-04-01] MEDS: levETIRAcetam 500 MG/5 ML LIQUID UDC GT SCH ×2 (08:46→21:59)
[2023-04-01] MEDS: PROTEIN SUPPLEMENT (PROSTAT) 30 ML LIQUID GT SCH ×2 (08:46→21:59)
[2023-04-01] MEDS: VALPROIC ACID 250 MG/5 ML LIQUID UDC GT SCH ×2 (08:46→21:59)
[2023-04-01] MEDS: MULTIVITAMINS,THERAPEUTIC TABLET GT SCH (08:46)
[2023-04-01] MEDS: QUETIAPINE FUMARATE 25 MG TABLET GT SCH ×3 (08:46→17:10)
[2023-04-01] MEDS: CHLORHEXIDINE GLUCONATE 15 ML MOUTHWASH MM SCH ×2 (08:46→22:00)
[2023-04-01] MEDS: ENOXAPARIN SODIUM 40 MG/0.4 ML DISP.SYRIN SQ SCH (08:46)
[2023-04-01 20:42] VITALS: TEMP 98.4
[2023-04-02] MEDS: ALBUTEROL SULFATE 2.5 MG/3 ML NEBU NEB SCH ×4 (01:35→19:35)
[2023-04-02] MEDS: IPRATROPIUM BROMIDE 0.5 MG/2.5 ML NEBU NEB SCH ×4 (01:35→19:35)
[2023-04-02] MEDS: JEVITY 1.2 1000 ML LIQUID GT PRN (01:42)
[2023-04-02 07:27] LABS: BASOPHILS % (AUTO) 0.5 % (0.0-2.0); EOSINOPHILS # (AUTO) 0.8 K/uL (0.0-0.7); EOSINOPHILS % (AUTO) 10.7 % (0.0-7.0); HEMATOCRIT 28.8 % (36.7-47.1); HEMOGLOBIN 9.5 g/dL (12.5-16.3); LYMPHOCYTES # (AUTO) 2.6 K/uL (0.8-4.8); LYMPHOCYTES % (AUTO) 33.6 % (20.5-51.5); MEAN CORPUSCULAR HGB CONC 33 g/dL (32.5-36.3); MEAN CORPUSCULAR VOLUME 84.4 fL (73.0-96.2); MONOCYTES # (AUTO) 0.5 K/uL (0.1-1.30); MONOCYTES % (AUTO) 6.9 % (0.0-11.0); NEUTROPHILS # (AUTO) 3.7 K/uL (1.8-8.9); NEUTROPHILS % (AUTO) 48.3 % (38.5-71.5); PLATELET COUNT (AUTO) 350 K/uL (152-348); RED BLOOD CELL COUNT(AUTO) 3.41 MIL/uL (4.06-5.63); RED CELL DISTRIBUTION WIDTH 14.3 % (12.1-16.2); WHITE BLOOD COUNT (AUTO) 7.6 K/uL (3.6-10.2)
[2023-04-02 07:32] LABS: DIFFERENTIAL COMMENT 1
[2023-04-02 07:33] LABS: CALCIUM 8.9 mg/dL (8.5-10.1); CARBON DIOXIDE 33 mmol/L (21-32); CHLORIDE 105 mmol/L (98-107); CREATININE 0.4 mg/dL (0.6-1.3); GLUCOSE 110 mg/dL (74-106); POTASSIUM 2.9 mmol/L (3.5-5.1); SODIUM SERUM 143 mmol/L (136-145); UREA NITROGEN, BLOOD 11 mg/dL (7-18)
[2023-04-02 08:00] VITALS: TEMP 98.6
[2023-04-02] MEDS: levETIRAcetam 500 MG/5 ML LIQUID UDC GT SCH ×2 (09:30→21:00)
[2023-04-02] MEDS: MULTIVITAMINS,THERAPEUTIC TABLET GT SCH (09:30)
[2023-04-02] MEDS: ENOXAPARIN SODIUM 40 MG/0.4 ML DISP.SYRIN SQ SCH (09:30)
[2023-04-02] MEDS: CHLORHEXIDINE GLUCONATE 15 ML MOUTHWASH MM SCH ×2 (09:30→21:00)
[2023-04-02] MEDS: VALPROIC ACID 250 MG/5 ML LIQUID UDC GT SCH ×2 (09:30→21:00)
[2023-04-02] MEDS: PROTEIN SUPPLEMENT (PROSTAT) 30 ML LIQUID GT SCH ×2 (09:30→21:00)
[2023-04-02] MEDS: QUETIAPINE FUMARATE 25 MG TABLET GT SCH ×3 (09:30→17:23)
[2023-04-02] MEDS: POTASSIUM CHLORIDE 10 MEQ TAB.PRT.SR PO SCH ×2 (16:05→17:31)
[2023-04-02 19:54] VITALS: TEMP 98.5
[2023-04-02 19:55] VITALS: TEMP 98.2
[2023-04-03] MEDS: ALBUTEROL SULFATE 2.5 MG/3 ML NEBU NEB SCH ×4 (01:35→21:03)
[2023-04-03] MEDS: IPRATROPIUM BROMIDE 0.5 MG/2.5 ML NEBU NEB SCH ×4 (01:35→21:03)
[2023-04-03 07:17] VITALS: TEMP 98.8
[2023-04-03] MEDS: ENOXAPARIN SODIUM 40 MG/0.4 ML DISP.SYRIN SQ SCH (09:01)
[2023-04-03] MEDS: CHLORHEXIDINE GLUCONATE 15 ML MOUTHWASH MM SCH ×2 (09:36→21:00)
[2023-04-03] MEDS: QUETIAPINE FUMARATE 25 MG TABLET GT SCH ×3 (09:36→17:26)
[2023-04-03] MEDS: PROTEIN SUPPLEMENT (PROSTAT) 30 ML LIQUID GT SCH ×2 (09:36→21:00)
[2023-04-03] MEDS: MULTIVITAMINS,THERAPEUTIC TABLET GT SCH (09:36)
[2023-04-03] MEDS: levETIRAcetam 500 MG/5 ML LIQUID UDC GT SCH ×2 (09:36→21:00)
[2023-04-03] MEDS: VALPROIC ACID 250 MG/5 ML LIQUID UDC GT SCH ×2 (09:36→21:00)
[2023-04-03 19:50] VITALS: TEMP 98.2
[2023-04-04] MEDS: ALBUTEROL SULFATE 2.5 MG/3 ML NEBU NEB SCH ×4 (02:14→19:40)
[2023-04-04] MEDS: IPRATROPIUM BROMIDE 0.5 MG/2.5 ML NEBU NEB SCH ×4 (02:14→19:40)
[2023-04-04 09:12] VITALS: TEMP 98.8
[2023-04-04] MEDS: levETIRAcetam 500 MG/5 ML LIQUID UDC GT SCH ×2 (09:19→21:55)
[2023-04-04] MEDS: VALPROIC ACID 250 MG/5 ML LIQUID UDC GT SCH ×2 (09:19→21:55)
[2023-04-04] MEDS: PROTEIN SUPPLEMENT (PROSTAT) 30 ML LIQUID GT SCH ×2 (09:20→21:55)
[2023-04-04] MEDS: QUETIAPINE FUMARATE 25 MG TABLET GT SCH ×3 (09:21→16:59)
[2023-04-04] MEDS: CHLORHEXIDINE GLUCONATE 15 ML MOUTHWASH MM SCH ×2 (09:21→21:55)
[2023-04-04] MEDS: MULTIVITAMINS,THERAPEUTIC TABLET GT SCH (09:21)
[2023-04-04] MEDS: ENOXAPARIN SODIUM 40 MG/0.4 ML DISP.SYRIN SQ SCH (09:22)
[2023-04-04 20:00] VITALS: TEMP 97.5
[2023-04-04] MEDS: ACETAMINOPHEN 650 MG/20 ML UDC- SA PATIENTS-PAIN ONLY GT PRN (21:56)
[2023-04-04] MEDS: JEVITY 1.2 1000 ML LIQUID GT PRN (23:33)
[2023-04-05] MEDS: ALBUTEROL SULFATE 2.5 MG/3 ML NEBU NEB SCH ×4 (01:35→19:36)
[2023-04-05] MEDS: IPRATROPIUM BROMIDE 0.5 MG/2.5 ML NEBU NEB SCH ×4 (01:35→19:35)
[2023-04-05 08:00] VITALS: TEMP 98
[2023-04-05] MEDS: QUETIAPINE FUMARATE 25 MG TABLET GT SCH ×3 (09:00→17:43)
[2023-04-05] MEDS: VALPROIC ACID 250 MG/5 ML LIQUID UDC GT SCH ×2 (09:04→21:00)
[2023-04-05] MEDS: levETIRAcetam 500 MG/5 ML LIQUID UDC GT SCH ×2 (09:05→21:00)
[2023-04-05] MEDS: PROTEIN SUPPLEMENT (PROSTAT) 30 ML LIQUID GT SCH ×2 (09:05→21:00)
[2023-04-05] MEDS: CHLORHEXIDINE GLUCONATE 15 ML MOUTHWASH MM SCH ×2 (09:06→21:00)
[2023-04-05] MEDS: MULTIVITAMINS,THERAPEUTIC TABLET GT SCH (09:06)
[2023-04-05] MEDS: ENOXAPARIN SODIUM 40 MG/0.4 ML DISP.SYRIN SQ SCH (09:09)
[2023-04-05 19:56] VITALS: TEMP 98.1
[2023-04-05] MEDS ORDERED: POTASSIUM CHLORIDE 20 MEQ POWDER PACKET GT ONE (21:00)
[2023-04-06] MEDS: IPRATROPIUM BROMIDE 0.5 MG/2.5 ML NEBU NEB SCH ×4 (01:35→19:32)
[2023-04-06] MEDS: ALBUTEROL SULFATE 2.5 MG/3 ML NEBU NEB SCH ×4 (01:35→19:32)
[2023-04-06] MEDS: VALPROIC ACID 250 MG/5 ML LIQUID UDC GT SCH ×2 (09:03→21:23)
[2023-04-06] MEDS: PROTEIN SUPPLEMENT (PROSTAT) 30 ML LIQUID GT SCH ×2 (09:04→21:23)
[2023-04-06] MEDS: levETIRAcetam 500 MG/5 ML LIQUID UDC GT SCH ×2 (09:04→21:23)
[2023-04-06] MEDS: QUETIAPINE FUMARATE 25 MG TABLET GT SCH ×3 (09:04→17:23)
[2023-04-06] MEDS: CHLORHEXIDINE GLUCONATE 15 ML MOUTHWASH MM SCH ×2 (09:05→21:23)
[2023-04-06] MEDS: MULTIVITAMINS,THERAPEUTIC TABLET GT SCH (09:05)
[2023-04-06] MEDS: ENOXAPARIN SODIUM 40 MG/0.4 ML DISP.SYRIN SQ SCH (09:06)
[2023-04-06 10:45] VITALS: TEMP 98.8
[2023-04-06] MEDS: JEVITY 1.2 1000 ML LIQUID GT PRN (18:11)
[2023-04-06 20:00] VITALS: TEMP 98.2
[2023-04-07] MEDS: IPRATROPIUM BROMIDE 0.5 MG/2.5 ML NEBU NEB SCH ×4 (01:51→19:30)
[2023-04-07] MEDS: ALBUTEROL SULFATE 2.5 MG/3 ML NEBU NEB SCH ×4 (01:52→19:30)
[2023-04-07 08:00] VITALS: TEMP 98.8
[2023-04-07] MEDS: VALPROIC ACID 250 MG/5 ML LIQUID UDC GT SCH ×2 (08:13→21:39)
[2023-04-07] MEDS: QUETIAPINE FUMARATE 25 MG TABLET GT SCH ×3 (08:13→16:20)
[2023-04-07] MEDS: CHLORHEXIDINE GLUCONATE 15 ML MOUTHWASH MM SCH ×2 (08:13→21:39)
[2023-04-07] MEDS: MULTIVITAMINS,THERAPEUTIC TABLET GT SCH (08:13)
[2023-04-07] MEDS: levETIRAcetam 500 MG/5 ML LIQUID UDC GT SCH ×2 (08:13→21:39)
[2023-04-07] MEDS: PROTEIN SUPPLEMENT (PROSTAT) 30 ML LIQUID GT SCH ×2 (08:13→21:39)
[2023-04-07] MEDS: ENOXAPARIN SODIUM 40 MG/0.4 ML DISP.SYRIN SQ SCH (08:15)
[2023-04-07 11:45] VITALS: O2SAT 98
[2023-04-07] MEDS: JEVITY 1.2 1000 ML LIQUID GT PRN (12:38)
[2023-04-08] MEDS: ALBUTEROL SULFATE 2.5 MG/3 ML NEBU NEB SCH ×4 (02:09→19:27)
[2023-04-08] MEDS: IPRATROPIUM BROMIDE 0.5 MG/2.5 ML NEBU NEB SCH ×4 (02:09→19:27)
[2023-04-08 07:53] VITALS: TEMP 98.1
[2023-04-08] MEDS: VALPROIC ACID 250 MG/5 ML LIQUID UDC GT SCH ×2 (08:42→20:30)
[2023-04-08] MEDS: levETIRAcetam 500 MG/5 ML LIQUID UDC GT SCH ×2 (08:42→20:30)
[2023-04-08] MEDS: QUETIAPINE FUMARATE 25 MG TABLET GT SCH ×3 (08:43→17:08)
[2023-04-08] MEDS: PROTEIN SUPPLEMENT (PROSTAT) 30 ML LIQUID GT SCH ×2 (08:43→20:30)
[2023-04-08] MEDS: MULTIVITAMINS,THERAPEUTIC TABLET GT SCH (08:45)
[2023-04-08] MEDS: CHLORHEXIDINE GLUCONATE 15 ML MOUTHWASH MM SCH ×2 (08:45→20:30)
[2023-04-08] MEDS: ENOXAPARIN SODIUM 40 MG/0.4 ML DISP.SYRIN SQ SCH (08:59)
[2023-04-08] MEDS: JEVITY 1.2 1000 ML LIQUID GT PRN (12:41)
[2023-04-08] MEDS: CLONIDINE HCL 0.1 MG TABLET GT PRN (12:48)
[2023-04-08 20:09] VITALS: TEMP 99.3
[2023-04-09] MEDS: IPRATROPIUM BROMIDE 0.5 MG/2.5 ML NEBU NEB SCH ×4 (04:03→19:12)
[2023-04-09] MEDS: ALBUTEROL SULFATE 2.5 MG/3 ML NEBU NEB SCH ×4 (04:03→19:13)
[2023-04-09 08:02] LABS: BASOPHILS # (AUTO) 0.1 K/UL (0.0-0.2); BASOPHILS % (AUTO) 0.4 % (0.0-2.0); EOSINOPHILS # (AUTO) 0.3 K/uL (0.0-0.7); EOSINOPHILS % (AUTO) 2.5 % (0.0-7.0); HEMATOCRIT 30.7 % (36.7-47.1); HEMOGLOBIN 9.9 g/dL (12.5-16.3); LYMPHOCYTES # (AUTO) 2.5 K/uL (0.8-4.8); LYMPHOCYTES % (AUTO) 18.9 % (20.5-51.5); MEAN CORPUSCULAR HEMOGLOBIN 27.4 uug (23.8-33.4); MEAN CORPUSCULAR HGB CONC 32 g/dL (32.5-36.3); MONOCYTES # (AUTO) 0.7 K/uL (0.1-1.30); MONOCYTES % (AUTO) 5.2 % (0.0-11.0); NEUTROPHILS # (AUTO) 9.6 K/uL (1.8-8.9); PLATELET COUNT (AUTO) 339 K/uL (152-348); RED BLOOD CELL COUNT(AUTO) 3.61 MIL/uL (4.06-5.63); WHITE BLOOD COUNT (AUTO) 13.1 K/uL (3.6-10.2)
[2023-04-09 08:11] LABS: CALCIUM 9.4 mg/dL (8.5-10.1); CARBON DIOXIDE 30 mmol/L (21-32); CHLORIDE 111 mmol/L (98-107); CREATININE 0.4 mg/dL (0.6-1.3); GLUCOSE 127 mg/dL (74-106); SODIUM SERUM 151 mmol/L (136-145); UREA NITROGEN, BLOOD 13 mg/dL (7-18)
[2023-04-09 08:26] LABS: DIFFERENTIAL COMMENT 1
[2023-04-09 08:34] LABS: POTASSIUM 2.8 mmol/L (3.5-5.1)
[2023-04-09] MEDS: VALPROIC ACID 250 MG/5 ML LIQUID UDC GT SCH ×2 (09:08→21:42)
[2023-04-09] MEDS: PROTEIN SUPPLEMENT (PROSTAT) 30 ML LIQUID GT SCH ×2 (09:19→21:43)
[2023-04-09] MEDS: levETIRAcetam 500 MG/5 ML LIQUID UDC GT SCH ×2 (09:19→21:43)
[2023-04-09] MEDS: QUETIAPINE FUMARATE 25 MG TABLET GT SCH ×3 (09:21→17:03)
[2023-04-09] MEDS: MULTIVITAMINS,THERAPEUTIC TABLET GT SCH (09:21)
[2023-04-09] MEDS: CHLORHEXIDINE GLUCONATE 15 ML MOUTHWASH MM SCH ×2 (09:22→21:44)
[2023-04-09] MEDS: ENOXAPARIN SODIUM 40 MG/0.4 ML DISP.SYRIN SQ SCH (09:25)
[2023-04-09 09:54] VITALS: TEMP 99
[2023-04-09] MEDS: POTASSIUM CHLORIDE 20 MEQ TAB.PRT.SR XX SCH ×3 (10:31→14:07)
[2023-04-09] MEDS: ACETAMINOPHEN 650 MG/20 ML UDC- SA PATIENTS-FEVER ONLY GT PRN (17:53)
[2023-04-09 20:14] VITALS: TEMP 100.8
[2023-04-09 21:41] LABS: BASOPHILS # (AUTO) 0.1 K/UL (0.0-0.2); BASOPHILS % (AUTO) 0.9 % (0.0-2.0); DIFFERENTIAL COMMENT 1; EOSINOPHILS # (AUTO) 0.2 K/uL (0.0-0.7); EOSINOPHILS % (AUTO) 1.7 % (0.0-7.0); HEMATOCRIT 27.3 % (36.7-47.1); HEMOGLOBIN 8.8 g/dL (12.5-16.3); LYMPHOCYTES # (AUTO) 2.9 K/uL (0.8-4.8); LYMPHOCYTES % (AUTO) 26.3 % (20.5-51.5); MEAN CORPUSCULAR HEMOGLOBIN 27.5 uug (23.8-33.4); MEAN CORPUSCULAR HGB CONC 32 g/dL (32.5-36.3); MEAN CORPUSCULAR VOLUME 85.2 fL (73.0-96.2); MONOCYTES # (AUTO) 0.6 K/uL (0.1-1.30); MONOCYTES % (AUTO) 5.5 % (0.0-11.0); NEUTROPHILS # (AUTO) 7.2 K/uL (1.8-8.9); NEUTROPHILS % (AUTO) 65.6 % (38.5-71.5); PLATELET COUNT (AUTO) 304 K/uL (152-348); RED BLOOD CELL COUNT(AUTO) 3.21 MIL/uL (4.06-5.63); RED CELL DISTRIBUTION WIDTH 15.1 % (12.1-16.2)
[2023-04-09 23:13] VITALS: TEMP 99.7
[2023-04-09 23:22] LABS: *BILIRUBIN,URIN NEGATIVE (NEGATIVE); *BLOOD, URINE NEGATIVE (NEGATIVE); *CLARITY,URINE CLEAR (CLEAR); *COLOR,URINE YELLOW (YELLOW); *KETONES,URINE NEGATIVE (NEGATIVE); *PROTEIN,URINE 1+ (NEGATIVE); LEUKOCYTE ESTERASE ,URINE NEGATIVE (NEGATIVE); NITRITE, URINE NEGATIVE (NEGATIVE); UGLUCOSE NEGATIVE (NEGATIVE)
[2023-04-10] MEDS: ALBUTEROL SULFATE 2.5 MG/3 ML NEBU NEB SCH ×4 (01:12→19:14)
[2023-04-10] MEDS: IPRATROPIUM BROMIDE 0.5 MG/2.5 ML NEBU NEB SCH ×4 (01:12→19:14)
[2023-04-10 01:15] VITALS: TEMP 100.3
[2023-04-10 04:54] VITALS: TEMP 98.1
[2023-04-10] MEDS: JEVITY 1.2 1000 ML LIQUID GT PRN (04:54)
[2023-04-10] MEDS: OXYCODONE HCL 5 MG TABLET GT PRN (06:15)
[2023-04-10 08:13] VITALS: TEMP 98.5
[2023-04-10] MEDS: PROTEIN SUPPLEMENT (PROSTAT) 30 ML LIQUID GT SCH ×2 (08:49→21:00)
[2023-04-10] MEDS: QUETIAPINE FUMARATE 25 MG TABLET GT SCH ×3 (08:49→16:49)
[2023-04-10] MEDS: levETIRAcetam 500 MG/5 ML LIQUID UDC GT SCH ×2 (08:50→21:00)
[2023-04-10] MEDS: MULTIVITAMINS,THERAPEUTIC TABLET GT SCH (08:51)
[2023-04-10] MEDS: CHLORHEXIDINE GLUCONATE 15 ML MOUTHWASH MM SCH ×2 (08:52→21:00)
[2023-04-10] MEDS: ENOXAPARIN SODIUM 40 MG/0.4 ML DISP.SYRIN SQ SCH (08:53)
[2023-04-10] MEDS: VALPROIC ACID 250 MG/5 ML LIQUID UDC GT SCH ×2 (08:59→21:00)
[2023-04-10 20:11] VITALS: TEMP 99.6
[2023-04-11] MEDS: ALBUTEROL SULFATE 2.5 MG/3 ML NEBU NEB SCH ×4 (01:27→19:18)
[2023-04-11] MEDS: IPRATROPIUM BROMIDE 0.5 MG/2.5 ML NEBU NEB SCH ×4 (01:27→19:17)
[2023-04-11] MEDS: JEVITY 1.2 1000 ML LIQUID GT PRN ×2 (04:20→22:23)
[2023-04-11 07:22] VITALS: TEMP 99
[2023-04-11] MEDS: VALPROIC ACID 250 MG/5 ML LIQUID UDC GT SCH ×2 (08:45→21:00)
[2023-04-11] MEDS: PROTEIN SUPPLEMENT (PROSTAT) 30 ML LIQUID GT SCH ×2 (08:47→21:00)
[2023-04-11] MEDS: QUETIAPINE FUMARATE 25 MG TABLET GT SCH ×3 (08:47→17:09)
[2023-04-11] MEDS: levETIRAcetam 500 MG/5 ML LIQUID UDC GT SCH ×2 (08:47→21:00)
[2023-04-11] MEDS: MULTIVITAMINS,THERAPEUTIC TABLET GT SCH (08:47)
[2023-04-11] MEDS: CHLORHEXIDINE GLUCONATE 15 ML MOUTHWASH MM SCH ×2 (08:48→21:00)
[2023-04-11] MEDS: ENOXAPARIN SODIUM 40 MG/0.4 ML DISP.SYRIN SQ SCH (08:54)
[2023-04-11 20:00] VITALS: TEMP 99.3
[2023-04-12] MEDS: IPRATROPIUM BROMIDE 0.5 MG/2.5 ML NEBU NEB SCH ×4 (01:52→19:24)
[2023-04-12] MEDS: ALBUTEROL SULFATE 2.5 MG/3 ML NEBU NEB SCH ×4 (01:52→19:25)
[2023-04-12 07:19] LABS: BASOPHILS % (AUTO) 0.5 % (0.0-2.0); EOSINOPHILS # (AUTO) 0.4 K/uL (0.0-0.7); EOSINOPHILS % (AUTO) 5.6 % (0.0-7.0); HEMATOCRIT 27.7 % (36.7-47.1); HEMOGLOBIN 9.2 g/dL (12.5-16.3); LYMPHOCYTES # (AUTO) 2.7 K/uL (0.8-4.8); LYMPHOCYTES % (AUTO) 37.7 % (20.5-51.5); MEAN CORPUSCULAR HEMOGLOBIN 28.1 uug (23.8-33.4); MEAN CORPUSCULAR HGB CONC 33 g/dL (32.5-36.3); MEAN CORPUSCULAR VOLUME 84.6 fL (73.0-96.2); MONOCYTES # (AUTO) 0.5 K/uL (0.1-1.30); MONOCYTES % (AUTO) 7.3 % (0.0-11.0); NEUTROPHILS # (AUTO) 3.5 K/uL (1.8-8.9); NEUTROPHILS % (AUTO) 48.9 % (38.5-71.5); PLATELET COUNT (AUTO) 283 K/uL (152-348); RED BLOOD CELL COUNT(AUTO) 3.27 MIL/uL (4.06-5.63); RED CELL DISTRIBUTION WIDTH 14.9 % (12.1-16.2); WHITE BLOOD COUNT (AUTO) 7.2 K/uL (3.6-10.2)
[2023-04-12 07:37] LABS: DIFFERENTIAL COMMENT 1
[2023-04-12 07:39] LABS: CALCIUM 9.1 mg/dL (8.5-10.1); CARBON DIOXIDE 30 mmol/L (21-32); CHLORIDE 112 mmol/L (98-107); CREATININE 0.4 mg/dL (0.6-1.3); GLUCOSE 111 mg/dL (74-106); PHOSPHOROUS 3.8 mg/dL (2.5-4.9); SODIUM SERUM 150 mmol/L (136-145); UREA NITROGEN, BLOOD 11 mg/dL (7-18)
[2023-04-12 08:13] VITALS: TEMP 98.2
[2023-04-12] MEDS: VALPROIC ACID 250 MG/5 ML LIQUID UDC GT SCH ×2 (09:19→21:39)
[2023-04-12] MEDS: PROTEIN SUPPLEMENT (PROSTAT) 30 ML LIQUID GT SCH ×2 (09:20→21:41)
[2023-04-12] MEDS: QUETIAPINE FUMARATE 25 MG TABLET GT SCH ×3 (09:20→17:24)
[2023-04-12] MEDS: CHLORHEXIDINE GLUCONATE 15 ML MOUTHWASH MM SCH ×2 (09:20→21:41)
[2023-04-12] MEDS: levETIRAcetam 500 MG/5 ML LIQUID UDC GT SCH ×2 (09:20→21:40)
[2023-04-12] MEDS: ENOXAPARIN SODIUM 40 MG/0.4 ML DISP.SYRIN SQ SCH (09:20)
[2023-04-12] MEDS: MULTIVITAMINS,THERAPEUTIC TABLET GT SCH (09:20)
[2023-04-12] MEDS: POTASSIUM CHLORIDE 10 MEQ TAB.PRT.SR XX SCH ×2 (11:00→13:19)
[2023-04-12 20:00] VITALS: TEMP 98.8
[2023-04-13] MEDS: IPRATROPIUM BROMIDE 0.5 MG/2.5 ML NEBU NEB SCH ×4 (01:51→19:23)
[2023-04-13] MEDS: ALBUTEROL SULFATE 2.5 MG/3 ML NEBU NEB SCH ×4 (01:52→19:24)
[2023-04-13 08:02] VITALS: TEMP 98.4
[2023-04-13] MEDS: VALPROIC ACID 250 MG/5 ML LIQUID UDC GT SCH ×2 (09:59→21:46)
[2023-04-13] MEDS: QUETIAPINE FUMARATE 25 MG TABLET GT SCH ×3 (09:59→16:07)
[2023-04-13] MEDS: PROTEIN SUPPLEMENT (PROSTAT) 30 ML LIQUID GT SCH ×2 (09:59→21:46)
[2023-04-13] MEDS: levETIRAcetam 500 MG/5 ML LIQUID UDC GT SCH ×2 (09:59→21:46)
[2023-04-13] MEDS: ENOXAPARIN SODIUM 40 MG/0.4 ML DISP.SYRIN SQ SCH (09:59)
[2023-04-13] MEDS: MULTIVITAMINS,THERAPEUTIC TABLET GT SCH (09:59)
[2023-04-13] MEDS: CHLORHEXIDINE GLUCONATE 15 ML MOUTHWASH MM SCH ×2 (09:59→21:47)
[2023-04-13] MEDS: JEVITY 1.2 1000 ML LIQUID GT PRN (13:27)
[2023-04-13 20:00] VITALS: TEMP 99
[2023-04-14] MEDS: IPRATROPIUM BROMIDE 0.5 MG/2.5 ML NEBU NEB SCH ×4 (01:16→19:08)
[2023-04-14] MEDS: ALBUTEROL SULFATE 2.5 MG/3 ML NEBU NEB SCH ×4 (01:16→19:08)
[2023-04-14 09:00] VITALS: TEMP 99.1
[2023-04-14] MEDS: PROTEIN SUPPLEMENT (PROSTAT) 30 ML LIQUID GT SCH ×2 (09:15→21:36)
[2023-04-14] MEDS: VALPROIC ACID 250 MG/5 ML LIQUID UDC GT SCH ×2 (09:15→21:36)
[2023-04-14] MEDS: ENOXAPARIN SODIUM 40 MG/0.4 ML DISP.SYRIN SQ SCH (09:15)
[2023-04-14] MEDS: QUETIAPINE FUMARATE 25 MG TABLET GT SCH ×3 (09:15→18:00)
[2023-04-14] MEDS: levETIRAcetam 500 MG/5 ML LIQUID UDC GT SCH ×2 (09:15→21:36)
[2023-04-14] MEDS: CHLORHEXIDINE GLUCONATE 15 ML MOUTHWASH MM SCH ×2 (09:15→21:36)
[2023-04-14] MEDS: MULTIVITAMINS,THERAPEUTIC TABLET GT SCH (09:15)
[2023-04-14 20:00] VITALS: TEMP 99
[2023-04-14] MEDS: CLONIDINE HCL 0.1 MG TABLET GT PRN (22:11)
[2023-04-15] MEDS: ALBUTEROL SULFATE 2.5 MG/3 ML NEBU NEB SCH ×4 (01:08→20:12)
[2023-04-15] MEDS: IPRATROPIUM BROMIDE 0.5 MG/2.5 ML NEBU NEB SCH ×4 (01:08→20:11)
[2023-04-15 08:10] VITALS: TEMP 98.5
[2023-04-15] MEDS: VALPROIC ACID 250 MG/5 ML LIQUID UDC GT SCH ×2 (08:35→21:23)
[2023-04-15] MEDS: PROTEIN SUPPLEMENT (PROSTAT) 30 ML LIQUID GT SCH ×2 (08:36→21:23)
[2023-04-15] MEDS: QUETIAPINE FUMARATE 25 MG TABLET GT SCH ×3 (08:36→17:35)
[2023-04-15] MEDS: CHLORHEXIDINE GLUCONATE 15 ML MOUTHWASH MM SCH ×2 (08:36→21:23)
[2023-04-15] MEDS: levETIRAcetam 500 MG/5 ML LIQUID UDC GT SCH ×2 (08:36→21:23)
[2023-04-15] MEDS: MULTIVITAMINS,THERAPEUTIC TABLET GT SCH (08:36)
[2023-04-15] MEDS: ENOXAPARIN SODIUM 40 MG/0.4 ML DISP.SYRIN SQ SCH (08:38)
[2023-04-15 20:16] VITALS: TEMP 98.8
[2023-04-16] MEDS: JEVITY 1.2 1000 ML LIQUID GT PRN (01:00)
[2023-04-16] MEDS: IPRATROPIUM BROMIDE 0.5 MG/2.5 ML NEBU NEB SCH ×4 (01:25→20:25)
[2023-04-16] MEDS: ALBUTEROL SULFATE 2.5 MG/3 ML NEBU NEB SCH ×4 (01:26→20:25)
[2023-04-16 08:08] VITALS: TEMP 98.5
[2023-04-16] MEDS: QUETIAPINE FUMARATE 25 MG TABLET GT SCH ×3 (08:08→17:36)
[2023-04-16] MEDS: VALPROIC ACID 250 MG/5 ML LIQUID UDC GT SCH ×2 (08:08→20:53)
[2023-04-16] MEDS: PROTEIN SUPPLEMENT (PROSTAT) 30 ML LIQUID GT SCH ×2 (08:08→20:53)
[2023-04-16] MEDS: levETIRAcetam 500 MG/5 ML LIQUID UDC GT SCH ×2 (08:08→20:53)
[2023-04-16] MEDS: ENOXAPARIN SODIUM 40 MG/0.4 ML DISP.SYRIN SQ SCH (08:09)
[2023-04-16] MEDS: CHLORHEXIDINE GLUCONATE 15 ML MOUTHWASH MM SCH ×2 (08:09→20:54)
[2023-04-16] MEDS: MULTIVITAMINS,THERAPEUTIC TABLET GT SCH (08:09)
[2023-04-16] MEDS: CLONIDINE HCL 0.1 MG TABLET GT PRN (08:13)
[2023-04-16 20:00] VITALS: TEMP 98.6
[2023-04-17] MEDS: ALBUTEROL SULFATE 2.5 MG/3 ML NEBU NEB SCH ×4 (01:30→19:37)
[2023-04-17] MEDS: IPRATROPIUM BROMIDE 0.5 MG/2.5 ML NEBU NEB SCH ×4 (01:30→19:37)
[2023-04-17 07:29] VITALS: TEMP 98.5
[2023-04-17] MEDS: PROTEIN SUPPLEMENT (PROSTAT) 30 ML LIQUID GT SCH ×2 (08:19→21:00)
[2023-04-17] MEDS: MULTIVITAMINS,THERAPEUTIC TABLET GT SCH (08:19)
[2023-04-17] MEDS: QUETIAPINE FUMARATE 25 MG TABLET GT SCH ×3 (08:19→16:44)
[2023-04-17] MEDS: levETIRAcetam 500 MG/5 ML LIQUID UDC GT SCH ×2 (08:19→21:00)
[2023-04-17] MEDS: CHLORHEXIDINE GLUCONATE 15 ML MOUTHWASH MM SCH ×2 (08:19→21:00)
[2023-04-17] MEDS: VALPROIC ACID 250 MG/5 ML LIQUID UDC GT SCH ×2 (08:19→21:00)
[2023-04-17] MEDS: ENOXAPARIN SODIUM 40 MG/0.4 ML DISP.SYRIN SQ SCH (08:21)
[2023-04-17] MEDS: TRIAMCINOLONE ACET 0.1% CREAM 15 GM TUBE TP PRN (16:42)
[2023-04-17 19:41] VITALS: TEMP 98.6
[2023-04-18] MEDS: ALBUTEROL SULFATE 2.5 MG/3 ML NEBU NEB SCH ×4 (01:50→19:07)
[2023-04-18] MEDS: IPRATROPIUM BROMIDE 0.5 MG/2.5 ML NEBU NEB SCH ×4 (01:50→19:07)
[2023-04-18 07:15] VITALS: TEMP 98.4
[2023-04-18] MEDS: VALPROIC ACID 250 MG/5 ML LIQUID UDC GT SCH ×2 (11:18→21:37)
[2023-04-18] MEDS: PROTEIN SUPPLEMENT (PROSTAT) 30 ML LIQUID GT SCH ×2 (11:19→21:37)
[2023-04-18] MEDS: MULTIVITAMINS,THERAPEUTIC TABLET GT SCH (11:19)
[2023-04-18] MEDS: ENOXAPARIN SODIUM 40 MG/0.4 ML DISP.SYRIN SQ SCH (11:19)
[2023-04-18] MEDS: CHLORHEXIDINE GLUCONATE 15 ML MOUTHWASH MM SCH ×2 (11:19→21:38)
[2023-04-18] MEDS: levETIRAcetam 500 MG/5 ML LIQUID UDC GT SCH ×2 (11:19→21:37)
[2023-04-18] MEDS: QUETIAPINE FUMARATE 25 MG TABLET GT SCH ×3 (11:19→17:32)
[2023-04-18] MEDS: JEVITY 1.2 1000 ML LIQUID GT PRN (11:40)
[2023-04-18 20:00] VITALS: TEMP 97.7
[2023-04-19] MEDS: ALBUTEROL SULFATE 2.5 MG/3 ML NEBU NEB SCH ×4 (01:06→19:50)
[2023-04-19] MEDS: IPRATROPIUM BROMIDE 0.5 MG/2.5 ML NEBU NEB SCH ×4 (01:06→19:50)
[2023-04-19] MEDS: levETIRAcetam 500 MG/5 ML LIQUID UDC GT SCH ×2 (08:15→21:59)
[2023-04-19] MEDS: PROTEIN SUPPLEMENT (PROSTAT) 30 ML LIQUID GT SCH ×2 (08:15→21:59)
[2023-04-19] MEDS: VALPROIC ACID 250 MG/5 ML LIQUID UDC GT SCH ×2 (08:15→21:59)
[2023-04-19] MEDS: CHLORHEXIDINE GLUCONATE 15 ML MOUTHWASH MM SCH ×2 (08:16→21:59)
[2023-04-19] MEDS: QUETIAPINE FUMARATE 25 MG TABLET GT SCH ×3 (08:16→16:02)
[2023-04-19] MEDS: MULTIVITAMINS,THERAPEUTIC TABLET GT SCH (08:16)
[2023-04-19] MEDS: ENOXAPARIN SODIUM 40 MG/0.4 ML DISP.SYRIN SQ SCH (08:17)
[2023-04-19 08:27] VITALS: TEMP 98.2
[2023-04-19] MEDS: TRIAMCINOLONE ACET 0.1% CREAM 15 GM TUBE TP PRN (09:56)
[2023-04-19] MEDS: JEVITY 1.2 1000 ML LIQUID GT PRN (09:57)
[2023-04-19 20:00] VITALS: TEMP 97.6
[2023-04-20] MEDS: IPRATROPIUM BROMIDE 0.5 MG/2.5 ML NEBU NEB SCH ×4 (01:05→19:07)
[2023-04-20] MEDS: ALBUTEROL SULFATE 2.5 MG/3 ML NEBU NEB SCH ×4 (01:05→19:07)
[2023-04-20] MEDS: JEVITY 1.2 1000 ML LIQUID GT PRN (04:34)
[2023-04-20 07:26] VITALS: TEMP 98.1
[2023-04-20] MEDS: levETIRAcetam 500 MG/5 ML LIQUID UDC GT SCH ×2 (08:35→21:00)
[2023-04-20] MEDS: VALPROIC ACID 250 MG/5 ML LIQUID UDC GT SCH ×2 (08:35→21:00)
[2023-04-20] MEDS: PROTEIN SUPPLEMENT (PROSTAT) 30 ML LIQUID GT SCH ×2 (08:35→21:00)
[2023-04-20] MEDS: MULTIVITAMINS,THERAPEUTIC TABLET GT SCH (08:36)
[2023-04-20] MEDS: QUETIAPINE FUMARATE 25 MG TABLET GT SCH ×3 (08:36→17:58)
[2023-04-20] MEDS: CHLORHEXIDINE GLUCONATE 15 ML MOUTHWASH MM SCH ×2 (08:38→21:00)
[2023-04-20] MEDS: ENOXAPARIN SODIUM 40 MG/0.4 ML DISP.SYRIN SQ SCH (08:39)
[2023-04-20 20:15] VITALS: TEMP 99
[2023-04-21] MEDS: IPRATROPIUM BROMIDE 0.5 MG/2.5 ML NEBU NEB SCH ×4 (01:05→20:29)
[2023-04-21] MEDS: ALBUTEROL SULFATE 2.5 MG/3 ML NEBU NEB SCH ×4 (01:05→20:29)
[2023-04-21] MEDS: VALPROIC ACID 250 MG/5 ML LIQUID UDC GT SCH ×2 (09:53→20:46)
[2023-04-21] MEDS: PROTEIN SUPPLEMENT (PROSTAT) 30 ML LIQUID GT SCH ×2 (09:53→20:50)
[2023-04-21] MEDS: QUETIAPINE FUMARATE 25 MG TABLET GT SCH ×3 (09:53→17:24)
[2023-04-21] MEDS: levETIRAcetam 500 MG/5 ML LIQUID UDC GT SCH ×2 (09:53→20:50)
[2023-04-21] MEDS: MULTIVITAMINS,THERAPEUTIC TABLET GT SCH (09:54)
[2023-04-21] MEDS: ENOXAPARIN SODIUM 40 MG/0.4 ML DISP.SYRIN SQ SCH (09:54)
[2023-04-21] MEDS: CHLORHEXIDINE GLUCONATE 15 ML MOUTHWASH MM SCH ×2 (09:54→20:50)
[2023-04-21 10:48] VITALS: TEMP 98.8
[2023-04-21 20:00] VITALS: TEMP 99.2
[2023-04-22] MEDS: ALBUTEROL SULFATE 2.5 MG/3 ML NEBU NEB SCH ×4 (00:30→19:31)
[2023-04-22] MEDS: IPRATROPIUM BROMIDE 0.5 MG/2.5 ML NEBU NEB SCH ×4 (00:30→19:31)
[2023-04-22 07:52] VITALS: TEMP 98.6
[2023-04-22] MEDS: levETIRAcetam 500 MG/5 ML LIQUID UDC GT SCH ×2 (08:42→21:39)
[2023-04-22] MEDS: PROTEIN SUPPLEMENT (PROSTAT) 30 ML LIQUID GT SCH ×2 (08:42→21:39)
[2023-04-22] MEDS: QUETIAPINE FUMARATE 25 MG TABLET GT SCH ×3 (08:42→17:12)
[2023-04-22] MEDS: VALPROIC ACID 250 MG/5 ML LIQUID UDC GT SCH ×2 (08:42→21:39)
[2023-04-22] MEDS: CHLORHEXIDINE GLUCONATE 15 ML MOUTHWASH MM SCH ×2 (08:43→21:39)
[2023-04-22] MEDS: ENOXAPARIN SODIUM 40 MG/0.4 ML DISP.SYRIN SQ SCH (08:43)
[2023-04-22] MEDS: MULTIVITAMINS,THERAPEUTIC TABLET GT SCH (08:43)
[2023-04-22] MEDS: TRIAMCINOLONE ACET 0.1% CREAM 15 GM TUBE TP PRN (18:05)
[2023-04-22 20:23] VITALS: TEMP 100.1
[2023-04-22] MEDS: ACETAMINOPHEN 650 MG/20 ML UDC- SA PATIENTS-FEVER ONLY GT PRN (23:11)
[2023-04-23] MEDS: IPRATROPIUM BROMIDE 0.5 MG/2.5 ML NEBU NEB SCH ×4 (00:50→20:01)
[2023-04-23] MEDS: ALBUTEROL SULFATE 2.5 MG/3 ML NEBU NEB SCH ×4 (00:50→20:01)
[2023-04-23 07:27] LABS: BASOPHILS % (AUTO) 0.4 % (0.0-2.0); DIFFERENTIAL COMMENT 1; EOSINOPHILS # (AUTO) 0.8 K/uL (0.0-0.7); HEMATOCRIT 31.1 % (36.7-47.1); HEMOGLOBIN 10.2 g/dL (12.5-16.3); LYMPHOCYTES % (AUTO) 29.1 % (20.5-51.5); MEAN CORPUSCULAR HEMOGLOBIN 27.7 uug (23.8-33.4); MEAN CORPUSCULAR HGB CONC 33 g/dL (32.5-36.3); MEAN CORPUSCULAR VOLUME 84.1 fL (73.0-96.2); MONOCYTES # (AUTO) 0.6 K/uL (0.1-1.30); MONOCYTES % (AUTO) 6.3 % (0.0-11.0); NEUTROPHILS # (AUTO) 5.8 K/uL (1.8-8.9); NEUTROPHILS % (AUTO) 56.2 % (38.5-71.5); PLATELET COUNT (AUTO) 247 K/uL (152-348); WHITE BLOOD COUNT (AUTO) 10.2 K/uL (3.6-10.2)
[2023-04-23 07:56] LABS: CALCIUM 9.5 mg/dL (8.5-10.1); CARBON DIOXIDE 33 mmol/L (21-32); CHLORIDE 108 mmol/L (98-107); CREATININE 0.4 mg/dL (0.6-1.3); GLUCOSE 134 mg/dL (74-106); PHOSPHOROUS 3.8 mg/dL (2.5-4.9); SODIUM SERUM 148 mmol/L (136-145); UREA NITROGEN, BLOOD 11 mg/dL (7-18)
[2023-04-23 08:07] VITALS: TEMP 99.2
[2023-04-23 08:28] LABS: POTASSIUM 2.8 mmol/L (3.5-5.1)
[2023-04-23] MEDS: QUETIAPINE FUMARATE 25 MG TABLET GT SCH ×3 (08:56→16:25)
[2023-04-23] MEDS: MULTIVITAMINS,THERAPEUTIC TABLET GT SCH (08:56)
[2023-04-23] MEDS: VALPROIC ACID 250 MG/5 ML LIQUID UDC GT SCH ×2 (08:56→21:34)
[2023-04-23] MEDS: levETIRAcetam 500 MG/5 ML LIQUID UDC GT SCH ×2 (08:56→21:34)
[2023-04-23] MEDS: PROTEIN SUPPLEMENT (PROSTAT) 30 ML LIQUID GT SCH ×2 (08:56→21:34)
[2023-04-23] MEDS: CHLORHEXIDINE GLUCONATE 15 ML MOUTHWASH MM SCH ×2 (08:57→21:34)
[2023-04-23] MEDS: ENOXAPARIN SODIUM 40 MG/0.4 ML DISP.SYRIN SQ SCH (08:58)
[2023-04-23] MEDS: POTASSIUM CHLORIDE 10 MEQ TAB.PRT.SR XX SCH ×2 (15:49→17:20)
[2023-04-23] MEDS: JEVITY 1.2 1000 ML LIQUID GT PRN (15:56)
[2023-04-24] MEDS: IPRATROPIUM BROMIDE 0.5 MG/2.5 ML NEBU NEB SCH ×4 (01:29→20:20)
[2023-04-24] MEDS: ALBUTEROL SULFATE 2.5 MG/3 ML NEBU NEB SCH ×4 (01:29→20:20)
[2023-04-24 07:23] VITALS: TEMP 98.8
[2023-04-24] MEDS: VALPROIC ACID 250 MG/5 ML LIQUID UDC GT SCH ×2 (09:26→21:00)
[2023-04-24] MEDS: PROTEIN SUPPLEMENT (PROSTAT) 30 ML LIQUID GT SCH ×2 (09:29→21:00)
[2023-04-24] MEDS: MULTIVITAMINS,THERAPEUTIC TABLET GT SCH (09:29)
[2023-04-24] MEDS: levETIRAcetam 500 MG/5 ML LIQUID UDC GT SCH ×2 (09:29→21:00)
[2023-04-24] MEDS: QUETIAPINE FUMARATE 25 MG TABLET GT SCH ×3 (09:29→17:32)
[2023-04-24] MEDS: CHLORHEXIDINE GLUCONATE 15 ML MOUTHWASH MM SCH ×2 (09:29→21:00)
[2023-04-24] MEDS: ENOXAPARIN SODIUM 40 MG/0.4 ML DISP.SYRIN SQ SCH (09:30)
[2023-04-24] MEDS: JEVITY 1.2 1000 ML LIQUID GT PRN (13:05)
[2023-04-24 20:00] VITALS: TEMP 98.8
[2023-04-25] MEDS: IPRATROPIUM BROMIDE 0.5 MG/2.5 ML NEBU NEB SCH ×4 (00:35→19:04)
[2023-04-25] MEDS: ALBUTEROL SULFATE 2.5 MG/3 ML NEBU NEB SCH ×4 (00:35→19:04)
[2023-04-25] MEDS: JEVITY 1.2 1000 ML LIQUID GT PRN ×2 (05:31→22:55)
[2023-04-25 07:22] VITALS: TEMP 98.8
[2023-04-25] MEDS: CHLORHEXIDINE GLUCONATE 15 ML MOUTHWASH MM SCH ×2 (09:00→21:43)
[2023-04-25] MEDS: ENOXAPARIN SODIUM 40 MG/0.4 ML DISP.SYRIN SQ SCH (09:00)
[2023-04-25] MEDS: levETIRAcetam 500 MG/5 ML LIQUID UDC GT SCH ×2 (09:00→21:44)
[2023-04-25] MEDS: PROTEIN SUPPLEMENT (PROSTAT) 30 ML LIQUID GT SCH ×2 (09:00→21:43)
[2023-04-25] MEDS: QUETIAPINE FUMARATE 25 MG TABLET GT SCH ×3 (09:00→17:30)
[2023-04-25] MEDS: MULTIVITAMINS,THERAPEUTIC TABLET GT SCH (09:00)
[2023-04-25] MEDS: VALPROIC ACID 250 MG/5 ML LIQUID UDC GT SCH ×2 (09:00→21:44)
[2023-04-25 20:33] VITALS: TEMP 98.7
[2023-04-26] MEDS: IPRATROPIUM BROMIDE 0.5 MG/2.5 ML NEBU NEB SCH ×4 (01:04→20:44)
[2023-04-26] MEDS: ALBUTEROL SULFATE 2.5 MG/3 ML NEBU NEB SCH ×4 (01:04→20:45)
[2023-04-26 07:30] VITALS: TEMP 98.6
[2023-04-26] MEDS: QUETIAPINE FUMARATE 25 MG TABLET GT SCH ×3 (09:29→17:04)
[2023-04-26] MEDS: levETIRAcetam 500 MG/5 ML LIQUID UDC GT SCH ×2 (09:29→20:14)
[2023-04-26] MEDS: MULTIVITAMINS,THERAPEUTIC TABLET GT SCH (09:29)
[2023-04-26] MEDS: VALPROIC ACID 250 MG/5 ML LIQUID UDC GT SCH ×2 (09:29→20:14)
[2023-04-26] MEDS: PROTEIN SUPPLEMENT (PROSTAT) 30 ML LIQUID GT SCH ×2 (09:29→20:14)
[2023-04-26] MEDS: ENOXAPARIN SODIUM 40 MG/0.4 ML DISP.SYRIN SQ SCH (09:30)
[2023-04-26] MEDS: CHLORHEXIDINE GLUCONATE 15 ML MOUTHWASH MM SCH ×2 (09:30→20:14)
[2023-04-26] MEDS: ACETAMINOPHEN 650 MG/20 ML UDC- SA PATIENTS-FEVER ONLY GT PRN (19:58)
[2023-04-26 20:00] VITALS: TEMP 100.4
[2023-04-26] MEDS: OXYCODONE HCL 5 MG TABLET GT PRN (22:20)
[2023-04-27] MEDS: ALBUTEROL SULFATE 2.5 MG/3 ML NEBU NEB SCH ×4 (01:22→19:17)
[2023-04-27] MEDS: IPRATROPIUM BROMIDE 0.5 MG/2.5 ML NEBU NEB SCH ×4 (01:22→19:17)
[2023-04-27 07:36] VITALS: TEMP 99.2
[2023-04-27] MEDS: QUETIAPINE FUMARATE 25 MG TABLET GT SCH ×3 (09:00→17:23)
[2023-04-27] MEDS: VALPROIC ACID 250 MG/5 ML LIQUID UDC GT SCH ×2 (09:00→21:44)
[2023-04-27] MEDS: PROTEIN SUPPLEMENT (PROSTAT) 30 ML LIQUID GT SCH ×2 (09:00→21:44)
[2023-04-27] MEDS: CHLORHEXIDINE GLUCONATE 15 ML MOUTHWASH MM SCH ×2 (09:00→21:44)
[2023-04-27] MEDS: ENOXAPARIN SODIUM 40 MG/0.4 ML DISP.SYRIN SQ SCH (09:00)
[2023-04-27] MEDS: MULTIVITAMINS,THERAPEUTIC TABLET GT SCH (09:00)
[2023-04-27] MEDS: levETIRAcetam 500 MG/5 ML LIQUID UDC GT SCH ×2 (09:00→21:44)
[2023-04-27 20:00] VITALS: TEMP 97.6
[2023-04-27] MEDS: CLONIDINE HCL 0.1 MG TABLET GT PRN (21:45)
[2023-04-28] MEDS: ALBUTEROL SULFATE 2.5 MG/3 ML NEBU NEB SCH ×4 (01:09→19:27)
[2023-04-28] MEDS: IPRATROPIUM BROMIDE 0.5 MG/2.5 ML NEBU NEB SCH ×4 (01:09→19:27)
[2023-04-28 08:00] VITALS: TEMP 98.2
[2023-04-28] MEDS: levETIRAcetam 500 MG/5 ML LIQUID UDC GT SCH ×2 (08:21→21:01)
[2023-04-28] MEDS: VALPROIC ACID 250 MG/5 ML LIQUID UDC GT SCH ×2 (08:21→21:01)
[2023-04-28] MEDS: PROTEIN SUPPLEMENT (PROSTAT) 30 ML LIQUID GT SCH ×2 (08:21→21:01)
[2023-04-28] MEDS: QUETIAPINE FUMARATE 25 MG TABLET GT SCH ×3 (08:21→17:43)
[2023-04-28] MEDS: MULTIVITAMINS,THERAPEUTIC TABLET GT SCH (08:22)
[2023-04-28] MEDS: CHLORHEXIDINE GLUCONATE 15 ML MOUTHWASH MM SCH ×2 (08:22→21:01)
[2023-04-28] MEDS: ENOXAPARIN SODIUM 40 MG/0.4 ML DISP.SYRIN SQ SCH (08:26)
[2023-04-28 20:00] VITALS: TEMP 98.9
[2023-04-28] MEDS: ACETAMINOPHEN 650 MG/20 ML UDC- SA PATIENTS-PAIN ONLY GT PRN (21:02)
[2023-04-29] MEDS: ALBUTEROL SULFATE 2.5 MG/3 ML NEBU NEB SCH ×4 (01:52→20:25)
[2023-04-29] MEDS: IPRATROPIUM BROMIDE 0.5 MG/2.5 ML NEBU NEB SCH ×4 (01:52→20:25)
[2023-04-29 08:12] VITALS: TEMP 97.8
[2023-04-29] MEDS: VALPROIC ACID 250 MG/5 ML LIQUID UDC GT SCH ×2 (08:44→21:25)
[2023-04-29] MEDS: levETIRAcetam 500 MG/5 ML LIQUID UDC GT SCH ×2 (08:45→21:25)
[2023-04-29] MEDS: PROTEIN SUPPLEMENT (PROSTAT) 30 ML LIQUID GT SCH ×2 (08:46→21:25)
[2023-04-29] MEDS: QUETIAPINE FUMARATE 25 MG TABLET GT SCH ×3 (08:46→17:15)
[2023-04-29] MEDS: MULTIVITAMINS,THERAPEUTIC TABLET GT SCH (08:47)
[2023-04-29] MEDS: CHLORHEXIDINE GLUCONATE 15 ML MOUTHWASH MM SCH ×2 (08:47→21:25)
[2023-04-29] MEDS: ENOXAPARIN SODIUM 40 MG/0.4 ML DISP.SYRIN SQ SCH (08:51)
[2023-04-29] MEDS: JEVITY 1.2 1000 ML LIQUID GT PRN (18:09)
[2023-04-29 20:00] VITALS: TEMP 99.6
[2023-04-29] MEDS: ACETAMINOPHEN 650 MG/20 ML UDC- SA PATIENTS-PAIN ONLY GT PRN (21:26)
[2023-04-30] MEDS: ALBUTEROL SULFATE 2.5 MG/3 ML NEBU NEB SCH ×4 (01:30→19:27)
[2023-04-30] MEDS: IPRATROPIUM BROMIDE 0.5 MG/2.5 ML NEBU NEB SCH ×4 (01:30→19:26)
[2023-04-30] MEDS: CLONIDINE HCL 0.1 MG TABLET GT PRN (04:38)
[2023-04-30 05:55] VITALS: TEMP 97.6
[2023-04-30] MEDS: QUETIAPINE FUMARATE 25 MG TABLET GT SCH ×3 (09:15→17:54)
[2023-04-30] MEDS: VALPROIC ACID 250 MG/5 ML LIQUID UDC GT SCH ×2 (09:15→21:32)
[2023-04-30] MEDS: PROTEIN SUPPLEMENT (PROSTAT) 30 ML LIQUID GT SCH ×2 (09:15→21:32)
[2023-04-30] MEDS: CHLORHEXIDINE GLUCONATE 15 ML MOUTHWASH MM SCH ×2 (09:15→21:32)
[2023-04-30] MEDS: MULTIVITAMINS,THERAPEUTIC TABLET GT SCH (09:15)
[2023-04-30] MEDS: levETIRAcetam 500 MG/5 ML LIQUID UDC GT SCH ×2 (09:15→21:32)
[2023-04-30] MEDS: ENOXAPARIN SODIUM 40 MG/0.4 ML DISP.SYRIN SQ SCH (09:16)
[2023-04-30 20:00] VITALS: TEMP 98.1
[2023-05-01] MEDS: IPRATROPIUM BROMIDE 0.5 MG/2.5 ML NEBU NEB SCH ×4 (01:48→20:20)
[2023-05-01] MEDS: ALBUTEROL SULFATE 2.5 MG/3 ML NEBU NEB SCH ×4 (01:48→20:20)
[2023-05-01] MEDS: JEVITY 1.2 1000 ML LIQUID GT PRN (05:36)
[2023-05-01 07:23] VITALS: TEMP 98.3
[2023-05-01] MEDS: VALPROIC ACID 250 MG/5 ML LIQUID UDC GT SCH ×2 (09:12→20:13)
[2023-05-01] MEDS: QUETIAPINE FUMARATE 25 MG TABLET GT SCH ×3 (09:13→17:32)
[2023-05-01] MEDS: levETIRAcetam 500 MG/5 ML LIQUID UDC GT SCH ×2 (09:13→20:16)
[2023-05-01] MEDS: PROTEIN SUPPLEMENT (PROSTAT) 30 ML LIQUID GT SCH ×2 (09:13→20:16)
[2023-05-01] MEDS: CHLORHEXIDINE GLUCONATE 15 ML MOUTHWASH MM SCH ×2 (09:14→20:17)
[2023-05-01] MEDS: MULTIVITAMINS,THERAPEUTIC TABLET GT SCH (09:14)
[2023-05-01] MEDS: ENOXAPARIN SODIUM 40 MG/0.4 ML DISP.SYRIN SQ SCH (09:15)
[2023-05-01 20:00] VITALS: TEMP 98.4
[2023-05-01] MEDS: ACETAMINOPHEN 650 MG/20 ML UDC- SA PATIENTS-PAIN ONLY GT PRN (20:17)
[2023-05-02] MEDS: JEVITY 1.2 1000 ML LIQUID GT PRN (01:06)
[2023-05-02] MEDS: IPRATROPIUM BROMIDE 0.5 MG/2.5 ML NEBU NEB SCH ×4 (01:30→19:27)
[2023-05-02] MEDS: ALBUTEROL SULFATE 2.5 MG/3 ML NEBU NEB SCH ×4 (01:30→19:27)
[2023-05-02 07:21] VITALS: TEMP 97.7
[2023-05-02] MEDS: VALPROIC ACID 250 MG/5 ML LIQUID UDC GT SCH ×2 (08:55→20:56)
[2023-05-02] MEDS: levETIRAcetam 500 MG/5 ML LIQUID UDC GT SCH ×2 (08:55→20:57)
[2023-05-02] MEDS: PROTEIN SUPPLEMENT (PROSTAT) 30 ML LIQUID GT SCH ×2 (08:56→20:57)
[2023-05-02] MEDS: MULTIVITAMINS,THERAPEUTIC TABLET GT SCH (08:57)
[2023-05-02] MEDS: QUETIAPINE FUMARATE 25 MG TABLET GT SCH ×3 (08:57→17:32)
[2023-05-02] MEDS: CHLORHEXIDINE GLUCONATE 15 ML MOUTHWASH MM SCH ×2 (08:59→20:57)
[2023-05-02] MEDS: ENOXAPARIN SODIUM 40 MG/0.4 ML DISP.SYRIN SQ SCH (09:01)
[2023-05-02] MEDS: ACETAMINOPHEN 650 MG/20 ML UDC- SA PATIENTS-PAIN ONLY GT PRN (09:04)
[2023-05-02 20:00] VITALS: TEMP 98.8
[2023-05-03] MEDS: IPRATROPIUM BROMIDE 0.5 MG/2.5 ML NEBU NEB SCH ×4 (01:30→20:10)
[2023-05-03] MEDS: ALBUTEROL SULFATE 2.5 MG/3 ML NEBU NEB SCH ×4 (01:30→20:10)
[2023-05-03] MEDS: JEVITY 1.2 1000 ML LIQUID GT PRN (02:00)
[2023-05-03 07:49] VITALS: TEMP 98.6
[2023-05-03] MEDS: VALPROIC ACID 250 MG/5 ML LIQUID UDC GT SCH ×2 (09:00→21:37)
[2023-05-03] MEDS: levETIRAcetam 500 MG/5 ML LIQUID UDC GT SCH ×2 (09:00→21:38)
[2023-05-03] MEDS: PROTEIN SUPPLEMENT (PROSTAT) 30 ML LIQUID GT SCH ×2 (09:02→21:38)
[2023-05-03] MEDS: MULTIVITAMINS,THERAPEUTIC TABLET GT SCH (09:02)
[2023-05-03] MEDS: QUETIAPINE FUMARATE 25 MG TABLET GT SCH ×3 (09:02→17:34)
[2023-05-03] MEDS: ENOXAPARIN SODIUM 40 MG/0.4 ML DISP.SYRIN SQ SCH (09:03)
[2023-05-03] MEDS: CHLORHEXIDINE GLUCONATE 15 ML MOUTHWASH MM SCH ×2 (09:03→21:38)
[2023-05-03 20:00] VITALS: TEMP 97
[2023-05-04] MEDS: JEVITY 1.2 1000 ML LIQUID GT PRN ×2 (00:11→17:49)
[2023-05-04] MEDS: ALBUTEROL SULFATE 2.5 MG/3 ML NEBU NEB SCH ×4 (00:48→19:06)
[2023-05-04] MEDS: IPRATROPIUM BROMIDE 0.5 MG/2.5 ML NEBU NEB SCH ×4 (00:48→19:06)
[2023-05-04 07:42] VITALS: TEMP 97.4
[2023-05-04] MEDS: VALPROIC ACID 250 MG/5 ML LIQUID UDC GT SCH ×2 (09:54→21:13)
[2023-05-04] MEDS: PROTEIN SUPPLEMENT (PROSTAT) 30 ML LIQUID GT SCH ×2 (09:54→21:13)
[2023-05-04] MEDS: levETIRAcetam 500 MG/5 ML LIQUID UDC GT SCH ×2 (09:54→21:13)
[2023-05-04] MEDS: QUETIAPINE FUMARATE 25 MG TABLET GT SCH ×3 (09:56→17:40)
[2023-05-04] MEDS: CHLORHEXIDINE GLUCONATE 15 ML MOUTHWASH MM SCH ×2 (09:56→21:13)
[2023-05-04] MEDS: MULTIVITAMINS,THERAPEUTIC TABLET GT SCH ×2 (09:56→21:13)
[2023-05-04] MEDS: ENOXAPARIN SODIUM 40 MG/0.4 ML DISP.SYRIN SQ SCH (09:57)
[2023-05-04] MEDS ORDERED: REMEDY ESSENTIAL ZINC PASTE 113 GM TP PRN (13:00)
[2023-05-04 20:00] VITALS: TEMP 97.7
[2023-05-04] MEDS: REMEDY ESSENTIAL ZINC PASTE 113 GM TP SCH (21:13)
[2023-05-05] MEDS: ALBUTEROL SULFATE 2.5 MG/3 ML NEBU NEB SCH ×4 (01:06→19:26)
[2023-05-05] MEDS: IPRATROPIUM BROMIDE 0.5 MG/2.5 ML NEBU NEB SCH ×4 (01:06→19:30)
[2023-05-05 07:59] VITALS: TEMP 98.9
[2023-05-05] MEDS: levETIRAcetam 500 MG/5 ML LIQUID UDC GT SCH ×2 (09:18→21:38)
[2023-05-05] MEDS: VALPROIC ACID 250 MG/5 ML LIQUID UDC GT SCH ×2 (09:18→21:38)
[2023-05-05] MEDS: PROTEIN SUPPLEMENT (PROSTAT) 30 ML LIQUID GT SCH ×2 (09:18→21:38)
[2023-05-05] MEDS: QUETIAPINE FUMARATE 25 MG TABLET GT SCH ×3 (09:18→16:49)
[2023-05-05] MEDS: CHLORHEXIDINE GLUCONATE 15 ML MOUTHWASH MM SCH ×2 (09:18→21:40)
[2023-05-05] MEDS: REMEDY ESSENTIAL ZINC PASTE 113 GM TP SCH ×2 (09:19→21:40)
[2023-05-05] MEDS: ENOXAPARIN SODIUM 40 MG/0.4 ML DISP.SYRIN SQ SCH (09:19)
[2023-05-05] MEDS: JEVITY 1.2 1000 ML LIQUID GT PRN (12:16)
[2023-05-05 20:00] VITALS: TEMP 98.3
[2023-05-05] MEDS: MULTIVITAMINS,THERAPEUTIC TABLET GT SCH (21:40)
[2023-05-06] MEDS: IPRATROPIUM BROMIDE 0.5 MG/2.5 ML NEBU NEB SCH ×4 (01:46→19:24)
[2023-05-06] MEDS: ALBUTEROL SULFATE 2.5 MG/3 ML NEBU NEB SCH ×4 (01:46→19:24)
[2023-05-06 08:08] VITALS: TEMP 98.2
[2023-05-06] MEDS: NEOMY/BACITRAC/POLYMI OINT 28.35 GM TUBE TOP SCH ×2 (09:00→21:01)
[2023-05-06] MEDS: levETIRAcetam 500 MG/5 ML LIQUID UDC GT SCH ×2 (09:54→21:00)
[2023-05-06] MEDS: VALPROIC ACID 250 MG/5 ML LIQUID UDC GT SCH ×2 (09:54→21:00)
[2023-05-06] MEDS: PROTEIN SUPPLEMENT (PROSTAT) 30 ML LIQUID GT SCH ×2 (09:55→21:00)
[2023-05-06] MEDS: QUETIAPINE FUMARATE 25 MG TABLET GT SCH ×3 (09:55→17:18)
[2023-05-06] MEDS: CHLORHEXIDINE GLUCONATE 15 ML MOUTHWASH MM SCH ×2 (09:55→21:01)
[2023-05-06] MEDS: ENOXAPARIN SODIUM 40 MG/0.4 ML DISP.SYRIN SQ SCH (09:56)
[2023-05-06] MEDS: REMEDY ESSENTIAL ZINC PASTE 113 GM TP SCH ×2 (09:56→21:01)
[2023-05-06] MEDS: JEVITY 1.2 1000 ML LIQUID GT PRN (10:22)
[2023-05-06] MEDS: MULTIVITAMINS,THERAPEUTIC TABLET GT SCH (21:00)
[2023-05-06 21:15] VITALS: TEMP 98.8
[2023-05-07] MEDS: IPRATROPIUM BROMIDE 0.5 MG/2.5 ML NEBU NEB SCH ×4 (01:02→19:21)
[2023-05-07] MEDS: ALBUTEROL SULFATE 2.5 MG/3 ML NEBU NEB SCH ×4 (01:02→19:21)
[2023-05-07 07:35] LABS: BASOPHILS % (AUTO) 0.5 % (0.0-2.0); EOSINOPHILS % (AUTO) 12.3 % (0.0-7.0); HEMOGLOBIN 10.2 g/dL (12.5-16.3); LYMPHOCYTES # (AUTO) 2.8 K/uL (0.8-4.8); LYMPHOCYTES % (AUTO) 35.6 % (20.5-51.5); MEAN CORPUSCULAR HEMOGLOBIN 28.4 uug (23.8-33.4); MEAN CORPUSCULAR HGB CONC 34 g/dL (32.5-36.3); MEAN CORPUSCULAR VOLUME 83.6 fL (73.0-96.2); MONOCYTES # (AUTO) 0.7 K/uL (0.1-1.30); MONOCYTES % (AUTO) 8.9 % (0.0-11.0); NEUTROPHILS # (AUTO) 3.4 K/uL (1.8-8.9); NEUTROPHILS % (AUTO) 42.7 % (38.5-71.5); PLATELET COUNT (AUTO) 289 K/uL (152-348); RED BLOOD CELL COUNT(AUTO) 3.59 MIL/uL (4.06-5.63); RED CELL DISTRIBUTION WIDTH 15.7 % (12.1-16.2); WHITE BLOOD COUNT (AUTO) 7.9 K/uL (3.6-10.2)
[2023-05-07 07:42] LABS: DIFFERENTIAL COMMENT 1
[2023-05-07] MEDS: VALPROIC ACID 250 MG/5 ML LIQUID UDC GT SCH ×2 (08:56→20:56)
[2023-05-07] MEDS: ENOXAPARIN SODIUM 40 MG/0.4 ML DISP.SYRIN SQ SCH (08:57)
[2023-05-07] MEDS: levETIRAcetam 500 MG/5 ML LIQUID UDC GT SCH ×2 (08:57→20:56)
[2023-05-07] MEDS: CHLORHEXIDINE GLUCONATE 15 ML MOUTHWASH MM SCH ×2 (08:57→20:56)
[2023-05-07] MEDS: QUETIAPINE FUMARATE 25 MG TABLET GT SCH ×3 (08:57→17:12)
[2023-05-07] MEDS: PROTEIN SUPPLEMENT (PROSTAT) 30 ML LIQUID GT SCH ×2 (08:57→20:56)
[2023-05-07] MEDS: NEOMY/BACITRAC/POLYMI OINT 28.35 GM TUBE TOP SCH ×2 (08:58→20:56)
[2023-05-07] MEDS: REMEDY ESSENTIAL ZINC PASTE 113 GM TP SCH ×2 (08:58→20:56)
[2023-05-07 09:07] LABS: CARBON DIOXIDE 32 mmol/L (21-32); CHLORIDE 108 mmol/L (98-107); CREATININE 0.4 mg/dL (0.6-1.3); GLUCOSE 117 mg/dL (74-106); MAGNESIUM 2.2 mg/dL (1.8-2.4); PHOSPHOROUS 4.4 mg/dL (2.5-4.9); POTASSIUM 2.9 mmol/L (3.5-5.1); SODIUM SERUM 145 mmol/L (136-145); UREA NITROGEN, BLOOD 12 mg/dL (7-18)
[2023-05-07 10:07] VITALS: TEMP 99.4
[2023-05-07] MEDS: JEVITY 1.2 1000 ML LIQUID GT PRN (13:49)
[2023-05-07 19:55] VITALS: TEMP 99.2
[2023-05-07] MEDS: MULTIVITAMINS,THERAPEUTIC TABLET GT SCH (20:56)
[2023-05-08] MEDS: ALBUTEROL SULFATE 2.5 MG/3 ML NEBU NEB SCH ×4 (01:26→19:15)
[2023-05-08] MEDS: IPRATROPIUM BROMIDE 0.5 MG/2.5 ML NEBU NEB SCH ×4 (01:26→19:15)
[2023-05-08 07:26] VITALS: TEMP 97.5
[2023-05-08] MEDS: REMEDY ESSENTIAL ZINC PASTE 113 GM TP SCH ×2 (09:00→21:59)
[2023-05-08] MEDS: CHLORHEXIDINE GLUCONATE 15 ML MOUTHWASH MM SCH ×2 (09:00→21:58)
[2023-05-08] MEDS: QUETIAPINE FUMARATE 25 MG TABLET GT SCH ×3 (09:00→17:36)
[2023-05-08] MEDS: PROTEIN SUPPLEMENT (PROSTAT) 30 ML LIQUID GT SCH ×2 (09:00→21:58)
[2023-05-08] MEDS: NEOMY/BACITRAC/POLYMI OINT 28.35 GM TUBE TOP SCH ×2 (09:00→21:59)
[2023-05-08] MEDS: VALPROIC ACID 250 MG/5 ML LIQUID UDC GT SCH ×2 (09:00→21:58)
[2023-05-08] MEDS: ENOXAPARIN SODIUM 40 MG/0.4 ML DISP.SYRIN SQ SCH (09:00)
[2023-05-08] MEDS: levETIRAcetam 500 MG/5 ML LIQUID UDC GT SCH ×2 (09:00→21:58)
[2023-05-08 11:00] VITALS: O2SAT 98
[2023-05-08] MEDS: JEVITY 1.2 1000 ML LIQUID GT PRN (12:36)
[2023-05-08] MEDS: POTASSIUM CHLORIDE 10 MEQ TAB.PRT.SR PO SCH ×2 (20:00→22:00)
[2023-05-08 21:17] VITALS: TEMP 97.5
[2023-05-08] MEDS: MULTIVITAMINS,THERAPEUTIC TABLET GT SCH (21:58)
[2023-05-09] MEDS: ALBUTEROL SULFATE 2.5 MG/3 ML NEBU NEB SCH ×4 (01:40→19:20)
[2023-05-09] MEDS: IPRATROPIUM BROMIDE 0.5 MG/2.5 ML NEBU NEB SCH ×4 (01:40→19:19)
[2023-05-09 07:14] VITALS: TEMP 97.5
[2023-05-09] MEDS: CHLORHEXIDINE GLUCONATE 15 ML MOUTHWASH MM SCH ×2 (08:50→21:00)
[2023-05-09] MEDS: VALPROIC ACID 250 MG/5 ML LIQUID UDC GT SCH ×2 (08:50→21:00)
[2023-05-09] MEDS: levETIRAcetam 500 MG/5 ML LIQUID UDC GT SCH ×2 (08:50→21:00)
[2023-05-09] MEDS: NEOMY/BACITRAC/POLYMI OINT 28.35 GM TUBE TOP SCH ×2 (08:50→21:00)
[2023-05-09] MEDS: PROTEIN SUPPLEMENT (PROSTAT) 30 ML LIQUID GT SCH ×2 (08:50→21:00)
[2023-05-09] MEDS: QUETIAPINE FUMARATE 25 MG TABLET GT SCH ×3 (08:50→16:49)
[2023-05-09] MEDS: ENOXAPARIN SODIUM 40 MG/0.4 ML DISP.SYRIN SQ SCH (08:50)
[2023-05-09] MEDS: REMEDY ESSENTIAL ZINC PASTE 113 GM TP SCH ×2 (08:51→21:00)
[2023-05-09] MEDS: JEVITY 1.2 1000 ML LIQUID GT PRN (09:00)
[2023-05-09 20:00] VITALS: TEMP 98.2
[2023-05-09] MEDS: MULTIVITAMINS,THERAPEUTIC TABLET GT SCH (21:00)
[2023-05-10] MEDS: IPRATROPIUM BROMIDE 0.5 MG/2.5 ML NEBU NEB SCH ×4 (00:41→19:10)
[2023-05-10] MEDS: ALBUTEROL SULFATE 2.5 MG/3 ML NEBU NEB SCH ×4 (00:42→19:11)
[2023-05-10] MEDS: JEVITY 1.2 1000 ML LIQUID GT PRN (03:39)
[2023-05-10 07:19] VITALS: TEMP 98.7
[2023-05-10] MEDS: levETIRAcetam 500 MG/5 ML LIQUID UDC GT SCH ×2 (09:11→21:20)
[2023-05-10] MEDS: VALPROIC ACID 250 MG/5 ML LIQUID UDC GT SCH ×2 (09:11→21:20)
[2023-05-10] MEDS: ENOXAPARIN SODIUM 40 MG/0.4 ML DISP.SYRIN SQ SCH (09:11)
[2023-05-10] MEDS: QUETIAPINE FUMARATE 25 MG TABLET GT SCH ×3 (09:11→17:40)
[2023-05-10] MEDS: PROTEIN SUPPLEMENT (PROSTAT) 30 ML LIQUID GT SCH ×2 (09:11→21:20)
[2023-05-10] MEDS: CHLORHEXIDINE GLUCONATE 15 ML MOUTHWASH MM SCH ×2 (09:11→21:20)
[2023-05-10] MEDS: NEOMY/BACITRAC/POLYMI OINT 28.35 GM TUBE TOP SCH ×2 (09:12→21:20)
[2023-05-10] MEDS: REMEDY ESSENTIAL ZINC PASTE 113 GM TP SCH ×2 (09:12→21:20)
[2023-05-10] MEDS ORDERED: INFLUENZA VACCINE 2023-2024 0.5 ML DISP.SYRIN IM ONE (13:00)
[2023-05-10 19:46] VITALS: TEMP 98.2
[2023-05-10] MEDS: MULTIVITAMINS,THERAPEUTIC TABLET GT SCH (21:20)
[2023-05-11] MEDS: ALBUTEROL SULFATE 2.5 MG/3 ML NEBU NEB SCH ×4 (02:10→19:07)
[2023-05-11] MEDS: IPRATROPIUM BROMIDE 0.5 MG/2.5 ML NEBU NEB SCH ×4 (02:10→19:07)
[2023-05-11] MEDS: JEVITY 1.2 1000 ML LIQUID GT PRN ×2 (03:08→22:16)
[2023-05-11 04:00] VITALS: TEMP 98.9
[2023-05-11 08:05] VITALS: TEMP 98.3
[2023-05-11] MEDS: levETIRAcetam 500 MG/5 ML LIQUID UDC GT SCH ×2 (09:26→21:23)
[2023-05-11] MEDS: QUETIAPINE FUMARATE 25 MG TABLET GT SCH ×3 (09:26→16:43)
[2023-05-11] MEDS: VALPROIC ACID 250 MG/5 ML LIQUID UDC GT SCH ×2 (09:26→21:24)
[2023-05-11] MEDS: CHLORHEXIDINE GLUCONATE 15 ML MOUTHWASH MM SCH ×2 (09:26→21:24)
[2023-05-11] MEDS: PROTEIN SUPPLEMENT (PROSTAT) 30 ML LIQUID GT SCH ×2 (09:26→21:23)
[2023-05-11] MEDS: REMEDY ESSENTIAL ZINC PASTE 113 GM TP SCH ×2 (09:27→21:24)
[2023-05-11] MEDS: ENOXAPARIN SODIUM 40 MG/0.4 ML DISP.SYRIN SQ SCH (09:27)
[2023-05-11] MEDS: NEOMY/BACITRAC/POLYMI OINT 28.35 GM TUBE TOP SCH ×2 (09:27→21:24)
[2023-05-11 20:00] VITALS: TEMP 98.4
[2023-05-11] MEDS: MULTIVITAMINS,THERAPEUTIC TABLET GT SCH (21:23)
[2023-05-12] MEDS: IPRATROPIUM BROMIDE 0.5 MG/2.5 ML NEBU NEB SCH ×4 (01:06→19:45)
[2023-05-12] MEDS: ALBUTEROL SULFATE 2.5 MG/3 ML NEBU NEB SCH ×4 (01:06→19:45)
[2023-05-12 07:42] VITALS: TEMP 98
[2023-05-12] MEDS: ENOXAPARIN SODIUM 40 MG/0.4 ML DISP.SYRIN SQ SCH (08:33)
[2023-05-12] MEDS: NEOMY/BACITRAC/POLYMI OINT 28.35 GM TUBE TOP SCH ×2 (08:34→21:00)
[2023-05-12] MEDS: QUETIAPINE FUMARATE 25 MG TABLET GT SCH ×3 (08:34→16:19)
[2023-05-12] MEDS: VALPROIC ACID 250 MG/5 ML LIQUID UDC GT SCH ×2 (08:34→21:00)
[2023-05-12] MEDS: PROTEIN SUPPLEMENT (PROSTAT) 30 ML LIQUID GT SCH ×2 (08:34→21:00)
[2023-05-12] MEDS: levETIRAcetam 500 MG/5 ML LIQUID UDC GT SCH ×2 (08:34→21:00)
[2023-05-12] MEDS: CHLORHEXIDINE GLUCONATE 15 ML MOUTHWASH MM SCH ×2 (08:34→21:00)
[2023-05-12] MEDS: REMEDY ESSENTIAL ZINC PASTE 113 GM TP SCH ×2 (08:34→21:00)
[2023-05-12] MEDS: JEVITY 1.2 1000 ML LIQUID GT PRN (17:35)
[2023-05-12 20:00] VITALS: TEMP 98.2
[2023-05-12] MEDS: MULTIVITAMINS,THERAPEUTIC TABLET GT SCH (21:00)
[2023-05-13] MEDS: IPRATROPIUM BROMIDE 0.5 MG/2.5 ML NEBU NEB SCH ×4 (01:45→19:18)
[2023-05-13] MEDS: ALBUTEROL SULFATE 2.5 MG/3 ML NEBU NEB SCH ×4 (01:46→19:18)
[2023-05-13 08:00] VITALS: TEMP 98
[2023-05-13] MEDS: QUETIAPINE FUMARATE 25 MG TABLET GT SCH ×3 (08:44→17:17)
[2023-05-13] MEDS: NEOMY/BACITRAC/POLYMI OINT 28.35 GM TUBE TOP SCH ×2 (08:44→21:09)
[2023-05-13] MEDS: VALPROIC ACID 250 MG/5 ML LIQUID UDC GT SCH ×2 (08:44→21:08)
[2023-05-13] MEDS: CHLORHEXIDINE GLUCONATE 15 ML MOUTHWASH MM SCH ×2 (08:44→21:09)
[2023-05-13] MEDS: levETIRAcetam 500 MG/5 ML LIQUID UDC GT SCH ×2 (08:44→21:08)
[2023-05-13] MEDS: ENOXAPARIN SODIUM 40 MG/0.4 ML DISP.SYRIN SQ SCH (08:44)
[2023-05-13] MEDS: REMEDY ESSENTIAL ZINC PASTE 113 GM TP SCH ×2 (08:44→21:09)
[2023-05-13] MEDS: PROTEIN SUPPLEMENT (PROSTAT) 30 ML LIQUID GT SCH ×2 (08:44→21:08)
[2023-05-13] MEDS: JEVITY 1.2 1000 ML LIQUID GT PRN (13:08)
[2023-05-13 20:00] VITALS: TEMP 98.5
[2023-05-13] MEDS: MULTIVITAMINS,THERAPEUTIC TABLET GT SCH (21:09)
[2023-05-14] MEDS: IPRATROPIUM BROMIDE 0.5 MG/2.5 ML NEBU NEB SCH ×4 (01:08→19:30)
[2023-05-14] MEDS: ALBUTEROL SULFATE 2.5 MG/3 ML NEBU NEB SCH ×4 (01:09→19:30)
[2023-05-14 07:16] LABS: BASOPHILS # (AUTO) 0.1 K/UL (0.0-0.2); BASOPHILS % (AUTO) 0.8 % (0.0-2.0); EOSINOPHILS # (AUTO) 0.7 K/uL (0.0-0.7); EOSINOPHILS % (AUTO) 7.8 % (0.0-7.0); HEMATOCRIT 29.6 % (36.7-47.1); HEMOGLOBIN 10.1 g/dL (12.5-16.3); LYMPHOCYTES # (AUTO) 3.2 K/uL (0.8-4.8); LYMPHOCYTES % (AUTO) 34.8 % (20.5-51.5); MEAN CORPUSCULAR HEMOGLOBIN 28.4 uug (23.8-33.4); MEAN CORPUSCULAR HGB CONC 34 g/dL (32.5-36.3); MEAN CORPUSCULAR VOLUME 83.6 fL (73.0-96.2); MONOCYTES # (AUTO) 0.6 K/uL (0.1-1.30); MONOCYTES % (AUTO) 7.1 % (0.0-11.0); NEUTROPHILS # (AUTO) 4.5 K/uL (1.8-8.9); NEUTROPHILS % (AUTO) 49.5 % (38.5-71.5); PLATELET COUNT (AUTO) 316 K/uL (152-348); RED BLOOD CELL COUNT(AUTO) 3.54 MIL/uL (4.06-5.63); RED CELL DISTRIBUTION WIDTH 15.9 % (12.1-16.2); WHITE BLOOD COUNT (AUTO) 9.1 K/uL (3.6-10.2)
[2023-05-14 07:32] LABS: DIFFERENTIAL COMMENT 1
[2023-05-14 07:41] LABS: ALANINE AMINOTRANSFERASE 23 U/L (16-63); ALBUMIN 2.6 g/dL (3.4-5.0); ALKALINE PHOSPHATASE 178 U/L (50-136); ASPARTATE AMINOTRANSFERASE 19 U/L (15-37); BILIRUBIN,TOTAL 0.4 mg/dL (0.2-1.0); CALCIUM 9.8 mg/dL (8.5-10.1); CARBON DIOXIDE 31 mmol/L (21-32); CHLORIDE 109 mmol/L (98-107); CREATININE 0.5 mg/dL (0.6-1.3); GLUCOSE 115 mg/dL (74-106); MAGNESIUM 2.1 mg/dL (1.8-2.4); NT-PRO BNP 99 pg/mL (0-125); PHOSPHOROUS 4.4 mg/dL (2.5-4.9); SODIUM SERUM 147 mmol/L (136-145); TOTAL PROTEIN, SERUM 8.7 g/dL (6.4-8.2); UREA NITROGEN, BLOOD 13 mg/dL (7-18)
[2023-05-14 08:10] LABS: POTASSIUM 2.8 mmol/L (3.5-5.1)
[2023-05-14] MEDS: PROTEIN SUPPLEMENT (PROSTAT) 30 ML LIQUID GT SCH ×2 (09:00→21:30)
[2023-05-14] MEDS: ENOXAPARIN SODIUM 40 MG/0.4 ML DISP.SYRIN SQ SCH (09:00)
[2023-05-14] MEDS: QUETIAPINE FUMARATE 25 MG TABLET GT SCH ×3 (09:00→17:32)
[2023-05-14] MEDS: REMEDY ESSENTIAL ZINC PASTE 113 GM TP SCH ×2 (09:00→21:30)
[2023-05-14] MEDS: VALPROIC ACID 250 MG/5 ML LIQUID UDC GT SCH ×2 (09:00→21:30)
[2023-05-14] MEDS: levETIRAcetam 500 MG/5 ML LIQUID UDC GT SCH ×2 (09:00→21:30)
[2023-05-14] MEDS: NEOMY/BACITRAC/POLYMI OINT 28.35 GM TUBE TOP SCH ×2 (09:00→21:30)
[2023-05-14] MEDS: CHLORHEXIDINE GLUCONATE 15 ML MOUTHWASH MM SCH ×2 (09:00→21:30)
[2023-05-14 09:10] VITALS: TEMP 99
[2023-05-14] MEDS: POTASSIUM CHLORIDE 10 MEQ TAB.PRT.SR XX SCH ×2 (10:53→13:02)
[2023-05-14] MEDS: JEVITY 1.2 1000 ML LIQUID GT PRN (13:53)
[2023-05-14 20:00] VITALS: TEMP 97.6
[2023-05-14] MEDS: MULTIVITAMINS,THERAPEUTIC TABLET GT SCH (21:30)
[2023-05-15] MEDS: IPRATROPIUM BROMIDE 0.5 MG/2.5 ML NEBU NEB SCH ×4 (01:51→19:27)
[2023-05-15] MEDS: ALBUTEROL SULFATE 2.5 MG/3 ML NEBU NEB SCH ×4 (01:51→19:27)
[2023-05-15 07:38] VITALS: TEMP 98
[2023-05-15] MEDS: VALPROIC ACID 250 MG/5 ML LIQUID UDC GT SCH (08:58)
[2023-05-15] MEDS: levETIRAcetam 500 MG/5 ML LIQUID UDC GT SCH ×2 (08:58→21:00)
[2023-05-15] MEDS: PROTEIN SUPPLEMENT (PROSTAT) 30 ML LIQUID GT SCH ×2 (08:59→21:00)
[2023-05-15] MEDS: ENOXAPARIN SODIUM 40 MG/0.4 ML DISP.SYRIN SQ SCH (08:59)
[2023-05-15] MEDS: QUETIAPINE FUMARATE 25 MG TABLET GT SCH ×3 (09:00→17:26)
[2023-05-15] MEDS: CHLORHEXIDINE GLUCONATE 15 ML MOUTHWASH MM SCH ×2 (09:00→21:00)
[2023-05-15] MEDS: NEOMY/BACITRAC/POLYMI OINT 28.35 GM TUBE TOP SCH (09:00)
[2023-05-15] MEDS: REMEDY ESSENTIAL ZINC PASTE 113 GM TP SCH ×2 (09:01→21:00)
[2023-05-15 20:00] VITALS: TEMP 98
[2023-05-15] MEDS: MULTIVITAMINS,THERAPEUTIC TABLET GT SCH (21:00)
[2023-05-16] MEDS: JEVITY 1.2 1000 ML LIQUID GT PRN ×2 (00:24→23:40)
[2023-05-16] MEDS: IPRATROPIUM BROMIDE 0.5 MG/2.5 ML NEBU NEB SCH ×4 (00:46→19:05)
[2023-05-16] MEDS: ALBUTEROL SULFATE 2.5 MG/3 ML NEBU NEB SCH ×4 (00:47→19:05)
[2023-05-16 07:40] VITALS: TEMP 98.4
[2023-05-16] MEDS: QUETIAPINE FUMARATE 25 MG TABLET GT SCH ×3 (09:00→17:00)
[2023-05-16] MEDS: levETIRAcetam 500 MG/5 ML LIQUID UDC GT SCH ×2 (09:00→21:38)
[2023-05-16] MEDS: REMEDY ESSENTIAL ZINC PASTE 113 GM TP SCH ×2 (09:00→21:40)
[2023-05-16] MEDS: ENOXAPARIN SODIUM 40 MG/0.4 ML DISP.SYRIN SQ SCH (09:00)
[2023-05-16] MEDS: PROTEIN SUPPLEMENT (PROSTAT) 30 ML LIQUID GT SCH ×2 (09:00→21:40)
[2023-05-16] MEDS: CHLORHEXIDINE GLUCONATE 15 ML MOUTHWASH MM SCH ×2 (09:00→21:40)
[2023-05-16 20:00] VITALS: TEMP 98.1
[2023-05-16] MEDS: MULTIVITAMINS,THERAPEUTIC TABLET GT SCH (21:40)
[2023-05-17] MEDS: IPRATROPIUM BROMIDE 0.5 MG/2.5 ML NEBU NEB SCH ×4 (01:05→19:09)
[2023-05-17] MEDS: ALBUTEROL SULFATE 2.5 MG/3 ML NEBU NEB SCH ×4 (01:05→19:09)
[2023-05-17 08:05] VITALS: TEMP 98.9
[2023-05-17] MEDS: levETIRAcetam 500 MG/5 ML LIQUID UDC GT SCH ×2 (09:01→20:02)
[2023-05-17] MEDS: REMEDY ESSENTIAL ZINC PASTE 113 GM TP SCH ×2 (09:02→20:02)
[2023-05-17] MEDS: ENOXAPARIN SODIUM 40 MG/0.4 ML DISP.SYRIN SQ SCH (09:02)
[2023-05-17] MEDS: CHLORHEXIDINE GLUCONATE 15 ML MOUTHWASH MM SCH ×2 (09:02→20:02)
[2023-05-17] MEDS: PROTEIN SUPPLEMENT (PROSTAT) 30 ML LIQUID GT SCH ×2 (09:02→20:02)
[2023-05-17] MEDS: QUETIAPINE FUMARATE 25 MG TABLET GT SCH ×3 (09:02→17:21)
[2023-05-17] MEDS: POTASSIUM CHLORIDE 40 MEQ/30 ML LIQUID UDC GT SCH (09:04)
[2023-05-17 19:54] VITALS: TEMP 100.3
[2023-05-17] MEDS: ACETAMINOPHEN 650 MG/20 ML UDC- SA PATIENTS-FEVER ONLY GT PRN (19:54)
[2023-05-17] MEDS: MULTIVITAMINS,THERAPEUTIC TABLET GT SCH (20:02)
[2023-05-17 21:00] VITALS: TEMP 99.2
[2023-05-18] MEDS: IPRATROPIUM BROMIDE 0.5 MG/2.5 ML NEBU NEB SCH ×4 (01:06→19:12)
[2023-05-18] MEDS: ALBUTEROL SULFATE 2.5 MG/3 ML NEBU NEB SCH ×4 (01:06→19:12)
[2023-05-18] MEDS: JEVITY 1.2 1000 ML LIQUID GT PRN ×2 (01:11→22:54)
[2023-05-18 07:33] VITALS: TEMP 98.5
[2023-05-18] MEDS: levETIRAcetam 500 MG/5 ML LIQUID UDC GT SCH ×2 (08:39→20:53)
[2023-05-18] MEDS: PROTEIN SUPPLEMENT (PROSTAT) 30 ML LIQUID GT SCH ×2 (08:42→20:53)
[2023-05-18] MEDS: QUETIAPINE FUMARATE 25 MG TABLET GT SCH ×3 (08:42→17:28)
[2023-05-18] MEDS: POTASSIUM CHLORIDE 40 MEQ/30 ML LIQUID UDC GT SCH (08:42)
[2023-05-18] MEDS: ENOXAPARIN SODIUM 40 MG/0.4 ML DISP.SYRIN SQ SCH (08:43)
[2023-05-18] MEDS: CHLORHEXIDINE GLUCONATE 15 ML MOUTHWASH MM SCH ×2 (08:43→20:54)
[2023-05-18] MEDS: REMEDY ESSENTIAL ZINC PASTE 113 GM TP SCH ×2 (08:44→20:54)
[2023-05-18 20:00] VITALS: TEMP 98.7
[2023-05-18] MEDS: MULTIVITAMINS,THERAPEUTIC TABLET GT SCH (20:54)
[2023-05-19] MEDS: IPRATROPIUM BROMIDE 0.5 MG/2.5 ML NEBU NEB SCH ×4 (01:40→19:10)
[2023-05-19] MEDS: ALBUTEROL SULFATE 2.5 MG/3 ML NEBU NEB SCH ×4 (01:41→19:10)
[2023-05-19 08:00] VITALS: TEMP 98.7
[2023-05-19] MEDS: QUETIAPINE FUMARATE 25 MG TABLET GT SCH ×3 (09:51→16:56)
[2023-05-19] MEDS: POTASSIUM CHLORIDE 40 MEQ/30 ML LIQUID UDC GT SCH (09:51)
[2023-05-19] MEDS: levETIRAcetam 500 MG/5 ML LIQUID UDC GT SCH ×2 (09:51→21:00)
[2023-05-19] MEDS: PROTEIN SUPPLEMENT (PROSTAT) 30 ML LIQUID GT SCH ×2 (09:51→21:00)
[2023-05-19] MEDS: ENOXAPARIN SODIUM 40 MG/0.4 ML DISP.SYRIN SQ SCH (09:51)
[2023-05-19] MEDS: REMEDY ESSENTIAL ZINC PASTE 113 GM TP SCH ×2 (09:51→21:00)
[2023-05-19] MEDS: CHLORHEXIDINE GLUCONATE 15 ML MOUTHWASH MM SCH ×2 (09:51→21:00)
[2023-05-19 20:00] VITALS: TEMP 98.4
[2023-05-19] MEDS: MULTIVITAMINS,THERAPEUTIC TABLET GT SCH (21:00)
[2023-05-20] MEDS: ALBUTEROL SULFATE 2.5 MG/3 ML NEBU NEB SCH ×4 (01:30→19:11)
[2023-05-20] MEDS: IPRATROPIUM BROMIDE 0.5 MG/2.5 ML NEBU NEB SCH ×4 (01:30→19:11)
[2023-05-20 07:48] VITALS: TEMP 97.3
[2023-05-20] MEDS: levETIRAcetam 500 MG/5 ML LIQUID UDC GT SCH ×2 (08:58→21:40)
[2023-05-20] MEDS: PROTEIN SUPPLEMENT (PROSTAT) 30 ML LIQUID GT SCH ×2 (08:58→21:40)
[2023-05-20] MEDS: POTASSIUM CHLORIDE 40 MEQ/30 ML LIQUID UDC GT SCH (08:58)
[2023-05-20] MEDS: CHLORHEXIDINE GLUCONATE 15 ML MOUTHWASH MM SCH ×2 (08:58→21:40)
[2023-05-20] MEDS: ENOXAPARIN SODIUM 40 MG/0.4 ML DISP.SYRIN SQ SCH (08:58)
[2023-05-20] MEDS: REMEDY ESSENTIAL ZINC PASTE 113 GM TP SCH ×2 (08:58→21:40)
[2023-05-20] MEDS: QUETIAPINE FUMARATE 25 MG TABLET GT SCH ×3 (08:58→17:12)
[2023-05-20] MEDS: JEVITY 1.2 1000 ML LIQUID GT PRN (14:46)
[2023-05-20 20:00] VITALS: TEMP 98.5
[2023-05-20] MEDS: MULTIVITAMINS,THERAPEUTIC TABLET GT SCH (21:40)
[2023-05-21] MEDS: IPRATROPIUM BROMIDE 0.5 MG/2.5 ML NEBU NEB SCH ×4 (01:12→19:24)
[2023-05-21] MEDS: ALBUTEROL SULFATE 2.5 MG/3 ML NEBU NEB SCH ×4 (01:12→19:24)
[2023-05-21 06:31] LABS: BASOPHILS % (AUTO) 0.5 % (0.0-2.0); EOSINOPHILS # (AUTO) 0.8 K/uL (0.0-0.7); HEMATOCRIT 30.4 % (36.7-47.1); HEMOGLOBIN 9.9 g/dL (12.5-16.3); LYMPHOCYTES # (AUTO) 2.7 K/uL (0.8-4.8); MEAN CORPUSCULAR HEMOGLOBIN 27.7 uug (23.8-33.4); MEAN CORPUSCULAR HGB CONC 33 g/dL (32.5-36.3); MEAN CORPUSCULAR VOLUME 84.9 fL (73.0-96.2); MONOCYTES # (AUTO) 0.4 K/uL (0.1-1.30); MONOCYTES % (AUTO) 6.5 % (0.0-11.0); NEUTROPHILS # (AUTO) 2.3 K/uL (1.8-8.9); PLATELET COUNT (AUTO) 271 K/uL (152-348); RED BLOOD CELL COUNT(AUTO) 3.58 MIL/uL (4.06-5.63); RED CELL DISTRIBUTION WIDTH 15.6 % (12.1-16.2); WHITE BLOOD COUNT (AUTO) 6.3 K/uL (3.6-10.2)
[2023-05-21 06:39] LABS: DIFFERENTIAL COMMENT 1
[2023-05-21 06:47] LABS: CALCIUM 9.3 mg/dL (8.5-10.1); CARBON DIOXIDE 30 mmol/L (21-32); CHLORIDE 117 mmol/L (98-107); CREATININE 0.4 mg/dL (0.6-1.3); GLUCOSE 107 mg/dL (74-106); MAGNESIUM 2.3 mg/dL (1.8-2.4); PHOSPHOROUS 4.4 mg/dL (2.5-4.9); POTASSIUM 3.1 mmol/L (3.5-5.1); SODIUM SERUM 154 mmol/L (136-145); UREA NITROGEN, BLOOD 14 mg/dL (7-18)
[2023-05-21 07:55] VITALS: TEMP 97.7
[2023-05-21] MEDS: QUETIAPINE FUMARATE 25 MG TABLET GT SCH ×3 (09:00→16:46)
[2023-05-21] MEDS: levETIRAcetam 500 MG/5 ML LIQUID UDC GT SCH ×2 (09:41→21:30)
[2023-05-21] MEDS: REMEDY ESSENTIAL ZINC PASTE 113 GM TP SCH ×2 (09:42→21:30)
[2023-05-21] MEDS: CHLORHEXIDINE GLUCONATE 15 ML MOUTHWASH MM SCH ×2 (09:42→21:30)
[2023-05-21] MEDS: PROTEIN SUPPLEMENT (PROSTAT) 30 ML LIQUID GT SCH ×2 (09:42→21:30)
[2023-05-21] MEDS: ENOXAPARIN SODIUM 40 MG/0.4 ML DISP.SYRIN SQ SCH (10:36)
[2023-05-21] MEDS ORDERED: POTASSIUM CHLORIDE 10 MEQ TAB.PRT.SR XX ONE (11:30)
[2023-05-21 20:05] VITALS: TEMP 97.4
[2023-05-21] MEDS: MULTIVITAMINS,THERAPEUTIC TABLET GT SCH (21:30)
[2023-05-22] MEDS: IPRATROPIUM BROMIDE 0.5 MG/2.5 ML NEBU NEB SCH ×4 (01:34→19:09)
[2023-05-22] MEDS: ALBUTEROL SULFATE 2.5 MG/3 ML NEBU NEB SCH ×4 (01:34→19:09)
[2023-05-22] MEDS: levETIRAcetam 500 MG/5 ML LIQUID UDC GT SCH ×2 (08:47→21:00)
[2023-05-22] MEDS: PROTEIN SUPPLEMENT (PROSTAT) 30 ML LIQUID GT SCH ×2 (08:48→21:00)
[2023-05-22] MEDS: QUETIAPINE FUMARATE 25 MG TABLET GT SCH ×3 (08:48→16:06)
[2023-05-22] MEDS: REMEDY ESSENTIAL ZINC PASTE 113 GM TP SCH ×2 (08:48→21:00)
[2023-05-22] MEDS: CHLORHEXIDINE GLUCONATE 15 ML MOUTHWASH MM SCH ×2 (08:48→21:00)
[2023-05-22] MEDS: ENOXAPARIN SODIUM 40 MG/0.4 ML DISP.SYRIN SQ SCH (08:49)
[2023-05-22] MEDS: JEVITY 1.2 1000 ML LIQUID GT PRN (13:42)
[2023-05-22 19:50] VITALS: TEMP 98.5
[2023-05-22] MEDS: MULTIVITAMINS,THERAPEUTIC TABLET GT SCH (21:00)
[2023-05-23] MEDS: ALBUTEROL SULFATE 2.5 MG/3 ML NEBU NEB SCH ×4 (01:28→21:20)
[2023-05-23] MEDS: IPRATROPIUM BROMIDE 0.5 MG/2.5 ML NEBU NEB SCH ×4 (01:28→21:20)
[2023-05-23 07:44] VITALS: TEMP 97.6
[2023-05-23] MEDS: levETIRAcetam 500 MG/5 ML LIQUID UDC GT SCH ×2 (08:29→21:00)
[2023-05-23] MEDS: PROTEIN SUPPLEMENT (PROSTAT) 30 ML LIQUID GT SCH ×2 (08:29→21:00)
[2023-05-23] MEDS: QUETIAPINE FUMARATE 25 MG TABLET GT SCH ×3 (08:30→16:27)
[2023-05-23] MEDS: CHLORHEXIDINE GLUCONATE 15 ML MOUTHWASH MM SCH ×2 (08:31→21:00)
[2023-05-23] MEDS: REMEDY ESSENTIAL ZINC PASTE 113 GM TP SCH ×2 (08:34→21:00)
[2023-05-23] MEDS: ENOXAPARIN SODIUM 40 MG/0.4 ML DISP.SYRIN SQ SCH (08:34)
[2023-05-23] MEDS: JEVITY 1.2 1000 ML LIQUID GT PRN (10:41)
[2023-05-23 20:15] VITALS: BP 149/81; TEMP 97.8; O2SAT 100
[2023-05-23] MEDS: MULTIVITAMINS,THERAPEUTIC TABLET GT SCH (21:00)
[2023-05-24] MEDS: IPRATROPIUM BROMIDE 0.5 MG/2.5 ML NEBU NEB SCH ×4 (04:27→20:50)
[2023-05-24] MEDS: ALBUTEROL SULFATE 2.5 MG/3 ML NEBU NEB SCH ×4 (04:27→20:50)
[2023-05-24 07:35] VITALS: TEMP 97.2
[2023-05-24] MEDS: QUETIAPINE FUMARATE 25 MG TABLET GT SCH ×3 (09:00→17:23)
[2023-05-24] MEDS: REMEDY ESSENTIAL ZINC PASTE 113 GM TP SCH ×2 (09:00→21:00)
[2023-05-24] MEDS: CHLORHEXIDINE GLUCONATE 15 ML MOUTHWASH MM SCH ×2 (09:00→21:00)
[2023-05-24] MEDS: levETIRAcetam 500 MG/5 ML LIQUID UDC GT SCH ×2 (09:00→21:00)
[2023-05-24] MEDS ORDERED: POTASSIUM CHLORIDE 10 MEQ TAB.PRT.SR XX SCH (09:00)
[2023-05-24] MEDS: PROTEIN SUPPLEMENT (PROSTAT) 30 ML LIQUID GT SCH ×2 (09:00→21:00)
[2023-05-24] MEDS: POTASSIUM CHLORIDE 40 MEQ/30 ML LIQUID UDC GT SCH (10:49)
[2023-05-24] MEDS: ENOXAPARIN SODIUM 40 MG/0.4 ML DISP.SYRIN SQ SCH (10:54)
[2023-05-24] MEDS: JEVITY 1.2 1000 ML LIQUID GT PRN (13:38)
[2023-05-24] MEDS: MULTIVITAMINS,THERAPEUTIC TABLET GT SCH (21:00)
[2023-05-24 22:51] VITALS: TEMP 96.8
[2023-05-25] MEDS: ALBUTEROL SULFATE 2.5 MG/3 ML NEBU NEB SCH ×4 (01:39→19:33)
[2023-05-25] MEDS: IPRATROPIUM BROMIDE 0.5 MG/2.5 ML NEBU NEB SCH ×4 (01:39→19:33)
[2023-05-25 08:19] VITALS: TEMP 97.7
[2023-05-25] MEDS: levETIRAcetam 500 MG/5 ML LIQUID UDC GT SCH ×2 (09:47→21:41)
[2023-05-25] MEDS: POTASSIUM CHLORIDE 40 MEQ/30 ML LIQUID UDC GT SCH (09:48)
[2023-05-25] MEDS: PROTEIN SUPPLEMENT (PROSTAT) 30 ML LIQUID GT SCH ×2 (09:48→21:40)
[2023-05-25] MEDS: REMEDY ESSENTIAL ZINC PASTE 113 GM TP SCH ×2 (09:49→21:39)
[2023-05-25] MEDS: CHLORHEXIDINE GLUCONATE 15 ML MOUTHWASH MM SCH ×2 (09:49→21:40)
[2023-05-25] MEDS: QUETIAPINE FUMARATE 25 MG TABLET GT SCH ×3 (09:52→16:11)
[2023-05-25] MEDS: JEVITY 1.2 1000 ML LIQUID GT PRN (10:25)
[2023-05-25] MEDS: MULTIVITAMINS,THERAPEUTIC TABLET GT SCH (21:40)
[2023-05-26] MEDS: IPRATROPIUM BROMIDE 0.5 MG/2.5 ML NEBU NEB SCH ×4 (01:30→19:06)
[2023-05-26] MEDS: ALBUTEROL SULFATE 2.5 MG/3 ML NEBU NEB SCH ×4 (01:30→19:06)
[2023-05-26 08:10] VITALS: TEMP 100.4
[2023-05-26 08:35] VITALS: TEMP 99.8
[2023-05-26] MEDS: QUETIAPINE FUMARATE 25 MG TABLET GT SCH ×3 (08:58→17:23)
[2023-05-26] MEDS: POTASSIUM CHLORIDE 40 MEQ/30 ML LIQUID UDC GT SCH (08:58)
[2023-05-26] MEDS: PROTEIN SUPPLEMENT (PROSTAT) 30 ML LIQUID GT SCH ×2 (08:58→20:38)
[2023-05-26] MEDS: levETIRAcetam 500 MG/5 ML LIQUID UDC GT SCH ×2 (08:58→20:38)
[2023-05-26] MEDS: JEVITY 1.2 1000 ML LIQUID GT PRN (09:04)
[2023-05-26] MEDS: REMEDY ESSENTIAL ZINC PASTE 113 GM TP SCH ×2 (09:11→20:38)
[2023-05-26] MEDS: CHLORHEXIDINE GLUCONATE 15 ML MOUTHWASH MM SCH ×2 (09:11→20:38)
[2023-05-26 18:45] VITALS: TEMP 98.7
[2023-05-26 20:00] VITALS: TEMP 98
[2023-05-26] MEDS: MULTIVITAMINS,THERAPEUTIC TABLET GT SCH (20:38)
[2023-05-27] MEDS: IPRATROPIUM BROMIDE 0.5 MG/2.5 ML NEBU NEB SCH ×4 (01:05→19:30)
[2023-05-27] MEDS: ALBUTEROL SULFATE 2.5 MG/3 ML NEBU NEB SCH ×4 (01:06→19:30)
[2023-05-27] MEDS: JEVITY 1.2 1000 ML LIQUID GT PRN (06:16)
[2023-05-27] MEDS: levETIRAcetam 500 MG/5 ML LIQUID UDC GT SCH ×2 (09:17→20:54)
[2023-05-27] MEDS: POTASSIUM CHLORIDE 40 MEQ/30 ML LIQUID UDC GT SCH (09:18)
[2023-05-27] MEDS: CHLORHEXIDINE GLUCONATE 15 ML MOUTHWASH MM SCH ×2 (09:19→20:54)
[2023-05-27] MEDS: QUETIAPINE FUMARATE 25 MG TABLET GT SCH ×3 (09:19→17:25)
[2023-05-27] MEDS: PROTEIN SUPPLEMENT (PROSTAT) 30 ML LIQUID GT SCH ×2 (09:19→20:54)
[2023-05-27] MEDS: REMEDY ESSENTIAL ZINC PASTE 113 GM TP SCH ×2 (09:20→20:54)
[2023-05-27 11:36] VITALS: TEMP 98
[2023-05-27 20:00] VITALS: TEMP 98.2
[2023-05-27] MEDS: MULTIVITAMINS,THERAPEUTIC TABLET GT SCH (20:54)
[2023-05-27] MEDS: NEOMY/BACITRA/POLYMYXIN B OINT UD PACKET TP SCH (20:54)
[2023-05-28] MEDS: IPRATROPIUM BROMIDE 0.5 MG/2.5 ML NEBU NEB SCH ×4 (00:42→19:13)
[2023-05-28] MEDS: ALBUTEROL SULFATE 2.5 MG/3 ML NEBU NEB SCH ×4 (00:43→19:13)
[2023-05-28] MEDS: JEVITY 1.2 1000 ML LIQUID GT PRN (03:00)
[2023-05-28] MEDS: POTASSIUM CHLORIDE 40 MEQ/30 ML LIQUID UDC GT SCH (08:40)
[2023-05-28] MEDS: levETIRAcetam 500 MG/5 ML LIQUID UDC GT SCH ×2 (08:40→21:10)
[2023-05-28] MEDS: PROTEIN SUPPLEMENT (PROSTAT) 30 ML LIQUID GT SCH ×2 (08:41→21:10)
[2023-05-28] MEDS: REMEDY ESSENTIAL ZINC PASTE 113 GM TP SCH ×2 (08:41→21:10)
[2023-05-28] MEDS: NEOMY/BACITRA/POLYMYXIN B OINT UD PACKET TP SCH ×2 (08:41→21:10)
[2023-05-28] MEDS: CHLORHEXIDINE GLUCONATE 15 ML MOUTHWASH MM SCH ×2 (08:41→21:10)
[2023-05-28] MEDS: QUETIAPINE FUMARATE 25 MG TABLET GT SCH ×3 (08:41→17:58)
[2023-05-28 09:49] VITALS: TEMP 96.5
[2023-05-28 20:53] VITALS: TEMP 99.9
[2023-05-28] MEDS: MULTIVITAMINS,THERAPEUTIC TABLET GT SCH (21:10)
[2023-05-29] MEDS: IPRATROPIUM BROMIDE 0.5 MG/2.5 ML NEBU NEB SCH ×4 (01:13→21:11)
[2023-05-29] MEDS: ALBUTEROL SULFATE 2.5 MG/3 ML NEBU NEB SCH ×4 (01:13→21:11)
[2023-05-29 07:31] VITALS: TEMP 97.1
[2023-05-29] MEDS: PROTEIN SUPPLEMENT (PROSTAT) 30 ML LIQUID GT SCH ×2 (08:55→21:00)
[2023-05-29] MEDS: levETIRAcetam 500 MG/5 ML LIQUID UDC GT SCH ×2 (08:55→21:00)
[2023-05-29] MEDS: POTASSIUM CHLORIDE 40 MEQ/30 ML LIQUID UDC GT SCH (08:55)
[2023-05-29] MEDS: CHLORHEXIDINE GLUCONATE 15 ML MOUTHWASH MM SCH ×2 (08:57→21:00)
[2023-05-29] MEDS: QUETIAPINE FUMARATE 25 MG TABLET GT SCH ×3 (08:57→17:12)
[2023-05-29] MEDS: NEOMY/BACITRA/POLYMYXIN B OINT UD PACKET TP SCH ×2 (08:57→21:00)
[2023-05-29] MEDS: REMEDY ESSENTIAL ZINC PASTE 113 GM TP SCH ×2 (08:58→21:00)
[2023-05-29] MEDS: JEVITY 1.2 1000 ML LIQUID GT PRN (17:13)
[2023-05-29 20:00] VITALS: TEMP 97.6
[2023-05-29] MEDS: MULTIVITAMINS,THERAPEUTIC TABLET GT SCH (21:00)
[2023-05-30] MEDS: IPRATROPIUM BROMIDE 0.5 MG/2.5 ML NEBU NEB SCH ×4 (02:21→19:18)
[2023-05-30] MEDS: ALBUTEROL SULFATE 2.5 MG/3 ML NEBU NEB SCH ×4 (02:22→19:18)
[2023-05-30 07:31] VITALS: TEMP 97.5
[2023-05-30 08:00] VITALS: TEMP 97.8
[2023-05-30] MEDS: levETIRAcetam 500 MG/5 ML LIQUID UDC GT SCH ×2 (09:09→21:00)
[2023-05-30] MEDS: REMEDY ESSENTIAL ZINC PASTE 113 GM TP SCH ×2 (09:10→21:00)
[2023-05-30] MEDS: PROTEIN SUPPLEMENT (PROSTAT) 30 ML LIQUID GT SCH ×2 (09:10→21:00)
[2023-05-30] MEDS: CHLORHEXIDINE GLUCONATE 15 ML MOUTHWASH MM SCH ×2 (09:10→21:00)
[2023-05-30] MEDS: NEOMY/BACITRA/POLYMYXIN B OINT UD PACKET TP SCH ×2 (09:10→21:00)
[2023-05-30] MEDS: POTASSIUM CHLORIDE 40 MEQ/30 ML LIQUID UDC GT SCH (09:10)
[2023-05-30] MEDS: QUETIAPINE FUMARATE 25 MG TABLET GT SCH ×3 (09:10→17:00)
[2023-05-30] MEDS: JEVITY 1.2 1000 ML LIQUID GT PRN (13:15)
[2023-05-30 20:00] VITALS: TEMP 98.6
[2023-05-30] MEDS: MULTIVITAMINS,THERAPEUTIC TABLET GT SCH (21:00)
[2023-05-31] MEDS: IPRATROPIUM BROMIDE 0.5 MG/2.5 ML NEBU NEB SCH ×4 (01:20→19:04)
[2023-05-31] MEDS: ALBUTEROL SULFATE 2.5 MG/3 ML NEBU NEB SCH ×4 (01:20→19:04)
[2023-05-31 07:26] VITALS: TEMP 98.3
[2023-05-31] MEDS: CHLORHEXIDINE GLUCONATE 15 ML MOUTHWASH MM SCH ×2 (08:55→20:54)
[2023-05-31] MEDS: POTASSIUM CHLORIDE 40 MEQ/30 ML LIQUID UDC GT SCH (08:55)
[2023-05-31] MEDS: levETIRAcetam 500 MG/5 ML LIQUID UDC GT SCH ×2 (08:55→20:54)
[2023-05-31] MEDS: PROTEIN SUPPLEMENT (PROSTAT) 30 ML LIQUID GT SCH ×2 (08:55→20:54)
[2023-05-31] MEDS: NEOMY/BACITRA/POLYMYXIN B OINT UD PACKET TP SCH ×2 (08:55→20:54)
[2023-05-31] MEDS: QUETIAPINE FUMARATE 25 MG TABLET GT SCH ×3 (08:55→16:01)
[2023-05-31] MEDS: REMEDY ESSENTIAL ZINC PASTE 113 GM TP SCH ×2 (08:55→20:54)
[2023-05-31] MEDS: JEVITY 1.2 1000 ML LIQUID GT PRN (08:56)
[2023-05-31 20:00] VITALS: TEMP 97.8
[2023-05-31] MEDS: MULTIVITAMINS,THERAPEUTIC TABLET GT SCH (20:54)
[2023-06-01] MEDS: ALBUTEROL SULFATE 2.5 MG/3 ML NEBU NEB SCH ×4 (01:15→19:32)
[2023-06-01] MEDS: IPRATROPIUM BROMIDE 0.5 MG/2.5 ML NEBU NEB SCH ×4 (01:15→19:31)
[2023-06-01] MEDS: JEVITY 1.2 1000 ML LIQUID GT PRN ×2 (05:16→23:39)
[2023-06-01 07:21] VITALS: TEMP 97.6
[2023-06-01 07:45] VITALS: TEMP 98.9
[2023-06-01] MEDS: REMEDY ESSENTIAL ZINC PASTE 113 GM TP SCH ×2 (08:03→21:08)
[2023-06-01] MEDS: POTASSIUM CHLORIDE 40 MEQ/30 ML LIQUID UDC GT SCH (08:03)
[2023-06-01] MEDS: levETIRAcetam 500 MG/5 ML LIQUID UDC GT SCH ×2 (08:03→21:07)
[2023-06-01] MEDS: CHLORHEXIDINE GLUCONATE 15 ML MOUTHWASH MM SCH ×2 (08:03→21:08)
[2023-06-01] MEDS: QUETIAPINE FUMARATE 25 MG TABLET GT SCH ×3 (08:03→16:15)
[2023-06-01] MEDS: NEOMY/BACITRA/POLYMYXIN B OINT UD PACKET TP SCH ×2 (08:03→21:08)
[2023-06-01] MEDS: PROTEIN SUPPLEMENT (PROSTAT) 30 ML LIQUID GT SCH ×2 (08:03→21:07)
[2023-06-01] MEDS: MULTIVITAMINS,THERAPEUTIC TABLET GT SCH (21:07)
[2023-06-01] MEDS: CLONIDINE HCL 0.1 MG TABLET GT PRN (21:10)
[2023-06-01 23:44] VITALS: BP 145/80; TEMP 97.6; O2SAT 100
[2023-06-02] MEDS: IPRATROPIUM BROMIDE 0.5 MG/2.5 ML NEBU NEB SCH ×4 (02:16→19:42)
[2023-06-02] MEDS: ALBUTEROL SULFATE 2.5 MG/3 ML NEBU NEB SCH ×4 (02:17→19:43)
[2023-06-02 08:00] VITALS: TEMP 98.8
[2023-06-02] MEDS: levETIRAcetam 500 MG/5 ML LIQUID UDC GT SCH ×2 (08:29→21:00)
[2023-06-02] MEDS: POTASSIUM CHLORIDE 40 MEQ/30 ML LIQUID UDC GT SCH (08:34)
[2023-06-02] MEDS: QUETIAPINE FUMARATE 25 MG TABLET GT SCH ×3 (08:35→16:33)
[2023-06-02] MEDS: PROTEIN SUPPLEMENT (PROSTAT) 30 ML LIQUID GT SCH ×2 (08:35→21:00)
[2023-06-02] MEDS: CHLORHEXIDINE GLUCONATE 15 ML MOUTHWASH MM SCH ×2 (08:36→21:00)
[2023-06-02] MEDS: NEOMY/BACITRA/POLYMYXIN B OINT UD PACKET TP SCH ×2 (08:48→21:00)
[2023-06-02] MEDS: REMEDY ESSENTIAL ZINC PASTE 113 GM TP SCH ×2 (08:48→21:00)
[2023-06-02 20:00] VITALS: TEMP 98.1
[2023-06-02] MEDS: MULTIVITAMINS,THERAPEUTIC TABLET GT SCH (21:00)
[2023-06-02] MEDS: JEVITY 1.2 1000 ML LIQUID GT PRN (22:29)
[2023-06-03] MEDS: IPRATROPIUM BROMIDE 0.5 MG/2.5 ML NEBU NEB SCH ×4 (01:06→19:20)
[2023-06-03] MEDS: ALBUTEROL SULFATE 2.5 MG/3 ML NEBU NEB SCH ×4 (01:07→19:20)
[2023-06-03 07:46] VITALS: TEMP 98.2
[2023-06-03] MEDS: CHLORHEXIDINE GLUCONATE 15 ML MOUTHWASH MM SCH ×2 (08:15→20:26)
[2023-06-03] MEDS: POTASSIUM CHLORIDE 40 MEQ/30 ML LIQUID UDC GT SCH (08:15)
[2023-06-03] MEDS: NEOMY/BACITRA/POLYMYXIN B OINT UD PACKET TP SCH (08:15)
[2023-06-03] MEDS: REMEDY ESSENTIAL ZINC PASTE 113 GM TP SCH ×2 (08:15→20:26)
[2023-06-03] MEDS: PROTEIN SUPPLEMENT (PROSTAT) 30 ML LIQUID GT SCH ×2 (08:15→20:26)
[2023-06-03] MEDS: levETIRAcetam 500 MG/5 ML LIQUID UDC GT SCH ×2 (08:15→20:26)
[2023-06-03] MEDS: QUETIAPINE FUMARATE 25 MG TABLET GT SCH ×3 (08:15→17:30)
[2023-06-03] MEDS: JEVITY 1.2 1000 ML LIQUID GT PRN (17:30)
[2023-06-03 20:00] VITALS: TEMP 98
[2023-06-03] MEDS: MULTIVITAMINS,THERAPEUTIC TABLET GT SCH (20:26)
[2023-06-04] MEDS: IPRATROPIUM BROMIDE 0.5 MG/2.5 ML NEBU NEB SCH ×4 (00:56→19:50)
[2023-06-04] MEDS: ALBUTEROL SULFATE 2.5 MG/3 ML NEBU NEB SCH ×4 (00:56→19:50)
[2023-06-04 05:52] LABS: BASOPHILS % (AUTO) 0.6 % (0.0-2.0); EOSINOPHILS # (AUTO) 0.6 K/uL (0.0-0.7); EOSINOPHILS % (AUTO) 7.8 % (0.0-7.0); HEMATOCRIT 29.8 % (36.7-47.1); HEMOGLOBIN 9.7 g/dL (12.5-16.3); LYMPHOCYTES # (AUTO) 2.6 K/uL (0.8-4.8); LYMPHOCYTES % (AUTO) 35.7 % (20.5-51.5); MEAN CORPUSCULAR HEMOGLOBIN 27.7 uug (23.8-33.4); MEAN CORPUSCULAR HGB CONC 33 g/dL (32.5-36.3); MEAN CORPUSCULAR VOLUME 84.8 fL (73.0-96.2); MONOCYTES # (AUTO) 0.6 K/uL (0.1-1.30); MONOCYTES % (AUTO) 7.6 % (0.0-11.0); NEUTROPHILS # (AUTO) 3.6 K/uL (1.8-8.9); NEUTROPHILS % (AUTO) 48.3 % (38.5-71.5); PLATELET COUNT (AUTO) 256 K/uL (152-348); RED BLOOD CELL COUNT(AUTO) 3.51 MIL/uL (4.06-5.63); RED CELL DISTRIBUTION WIDTH 16.6 % (12.1-16.2); WHITE BLOOD COUNT (AUTO) 7.4 K/uL (3.6-10.2)
[2023-06-04 06:18] LABS: ALANINE AMINOTRANSFERASE 28 U/L (16-63); ALBUMIN 2.4 g/dL (3.4-5.0); ALKALINE PHOSPHATASE 226 U/L (50-136); ASPARTATE AMINOTRANSFERASE 28 U/L (15-37); BILIRUBIN,TOTAL 0.3 mg/dL (0.2-1.0); CALCIUM 9.3 mg/dL (8.5-10.1); CARBON DIOXIDE 29 mmol/L (21-32); CHLORIDE 112 mmol/L (98-107); CREATININE 0.4 mg/dL (0.6-1.3); GLUCOSE 125 mg/dL (74-106); MAGNESIUM 2.1 mg/dL (1.8-2.4); PHOSPHOROUS 4.3 mg/dL (2.5-4.9); POTASSIUM 3.3 mmol/L (3.5-5.1); SODIUM SERUM 149 mmol/L (136-145); TOTAL PROTEIN, SERUM 8.3 g/dL (6.4-8.2); UREA NITROGEN, BLOOD 16 mg/dL (7-18)
[2023-06-04 06:47] LABS: DIFFERENTIAL COMMENT 1
[2023-06-04 08:30] VITALS: TEMP 99.7
[2023-06-04] MEDS: CHLORHEXIDINE GLUCONATE 15 ML MOUTHWASH MM SCH ×2 (09:55→21:56)
[2023-06-04] MEDS: PROTEIN SUPPLEMENT (PROSTAT) 30 ML LIQUID GT SCH ×2 (09:55→21:55)
[2023-06-04] MEDS: POTASSIUM CHLORIDE 40 MEQ/30 ML LIQUID UDC GT SCH (09:55)
[2023-06-04] MEDS: REMEDY ESSENTIAL ZINC PASTE 113 GM TP SCH ×2 (09:55→21:56)
[2023-06-04] MEDS: QUETIAPINE FUMARATE 25 MG TABLET GT SCH ×3 (09:55→17:50)
[2023-06-04] MEDS: levETIRAcetam 500 MG/5 ML LIQUID UDC GT SCH ×2 (09:55→21:55)
[2023-06-04] MEDS ORDERED: POTASSIUM CHLORIDE 40 MEQ/30 ML LIQUID UDC GT ONE (12:00)
[2023-06-04] MEDS: JEVITY 1.2 1000 ML LIQUID GT PRN (13:04)
[2023-06-04 19:33] VITALS: TEMP 98.1
[2023-06-04] MEDS: MULTIVITAMINS,THERAPEUTIC TABLET GT SCH (21:56)
[2023-06-05] MEDS: ALBUTEROL SULFATE 2.5 MG/3 ML NEBU NEB SCH ×4 (00:45→19:19)
[2023-06-05] MEDS: IPRATROPIUM BROMIDE 0.5 MG/2.5 ML NEBU NEB SCH ×4 (00:45→19:19)
[2023-06-05 08:00] VITALS: TEMP 98
[2023-06-05] MEDS: levETIRAcetam 500 MG/5 ML LIQUID UDC GT SCH ×2 (09:00→21:00)
[2023-06-05] MEDS: POTASSIUM CHLORIDE 40 MEQ/30 ML LIQUID UDC GT SCH (09:00)
[2023-06-05] MEDS: REMEDY ESSENTIAL ZINC PASTE 113 GM TP SCH ×2 (09:00→21:00)
[2023-06-05] MEDS: PROTEIN SUPPLEMENT (PROSTAT) 30 ML LIQUID GT SCH ×2 (09:00→21:00)
[2023-06-05] MEDS: QUETIAPINE FUMARATE 25 MG TABLET GT SCH ×3 (09:00→16:49)
[2023-06-05] MEDS: CHLORHEXIDINE GLUCONATE 15 ML MOUTHWASH MM SCH ×2 (09:00→21:00)
[2023-06-05] MEDS ORDERED: COVID-19 VACC, SPIKEVAX (PHA) 50 MCG/0.5 ML VIAL IM ONE (14:00)
[2023-06-05 19:44] VITALS: TEMP 98.4
[2023-06-05] MEDS: MULTIVITAMINS,THERAPEUTIC TABLET GT SCH (21:00)
[2023-06-05] MEDS: OXYCODONE HCL 5 MG TABLET GT PRN (22:51)
[2023-06-06] VITALS (7 sets, daily range): TEMP 98.3–100.3
[2023-06-06] MEDS: ALBUTEROL SULFATE 2.5 MG/3 ML NEBU NEB SCH ×4 (01:56→19:18)
[2023-06-06] MEDS: IPRATROPIUM BROMIDE 0.5 MG/2.5 ML NEBU NEB SCH ×4 (01:56→19:18)
[2023-06-06] MEDS: JEVITY 1.2 1000 ML LIQUID GT PRN ×2 (05:00→22:43)
[2023-06-06] MEDS: levETIRAcetam 500 MG/5 ML LIQUID UDC GT SCH ×2 (09:25→21:52)
[2023-06-06] MEDS: REMEDY ESSENTIAL ZINC PASTE 113 GM TP SCH ×2 (09:28→21:54)
[2023-06-06] MEDS: PROTEIN SUPPLEMENT (PROSTAT) 30 ML LIQUID GT SCH ×2 (09:28→21:53)
[2023-06-06] MEDS: QUETIAPINE FUMARATE 25 MG TABLET GT SCH ×3 (09:28→17:58)
[2023-06-06] MEDS: CHLORHEXIDINE GLUCONATE 15 ML MOUTHWASH MM SCH ×2 (09:28→21:54)
[2023-06-06] MEDS: POTASSIUM CHLORIDE 40 MEQ/30 ML LIQUID UDC GT SCH (09:28)
[2023-06-06] MEDS: MULTIVITAMINS,THERAPEUTIC TABLET GT SCH (21:53)
[2023-06-07] VITALS (7 sets, daily range): TEMP 97.9–100.1; O2SAT 98
[2023-06-07] MEDS: IPRATROPIUM BROMIDE 0.5 MG/2.5 ML NEBU NEB SCH ×4 (01:20→19:09)
[2023-06-07] MEDS: ALBUTEROL SULFATE 2.5 MG/3 ML NEBU NEB SCH ×4 (01:20→19:09)
[2023-06-07] MEDS: ACETAMINOPHEN 650 MG/20 ML UDC- SA PATIENTS-PAIN ONLY GT PRN (04:25)
[2023-06-07] MEDS: levETIRAcetam 500 MG/5 ML LIQUID UDC GT SCH ×2 (08:54→21:00)
[2023-06-07] MEDS: POTASSIUM CHLORIDE 40 MEQ/30 ML LIQUID UDC GT SCH (08:54)
[2023-06-07] MEDS: REMEDY ESSENTIAL ZINC PASTE 113 GM TP SCH ×2 (08:55→21:00)
[2023-06-07] MEDS: CHLORHEXIDINE GLUCONATE 15 ML MOUTHWASH MM SCH ×2 (08:55→21:00)
[2023-06-07] MEDS: QUETIAPINE FUMARATE 25 MG TABLET GT SCH ×3 (08:55→17:37)
[2023-06-07] MEDS: PROTEIN SUPPLEMENT (PROSTAT) 30 ML LIQUID GT SCH ×2 (08:55→21:00)
[2023-06-07] MEDS ORDERED: POTASSIUM CHLORIDE 20 MEQ TAB.PRT.SR XX ONE (16:45)
[2023-06-07] MEDS: MULTIVITAMINS,THERAPEUTIC TABLET GT SCH (21:00)
[2023-06-07] MEDS: JEVITY 1.2 1000 ML LIQUID GT PRN (22:40)
[2023-06-08] VITALS: TEMP 98.7
[2023-06-08] MEDS: ALBUTEROL SULFATE 2.5 MG/3 ML NEBU NEB SCH ×4 (00:36→19:40)
[2023-06-08] MEDS: IPRATROPIUM BROMIDE 0.5 MG/2.5 ML NEBU NEB SCH ×4 (00:36→19:40)
[2023-06-08 04:00] VITALS: TEMP 98.3
[2023-06-08 07:42] VITALS: TEMP 98.4
[2023-06-08] MEDS: QUETIAPINE FUMARATE 25 MG TABLET GT SCH ×3 (09:50→17:25)
[2023-06-08] MEDS: levETIRAcetam 500 MG/5 ML LIQUID UDC GT SCH ×2 (09:50→21:52)
[2023-06-08] MEDS: REMEDY ESSENTIAL ZINC PASTE 113 GM TP SCH ×2 (09:50→21:52)
[2023-06-08] MEDS: PROTEIN SUPPLEMENT (PROSTAT) 30 ML LIQUID GT SCH ×2 (09:50→21:52)
[2023-06-08] MEDS: POTASSIUM CHLORIDE 40 MEQ/30 ML LIQUID UDC GT SCH (09:50)
[2023-06-08] MEDS: CHLORHEXIDINE GLUCONATE 15 ML MOUTHWASH MM SCH ×2 (09:50→21:52)
[2023-06-08 14:00] VITALS: TEMP 97.8
[2023-06-08] MEDS: JEVITY 1.2 1000 ML LIQUID GT PRN (15:15)
[2023-06-08 20:28] VITALS: TEMP 98.3
[2023-06-08] MEDS: MULTIVITAMINS,THERAPEUTIC TABLET GT SCH (21:52)
[2023-06-09 00:51] VITALS: TEMP 98.6
[2023-06-09] MEDS: IPRATROPIUM BROMIDE 0.5 MG/2.5 ML NEBU NEB SCH ×5 (01:40→19:26)
[2023-06-09] MEDS: ALBUTEROL SULFATE 2.5 MG/3 ML NEBU NEB SCH ×5 (01:40→19:26)
[2023-06-09 08:00] VITALS: TEMP 97.9
[2023-06-09] MEDS: levETIRAcetam 500 MG/5 ML LIQUID UDC GT SCH ×2 (09:40→21:51)
[2023-06-09] MEDS: QUETIAPINE FUMARATE 25 MG TABLET GT SCH ×3 (09:41→16:53)
[2023-06-09] MEDS: POTASSIUM CHLORIDE 40 MEQ/30 ML LIQUID UDC GT SCH (09:41)
[2023-06-09] MEDS: PROTEIN SUPPLEMENT (PROSTAT) 30 ML LIQUID GT SCH ×2 (09:41→21:51)
[2023-06-09] MEDS: CHLORHEXIDINE GLUCONATE 15 ML MOUTHWASH MM SCH ×2 (09:42→21:57)
[2023-06-09] MEDS: REMEDY ESSENTIAL ZINC PASTE 113 GM TP SCH ×2 (09:42→21:57)
[2023-06-09] MEDS: JEVITY 1.2 1000 ML LIQUID GT PRN (09:42)
[2023-06-09 20:01] VITALS: TEMP 98.4
[2023-06-09] MEDS: MULTIVITAMINS,THERAPEUTIC TABLET GT SCH (21:51)
[2023-06-10] MEDS: IPRATROPIUM BROMIDE 0.5 MG/2.5 ML NEBU NEB SCH ×4 (01:40→19:23)
[2023-06-10] MEDS: ALBUTEROL SULFATE 2.5 MG/3 ML NEBU NEB SCH ×4 (01:40→19:23)
[2023-06-10] MEDS: JEVITY 1.2 1000 ML LIQUID GT PRN (03:35)
[2023-06-10 07:53] VITALS: TEMP 97.9
[2023-06-10] MEDS: POTASSIUM CHLORIDE 40 MEQ/30 ML LIQUID UDC GT SCH (08:51)
[2023-06-10] MEDS: levETIRAcetam 500 MG/5 ML LIQUID UDC GT SCH ×2 (08:51→21:20)
[2023-06-10] MEDS: QUETIAPINE FUMARATE 25 MG TABLET GT SCH ×3 (08:56→16:08)
[2023-06-10] MEDS: PROTEIN SUPPLEMENT (PROSTAT) 30 ML LIQUID GT SCH ×2 (08:56→21:20)
[2023-06-10] MEDS: CHLORHEXIDINE GLUCONATE 15 ML MOUTHWASH MM SCH ×2 (08:57→21:20)
[2023-06-10] MEDS: REMEDY ESSENTIAL ZINC PASTE 113 GM TP SCH ×2 (08:59→21:20)
[2023-06-10] MEDS: NEOMY/BACITRA/POLYMYXIN B OINT UD PACKET TP SCH ×2 (11:11→21:20)
[2023-06-10 20:00] VITALS: TEMP 97.9
[2023-06-10] MEDS: MULTIVITAMINS,THERAPEUTIC TABLET GT SCH (21:21)
[2023-06-11] MEDS: IPRATROPIUM BROMIDE 0.5 MG/2.5 ML NEBU NEB SCH ×4 (01:44→19:11)
[2023-06-11] MEDS: ALBUTEROL SULFATE 2.5 MG/3 ML NEBU NEB SCH ×4 (01:44→19:11)
[2023-06-11 06:32] LABS: BASOPHILS % (AUTO) 0.5 % (0.0-2.0); EOSINOPHILS # (AUTO) 0.8 K/uL (0.0-0.7); EOSINOPHILS % (AUTO) 11.5 % (0.0-7.0); HEMATOCRIT 30.7 % (36.7-47.1); HEMOGLOBIN 10.1 g/dL (12.5-16.3); LYMPHOCYTES % (AUTO) 43.3 % (20.5-51.5); MEAN CORPUSCULAR HEMOGLOBIN 27.5 uug (23.8-33.4); MEAN CORPUSCULAR HGB CONC 33 g/dL (32.5-36.3); MEAN CORPUSCULAR VOLUME 84.1 fL (73.0-96.2); MONOCYTES # (AUTO) 0.3 K/uL (0.1-1.30); MONOCYTES % (AUTO) 4.7 % (0.0-11.0); NEUTROPHILS # (AUTO) 2.8 K/uL (1.8-8.9); PLATELET COUNT (AUTO) 233 K/uL (152-348); RED BLOOD CELL COUNT(AUTO) 3.65 MIL/uL (4.06-5.63); RED CELL DISTRIBUTION WIDTH 16.2 % (12.1-16.2); WHITE BLOOD COUNT (AUTO) 6.9 K/uL (3.6-10.2)
[2023-06-11 06:53] LABS: ALANINE AMINOTRANSFERASE 35 U/L (16-63); ALBUMIN 2.6 g/dL (3.4-5.0); ALKALINE PHOSPHATASE 246 U/L (50-136); ASPARTATE AMINOTRANSFERASE 32 U/L (15-37); BILIRUBIN,TOTAL 0.5 mg/dL (0.2-1.0); CALCIUM 9.3 mg/dL (8.5-10.1); CARBON DIOXIDE 30 mmol/L (21-32); CHLORIDE 112 mmol/L (98-107); CREATININE 0.4 mg/dL (0.6-1.3); GLUCOSE 109 mg/dL (74-106); MAGNESIUM 2.1 mg/dL (1.8-2.4); PHOSPHOROUS 4.3 mg/dL (2.5-4.9); POTASSIUM 3.1 mmol/L (3.5-5.1); SODIUM SERUM 147 mmol/L (136-145); UREA NITROGEN, BLOOD 14 mg/dL (7-18)
[2023-06-11 07:06] LABS: DIFFERENTIAL COMMENT 1
[2023-06-11 08:06] VITALS: TEMP 98.6
[2023-06-11] MEDS: PROTEIN SUPPLEMENT (PROSTAT) 30 ML LIQUID GT SCH ×2 (08:21→21:48)
[2023-06-11] MEDS: NEOMY/BACITRA/POLYMYXIN B OINT UD PACKET TP SCH ×2 (08:21→21:49)
[2023-06-11] MEDS: REMEDY ESSENTIAL ZINC PASTE 113 GM TP SCH ×2 (08:21→21:49)
[2023-06-11] MEDS: POTASSIUM CHLORIDE 40 MEQ/30 ML LIQUID UDC GT SCH (08:21)
[2023-06-11] MEDS: levETIRAcetam 500 MG/5 ML LIQUID UDC GT SCH ×2 (08:21→21:48)
[2023-06-11] MEDS: QUETIAPINE FUMARATE 25 MG TABLET GT SCH ×3 (08:21→17:10)
[2023-06-11] MEDS: CHLORHEXIDINE GLUCONATE 15 ML MOUTHWASH MM SCH ×2 (09:00→21:48)
[2023-06-11] MEDS ORDERED: POTASSIUM CHLORIDE 40 MEQ/30 ML LIQUID UDC GT ONE (14:00)
[2023-06-11 20:31] VITALS: TEMP 98.8
[2023-06-11] MEDS: MULTIVITAMINS,THERAPEUTIC TABLET GT SCH (21:48)
[2023-06-12] MEDS: IPRATROPIUM BROMIDE 0.5 MG/2.5 ML NEBU NEB SCH ×3 (01:55→20:42)
[2023-06-12] MEDS: ALBUTEROL SULFATE 2.5 MG/3 ML NEBU NEB SCH ×3 (01:55→20:42)
[2023-06-12] MEDS: JEVITY 1.2 1000 ML LIQUID GT PRN (02:49)
[2023-06-12 07:43] VITALS: TEMP 97.9
[2023-06-12] MEDS: levETIRAcetam 500 MG/5 ML LIQUID UDC GT SCH ×2 (09:54→20:50)
[2023-06-12] MEDS: POTASSIUM CHLORIDE 40 MEQ/30 ML LIQUID UDC GT SCH (09:55)
[2023-06-12] MEDS: PROTEIN SUPPLEMENT (PROSTAT) 30 ML LIQUID GT SCH ×2 (09:57→20:50)
[2023-06-12] MEDS: QUETIAPINE FUMARATE 25 MG TABLET GT SCH ×3 (09:57→17:51)
[2023-06-12] MEDS: NEOMY/BACITRA/POLYMYXIN B OINT UD PACKET TP SCH ×2 (09:57→20:51)
[2023-06-12] MEDS: CHLORHEXIDINE GLUCONATE 15 ML MOUTHWASH MM SCH ×2 (09:57→20:51)
[2023-06-12] MEDS: REMEDY ESSENTIAL ZINC PASTE 113 GM TP SCH ×2 (09:57→20:51)
[2023-06-12 20:00] VITALS: TEMP 98.2
[2023-06-12] MEDS: MULTIVITAMINS,THERAPEUTIC TABLET GT SCH (20:50)
[2023-06-13] MEDS: IPRATROPIUM BROMIDE 0.5 MG/2.5 ML NEBU NEB SCH ×4 (01:28→19:19)
[2023-06-13] MEDS: ALBUTEROL SULFATE 2.5 MG/3 ML NEBU NEB SCH ×4 (01:28→19:19)
[2023-06-13 07:57] VITALS: TEMP 98.4
[2023-06-13] MEDS: QUETIAPINE FUMARATE 25 MG TABLET GT SCH ×3 (09:00→17:37)
[2023-06-13] MEDS: NEOMY/BACITRA/POLYMYXIN B OINT UD PACKET TP SCH ×2 (09:00→21:21)
[2023-06-13] MEDS: REMEDY ESSENTIAL ZINC PASTE 113 GM TP SCH ×2 (09:00→21:21)
[2023-06-13] MEDS: POTASSIUM CHLORIDE 40 MEQ/30 ML LIQUID UDC GT SCH (09:00)
[2023-06-13] MEDS: PROTEIN SUPPLEMENT (PROSTAT) 30 ML LIQUID GT SCH ×2 (09:00→21:21)
[2023-06-13] MEDS: CHLORHEXIDINE GLUCONATE 15 ML MOUTHWASH MM SCH ×2 (09:00→21:21)
[2023-06-13] MEDS: levETIRAcetam 500 MG/5 ML LIQUID UDC GT SCH ×2 (09:00→21:21)
[2023-06-13 19:42] VITALS: TEMP 98.4
[2023-06-13] MEDS: MULTIVITAMINS,THERAPEUTIC TABLET GT SCH (21:21)
[2023-06-14] MEDS: ALBUTEROL SULFATE 2.5 MG/3 ML NEBU NEB SCH ×4 (01:04→19:10)
[2023-06-14] MEDS: IPRATROPIUM BROMIDE 0.5 MG/2.5 ML NEBU NEB SCH ×4 (01:04→19:10)
[2023-06-14 07:37] VITALS: TEMP 97.8
[2023-06-14] MEDS: REMEDY ESSENTIAL ZINC PASTE 113 GM TP SCH ×2 (09:00→21:12)
[2023-06-14] MEDS: POTASSIUM CHLORIDE 40 MEQ/30 ML LIQUID UDC GT SCH (09:00)
[2023-06-14] MEDS: NEOMY/BACITRA/POLYMYXIN B OINT UD PACKET TP SCH ×2 (09:00→21:12)
[2023-06-14] MEDS: PROTEIN SUPPLEMENT (PROSTAT) 30 ML LIQUID GT SCH ×2 (09:00→21:12)
[2023-06-14] MEDS: QUETIAPINE FUMARATE 25 MG TABLET GT SCH ×3 (09:00→16:38)
[2023-06-14] MEDS: levETIRAcetam 500 MG/5 ML LIQUID UDC GT SCH ×2 (09:00→21:11)
[2023-06-14] MEDS: CHLORHEXIDINE GLUCONATE 15 ML MOUTHWASH MM SCH ×2 (09:00→21:12)
[2023-06-14 20:00] VITALS: TEMP 96.2
[2023-06-14] MEDS: MULTIVITAMINS,THERAPEUTIC TABLET GT SCH (21:12)
[2023-06-15] MEDS: IPRATROPIUM BROMIDE 0.5 MG/2.5 ML NEBU NEB SCH ×4 (01:05→19:40)
[2023-06-15] MEDS: ALBUTEROL SULFATE 2.5 MG/3 ML NEBU NEB SCH ×4 (01:06→19:40)
[2023-06-15 07:21] VITALS: TEMP 97.4
[2023-06-15] MEDS: CHLORHEXIDINE GLUCONATE 15 ML MOUTHWASH MM SCH ×2 (10:00→21:44)
[2023-06-15] MEDS: PROTEIN SUPPLEMENT (PROSTAT) 30 ML LIQUID GT SCH ×2 (10:00→21:43)
[2023-06-15] MEDS: NEOMY/BACITRA/POLYMYXIN B OINT UD PACKET TP SCH ×2 (10:00→21:44)
[2023-06-15] MEDS: REMEDY ESSENTIAL ZINC PASTE 113 GM TP SCH ×2 (10:00→21:44)
[2023-06-15] MEDS: QUETIAPINE FUMARATE 25 MG TABLET GT SCH ×3 (10:00→17:21)
[2023-06-15] MEDS: levETIRAcetam 500 MG/5 ML LIQUID UDC GT SCH ×2 (10:00→21:43)
[2023-06-15] MEDS: POTASSIUM CHLORIDE 40 MEQ/30 ML LIQUID UDC GT SCH ×2 (12:00)
[2023-06-15] MEDS: JEVITY 1.2 1000 ML LIQUID GT PRN ×2 (12:40)
[2023-06-15 20:00] VITALS: TEMP 97.6
[2023-06-15] MEDS: MULTIVITAMINS,THERAPEUTIC TABLET GT SCH (21:44)
[2023-06-16] MEDS: IPRATROPIUM BROMIDE 0.5 MG/2.5 ML NEBU NEB SCH ×4 (01:58→21:16)
[2023-06-16] MEDS: ALBUTEROL SULFATE 2.5 MG/3 ML NEBU NEB SCH ×4 (01:58→21:16)
[2023-06-16 07:43] VITALS: TEMP 98.6
[2023-06-16] MEDS: levETIRAcetam 500 MG/5 ML LIQUID UDC GT SCH ×2 (08:25→21:00)
[2023-06-16] MEDS: REMEDY ESSENTIAL ZINC PASTE 113 GM TP SCH ×2 (08:25→21:00)
[2023-06-16] MEDS: NEOMY/BACITRA/POLYMYXIN B OINT UD PACKET TP SCH ×2 (08:25→21:00)
[2023-06-16] MEDS: QUETIAPINE FUMARATE 25 MG TABLET GT SCH ×3 (08:25→16:44)
[2023-06-16] MEDS: PROTEIN SUPPLEMENT (PROSTAT) 30 ML LIQUID GT SCH ×2 (08:25→21:00)
[2023-06-16] MEDS: POTASSIUM CHLORIDE 40 MEQ/30 ML LIQUID UDC GT SCH ×2 (08:25)
[2023-06-16] MEDS: CHLORHEXIDINE GLUCONATE 15 ML MOUTHWASH MM SCH ×2 (08:25→21:00)
[2023-06-16] MEDS: MULTIVITAMINS,THERAPEUTIC TABLET GT SCH (21:00)
[2023-06-17] MEDS: JEVITY 1.2 1000 ML LIQUID GT PRN (01:34)
[2023-06-17] MEDS: ALBUTEROL SULFATE 2.5 MG/3 ML NEBU NEB SCH ×4 (01:39→21:19)
[2023-06-17] MEDS: IPRATROPIUM BROMIDE 0.5 MG/2.5 ML NEBU NEB SCH ×4 (01:39→21:19)
[2023-06-17] MEDS: QUETIAPINE FUMARATE 25 MG TABLET GT SCH ×3 (08:57→17:18)
[2023-06-17] MEDS: CHLORHEXIDINE GLUCONATE 15 ML MOUTHWASH MM SCH ×2 (08:57→21:53)
[2023-06-17] MEDS: PROTEIN SUPPLEMENT (PROSTAT) 30 ML LIQUID GT SCH ×2 (08:57→21:53)
[2023-06-17] MEDS: POTASSIUM CHLORIDE 40 MEQ/30 ML LIQUID UDC GT SCH ×2 (08:57)
[2023-06-17] MEDS: levETIRAcetam 500 MG/5 ML LIQUID UDC GT SCH ×2 (08:57→21:53)
[2023-06-17] MEDS: REMEDY ESSENTIAL ZINC PASTE 113 GM TP SCH ×2 (08:57→21:53)
[2023-06-17] MEDS: NEOMY/BACITRA/POLYMYXIN B OINT UD PACKET TP SCH ×2 (08:57→21:53)
[2023-06-17 11:11] VITALS: TEMP 98.6
[2023-06-17 20:13] VITALS: TEMP 97.7
[2023-06-17] MEDS: MULTIVITAMINS,THERAPEUTIC TABLET GT SCH (21:53)
[2023-06-18] MEDS: IPRATROPIUM BROMIDE 0.5 MG/2.5 ML NEBU NEB SCH ×4 (00:43→19:05)
[2023-06-18] MEDS: ALBUTEROL SULFATE 2.5 MG/3 ML NEBU NEB SCH ×4 (00:44→19:05)
[2023-06-18] MEDS: JEVITY 1.2 1000 ML LIQUID GT PRN ×2 (07:10→17:40)
[2023-06-18 07:26] LABS: CALCIUM 9.8 mg/dL (8.5-10.1); CARBON DIOXIDE 26 mmol/L (21-32); CHLORIDE 108 mmol/L (98-107); CREATININE 0.3 mg/dL (0.6-1.3); GLUCOSE 108 mg/dL (74-106); POTASSIUM 3.4 mmol/L (3.5-5.1); SODIUM SERUM 144 mmol/L (136-145); UREA NITROGEN, BLOOD 15 mg/dL (7-18)
[2023-06-18 08:43] VITALS: TEMP 97.5
[2023-06-18] MEDS: levETIRAcetam 500 MG/5 ML LIQUID UDC GT SCH ×2 (08:53→21:28)
[2023-06-18] MEDS: POTASSIUM CHLORIDE 40 MEQ/30 ML LIQUID UDC GT SCH (08:54)
[2023-06-18] MEDS: REMEDY ESSENTIAL ZINC PASTE 113 GM TP SCH ×2 (08:54→21:29)
[2023-06-18] MEDS: NEOMY/BACITRA/POLYMYXIN B OINT UD PACKET TP SCH ×2 (08:54→21:29)
[2023-06-18] MEDS: QUETIAPINE FUMARATE 25 MG TABLET GT SCH ×3 (08:54→17:55)
[2023-06-18] MEDS: PROTEIN SUPPLEMENT (PROSTAT) 30 ML LIQUID GT SCH ×2 (08:54→21:28)
[2023-06-18] MEDS: CHLORHEXIDINE GLUCONATE 15 ML MOUTHWASH MM SCH ×2 (08:54→21:29)
[2023-06-18] MEDS ORDERED: POTASSIUM CHLORIDE 40 MEQ/30 ML LIQUID UDC GT ONE (12:00)
[2023-06-18 20:33] VITALS: TEMP 97.4
[2023-06-18] MEDS: MULTIVITAMINS,THERAPEUTIC TABLET GT SCH (21:28)
[2023-06-19] MEDS: IPRATROPIUM BROMIDE 0.5 MG/2.5 ML NEBU NEB SCH ×4 (01:04→19:08)
[2023-06-19] MEDS: ALBUTEROL SULFATE 2.5 MG/3 ML NEBU NEB SCH ×4 (01:04→19:08)
[2023-06-19 07:26] VITALS: TEMP 97
[2023-06-19] MEDS: levETIRAcetam 500 MG/5 ML LIQUID UDC GT SCH ×2 (09:32→21:06)
[2023-06-19] MEDS: POTASSIUM CHLORIDE 40 MEQ/30 ML LIQUID UDC GT SCH (09:33)
[2023-06-19] MEDS: PROTEIN SUPPLEMENT (PROSTAT) 30 ML LIQUID GT SCH ×2 (09:34→21:07)
[2023-06-19] MEDS: QUETIAPINE FUMARATE 25 MG TABLET GT SCH ×3 (09:34→16:13)
[2023-06-19] MEDS: NEOMY/BACITRA/POLYMYXIN B OINT UD PACKET TP SCH ×2 (09:36→21:08)
[2023-06-19] MEDS: REMEDY ESSENTIAL ZINC PASTE 113 GM TP SCH ×2 (09:36→21:08)
[2023-06-19] MEDS: CHLORHEXIDINE GLUCONATE 15 ML MOUTHWASH MM SCH ×2 (09:36→21:08)
[2023-06-19] MEDS: JEVITY 1.2 1000 ML LIQUID GT PRN (13:50)
[2023-06-19 20:00] VITALS: TEMP 97.5
[2023-06-19] MEDS: OXYCODONE HCL 5 MG TABLET GT PRN (21:06)
[2023-06-19] MEDS: MULTIVITAMINS,THERAPEUTIC TABLET GT SCH (21:07)
[2023-06-20] MEDS: IPRATROPIUM BROMIDE 0.5 MG/2.5 ML NEBU NEB SCH ×4 (01:33→19:29)
[2023-06-20] MEDS: ALBUTEROL SULFATE 2.5 MG/3 ML NEBU NEB SCH ×4 (01:33→19:30)
[2023-06-20] MEDS: JEVITY 1.2 1000 ML LIQUID GT PRN ×2 (04:00→22:22)
[2023-06-20 07:28] VITALS: TEMP 98.5
[2023-06-20] MEDS: levETIRAcetam 500 MG/5 ML LIQUID UDC GT SCH ×2 (08:51→21:51)
[2023-06-20] MEDS: CHLORHEXIDINE GLUCONATE 15 ML MOUTHWASH MM SCH ×2 (08:52→21:51)
[2023-06-20] MEDS: REMEDY ESSENTIAL ZINC PASTE 113 GM TP SCH ×2 (08:52→21:51)
[2023-06-20] MEDS: QUETIAPINE FUMARATE 25 MG TABLET GT SCH ×3 (08:52→17:38)
[2023-06-20] MEDS: PROTEIN SUPPLEMENT (PROSTAT) 30 ML LIQUID GT SCH ×2 (08:52→21:51)
[2023-06-20] MEDS: POTASSIUM CHLORIDE 40 MEQ/30 ML LIQUID UDC GT SCH (08:52)
[2023-06-20] MEDS ORDERED: POTASSIUM CHLORIDE 40 MEQ/30 ML LIQUID UDC GT ONE (18:30)
[2023-06-20 20:00] VITALS: TEMP 98
[2023-06-20] MEDS: MULTIVITAMINS,THERAPEUTIC TABLET GT SCH (21:51)
[2023-06-21] MEDS: ALBUTEROL SULFATE 2.5 MG/3 ML NEBU NEB SCH ×4 (02:19→19:26)
[2023-06-21] MEDS: IPRATROPIUM BROMIDE 0.5 MG/2.5 ML NEBU NEB SCH ×4 (02:19→19:25)
[2023-06-21 07:17] VITALS: TEMP 97.5
[2023-06-21] MEDS: QUETIAPINE FUMARATE 25 MG TABLET GT SCH ×3 (08:50→17:35)
[2023-06-21] MEDS: CHLORHEXIDINE GLUCONATE 15 ML MOUTHWASH MM SCH ×2 (08:50→21:48)
[2023-06-21] MEDS: levETIRAcetam 500 MG/5 ML LIQUID UDC GT SCH ×2 (08:53→21:47)
[2023-06-21] MEDS: PROTEIN SUPPLEMENT (PROSTAT) 30 ML LIQUID GT SCH ×2 (08:53→21:47)
[2023-06-21] MEDS: REMEDY ESSENTIAL ZINC PASTE 113 GM TP SCH ×2 (08:53→21:48)
[2023-06-21] MEDS: POTASSIUM CHLORIDE 40 MEQ/30 ML LIQUID UDC GT SCH (08:53)
[2023-06-21] MEDS: JEVITY 1.2 1000 ML LIQUID GT PRN (17:35)
[2023-06-21 20:00] VITALS: TEMP 98
[2023-06-21] MEDS: MULTIVITAMINS,THERAPEUTIC TABLET GT SCH (21:48)
[2023-06-22] MEDS: IPRATROPIUM BROMIDE 0.5 MG/2.5 ML NEBU NEB SCH ×4 (04:02→19:21)
[2023-06-22] MEDS: ALBUTEROL SULFATE 2.5 MG/3 ML NEBU NEB SCH ×4 (04:02→19:21)
[2023-06-22 07:20] VITALS: TEMP 97.5
[2023-06-22] MEDS: levETIRAcetam 500 MG/5 ML LIQUID UDC GT SCH ×2 (08:40→21:00)
[2023-06-22] MEDS: PROTEIN SUPPLEMENT (PROSTAT) 30 ML LIQUID GT SCH ×2 (08:41→21:00)
[2023-06-22] MEDS: QUETIAPINE FUMARATE 25 MG TABLET GT SCH ×3 (08:41→16:52)
[2023-06-22] MEDS: POTASSIUM CHLORIDE 40 MEQ/30 ML LIQUID UDC GT SCH (08:41)
[2023-06-22] MEDS: CHLORHEXIDINE GLUCONATE 15 ML MOUTHWASH MM SCH ×2 (08:42→21:00)
[2023-06-22] MEDS: REMEDY ESSENTIAL ZINC PASTE 113 GM TP SCH ×2 (08:42→21:00)
[2023-06-22] MEDS: JEVITY 1.2 1000 ML LIQUID GT PRN (12:55)
[2023-06-22 20:00] VITALS: TEMP 97.8
[2023-06-22] MEDS: MULTIVITAMINS,THERAPEUTIC TABLET GT SCH (21:00)
[2023-06-23] MEDS: IPRATROPIUM BROMIDE 0.5 MG/2.5 ML NEBU NEB SCH ×4 (01:24→19:47)
[2023-06-23] MEDS: ALBUTEROL SULFATE 2.5 MG/3 ML NEBU NEB SCH ×4 (01:25→19:47)
[2023-06-23] MEDS: JEVITY 1.2 1000 ML LIQUID GT PRN ×2 (07:10→22:40)
[2023-06-23 07:52] VITALS: TEMP 98.8
[2023-06-23] MEDS: levETIRAcetam 500 MG/5 ML LIQUID UDC GT SCH ×2 (09:01→21:00)
[2023-06-23] MEDS: POTASSIUM CHLORIDE 40 MEQ/30 ML LIQUID UDC GT SCH (09:02)
[2023-06-23] MEDS: REMEDY ESSENTIAL ZINC PASTE 113 GM TP SCH ×2 (09:02→21:00)
[2023-06-23] MEDS: CHLORHEXIDINE GLUCONATE 15 ML MOUTHWASH MM SCH ×2 (09:02→21:00)
[2023-06-23] MEDS: QUETIAPINE FUMARATE 25 MG TABLET GT SCH ×3 (09:02→17:30)
[2023-06-23] MEDS: PROTEIN SUPPLEMENT (PROSTAT) 30 ML LIQUID GT SCH ×2 (09:02→21:00)
[2023-06-23 20:00] VITALS: TEMP 97.8
[2023-06-23] MEDS: MULTIVITAMINS,THERAPEUTIC TABLET GT SCH (21:00)
[2023-06-24] MEDS: ALBUTEROL SULFATE 2.5 MG/3 ML NEBU NEB SCH ×4 (01:04→19:15)
[2023-06-24] MEDS: IPRATROPIUM BROMIDE 0.5 MG/2.5 ML NEBU NEB SCH ×4 (01:04→19:15)
[2023-06-24] MEDS: POTASSIUM CHLORIDE 40 MEQ/30 ML LIQUID UDC GT SCH (09:00)
[2023-06-24] MEDS: REMEDY ESSENTIAL ZINC PASTE 113 GM TP SCH ×2 (09:00→21:00)
[2023-06-24] MEDS: PROTEIN SUPPLEMENT (PROSTAT) 30 ML LIQUID GT SCH ×2 (09:00→21:00)
[2023-06-24] MEDS: QUETIAPINE FUMARATE 25 MG TABLET GT SCH ×3 (09:00→17:00)
[2023-06-24] MEDS: CHLORHEXIDINE GLUCONATE 15 ML MOUTHWASH MM SCH ×2 (09:00→21:00)
[2023-06-24] MEDS: levETIRAcetam 500 MG/5 ML LIQUID UDC GT SCH ×2 (09:00→21:00)
[2023-06-24 09:31] VITALS: TEMP 97
[2023-06-24 09:32] VITALS: TEMP 98.1
[2023-06-24] MEDS: JEVITY 1.2 1000 ML LIQUID GT PRN (18:22)
[2023-06-24 20:11] VITALS: TEMP 98.6
[2023-06-24] MEDS: MULTIVITAMINS,THERAPEUTIC TABLET GT SCH (21:00)
[2023-06-24] MEDS: TRIAMCINOLONE ACET 0.1% CREAM 15 GM TUBE TP PRN (22:10)
[2023-06-25] MEDS: IPRATROPIUM BROMIDE 0.5 MG/2.5 ML NEBU NEB SCH ×4 (01:04→19:15)
[2023-06-25] MEDS: ALBUTEROL SULFATE 2.5 MG/3 ML NEBU NEB SCH ×4 (01:04→19:15)
[2023-06-25 07:52] VITALS: TEMP 98.5
[2023-06-25 07:58] LABS: BASOPHILS % (AUTO) 0.5 % (0.0-2.0); EOSINOPHILS # (AUTO) 0.7 K/uL (0.0-0.7); EOSINOPHILS % (AUTO) 8.8 % (0.0-7.0); HEMATOCRIT 31.2 % (36.7-47.1); HEMOGLOBIN 10.4 g/dL (12.5-16.3); LYMPHOCYTES # (AUTO) 2.8 K/uL (0.8-4.8); MEAN CORPUSCULAR HGB CONC 33 g/dL (32.5-36.3); MEAN CORPUSCULAR VOLUME 83.7 fL (73.0-96.2); MONOCYTES # (AUTO) 0.5 K/uL (0.1-1.30); MONOCYTES % (AUTO) 6.6 % (0.0-11.0); NEUTROPHILS # (AUTO) 3.6 K/uL (1.8-8.9); NEUTROPHILS % (AUTO) 47.1 % (38.5-71.5); PLATELET COUNT (AUTO) 285 K/uL (152-348); RED BLOOD CELL COUNT(AUTO) 3.73 MIL/uL (4.06-5.63); RED CELL DISTRIBUTION WIDTH 16.5 % (12.1-16.2); WHITE BLOOD COUNT (AUTO) 7.6 K/uL (3.6-10.2)
[2023-06-25 08:05] LABS: DIFFERENTIAL COMMENT 1
[2023-06-25 08:10] LABS: ALANINE AMINOTRANSFERASE 35 U/L (16-63); ALBUMIN 2.8 g/dL (3.4-5.0); ALKALINE PHOSPHATASE 247 U/L (50-136); ASPARTATE AMINOTRANSFERASE 36 U/L (15-37); BILIRUBIN,DIRECT 0.2 mg/dL (0.0-0.2); BILIRUBIN,TOTAL 0.3 mg/dL (0.2-1.0); CALCIUM 9.7 mg/dL (8.5-10.1); CARBON DIOXIDE 28 mmol/L (21-32); CHLORIDE 107 mmol/L (98-107); CREATININE 0.5 mg/dL (0.6-1.3); GLUCOSE 114 mg/dL (74-106); NT-PRO BNP 57 pg/mL (0-125); POTASSIUM 3.3 mmol/L (3.5-5.1); SODIUM SERUM 144 mmol/L (136-145); UREA NITROGEN, BLOOD 17 mg/dL (7-18)
[2023-06-25] MEDS: POTASSIUM CHLORIDE 40 MEQ/30 ML LIQUID UDC GT SCH (09:36)
[2023-06-25] MEDS: REMEDY ESSENTIAL ZINC PASTE 113 GM TP SCH ×2 (09:36→20:57)
[2023-06-25] MEDS: PROTEIN SUPPLEMENT (PROSTAT) 30 ML LIQUID GT SCH ×2 (09:36→20:55)
[2023-06-25] MEDS: CHLORHEXIDINE GLUCONATE 15 ML MOUTHWASH MM SCH ×2 (09:36→20:57)
[2023-06-25] MEDS: levETIRAcetam 500 MG/5 ML LIQUID UDC GT SCH ×2 (09:36→20:54)
[2023-06-25] MEDS: QUETIAPINE FUMARATE 25 MG TABLET GT SCH ×3 (09:36→17:59)
[2023-06-25] MEDS ORDERED: POTASSIUM CHLORIDE 10 MEQ TAB.PRT.SR XX ONE (11:00)
[2023-06-25 19:47] VITALS: TEMP 98.6
[2023-06-25] MEDS: MULTIVITAMINS,THERAPEUTIC TABLET GT SCH (20:56)
[2023-06-26] MEDS: IPRATROPIUM BROMIDE 0.5 MG/2.5 ML NEBU NEB SCH ×4 (01:12→21:39)
[2023-06-26] MEDS: ALBUTEROL SULFATE 2.5 MG/3 ML NEBU NEB SCH ×4 (01:12→21:39)
[2023-06-26 07:13] VITALS: TEMP 97.8
[2023-06-26] MEDS: POTASSIUM CHLORIDE 40 MEQ/30 ML LIQUID UDC GT SCH (09:49)
[2023-06-26] MEDS: levETIRAcetam 500 MG/5 ML LIQUID UDC GT SCH ×2 (09:49→21:00)
[2023-06-26] MEDS: PROTEIN SUPPLEMENT (PROSTAT) 30 ML LIQUID GT SCH ×2 (09:51→21:00)
[2023-06-26] MEDS: QUETIAPINE FUMARATE 25 MG TABLET GT SCH ×3 (09:52→17:19)
[2023-06-26] MEDS: REMEDY ESSENTIAL ZINC PASTE 113 GM TP SCH ×2 (09:53→21:00)
[2023-06-26] MEDS: CHLORHEXIDINE GLUCONATE 15 ML MOUTHWASH MM SCH ×2 (09:53→21:00)
[2023-06-26] MEDS: JEVITY 1.2 1000 ML LIQUID GT PRN (11:40)
[2023-06-26 19:44] VITALS: TEMP 98.6
[2023-06-26] MEDS: MULTIVITAMINS,THERAPEUTIC TABLET GT SCH (21:00)
[2023-06-27] MEDS: ALBUTEROL SULFATE 2.5 MG/3 ML NEBU NEB SCH ×4 (05:35→19:21)
[2023-06-27] MEDS: IPRATROPIUM BROMIDE 0.5 MG/2.5 ML NEBU NEB SCH ×4 (05:35→19:21)
[2023-06-27] MEDS: JEVITY 1.2 1000 ML LIQUID GT PRN ×2 (05:41→21:35)
[2023-06-27 07:17] VITALS: TEMP 98.3
[2023-06-27] MEDS: levETIRAcetam 500 MG/5 ML LIQUID UDC GT SCH ×2 (08:31→21:33)
[2023-06-27] MEDS: CHLORHEXIDINE GLUCONATE 15 ML MOUTHWASH MM SCH ×2 (08:32→21:33)
[2023-06-27] MEDS: PROTEIN SUPPLEMENT (PROSTAT) 30 ML LIQUID GT SCH ×2 (08:32→21:33)
[2023-06-27] MEDS: POTASSIUM CHLORIDE 40 MEQ/30 ML LIQUID UDC GT SCH (08:32)
[2023-06-27] MEDS: QUETIAPINE FUMARATE 25 MG TABLET GT SCH ×3 (08:32→17:01)
[2023-06-27] MEDS: REMEDY ESSENTIAL ZINC PASTE 113 GM TP SCH ×2 (08:42→21:33)
[2023-06-27 20:00] VITALS: TEMP 97.6
[2023-06-27] MEDS: MULTIVITAMINS,THERAPEUTIC TABLET GT SCH (21:33)
[2023-06-28] MEDS: OXYCODONE HCL 5 MG TABLET GT PRN (00:30)
[2023-06-28] MEDS: IPRATROPIUM BROMIDE 0.5 MG/2.5 ML NEBU NEB SCH ×4 (01:31→19:10)
[2023-06-28] MEDS: ALBUTEROL SULFATE 2.5 MG/3 ML NEBU NEB SCH ×4 (01:31→19:10)
[2023-06-28 08:00] VITALS: TEMP 98.5
[2023-06-28] MEDS: levETIRAcetam 500 MG/5 ML LIQUID UDC GT SCH ×2 (09:54→21:41)
[2023-06-28] MEDS: CHLORHEXIDINE GLUCONATE 15 ML MOUTHWASH MM SCH ×2 (09:55→21:42)
[2023-06-28] MEDS: QUETIAPINE FUMARATE 25 MG TABLET GT SCH ×3 (09:55→17:42)
[2023-06-28] MEDS: REMEDY ESSENTIAL ZINC PASTE 113 GM TP SCH ×2 (09:55→21:42)
[2023-06-28] MEDS: PROTEIN SUPPLEMENT (PROSTAT) 30 ML LIQUID GT SCH ×2 (09:55→21:41)
[2023-06-28] MEDS: POTASSIUM CHLORIDE 40 MEQ/30 ML LIQUID UDC GT SCH (09:55)
[2023-06-28] MEDS ORDERED: CHLORHEXIDINE GLUCONATE 15 ML MOUTHWASH MM PRN (18:30)
[2023-06-28] MEDS: JEVITY 1.2 1000 ML LIQUID GT PRN (19:06)
[2023-06-28 20:00] VITALS: TEMP 97.6
[2023-06-28] MEDS: MULTIVITAMINS,THERAPEUTIC TABLET GT SCH (21:41)
[2023-06-29] MEDS: ALBUTEROL SULFATE 2.5 MG/3 ML NEBU NEB SCH ×4 (01:21→19:28)
[2023-06-29] MEDS: IPRATROPIUM BROMIDE 0.5 MG/2.5 ML NEBU NEB SCH ×4 (01:21→19:28)
[2023-06-29 08:59] VITALS: TEMP 98.2
[2023-06-29] MEDS: PROTEIN SUPPLEMENT (PROSTAT) 30 ML LIQUID GT SCH ×2 (09:33→21:28)
[2023-06-29] MEDS: POTASSIUM CHLORIDE 40 MEQ/30 ML LIQUID UDC GT SCH (09:33)
[2023-06-29] MEDS: QUETIAPINE FUMARATE 25 MG TABLET GT SCH ×3 (09:33→16:54)
[2023-06-29] MEDS: levETIRAcetam 500 MG/5 ML LIQUID UDC GT SCH ×2 (09:33→21:28)
[2023-06-29] MEDS: REMEDY ESSENTIAL ZINC PASTE 113 GM TP SCH ×2 (09:34→21:28)
[2023-06-29] MEDS: CHLORHEXIDINE GLUCONATE 15 ML MOUTHWASH MM SCH ×2 (09:34→21:28)
[2023-06-29 20:00] VITALS: TEMP 97.2
[2023-06-29] MEDS: MULTIVITAMINS,THERAPEUTIC TABLET GT SCH (21:28)
[2023-06-30] MEDS: IPRATROPIUM BROMIDE 0.5 MG/2.5 ML NEBU NEB SCH ×4 (01:25→19:09)
[2023-06-30] MEDS: ALBUTEROL SULFATE 2.5 MG/3 ML NEBU NEB SCH ×4 (01:25→19:09)
[2023-06-30] MEDS: OXYCODONE HCL 5 MG TABLET GT PRN (03:30)
[2023-06-30 07:35] VITALS: TEMP 97.8
[2023-06-30] MEDS: levETIRAcetam 500 MG/5 ML LIQUID UDC GT SCH ×2 (09:08→21:00)
[2023-06-30] MEDS: QUETIAPINE FUMARATE 25 MG TABLET GT SCH ×3 (09:10→17:59)
[2023-06-30] MEDS: POTASSIUM CHLORIDE 40 MEQ/30 ML LIQUID UDC GT SCH (09:10)
[2023-06-30] MEDS: PROTEIN SUPPLEMENT (PROSTAT) 30 ML LIQUID GT SCH ×2 (09:10→21:00)
[2023-06-30] MEDS: CHLORHEXIDINE GLUCONATE 15 ML MOUTHWASH MM SCH ×2 (09:10→21:00)
[2023-06-30] MEDS: REMEDY ESSENTIAL ZINC PASTE 113 GM TP SCH ×2 (09:10→21:00)
[2023-06-30] MEDS: JEVITY 1.2 1000 ML LIQUID GT PRN (15:15)
[2023-06-30 20:00] VITALS: TEMP 97.5
[2023-06-30] MEDS: MULTIVITAMINS,THERAPEUTIC TABLET GT SCH (21:00)
[2023-07-01] MEDS: ALBUTEROL SULFATE 2.5 MG/3 ML NEBU NEB SCH ×4 (01:08→19:08)
[2023-07-01] MEDS: IPRATROPIUM BROMIDE 0.5 MG/2.5 ML NEBU NEB SCH ×4 (01:08→19:08)
[2023-07-01 08:00] VITALS: TEMP 97.6
[2023-07-01] MEDS: POTASSIUM CHLORIDE 40 MEQ/30 ML LIQUID UDC GT SCH (09:53)
[2023-07-01] MEDS: levETIRAcetam 500 MG/5 ML LIQUID UDC GT SCH ×2 (09:53→21:00)
[2023-07-01] MEDS: REMEDY ESSENTIAL ZINC PASTE 113 GM TP SCH ×2 (09:59→21:00)
[2023-07-01] MEDS: QUETIAPINE FUMARATE 25 MG TABLET GT SCH ×3 (09:59→17:42)
[2023-07-01] MEDS: CHLORHEXIDINE GLUCONATE 15 ML MOUTHWASH MM SCH ×2 (09:59→21:00)
[2023-07-01] MEDS: PROTEIN SUPPLEMENT (PROSTAT) 30 ML LIQUID GT SCH ×2 (09:59→21:00)
[2023-07-01] MEDS: JEVITY 1.2 1000 ML LIQUID GT PRN (13:41)
[2023-07-01 20:00] VITALS: TEMP 98.7
[2023-07-01] MEDS: MULTIVITAMINS,THERAPEUTIC TABLET GT SCH (21:00)
[2023-07-02] MEDS: IPRATROPIUM BROMIDE 0.5 MG/2.5 ML NEBU NEB SCH ×4 (00:33→20:00)
[2023-07-02] MEDS: ALBUTEROL SULFATE 2.5 MG/3 ML NEBU NEB SCH ×4 (00:33→20:00)
[2023-07-02] MEDS: OXYCODONE HCL 5 MG TABLET GT PRN (02:25)
[2023-07-02] MEDS: JEVITY 1.2 1000 ML LIQUID GT PRN (07:04)
[2023-07-02 08:11] VITALS: TEMP 98
[2023-07-02] MEDS: REMEDY ESSENTIAL ZINC PASTE 113 GM TP SCH ×2 (09:40→21:00)
[2023-07-02] MEDS: PROTEIN SUPPLEMENT (PROSTAT) 30 ML LIQUID GT SCH ×2 (09:40→21:00)
[2023-07-02] MEDS: CHLORHEXIDINE GLUCONATE 15 ML MOUTHWASH MM SCH ×2 (09:40→21:00)
[2023-07-02] MEDS: QUETIAPINE FUMARATE 25 MG TABLET GT SCH ×3 (09:40→17:31)
[2023-07-02] MEDS: levETIRAcetam 500 MG/5 ML LIQUID UDC GT SCH ×2 (09:40→21:00)
[2023-07-02] MEDS: POTASSIUM CHLORIDE 40 MEQ/30 ML LIQUID UDC GT SCH (09:40)
[2023-07-02] MEDS: ACETAMINOPHEN 650 MG/20 ML UDC- SA PATIENTS-PAIN ONLY GT PRN (13:40)
[2023-07-02] MEDS: MULTIVITAMINS,THERAPEUTIC TABLET GT SCH (21:00)
[2023-07-03] MEDS: ALBUTEROL SULFATE 2.5 MG/3 ML NEBU NEB SCH ×4 (01:35→20:15)
[2023-07-03] MEDS: IPRATROPIUM BROMIDE 0.5 MG/2.5 ML NEBU NEB SCH ×4 (01:35→20:15)
[2023-07-03 07:54] VITALS: TEMP 98.1
[2023-07-03] MEDS: levETIRAcetam 500 MG/5 ML LIQUID UDC GT SCH ×2 (09:44→21:54)
[2023-07-03] MEDS: QUETIAPINE FUMARATE 25 MG TABLET GT SCH ×3 (09:45→17:44)
[2023-07-03] MEDS: PROTEIN SUPPLEMENT (PROSTAT) 30 ML LIQUID GT SCH ×2 (09:45→21:54)
[2023-07-03] MEDS: REMEDY ESSENTIAL ZINC PASTE 113 GM TP SCH ×2 (09:45→21:54)
[2023-07-03] MEDS: POTASSIUM CHLORIDE 40 MEQ/30 ML LIQUID UDC GT SCH (09:45)
[2023-07-03] MEDS: CHLORHEXIDINE GLUCONATE 15 ML MOUTHWASH MM SCH ×2 (09:45→21:54)
[2023-07-03 20:00] VITALS: TEMP 97
[2023-07-03] MEDS: MULTIVITAMINS,THERAPEUTIC TABLET GT SCH (21:54)
[2023-07-04] MEDS: IPRATROPIUM BROMIDE 0.5 MG/2.5 ML NEBU NEB SCH ×4 (01:30→19:30)
[2023-07-04] MEDS: ALBUTEROL SULFATE 2.5 MG/3 ML NEBU NEB SCH ×4 (01:30→19:31)
[2023-07-04 07:55] VITALS: TEMP 97.6
[2023-07-04] MEDS: levETIRAcetam 500 MG/5 ML LIQUID UDC GT SCH ×2 (09:33→21:53)
[2023-07-04] MEDS: POTASSIUM CHLORIDE 40 MEQ/30 ML LIQUID UDC GT SCH (09:38)
[2023-07-04] MEDS: PROTEIN SUPPLEMENT (PROSTAT) 30 ML LIQUID GT SCH ×2 (09:38→21:53)
[2023-07-04] MEDS: CHLORHEXIDINE GLUCONATE 15 ML MOUTHWASH MM SCH ×2 (09:40→21:54)
[2023-07-04] MEDS: REMEDY ESSENTIAL ZINC PASTE 113 GM TP SCH ×2 (09:40→21:54)
[2023-07-04] MEDS: QUETIAPINE FUMARATE 25 MG TABLET GT SCH ×3 (09:40→16:50)
[2023-07-04] MEDS: JEVITY 1.2 1000 ML LIQUID GT PRN (11:37)
[2023-07-04 20:00] VITALS: TEMP 97.7
[2023-07-04] MEDS: MULTIVITAMINS,THERAPEUTIC TABLET GT SCH (21:53)
[2023-07-05] MEDS: IPRATROPIUM BROMIDE 0.5 MG/2.5 ML NEBU NEB SCH ×4 (02:05→19:09)
[2023-07-05] MEDS: ALBUTEROL SULFATE 2.5 MG/3 ML NEBU NEB SCH ×4 (02:05→19:09)
[2023-07-05 07:50] VITALS: TEMP 98.2
[2023-07-05] MEDS: levETIRAcetam 500 MG/5 ML LIQUID UDC GT SCH ×2 (09:29→21:54)
[2023-07-05] MEDS: POTASSIUM CHLORIDE 40 MEQ/30 ML LIQUID UDC GT SCH (09:29)
[2023-07-05] MEDS: PROTEIN SUPPLEMENT (PROSTAT) 30 ML LIQUID GT SCH ×2 (09:30→21:54)
[2023-07-05] MEDS: QUETIAPINE FUMARATE 25 MG TABLET GT SCH ×3 (09:32→16:36)
[2023-07-05] MEDS: CHLORHEXIDINE GLUCONATE 15 ML MOUTHWASH MM SCH ×2 (09:33→21:54)
[2023-07-05] MEDS: REMEDY ESSENTIAL ZINC PASTE 113 GM TP SCH ×2 (09:33→21:55)
[2023-07-05] MEDS: JEVITY 1.2 1000 ML LIQUID GT PRN (10:12)
[2023-07-05 20:00] VITALS: TEMP 98
[2023-07-05] MEDS: MULTIVITAMINS,THERAPEUTIC TABLET GT SCH (21:54)
[2023-07-06] MEDS: ALBUTEROL SULFATE 2.5 MG/3 ML NEBU NEB SCH ×4 (00:40→20:18)
[2023-07-06] MEDS: IPRATROPIUM BROMIDE 0.5 MG/2.5 ML NEBU NEB SCH ×4 (00:40→20:18)
[2023-07-06] MEDS: JEVITY 1.2 1000 ML LIQUID GT PRN (03:47)
[2023-07-06 08:00] VITALS: TEMP 98.2
[2023-07-06] MEDS: levETIRAcetam 500 MG/5 ML LIQUID UDC GT SCH ×2 (08:16→21:37)
[2023-07-06] MEDS: POTASSIUM CHLORIDE 40 MEQ/30 ML LIQUID UDC GT SCH (08:17)
[2023-07-06] MEDS: PROTEIN SUPPLEMENT (PROSTAT) 30 ML LIQUID GT SCH ×2 (08:17→21:36)
[2023-07-06] MEDS: QUETIAPINE FUMARATE 25 MG TABLET GT SCH ×3 (08:21→17:08)
[2023-07-06] MEDS: CHLORHEXIDINE GLUCONATE 15 ML MOUTHWASH MM SCH ×2 (08:22→21:36)
[2023-07-06] MEDS: REMEDY ESSENTIAL ZINC PASTE 113 GM TP SCH ×2 (08:22→21:37)
[2023-07-06 20:00] VITALS: TEMP 98.4
[2023-07-06] MEDS: MULTIVITAMINS,THERAPEUTIC TABLET GT SCH (21:36)
[2023-07-07] MEDS: JEVITY 1.2 1000 ML LIQUID GT PRN ×2 (01:36→23:19)
[2023-07-07] MEDS: IPRATROPIUM BROMIDE 0.5 MG/2.5 ML NEBU NEB SCH ×4 (01:54→19:55)
[2023-07-07] MEDS: ALBUTEROL SULFATE 2.5 MG/3 ML NEBU NEB SCH ×4 (01:55→19:55)
[2023-07-07 08:11] VITALS: TEMP 97.6
[2023-07-07] MEDS: levETIRAcetam 500 MG/5 ML LIQUID UDC GT SCH ×2 (09:02→21:12)
[2023-07-07] MEDS: POTASSIUM CHLORIDE 40 MEQ/30 ML LIQUID UDC GT SCH (09:04)
[2023-07-07] MEDS: PROTEIN SUPPLEMENT (PROSTAT) 30 ML LIQUID GT SCH ×2 (09:04→21:12)
[2023-07-07] MEDS: QUETIAPINE FUMARATE 25 MG TABLET GT SCH ×3 (09:04→17:07)
[2023-07-07] MEDS: CHLORHEXIDINE GLUCONATE 15 ML MOUTHWASH MM SCH ×2 (09:05→21:12)
[2023-07-07] MEDS: REMEDY ESSENTIAL ZINC PASTE 113 GM TP SCH ×2 (09:05→21:12)
[2023-07-07 20:00] VITALS: TEMP 97.8
[2023-07-07] MEDS: MULTIVITAMINS,THERAPEUTIC TABLET GT SCH (21:12)
[2023-07-08] MEDS: IPRATROPIUM BROMIDE 0.5 MG/2.5 ML NEBU NEB SCH ×4 (02:18→19:18)
[2023-07-08] MEDS: ALBUTEROL SULFATE 2.5 MG/3 ML NEBU NEB SCH ×4 (02:18→19:18)
[2023-07-08] MEDS: levETIRAcetam 500 MG/5 ML LIQUID UDC GT SCH ×2 (09:16→21:56)
[2023-07-08] MEDS: POTASSIUM CHLORIDE 40 MEQ/30 ML LIQUID UDC GT SCH (09:16)
[2023-07-08] MEDS: QUETIAPINE FUMARATE 25 MG TABLET GT SCH ×3 (09:17→17:20)
[2023-07-08] MEDS: CHLORHEXIDINE GLUCONATE 15 ML MOUTHWASH MM SCH ×2 (09:17→21:56)
[2023-07-08] MEDS: PROTEIN SUPPLEMENT (PROSTAT) 30 ML LIQUID GT SCH ×2 (09:17→21:56)
[2023-07-08] MEDS: REMEDY ESSENTIAL ZINC PASTE 113 GM TP SCH ×2 (09:17→21:56)
[2023-07-08 10:00] VITALS: O2SAT 98
[2023-07-08 11:15] VITALS: TEMP 98.8
[2023-07-08 20:00] VITALS: TEMP 97.6
[2023-07-08] MEDS: MULTIVITAMINS,THERAPEUTIC TABLET GT SCH (21:56)
[2023-07-09] MEDS: IPRATROPIUM BROMIDE 0.5 MG/2.5 ML NEBU NEB SCH ×4 (00:38→19:22)
[2023-07-09] MEDS: ALBUTEROL SULFATE 2.5 MG/3 ML NEBU NEB SCH ×4 (00:38→19:21)
[2023-07-09 09:15] VITALS: TEMP 98.8
[2023-07-09] MEDS: levETIRAcetam 500 MG/5 ML LIQUID UDC GT SCH ×2 (09:43→21:46)
[2023-07-09] MEDS: POTASSIUM CHLORIDE 40 MEQ/30 ML LIQUID UDC GT SCH (09:44)
[2023-07-09] MEDS: QUETIAPINE FUMARATE 25 MG TABLET GT SCH ×3 (09:45→17:11)
[2023-07-09] MEDS: PROTEIN SUPPLEMENT (PROSTAT) 30 ML LIQUID GT SCH ×2 (09:45→21:46)
[2023-07-09] MEDS: CHLORHEXIDINE GLUCONATE 15 ML MOUTHWASH MM SCH ×2 (09:47→21:46)
[2023-07-09] MEDS: REMEDY ESSENTIAL ZINC PASTE 113 GM TP SCH ×2 (09:47→21:46)
[2023-07-09] MEDS: JEVITY 1.2 1000 ML LIQUID GT PRN (17:11)
[2023-07-09 21:07] VITALS: TEMP 98.3
[2023-07-09] MEDS: MULTIVITAMINS,THERAPEUTIC TABLET GT SCH (21:46)
[2023-07-10] MEDS: IPRATROPIUM BROMIDE 0.5 MG/2.5 ML NEBU NEB SCH ×4 (01:58→19:21)
[2023-07-10] MEDS: ALBUTEROL SULFATE 2.5 MG/3 ML NEBU NEB SCH ×4 (01:58→19:21)
[2023-07-10] MEDS: CHLORHEXIDINE GLUCONATE 15 ML MOUTHWASH MM SCH ×2 (09:00→21:53)
[2023-07-10] MEDS: REMEDY ESSENTIAL ZINC PASTE 113 GM TP SCH ×2 (09:00→21:53)
[2023-07-10] MEDS: POTASSIUM CHLORIDE 40 MEQ/30 ML LIQUID UDC GT SCH (09:00)
[2023-07-10] MEDS: QUETIAPINE FUMARATE 25 MG TABLET GT SCH ×3 (09:00→16:08)
[2023-07-10] MEDS: PROTEIN SUPPLEMENT (PROSTAT) 30 ML LIQUID GT SCH ×2 (09:00→21:53)
[2023-07-10] MEDS: levETIRAcetam 500 MG/5 ML LIQUID UDC GT SCH ×2 (09:00→21:53)
[2023-07-10 10:59] VITALS: TEMP 98.6
[2023-07-10] MEDS: JEVITY 1.2 1000 ML LIQUID GT PRN (13:48)
[2023-07-10 20:22] VITALS: TEMP 99.2
[2023-07-10] MEDS: MULTIVITAMINS,THERAPEUTIC TABLET GT SCH (21:53)
[2023-07-11] MEDS: ALBUTEROL SULFATE 2.5 MG/3 ML NEBU NEB SCH ×4 (00:46→19:07)
[2023-07-11] MEDS: IPRATROPIUM BROMIDE 0.5 MG/2.5 ML NEBU NEB SCH ×4 (00:46→19:07)
[2023-07-11] MEDS: levETIRAcetam 500 MG/5 ML LIQUID UDC GT SCH ×2 (09:00→21:51)
[2023-07-11] MEDS: CHLORHEXIDINE GLUCONATE 15 ML MOUTHWASH MM SCH ×2 (09:00→21:52)
[2023-07-11] MEDS: PROTEIN SUPPLEMENT (PROSTAT) 30 ML LIQUID GT SCH ×2 (09:00→21:51)
[2023-07-11] MEDS: REMEDY ESSENTIAL ZINC PASTE 113 GM TP SCH ×2 (09:00→21:52)
[2023-07-11] MEDS: POTASSIUM CHLORIDE 40 MEQ/30 ML LIQUID UDC GT SCH (09:00)
[2023-07-11] MEDS: QUETIAPINE FUMARATE 25 MG TABLET GT SCH ×3 (09:00→17:00)
[2023-07-11 11:10] VITALS: TEMP 98.1
[2023-07-11] MEDS: JEVITY 1.2 1000 ML LIQUID GT PRN (13:19)
[2023-07-11 20:03] VITALS: TEMP 98.4
[2023-07-11] MEDS: MULTIVITAMINS,THERAPEUTIC TABLET GT SCH (21:51)
[2023-07-12] MEDS: ALBUTEROL SULFATE 2.5 MG/3 ML NEBU NEB SCH ×4 (01:09→20:10)
[2023-07-12] MEDS: IPRATROPIUM BROMIDE 0.5 MG/2.5 ML NEBU NEB SCH ×4 (01:09→20:10)
[2023-07-12 08:00] VITALS: TEMP 98.2
[2023-07-12] MEDS: PROTEIN SUPPLEMENT (PROSTAT) 30 ML LIQUID GT SCH ×2 (09:00→21:49)
[2023-07-12] MEDS: levETIRAcetam 500 MG/5 ML LIQUID UDC GT SCH ×2 (09:00→21:49)
[2023-07-12] MEDS: QUETIAPINE FUMARATE 25 MG TABLET GT SCH ×3 (09:00→17:00)
[2023-07-12] MEDS: CHLORHEXIDINE GLUCONATE 15 ML MOUTHWASH MM SCH ×2 (09:00→21:50)
[2023-07-12] MEDS: POTASSIUM CHLORIDE 40 MEQ/30 ML LIQUID UDC GT SCH (09:00)
[2023-07-12] MEDS: REMEDY ESSENTIAL ZINC PASTE 113 GM TP SCH ×2 (09:00→21:50)
[2023-07-12] MEDS: JEVITY 1.2 1000 ML LIQUID GT PRN (15:00)
[2023-07-12 20:23] VITALS: TEMP 97
[2023-07-12] MEDS: MULTIVITAMINS,THERAPEUTIC TABLET GT SCH (21:50)
[2023-07-13] MEDS: ALBUTEROL SULFATE 2.5 MG/3 ML NEBU NEB SCH ×4 (01:35→19:16)
[2023-07-13] MEDS: IPRATROPIUM BROMIDE 0.5 MG/2.5 ML NEBU NEB SCH ×4 (01:35→19:16)
[2023-07-13 07:20] VITALS: TEMP 97.8
[2023-07-13] MEDS: REMEDY ESSENTIAL ZINC PASTE 113 GM TP SCH ×2 (09:00→21:39)
[2023-07-13] MEDS: PROTEIN SUPPLEMENT (PROSTAT) 30 ML LIQUID GT SCH ×2 (09:00→21:39)
[2023-07-13] MEDS: QUETIAPINE FUMARATE 25 MG TABLET GT SCH ×3 (09:00→17:00)
[2023-07-13] MEDS: levETIRAcetam 500 MG/5 ML LIQUID UDC GT SCH ×2 (09:00→21:39)
[2023-07-13] MEDS: CHLORHEXIDINE GLUCONATE 15 ML MOUTHWASH MM SCH ×2 (09:00→21:39)
[2023-07-13] MEDS: POTASSIUM CHLORIDE 40 MEQ/30 ML LIQUID UDC GT SCH (09:00)
[2023-07-13] MEDS: JEVITY 1.2 1000 ML LIQUID GT PRN (14:19)
[2023-07-13 20:00] VITALS: TEMP 98.2
[2023-07-13] MEDS: MULTIVITAMINS,THERAPEUTIC TABLET GT SCH (21:39)
[2023-07-14] MEDS: ALBUTEROL SULFATE 2.5 MG/3 ML NEBU NEB SCH ×4 (01:27→19:12)
[2023-07-14] MEDS: IPRATROPIUM BROMIDE 0.5 MG/2.5 ML NEBU NEB SCH ×4 (01:27→19:12)
[2023-07-14 07:51] VITALS: TEMP 98.6
[2023-07-14] MEDS: levETIRAcetam 500 MG/5 ML LIQUID UDC GT SCH ×2 (08:11→20:45)
[2023-07-14] MEDS: PROTEIN SUPPLEMENT (PROSTAT) 30 ML LIQUID GT SCH ×2 (08:11→20:45)
[2023-07-14] MEDS: CHLORHEXIDINE GLUCONATE 15 ML MOUTHWASH MM SCH ×2 (08:11→20:46)
[2023-07-14] MEDS: POTASSIUM CHLORIDE 40 MEQ/30 ML LIQUID UDC GT SCH (08:11)
[2023-07-14] MEDS: QUETIAPINE FUMARATE 25 MG TABLET GT SCH ×3 (08:11→17:38)
[2023-07-14] MEDS: REMEDY ESSENTIAL ZINC PASTE 113 GM TP SCH ×2 (08:11→20:46)
[2023-07-14] MEDS: JEVITY 1.2 1000 ML LIQUID GT PRN (10:14)
[2023-07-14] MEDS: MULTIVITAMINS,THERAPEUTIC TABLET GT SCH (20:45)
[2023-07-14 22:00] VITALS: TEMP 98.4
[2023-07-15] MEDS: IPRATROPIUM BROMIDE 0.5 MG/2.5 ML NEBU NEB SCH ×4 (01:05→19:30)
[2023-07-15] MEDS: ALBUTEROL SULFATE 2.5 MG/3 ML NEBU NEB SCH ×4 (01:05→19:30)
[2023-07-15] MEDS: JEVITY 1.2 1000 ML LIQUID GT PRN (05:24)
[2023-07-15 08:12] VITALS: TEMP 97.6
[2023-07-15] MEDS: levETIRAcetam 500 MG/5 ML LIQUID UDC GT SCH ×2 (09:45→21:36)
[2023-07-15] MEDS: POTASSIUM CHLORIDE 40 MEQ/30 ML LIQUID UDC GT SCH (09:46)
[2023-07-15] MEDS: QUETIAPINE FUMARATE 25 MG TABLET GT SCH ×3 (09:49→17:33)
[2023-07-15] MEDS: PROTEIN SUPPLEMENT (PROSTAT) 30 ML LIQUID GT SCH ×2 (09:49→21:36)
[2023-07-15] MEDS: REMEDY ESSENTIAL ZINC PASTE 113 GM TP SCH ×2 (09:50→21:36)
[2023-07-15] MEDS: CHLORHEXIDINE GLUCONATE 15 ML MOUTHWASH MM SCH ×2 (09:50→21:36)
[2023-07-15 20:00] VITALS: TEMP 98.1
[2023-07-15] MEDS: MULTIVITAMINS,THERAPEUTIC TABLET GT SCH (21:36)
[2023-07-16] MEDS: JEVITY 1.2 1000 ML LIQUID GT PRN ×2 (01:41→16:43)
[2023-07-16] MEDS: ALBUTEROL SULFATE 2.5 MG/3 ML NEBU NEB SCH ×4 (01:46→19:13)
[2023-07-16] MEDS: IPRATROPIUM BROMIDE 0.5 MG/2.5 ML NEBU NEB SCH ×4 (01:46→19:13)
[2023-07-16 08:00] VITALS: TEMP 100.2
[2023-07-16] MEDS: levETIRAcetam 500 MG/5 ML LIQUID UDC GT SCH ×2 (09:24→21:00)
[2023-07-16] MEDS: POTASSIUM CHLORIDE 40 MEQ/30 ML LIQUID UDC GT SCH (09:25)
[2023-07-16] MEDS: PROTEIN SUPPLEMENT (PROSTAT) 30 ML LIQUID GT SCH ×2 (09:25→21:48)
[2023-07-16] MEDS: QUETIAPINE FUMARATE 25 MG TABLET GT SCH ×3 (09:28→16:40)
[2023-07-16] MEDS: REMEDY ESSENTIAL ZINC PASTE 113 GM TP SCH ×2 (09:29→21:48)
[2023-07-16] MEDS: CHLORHEXIDINE GLUCONATE 15 ML MOUTHWASH MM SCH ×2 (09:29→21:48)
[2023-07-16 20:06] VITALS: TEMP 97.9
[2023-07-16] MEDS: MULTIVITAMINS,THERAPEUTIC TABLET GT SCH (21:48)
[2023-07-17] MEDS: ALBUTEROL SULFATE 2.5 MG/3 ML NEBU NEB SCH ×4 (02:09→19:10)
[2023-07-17] MEDS: IPRATROPIUM BROMIDE 0.5 MG/2.5 ML NEBU NEB SCH ×4 (02:09→19:10)
[2023-07-17 09:28] VITALS: TEMP 98.6
[2023-07-17] MEDS: levETIRAcetam 500 MG/5 ML LIQUID UDC GT SCH ×2 (09:29→21:54)
[2023-07-17] MEDS: POTASSIUM CHLORIDE 40 MEQ/30 ML LIQUID UDC GT SCH (09:29)
[2023-07-17] MEDS: PROTEIN SUPPLEMENT (PROSTAT) 30 ML LIQUID GT SCH ×2 (09:30→21:54)
[2023-07-17] MEDS: QUETIAPINE FUMARATE 25 MG TABLET GT SCH ×3 (09:31→17:24)
[2023-07-17] MEDS: CHLORHEXIDINE GLUCONATE 15 ML MOUTHWASH MM SCH ×2 (09:31→21:54)
[2023-07-17] MEDS: REMEDY ESSENTIAL ZINC PASTE 113 GM TP SCH ×2 (09:31→21:54)
[2023-07-17] MEDS: JEVITY 1.2 1000 ML LIQUID GT PRN (14:27)
[2023-07-17 20:06] VITALS: TEMP 98.3
[2023-07-17] MEDS: MULTIVITAMINS,THERAPEUTIC TABLET GT SCH (21:54)
[2023-07-18] MEDS: ALBUTEROL SULFATE 2.5 MG/3 ML NEBU NEB SCH ×4 (00:42→19:26)
[2023-07-18] MEDS: IPRATROPIUM BROMIDE 0.5 MG/2.5 ML NEBU NEB SCH ×4 (00:42→19:26)
[2023-07-18] MEDS: levETIRAcetam 500 MG/5 ML LIQUID UDC GT SCH ×2 (09:00→21:59)
[2023-07-18] MEDS: CHLORHEXIDINE GLUCONATE 15 ML MOUTHWASH MM SCH ×2 (09:00→21:59)
[2023-07-18] MEDS: PROTEIN SUPPLEMENT (PROSTAT) 30 ML LIQUID GT SCH ×2 (09:00→21:59)
[2023-07-18] MEDS: QUETIAPINE FUMARATE 25 MG TABLET GT SCH ×3 (09:00→17:28)
[2023-07-18] MEDS: REMEDY ESSENTIAL ZINC PASTE 113 GM TP SCH ×2 (09:00→21:59)
[2023-07-18] MEDS: POTASSIUM CHLORIDE 40 MEQ/30 ML LIQUID UDC GT SCH (09:00)
[2023-07-18 11:03] VITALS: TEMP 98.8
[2023-07-18] MEDS: JEVITY 1.2 1000 ML LIQUID GT PRN (16:33)
[2023-07-18 20:10] VITALS: TEMP 98.2
[2023-07-18] MEDS: MULTIVITAMINS,THERAPEUTIC TABLET GT SCH (21:59)
[2023-07-19] MEDS: IPRATROPIUM BROMIDE 0.5 MG/2.5 ML NEBU NEB SCH ×4 (00:41→19:12)
[2023-07-19] MEDS: ALBUTEROL SULFATE 2.5 MG/3 ML NEBU NEB SCH ×4 (00:41→19:12)
[2023-07-19 08:00] VITALS: TEMP 97.6
[2023-07-19] MEDS: levETIRAcetam 500 MG/5 ML LIQUID UDC GT SCH ×2 (09:02→21:40)
[2023-07-19] MEDS: POTASSIUM CHLORIDE 40 MEQ/30 ML LIQUID UDC GT SCH (09:03)
[2023-07-19] MEDS: CHLORHEXIDINE GLUCONATE 15 ML MOUTHWASH MM SCH ×2 (09:03→21:41)
[2023-07-19] MEDS: PROTEIN SUPPLEMENT (PROSTAT) 30 ML LIQUID GT SCH ×2 (09:03→21:40)
[2023-07-19] MEDS: QUETIAPINE FUMARATE 25 MG TABLET GT SCH ×3 (09:03→17:16)
[2023-07-19] MEDS: REMEDY ESSENTIAL ZINC PASTE 113 GM TP SCH ×2 (09:04→21:41)
[2023-07-19] MEDS: JEVITY 1.2 1000 ML LIQUID GT PRN (17:16)
[2023-07-19 20:37] VITALS: TEMP 99
[2023-07-19] MEDS: MULTIVITAMINS,THERAPEUTIC TABLET GT SCH (21:41)
[2023-07-20] MEDS: ALBUTEROL SULFATE 2.5 MG/3 ML NEBU NEB SCH ×4 (00:41→19:07)
[2023-07-20] MEDS: IPRATROPIUM BROMIDE 0.5 MG/2.5 ML NEBU NEB SCH ×4 (00:41→19:07)
[2023-07-20 07:18] VITALS: TEMP 97.6
[2023-07-20] MEDS: POTASSIUM CHLORIDE 40 MEQ/30 ML LIQUID UDC GT SCH (08:21)
[2023-07-20] MEDS: levETIRAcetam 500 MG/5 ML LIQUID UDC GT SCH ×2 (08:21→21:00)
[2023-07-20] MEDS: QUETIAPINE FUMARATE 25 MG TABLET GT SCH ×3 (08:22→17:12)
[2023-07-20] MEDS: PROTEIN SUPPLEMENT (PROSTAT) 30 ML LIQUID GT SCH ×2 (08:22→21:00)
[2023-07-20] MEDS: REMEDY ESSENTIAL ZINC PASTE 113 GM TP SCH ×2 (08:23→21:00)
[2023-07-20] MEDS: CHLORHEXIDINE GLUCONATE 15 ML MOUTHWASH MM SCH ×2 (08:23→21:00)
[2023-07-20] MEDS ORDERED: PNEUMOCOCCAL 23-VAL P-SAC VAC 0.5 ML VIAL IM ONE (16:00)
[2023-07-20] MEDS: JEVITY 1.2 1000 ML LIQUID GT PRN (17:29)
[2023-07-20 20:49] VITALS: TEMP 97.3
[2023-07-20] MEDS: MULTIVITAMINS,THERAPEUTIC TABLET GT SCH (21:00)
[2023-07-21] MEDS: ALBUTEROL SULFATE 2.5 MG/3 ML NEBU NEB SCH ×4 (01:13→19:12)
[2023-07-21] MEDS: IPRATROPIUM BROMIDE 0.5 MG/2.5 ML NEBU NEB SCH ×4 (01:13→19:12)
[2023-07-21 08:03] VITALS: TEMP 98.2
[2023-07-21] MEDS: levETIRAcetam 500 MG/5 ML LIQUID UDC GT SCH ×2 (09:44→21:51)
[2023-07-21] MEDS: POTASSIUM CHLORIDE 40 MEQ/30 ML LIQUID UDC GT SCH (09:44)
[2023-07-21] MEDS: CHLORHEXIDINE GLUCONATE 15 ML MOUTHWASH MM SCH ×2 (09:46→21:51)
[2023-07-21] MEDS: REMEDY ESSENTIAL ZINC PASTE 113 GM TP SCH ×2 (09:46→21:51)
[2023-07-21] MEDS: QUETIAPINE FUMARATE 25 MG TABLET GT SCH ×3 (09:46→17:01)
[2023-07-21] MEDS: PROTEIN SUPPLEMENT (PROSTAT) 30 ML LIQUID GT SCH ×2 (09:46→21:51)
[2023-07-21 20:00] VITALS: TEMP 98.8
[2023-07-21] MEDS: MULTIVITAMINS,THERAPEUTIC TABLET GT SCH (21:51)
[2023-07-22] MEDS: ALBUTEROL SULFATE 2.5 MG/3 ML NEBU NEB SCH ×4 (01:45→19:11)
[2023-07-22] MEDS: IPRATROPIUM BROMIDE 0.5 MG/2.5 ML NEBU NEB SCH ×4 (01:45→19:11)
[2023-07-22 07:36] VITALS: TEMP 98
[2023-07-22] MEDS: CHLORHEXIDINE GLUCONATE 15 ML MOUTHWASH MM SCH ×2 (09:56→21:35)
[2023-07-22] MEDS: PROTEIN SUPPLEMENT (PROSTAT) 30 ML LIQUID GT SCH ×2 (09:56→21:35)
[2023-07-22] MEDS: REMEDY ESSENTIAL ZINC PASTE 113 GM TP SCH ×2 (09:56→21:35)
[2023-07-22] MEDS: POTASSIUM CHLORIDE 40 MEQ/30 ML LIQUID UDC GT SCH (09:56)
[2023-07-22] MEDS: levETIRAcetam 500 MG/5 ML LIQUID UDC GT SCH ×2 (09:56→21:35)
[2023-07-22] MEDS: QUETIAPINE FUMARATE 25 MG TABLET GT SCH ×3 (09:56→17:00)
[2023-07-22 20:57] VITALS: TEMP 98.5
[2023-07-22] MEDS: MULTIVITAMINS,THERAPEUTIC TABLET GT SCH (21:35)
[2023-07-23] MEDS: ALBUTEROL SULFATE 2.5 MG/3 ML NEBU NEB SCH ×4 (00:48→19:16)
[2023-07-23] MEDS: IPRATROPIUM BROMIDE 0.5 MG/2.5 ML NEBU NEB SCH ×4 (00:48→19:16)
[2023-07-23 05:57] LABS: BASOPHILS % (AUTO) 0.5 % (0.0-2.0); EOSINOPHILS # (AUTO) 0.6 K/uL (0.0-0.7); EOSINOPHILS % (AUTO) 7.6 % (0.0-7.0); HEMATOCRIT 32.1 % (36.7-47.1); HEMOGLOBIN 10.5 g/dL (12.5-16.3); LYMPHOCYTES % (AUTO) 39.1 % (20.5-51.5); MEAN CORPUSCULAR HEMOGLOBIN 27.4 uug (23.8-33.4); MEAN CORPUSCULAR HGB CONC 33 g/dL (32.5-36.3); MEAN CORPUSCULAR VOLUME 83.6 fL (73.0-96.2); MONOCYTES # (AUTO) 0.5 K/uL (0.1-1.30); MONOCYTES % (AUTO) 6.5 % (0.0-11.0); NEUTROPHILS # (AUTO) 3.5 K/uL (1.8-8.9); NEUTROPHILS % (AUTO) 46.3 % (38.5-71.5); PLATELET COUNT (AUTO) 285 K/uL (152-348); RED BLOOD CELL COUNT(AUTO) 3.84 MIL/uL (4.06-5.63); RED CELL DISTRIBUTION WIDTH 16.6 % (12.1-16.2); WHITE BLOOD COUNT (AUTO) 7.6 K/uL (3.6-10.2)
[2023-07-23 06:41] LABS: DIFFERENTIAL COMMENT 1
[2023-07-23 06:49] LABS: ALANINE AMINOTRANSFERASE 35 U/L (16-63); ALBUMIN 2.8 g/dL (3.4-5.0); ALKALINE PHOSPHATASE 210 U/L (50-136); ASPARTATE AMINOTRANSFERASE 26 U/L (15-37); BILIRUBIN,TOTAL 0.2 mg/dL (0.2-1.0); CALCIUM 9.5 mg/dL (8.5-10.1); CARBON DIOXIDE 26 mmol/L (21-32); CHLORIDE 109 mmol/L (98-107); CREATININE 0.4 mg/dL (0.6-1.3); GLUCOSE 108 mg/dL (74-106); POTASSIUM 3.5 mmol/L (3.5-5.1); SODIUM SERUM 145 mmol/L (136-145); UREA NITROGEN, BLOOD 21 mg/dL (7-18)
[2023-07-23 08:00] VITALS: TEMP 98
[2023-07-23] MEDS: levETIRAcetam 500 MG/5 ML LIQUID UDC GT SCH ×2 (09:43→21:51)
[2023-07-23] MEDS: PROTEIN SUPPLEMENT (PROSTAT) 30 ML LIQUID GT SCH ×2 (09:45→21:51)
[2023-07-23] MEDS: POTASSIUM CHLORIDE 40 MEQ/30 ML LIQUID UDC GT SCH (09:45)
[2023-07-23] MEDS: REMEDY ESSENTIAL ZINC PASTE 113 GM TP SCH ×2 (09:46→21:52)
[2023-07-23] MEDS: CHLORHEXIDINE GLUCONATE 15 ML MOUTHWASH MM SCH ×2 (09:46→21:51)
[2023-07-23] MEDS: QUETIAPINE FUMARATE 25 MG TABLET GT SCH ×3 (09:46→17:32)
[2023-07-23 20:07] VITALS: TEMP 97.4
[2023-07-23] MEDS: MULTIVITAMINS,THERAPEUTIC TABLET GT SCH (21:51)
[2023-07-24] MEDS: IPRATROPIUM BROMIDE 0.5 MG/2.5 ML NEBU NEB SCH ×4 (00:36→19:15)
[2023-07-24] MEDS: ALBUTEROL SULFATE 2.5 MG/3 ML NEBU NEB SCH ×4 (00:36→19:15)
[2023-07-24 07:21] VITALS: TEMP 98.5
[2023-07-24] MEDS: POTASSIUM CHLORIDE 40 MEQ/30 ML LIQUID UDC GT SCH (09:00)
[2023-07-24] MEDS: REMEDY ESSENTIAL ZINC PASTE 113 GM TP SCH ×2 (09:00→21:39)
[2023-07-24] MEDS: levETIRAcetam 500 MG/5 ML LIQUID UDC GT SCH ×2 (09:00→21:39)
[2023-07-24] MEDS: PROTEIN SUPPLEMENT (PROSTAT) 30 ML LIQUID GT SCH ×2 (09:00→21:39)
[2023-07-24] MEDS: QUETIAPINE FUMARATE 25 MG TABLET GT SCH ×3 (09:00→17:41)
[2023-07-24] MEDS: CHLORHEXIDINE GLUCONATE 15 ML MOUTHWASH MM SCH ×2 (09:00→21:39)
[2023-07-24] MEDS ORDERED: TUBERCULIN,PURIF.PROT.DERIV. 5 TU/0.1 ML TEST ID ONE (14:00)
[2023-07-24] MEDS: JEVITY 1.2 1000 ML LIQUID GT PRN (17:43)
[2023-07-24 20:06] VITALS: TEMP 98.6
[2023-07-24] MEDS: MULTIVITAMINS,THERAPEUTIC TABLET GT SCH (21:39)
[2023-07-25] MEDS: IPRATROPIUM BROMIDE 0.5 MG/2.5 ML NEBU NEB SCH ×4 (00:55→19:06)
[2023-07-25] MEDS: ALBUTEROL SULFATE 2.5 MG/3 ML NEBU NEB SCH ×4 (00:55→19:06)
[2023-07-25] MEDS: OXYCODONE HCL 5 MG TABLET GT PRN (06:46)
[2023-07-25 07:14] VITALS: TEMP 97.6
[2023-07-25] MEDS: levETIRAcetam 500 MG/5 ML LIQUID UDC GT SCH ×2 (09:03→20:30)
[2023-07-25] MEDS: POTASSIUM CHLORIDE 40 MEQ/30 ML LIQUID UDC GT SCH (09:04)
[2023-07-25] MEDS: PROTEIN SUPPLEMENT (PROSTAT) 30 ML LIQUID GT SCH ×2 (09:04→20:30)
[2023-07-25] MEDS: REMEDY ESSENTIAL ZINC PASTE 113 GM TP SCH ×2 (09:06→20:30)
[2023-07-25] MEDS: QUETIAPINE FUMARATE 25 MG TABLET GT SCH ×3 (09:06→17:35)
[2023-07-25] MEDS: CHLORHEXIDINE GLUCONATE 15 ML MOUTHWASH MM SCH ×2 (09:07→20:30)
[2023-07-25 20:12] VITALS: TEMP 97.7
[2023-07-25] MEDS: MULTIVITAMINS,THERAPEUTIC TABLET GT SCH (20:30)
[2023-07-25] MEDS: JEVITY 1.2 1000 ML LIQUID GT PRN (20:31)
[2023-07-26] MEDS: IPRATROPIUM BROMIDE 0.5 MG/2.5 ML NEBU NEB SCH ×3 (07:35→19:52)
[2023-07-26] MEDS: ALBUTEROL SULFATE 2.5 MG/3 ML NEBU NEB SCH ×3 (07:35→19:52)
[2023-07-26 08:13] VITALS: TEMP 99.9
[2023-07-26] MEDS: QUETIAPINE FUMARATE 25 MG TABLET GT SCH ×3 (09:46→17:21)
[2023-07-26] MEDS: CHLORHEXIDINE GLUCONATE 15 ML MOUTHWASH MM SCH ×2 (09:46→21:00)
[2023-07-26] MEDS: PROTEIN SUPPLEMENT (PROSTAT) 30 ML LIQUID GT SCH ×2 (09:46→21:00)
[2023-07-26] MEDS: levETIRAcetam 500 MG/5 ML LIQUID UDC GT SCH ×2 (09:46→21:00)
[2023-07-26] MEDS: POTASSIUM CHLORIDE 40 MEQ/30 ML LIQUID UDC GT SCH (09:46)
[2023-07-26] MEDS: REMEDY ESSENTIAL ZINC PASTE 113 GM TP SCH ×2 (09:46→21:00)
[2023-07-26] MEDS: JEVITY 1.2 1000 ML LIQUID GT PRN (12:56)
[2023-07-26] MEDS: ACETAMINOPHEN 650 MG/20 ML UDC- SA PATIENTS-PAIN ONLY GT PRN (13:05)
[2023-07-26 20:00] VITALS: TEMP 98
[2023-07-26] MEDS: MULTIVITAMINS,THERAPEUTIC TABLET GT SCH (21:00)
[2023-07-27] MEDS: IPRATROPIUM BROMIDE 0.5 MG/2.5 ML NEBU NEB SCH ×4 (01:30→20:17)
[2023-07-27] MEDS: ALBUTEROL SULFATE 2.5 MG/3 ML NEBU NEB SCH ×4 (01:30→20:17)
[2023-07-27] MEDS: JEVITY 1.2 1000 ML LIQUID GT PRN (05:35)
[2023-07-27 07:45] VITALS: TEMP 98.3
[2023-07-27] MEDS: levETIRAcetam 500 MG/5 ML LIQUID UDC GT SCH ×2 (08:34→20:36)
[2023-07-27] MEDS: POTASSIUM CHLORIDE 40 MEQ/30 ML LIQUID UDC GT SCH (08:35)
[2023-07-27] MEDS: PROTEIN SUPPLEMENT (PROSTAT) 30 ML LIQUID GT SCH ×2 (08:37→20:36)
[2023-07-27] MEDS: QUETIAPINE FUMARATE 25 MG TABLET GT SCH ×3 (08:38→18:00)
[2023-07-27] MEDS: REMEDY ESSENTIAL ZINC PASTE 113 GM TP SCH ×2 (08:38→20:37)
[2023-07-27] MEDS: CHLORHEXIDINE GLUCONATE 15 ML MOUTHWASH MM SCH ×2 (08:38→20:37)
[2023-07-27 20:00] VITALS: TEMP 98.3
[2023-07-27] MEDS: MULTIVITAMINS,THERAPEUTIC TABLET GT SCH (20:36)
[2023-07-28] MEDS: ALBUTEROL SULFATE 2.5 MG/3 ML NEBU NEB SCH ×4 (01:30→19:23)
[2023-07-28] MEDS: IPRATROPIUM BROMIDE 0.5 MG/2.5 ML NEBU NEB SCH ×4 (01:30→19:23)
[2023-07-28] MEDS: levETIRAcetam 500 MG/5 ML LIQUID UDC GT SCH ×2 (08:09→21:05)
[2023-07-28] MEDS: POTASSIUM CHLORIDE 40 MEQ/30 ML LIQUID UDC GT SCH (08:11)
[2023-07-28] MEDS: PROTEIN SUPPLEMENT (PROSTAT) 30 ML LIQUID GT SCH ×2 (08:12→21:02)
[2023-07-28] MEDS: REMEDY ESSENTIAL ZINC PASTE 113 GM TP SCH ×2 (08:13→21:03)
[2023-07-28] MEDS: CHLORHEXIDINE GLUCONATE 15 ML MOUTHWASH MM SCH ×2 (08:13→21:03)
[2023-07-28] MEDS: QUETIAPINE FUMARATE 25 MG TABLET GT SCH ×3 (08:13→16:49)
[2023-07-28] MEDS: JEVITY 1.2 1000 ML LIQUID GT PRN (17:56)
[2023-07-28 20:00] VITALS: TEMP 96.7
[2023-07-28] MEDS: MULTIVITAMINS,THERAPEUTIC TABLET GT SCH (21:02)
[2023-07-29] MEDS: IPRATROPIUM BROMIDE 0.5 MG/2.5 ML NEBU NEB SCH ×4 (01:09→19:28)
[2023-07-29] MEDS: ALBUTEROL SULFATE 2.5 MG/3 ML NEBU NEB SCH ×4 (01:09→19:28)
[2023-07-29 07:55] VITALS: TEMP 98.7
[2023-07-29] MEDS: levETIRAcetam 500 MG/5 ML LIQUID UDC GT SCH ×2 (08:59→21:00)
[2023-07-29] MEDS: PROTEIN SUPPLEMENT (PROSTAT) 30 ML LIQUID GT SCH ×2 (08:59→21:00)
[2023-07-29] MEDS: POTASSIUM CHLORIDE 40 MEQ/30 ML LIQUID UDC GT SCH (08:59)
[2023-07-29] MEDS: REMEDY ESSENTIAL ZINC PASTE 113 GM TP SCH ×2 (09:00→21:00)
[2023-07-29] MEDS: QUETIAPINE FUMARATE 25 MG TABLET GT SCH ×3 (09:00→17:20)
[2023-07-29] MEDS: CHLORHEXIDINE GLUCONATE 15 ML MOUTHWASH MM SCH ×2 (09:00→21:00)
[2023-07-29] MEDS: JEVITY 1.2 1000 ML LIQUID GT PRN (09:20)
[2023-07-29 20:05] VITALS: TEMP 97.9
[2023-07-29] MEDS: MULTIVITAMINS,THERAPEUTIC TABLET GT SCH (21:00)
[2023-07-30] MEDS: ALBUTEROL SULFATE 2.5 MG/3 ML NEBU NEB SCH ×4 (01:31→19:27)
[2023-07-30] MEDS: IPRATROPIUM BROMIDE 0.5 MG/2.5 ML NEBU NEB SCH ×4 (01:31→19:27)
[2023-07-30 08:10] VITALS: TEMP 98.1
[2023-07-30] MEDS: levETIRAcetam 500 MG/5 ML LIQUID UDC GT SCH ×2 (09:10→21:00)
[2023-07-30] MEDS: POTASSIUM CHLORIDE 40 MEQ/30 ML LIQUID UDC GT SCH (09:12)
[2023-07-30] MEDS: QUETIAPINE FUMARATE 25 MG TABLET GT SCH ×3 (09:13→17:03)
[2023-07-30] MEDS: PROTEIN SUPPLEMENT (PROSTAT) 30 ML LIQUID GT SCH ×2 (09:13→21:00)
[2023-07-30] MEDS: REMEDY ESSENTIAL ZINC PASTE 113 GM TP SCH ×2 (09:14→21:00)
[2023-07-30] MEDS: CHLORHEXIDINE GLUCONATE 15 ML MOUTHWASH MM SCH ×2 (09:14→21:00)
[2023-07-30 20:11] VITALS: TEMP 97.9
[2023-07-30] MEDS: MULTIVITAMINS,THERAPEUTIC TABLET GT SCH (21:00)
[2023-07-30] MEDS: JEVITY 1.2 1000 ML LIQUID GT PRN (22:18)
[2023-07-31] MEDS: ALBUTEROL SULFATE 2.5 MG/3 ML NEBU NEB SCH ×4 (01:29→19:20)
[2023-07-31] MEDS: IPRATROPIUM BROMIDE 0.5 MG/2.5 ML NEBU NEB SCH ×4 (01:29→19:20)
[2023-07-31 07:26] VITALS: TEMP 97.6
[2023-07-31] MEDS: POTASSIUM CHLORIDE 40 MEQ/30 ML LIQUID UDC GT SCH (09:49)
[2023-07-31] MEDS: PROTEIN SUPPLEMENT (PROSTAT) 30 ML LIQUID GT SCH ×2 (09:49→21:22)
[2023-07-31] MEDS: levETIRAcetam 500 MG/5 ML LIQUID UDC GT SCH ×2 (09:49→21:22)
[2023-07-31] MEDS: REMEDY ESSENTIAL ZINC PASTE 113 GM TP SCH ×2 (09:49→21:26)
[2023-07-31] MEDS: CHLORHEXIDINE GLUCONATE 15 ML MOUTHWASH MM SCH ×2 (09:49→21:26)
[2023-07-31] MEDS: QUETIAPINE FUMARATE 25 MG TABLET GT SCH ×3 (09:49→17:34)
[2023-07-31] MEDS: JEVITY 1.2 1000 ML LIQUID GT PRN (18:56)
[2023-07-31 20:10] VITALS: TEMP 98.5
[2023-07-31] MEDS: MULTIVITAMINS,THERAPEUTIC TABLET GT SCH (21:23)
[2023-08-01] MEDS: ALBUTEROL SULFATE 2.5 MG/3 ML NEBU NEB SCH ×4 (00:34→19:30)
[2023-08-01] MEDS: IPRATROPIUM BROMIDE 0.5 MG/2.5 ML NEBU NEB SCH ×4 (00:34→19:30)
[2023-08-01] MEDS: QUETIAPINE FUMARATE 25 MG TABLET GT SCH ×3 (09:06→17:33)
[2023-08-01] MEDS: PROTEIN SUPPLEMENT (PROSTAT) 30 ML LIQUID GT SCH ×2 (09:06→21:49)
[2023-08-01] MEDS: REMEDY ESSENTIAL ZINC PASTE 113 GM TP SCH ×2 (09:06→21:50)
[2023-08-01] MEDS: CHLORHEXIDINE GLUCONATE 15 ML MOUTHWASH MM SCH ×2 (09:06→21:50)
[2023-08-01] MEDS: POTASSIUM CHLORIDE 40 MEQ/30 ML LIQUID UDC GT SCH (09:06)
[2023-08-01] MEDS: levETIRAcetam 500 MG/5 ML LIQUID UDC GT SCH ×2 (09:07→21:48)
[2023-08-01] MEDS: JEVITY 1.2 1000 ML LIQUID GT PRN (17:33)
[2023-08-01 20:20] VITALS: TEMP 98
[2023-08-01] MEDS: MULTIVITAMINS,THERAPEUTIC TABLET GT SCH (21:50)
[2023-08-02] MEDS: ALBUTEROL SULFATE 2.5 MG/3 ML NEBU NEB SCH ×4 (01:30→22:47)
[2023-08-02] MEDS: IPRATROPIUM BROMIDE 0.5 MG/2.5 ML NEBU NEB SCH ×4 (01:30→22:47)
[2023-08-02] MEDS: REMEDY ESSENTIAL ZINC PASTE 113 GM TP SCH ×2 (08:15→21:11)
[2023-08-02] MEDS: CHLORHEXIDINE GLUCONATE 15 ML MOUTHWASH MM SCH ×2 (08:15→21:11)
[2023-08-02] MEDS: PROTEIN SUPPLEMENT (PROSTAT) 30 ML LIQUID GT SCH ×2 (08:15→21:11)
[2023-08-02] MEDS: levETIRAcetam 500 MG/5 ML LIQUID UDC GT SCH ×2 (08:15→21:11)
[2023-08-02] MEDS: POTASSIUM CHLORIDE 40 MEQ/30 ML LIQUID UDC GT SCH (08:15)
[2023-08-02] MEDS: QUETIAPINE FUMARATE 25 MG TABLET GT SCH ×3 (08:15→16:23)
[2023-08-02 20:00] VITALS: TEMP 98.6
[2023-08-02] MEDS: MULTIVITAMINS,THERAPEUTIC TABLET GT SCH (21:11)
[2023-08-03] MEDS: ALBUTEROL SULFATE 2.5 MG/3 ML NEBU NEB SCH ×4 (00:36→19:17)
[2023-08-03] MEDS: IPRATROPIUM BROMIDE 0.5 MG/2.5 ML NEBU NEB SCH ×4 (00:36→19:17)
[2023-08-03] MEDS: JEVITY 1.2 1000 ML LIQUID GT PRN ×2 (03:28→23:13)
[2023-08-03 08:00] VITALS: TEMP 97.8
[2023-08-03] MEDS: POTASSIUM CHLORIDE 40 MEQ/30 ML LIQUID UDC GT SCH (08:52)
[2023-08-03] MEDS: levETIRAcetam 500 MG/5 ML LIQUID UDC GT SCH ×2 (08:52→21:00)
[2023-08-03] MEDS: PROTEIN SUPPLEMENT (PROSTAT) 30 ML LIQUID GT SCH ×2 (08:52→21:00)
[2023-08-03] MEDS: QUETIAPINE FUMARATE 25 MG TABLET GT SCH ×3 (08:53→16:25)
[2023-08-03] MEDS: REMEDY ESSENTIAL ZINC PASTE 113 GM TP SCH ×2 (08:53→21:00)
[2023-08-03] MEDS: CHLORHEXIDINE GLUCONATE 15 ML MOUTHWASH MM SCH ×2 (08:53→21:00)
[2023-08-03 11:12] VITALS: TEMP 97.8
[2023-08-03 20:00] VITALS: TEMP 98.2
[2023-08-03] MEDS: MULTIVITAMINS,THERAPEUTIC TABLET GT SCH (21:00)
[2023-08-04] MEDS: ALBUTEROL SULFATE 2.5 MG/3 ML NEBU NEB SCH ×4 (00:47→20:40)
[2023-08-04] MEDS: IPRATROPIUM BROMIDE 0.5 MG/2.5 ML NEBU NEB SCH ×4 (00:47→20:40)
[2023-08-04 07:30] VITALS: TEMP 97.9
[2023-08-04] MEDS: CHLORHEXIDINE GLUCONATE 15 ML MOUTHWASH MM SCH ×2 (09:00→20:02)
[2023-08-04] MEDS: REMEDY ESSENTIAL ZINC PASTE 113 GM TP SCH ×2 (09:00→20:02)
[2023-08-04] MEDS: POTASSIUM CHLORIDE 40 MEQ/30 ML LIQUID UDC GT SCH (09:00)
[2023-08-04] MEDS: levETIRAcetam 500 MG/5 ML LIQUID UDC GT SCH ×2 (09:00→20:02)
[2023-08-04] MEDS: QUETIAPINE FUMARATE 25 MG TABLET GT SCH ×3 (09:00→17:00)
[2023-08-04] MEDS: PROTEIN SUPPLEMENT (PROSTAT) 30 ML LIQUID GT SCH ×2 (09:00→20:02)
[2023-08-04] MEDS: JEVITY 1.2 1000 ML LIQUID GT PRN (18:31)
[2023-08-04 20:00] VITALS: TEMP 98.4
[2023-08-04] MEDS: MULTIVITAMINS,THERAPEUTIC TABLET GT SCH (20:02)
[2023-08-05] MEDS: IPRATROPIUM BROMIDE 0.5 MG/2.5 ML NEBU NEB SCH ×4 (01:37→19:21)
[2023-08-05] MEDS: ALBUTEROL SULFATE 2.5 MG/3 ML NEBU NEB SCH ×4 (01:37→19:21)
[2023-08-05] MEDS: levETIRAcetam 500 MG/5 ML LIQUID UDC GT SCH ×2 (08:03→21:00)
[2023-08-05] MEDS: PROTEIN SUPPLEMENT (PROSTAT) 30 ML LIQUID GT SCH ×2 (08:03→21:00)
[2023-08-05] MEDS: QUETIAPINE FUMARATE 25 MG TABLET GT SCH ×3 (08:03→17:25)
[2023-08-05] MEDS: POTASSIUM CHLORIDE 40 MEQ/30 ML LIQUID UDC GT SCH (08:03)
[2023-08-05] MEDS: REMEDY ESSENTIAL ZINC PASTE 113 GM TP SCH ×2 (08:04→21:00)
[2023-08-05] MEDS: CHLORHEXIDINE GLUCONATE 15 ML MOUTHWASH MM SCH ×2 (08:04→21:00)
[2023-08-05 08:08] VITALS: TEMP 97.8
[2023-08-05 20:00] VITALS: TEMP 98.4
[2023-08-05] MEDS: MULTIVITAMINS,THERAPEUTIC TABLET GT SCH (21:00)
[2023-08-06] MEDS: ALBUTEROL SULFATE 2.5 MG/3 ML NEBU NEB SCH ×4 (01:44→20:45)
[2023-08-06] MEDS: IPRATROPIUM BROMIDE 0.5 MG/2.5 ML NEBU NEB SCH ×4 (01:44→20:45)
[2023-08-06] MEDS: JEVITY 1.2 1000 ML LIQUID GT PRN (06:25)
[2023-08-06 08:30] VITALS: TEMP 98.1
[2023-08-06] MEDS: CHLORHEXIDINE GLUCONATE 15 ML MOUTHWASH MM SCH ×2 (09:13→21:00)
[2023-08-06] MEDS: PROTEIN SUPPLEMENT (PROSTAT) 30 ML LIQUID GT SCH ×2 (09:13→21:00)
[2023-08-06] MEDS: REMEDY ESSENTIAL ZINC PASTE 113 GM TP SCH ×2 (09:13→21:00)
[2023-08-06] MEDS: levETIRAcetam 500 MG/5 ML LIQUID UDC GT SCH ×2 (09:13→21:00)
[2023-08-06] MEDS: QUETIAPINE FUMARATE 25 MG TABLET GT SCH ×3 (09:13→17:00)
[2023-08-06] MEDS: POTASSIUM CHLORIDE 40 MEQ/30 ML LIQUID UDC GT SCH (09:13)
[2023-08-06 20:00] VITALS: TEMP 98.1
[2023-08-06] MEDS: MULTIVITAMINS,THERAPEUTIC TABLET GT SCH (21:00)
[2023-08-07] MEDS: ALBUTEROL SULFATE 2.5 MG/3 ML NEBU NEB SCH ×4 (01:54→19:16)
[2023-08-07] MEDS: IPRATROPIUM BROMIDE 0.5 MG/2.5 ML NEBU NEB SCH ×4 (01:54→19:16)
[2023-08-07] MEDS: JEVITY 1.2 1000 ML LIQUID GT PRN ×2 (02:31→22:51)
[2023-08-07] MEDS: levETIRAcetam 500 MG/5 ML LIQUID UDC GT SCH ×2 (08:33→21:54)
[2023-08-07] MEDS: QUETIAPINE FUMARATE 25 MG TABLET GT SCH ×3 (08:35→17:13)
[2023-08-07] MEDS: PROTEIN SUPPLEMENT (PROSTAT) 30 ML LIQUID GT SCH ×2 (08:35→21:54)
[2023-08-07] MEDS: REMEDY ESSENTIAL ZINC PASTE 113 GM TP SCH ×2 (08:36→21:54)
[2023-08-07] MEDS: CHLORHEXIDINE GLUCONATE 15 ML MOUTHWASH MM SCH ×2 (08:36→21:54)
[2023-08-07] MEDS: POTASSIUM CHLORIDE 40 MEQ/30 ML LIQUID UDC GT SCH (10:10)
[2023-08-07 13:30] VITALS: O2SAT 98
[2023-08-07 18:00] VITALS: TEMP 97
[2023-08-07 20:07] VITALS: TEMP 98.5
[2023-08-07] MEDS: MULTIVITAMINS,THERAPEUTIC TABLET GT SCH (21:54)
[2023-08-08] MEDS: IPRATROPIUM BROMIDE 0.5 MG/2.5 ML NEBU NEB SCH ×4 (00:40→19:18)
[2023-08-08] MEDS: ALBUTEROL SULFATE 2.5 MG/3 ML NEBU NEB SCH ×4 (00:40→19:18)
[2023-08-08 08:27] VITALS: BP 130/83; TEMP 97.6; O2SAT 100
[2023-08-08] MEDS: REMEDY ESSENTIAL ZINC PASTE 113 GM TP SCH ×2 (09:00→21:09)
[2023-08-08] MEDS: levETIRAcetam 500 MG/5 ML LIQUID UDC GT SCH ×2 (09:00→21:09)
[2023-08-08] MEDS: POTASSIUM CHLORIDE 40 MEQ/30 ML LIQUID UDC GT SCH (09:00)
[2023-08-08] MEDS: QUETIAPINE FUMARATE 25 MG TABLET GT SCH ×3 (09:00→17:35)
[2023-08-08] MEDS: CHLORHEXIDINE GLUCONATE 15 ML MOUTHWASH MM SCH ×2 (09:00→21:09)
[2023-08-08] MEDS: PROTEIN SUPPLEMENT (PROSTAT) 30 ML LIQUID GT SCH ×2 (09:00→21:09)
[2023-08-08 20:37] VITALS: TEMP 97.8
[2023-08-08] MEDS: MULTIVITAMINS,THERAPEUTIC TABLET GT SCH (21:09)
[2023-08-08] MEDS: JEVITY 1.2 1000 ML LIQUID GT PRN (21:09)
[2023-08-09] MEDS: ALBUTEROL SULFATE 2.5 MG/3 ML NEBU NEB SCH ×4 (00:34→19:28)
[2023-08-09] MEDS: IPRATROPIUM BROMIDE 0.5 MG/2.5 ML NEBU NEB SCH ×4 (00:34→19:28)
[2023-08-09 07:49] VITALS: TEMP 97.5
[2023-08-09] MEDS: levETIRAcetam 500 MG/5 ML LIQUID UDC GT SCH ×2 (09:00→21:47)
[2023-08-09] MEDS: CHLORHEXIDINE GLUCONATE 15 ML MOUTHWASH MM SCH ×2 (09:00→21:47)
[2023-08-09] MEDS: REMEDY ESSENTIAL ZINC PASTE 113 GM TP SCH ×2 (09:00→21:47)
[2023-08-09] MEDS: QUETIAPINE FUMARATE 25 MG TABLET GT SCH ×3 (09:55→17:00)
[2023-08-09] MEDS: PROTEIN SUPPLEMENT (PROSTAT) 30 ML LIQUID GT SCH ×2 (09:55→21:47)
[2023-08-09] MEDS: POTASSIUM CHLORIDE 40 MEQ/30 ML LIQUID UDC GT SCH (09:59)
[2023-08-09] MEDS: JEVITY 1.2 1000 ML LIQUID GT PRN (18:49)
[2023-08-09 20:00] VITALS: TEMP 97.7
[2023-08-09 20:08] VITALS: TEMP 97.7
[2023-08-09] MEDS: MULTIVITAMINS,THERAPEUTIC TABLET GT SCH (21:47)
[2023-08-09] MEDS: ACETAMINOPHEN 650 MG/20 ML UDC- SA PATIENTS-PAIN ONLY GT PRN (21:48)
[2023-08-10] MEDS: ALBUTEROL SULFATE 2.5 MG/3 ML NEBU NEB SCH ×4 (01:14→19:06)
[2023-08-10] MEDS: IPRATROPIUM BROMIDE 0.5 MG/2.5 ML NEBU NEB SCH ×4 (01:14→19:06)
[2023-08-10 08:04] VITALS: TEMP 97.5
[2023-08-10] MEDS: CHLORHEXIDINE GLUCONATE 15 ML MOUTHWASH MM SCH ×2 (09:11→21:24)
[2023-08-10] MEDS: PROTEIN SUPPLEMENT (PROSTAT) 30 ML LIQUID GT SCH ×2 (09:11→21:24)
[2023-08-10] MEDS: REMEDY ESSENTIAL ZINC PASTE 113 GM TP SCH ×2 (09:12→21:24)
[2023-08-10] MEDS: QUETIAPINE FUMARATE 25 MG TABLET GT SCH ×3 (09:12→17:00)
[2023-08-10] MEDS: levETIRAcetam 500 MG/5 ML LIQUID UDC GT SCH ×2 (09:15→21:24)
[2023-08-10] MEDS: POTASSIUM CHLORIDE 40 MEQ/30 ML LIQUID UDC GT SCH (09:15)
[2023-08-10] MEDS: JEVITY 1.2 1000 ML LIQUID GT PRN (15:27)
[2023-08-10 20:58] VITALS: TEMP 97.8
[2023-08-10] MEDS: MULTIVITAMINS,THERAPEUTIC TABLET GT SCH (21:24)
[2023-08-11] MEDS: IPRATROPIUM BROMIDE 0.5 MG/2.5 ML NEBU NEB SCH ×4 (01:07→19:28)
[2023-08-11] MEDS: ALBUTEROL SULFATE 2.5 MG/3 ML NEBU NEB SCH ×4 (01:07→19:28)
[2023-08-11] MEDS: PROTEIN SUPPLEMENT (PROSTAT) 30 ML LIQUID GT SCH ×2 (09:00→21:48)
[2023-08-11] MEDS: QUETIAPINE FUMARATE 25 MG TABLET GT SCH ×3 (09:00→17:27)
[2023-08-11] MEDS: levETIRAcetam 500 MG/5 ML LIQUID UDC GT SCH ×2 (09:00→21:48)
[2023-08-11] MEDS: CHLORHEXIDINE GLUCONATE 15 ML MOUTHWASH MM SCH ×2 (09:00→21:50)
[2023-08-11] MEDS: REMEDY ESSENTIAL ZINC PASTE 113 GM TP SCH ×2 (09:00→21:50)
[2023-08-11] MEDS: POTASSIUM CHLORIDE 40 MEQ/30 ML LIQUID UDC GT SCH (09:00)
[2023-08-11 12:12] VITALS: TEMP 97.6
[2023-08-11] MEDS: JEVITY 1.2 1000 ML LIQUID GT PRN (12:51)
[2023-08-11] MEDS: MULTIVITAMINS,THERAPEUTIC TABLET GT SCH (21:48)
[2023-08-11 22:00] VITALS: TEMP 97.5
[2023-08-12] MEDS: IPRATROPIUM BROMIDE 0.5 MG/2.5 ML NEBU NEB SCH ×4 (01:27→19:10)
[2023-08-12] MEDS: ALBUTEROL SULFATE 2.5 MG/3 ML NEBU NEB SCH ×4 (01:27→19:10)
[2023-08-12] MEDS: JEVITY 1.2 1000 ML LIQUID GT PRN (07:11)
[2023-08-12 08:09] VITALS: TEMP 97.9
[2023-08-12] MEDS: levETIRAcetam 500 MG/5 ML LIQUID UDC GT SCH ×2 (09:45→21:00)
[2023-08-12] MEDS: PROTEIN SUPPLEMENT (PROSTAT) 30 ML LIQUID GT SCH ×2 (09:45→21:00)
[2023-08-12] MEDS: POTASSIUM CHLORIDE 40 MEQ/30 ML LIQUID UDC GT SCH (09:45)
[2023-08-12] MEDS: QUETIAPINE FUMARATE 25 MG TABLET GT SCH ×3 (09:45→17:00)
[2023-08-12] MEDS: CHLORHEXIDINE GLUCONATE 15 ML MOUTHWASH MM SCH ×2 (09:46→21:00)
[2023-08-12] MEDS: REMEDY ESSENTIAL ZINC PASTE 113 GM TP SCH ×2 (09:46→21:00)
[2023-08-12] MEDS: MULTIVITAMINS,THERAPEUTIC TABLET GT SCH (21:00)
[2023-08-12 22:47] VITALS: TEMP 97.8
[2023-08-13] MEDS: IPRATROPIUM BROMIDE 0.5 MG/2.5 ML NEBU NEB SCH ×4 (01:04→19:24)
[2023-08-13] MEDS: ALBUTEROL SULFATE 2.5 MG/3 ML NEBU NEB SCH ×4 (01:04→19:25)
[2023-08-13 07:56] VITALS: TEMP 98.7
[2023-08-13] MEDS: PROTEIN SUPPLEMENT (PROSTAT) 30 ML LIQUID GT SCH ×2 (08:33→21:00)
[2023-08-13] MEDS: CHLORHEXIDINE GLUCONATE 15 ML MOUTHWASH MM SCH ×2 (08:33→21:00)
[2023-08-13] MEDS: QUETIAPINE FUMARATE 25 MG TABLET GT SCH ×3 (08:33→16:18)
[2023-08-13] MEDS: POTASSIUM CHLORIDE 40 MEQ/30 ML LIQUID UDC GT SCH (08:33)
[2023-08-13] MEDS: levETIRAcetam 500 MG/5 ML LIQUID UDC GT SCH ×2 (08:33→21:00)
[2023-08-13] MEDS: REMEDY ESSENTIAL ZINC PASTE 113 GM TP SCH ×2 (08:34→21:00)
[2023-08-13] MEDS: JEVITY 1.2 1000 ML LIQUID GT PRN (18:25)
[2023-08-13] MEDS: MULTIVITAMINS,THERAPEUTIC TABLET GT SCH (21:00)
[2023-08-13 21:02] VITALS: TEMP 98.7
[2023-08-14] MEDS: IPRATROPIUM BROMIDE 0.5 MG/2.5 ML NEBU NEB SCH (01:40)
[2023-08-14] MEDS: ALBUTEROL SULFATE 2.5 MG/3 ML NEBU NEB SCH (01:40)
== END 2023-08-12 23:59 | disposition still patient (30) | DRG 130 ==
LOC: SA 01-05 17:24 → SA1 03-08 17:58 → SA 03-11 18:36
PROVIDERS: ADMIT Internal Medicine; ATTEND Internal Medicine
PROC: 5A1955Z Respiratory Ventilation, Greater than 96 Consecutive Hours (ICD-10-PCS; principal; 2023-01-05)
PROC: 05HC33Z Insertion of Infusion Device into Left Basilic Vein, Percutaneous Approach (ICD-10-PCS; 2023-01-19)
DX: J96.21 Acute and chronic respiratory failure with hypoxia (principal); E87.0 Hyperosmolality and hypernatremia; G93.1 Anoxic brain damage, not elsewhere classified; J84.9 Interstitial pulmonary disease, unspecified; Z93.0 Tracheostomy status; J05.10 Acute epiglottitis without obstruction; E78.5 Hyperlipidemia, unspecified; J98.11 Atelectasis; R13.10 Dysphagia, unspecified; E11.9 Type 2 diabetes mellitus without complications; E87.6 Hypokalemia; G25.3 Myoclonus; H11.31 Conjunctival hemorrhage, right eye; I10 Essential (primary) hypertension; J35.1 Hypertrophy of tonsils; Z93.1 Gastrostomy status; Z99.11 Dependence on respirator [ventilator] status
CPT/HCPCS: 36415; 36600; 71045; 80164; 82803; 83605; 83735; 84100; 84443; 84520; 85025; 86580; 87040; 90686; 90732; 94002; 94003; 94640; 95819; A4663; A6209; A6213; C1758; J0692; J1580; J1650; J2185; J3370; J3480; J3490; J3590; J7050; J7060; Q0163; Q9967

== ENCOUNTER 2023-01-11 07:55 | Outpatient (CLI) | payer OTHER | END 2023-01-11 23:59 | disposition home or self-care (01) | LOC: CT 07:55 | PROVIDERS: ATTEND Internal Medicine | DX: J05.10 Acute epiglottitis without obstruction (principal); M47.813 Spondylosis without myelopathy or radiculopathy, cervicothoracic region; R50.9 Fever, unspecified; Z93.0 Tracheostomy status | CPT/HCPCS: 70487; Q9967 ==

== ENCOUNTER → 2024-02-25 | Emergency (ER) | payer OTHER | END | disposition home or self-care (01) | LOC: ER 05:10 | DX: S01.111A Laceration without foreign body of right eyelid and periocular area, initial encounter (principal); W06.XXXA Fall from bed, initial encounter; Y93.89 Activity, other specified; Y92.89 Other specified places as the place of occurrence of the external cause; Y99.8 Other external cause status | CPT/HCPCS: A4606; A4663 ==

== ENCOUNTER 2025-03-27 07:51 | Outpatient (CLI) | payer OTHER | END 2025-03-27 11:59 | disposition home or self-care (01) | LOC: CT 07:51 | PROVIDERS: ATTEND Internal Medicine | DX: N20.0 Calculus of kidney (principal) ==